=== PATIENT | female | born 1965 | race Caucasian/White ===

== ENCOUNTER 2016-06-11 00:49 | Emergency (ER) | payer MEDICAID ==
[~2016-06-11] VITALS: Ht 160 cm; Wt 94.3 kg
[~2016-06-11 00:49] MED LIST: AMIT10TA6 PO; BUDE0.5A2 IH; CEFD300C3 PO; CHLO500T2 PO; CLON0.253 PO; DICL50TA4 PO; GABA-488 PO; GLYB5TAB6 PO; HYDR-2856 PO; HYDR-3004 PO; INSU100V5 SQ; IPRA3AMP11 INH; IRON18TA PO; KETO10TA77 PO; LEVO75TA57 PO; LOVA40TA2 PO; MELO-195 PO; METF500T8 PO; METH-53 PO; NAPR-243 PO; NAPR-684 PO; NAPR220T29 PO; ORPH100T PO; OXYC-12 PO; OXYC-272 PO; PANT20TA2 PO; PRD20T PO; PRIM50TA26 PO; PROP120C36 PO; SERT25TA PO; TRM50T PO
--- OUTSIDE RECORDS SUMMARY | 2016-06-11 00:55 | XMS REPORT | Continuity of Care Document ---
Author Author [facility] Organization [facility] Address Unknown Phone Unavailable Care Team Providers Care Scooper Name Role Phone PCP Unavailable Source Comments Some departments are not documenting in the electronic medical record. If you do not see the information that you expected, contact Release of Information in the Health Information Management department at [phone] for further assistance in locating additional records.[facility] Active Allergies and Adverse Reactions Not on File Current Medications Not on file Active Problems Not on file Social History Tobacco Use Types Packs/Day Years Used Date Never Assessed Plan of Care Health Maintenance Due Date Last Done Comments Physical (Comprehensive) 1973 Exam Pertussis Vaccine 1977 Tetanus Vaccine 1983 Cervical Cancer Screening 1987 Breast Cancer Screening 2006 Influenza Vaccine 12/09/2015 Results from Last 3 Months Not on file
[2016-06-11] MEDS ORDERED: AMOX1TAB12 (01:08)
--- NOTE | 2016-06-11 01:19 | ED Neurological Problem ---
General Chief Complaint: Glucose Problems Stated Complaint: LOW BP, HIGH BS Nursing Triage Note: Patient reports awoke by family as pt was diaphorectic/pale and blood sugar elevated to 283, B/P was 80/45 and pt dizzy. Pt arrival per [facility] Nursing Sepsis Screen: No Definite Risk Source: patient, EMS, RN notes reviewed Exam Limitations: no limitations History of Present Illness Time seen by provider: 01:18 Initial Comments As above and below. Just completing 14 day course of Augmentin for a "bad" sinus infection. States her BP always runs low. 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) Allergies and Home Medications Allergies Coded Allergies: Sulfa (Sulfonamide Antibiotics) (Unverified Allergy, Unknown, 06/24/13) codeine (Unverified Allergy, Unknown, 06/24/13) vancomycin (Unverified Adverse Reaction, Mild, redness, 06/24/13) Home Medications Albuterol/Ipratropium 3 Ml Nebu #1 3 ML INH Q4H Prescribed by: JANNIE IVY on 08/07/14 2316 Amitriptyline Hcl 10 Mg Tablet 1 EACH PO HS (Reported) Amoxicillin/Potassium Clav 1 Each Tablet #8 (Reported) Clonazepam 0.25 Mg/Tab Tab.rapdis Unknown Dose PO BID (Reported) Diclofenac Potassium 50 Mg Tablet 75 MG PO BID (Reported) Gabapentin 300 Mg Capsule 800 MG PO TID (Reported) Glyburide 5 Mg Tablet 2 EACH PO BIDAC (Reported) Hydroxyzine Hcl 25 Mg Tablet 25 MG PO TID (Reported) Insulin Detemir 100 U/Ml Vial 55 U SQ BID (Reported) Levofloxacin 500 Mg Tablet #7 500 MG PO DAILY Prescribed by: AKI DECKER on 06/11/16 0339 Lovastatin 40 Mg Tablet 1 EACH PO DAILY WITH SUPPER (Reported) Metformin Hcl 500 Mg Tab.sr.24h 2 EACH PO DAILY WITH MEAL (Reported) Methocarbamol 750 Mg Tablet 1 EACH PO TID (Reported) Naproxen 500 Mg Tablet #20 1 EACH PO TID PRN PRN PRN PAIN Prescribed by: RADHA DOUGLASS on 03/24/14 1232 Naproxen Sodium 220 Mg Tablet 500 MG PO BID PRN PRN PAIN (Reported) Oxycodone Hcl/Acetaminophen 1 Each Tablet #20 1 EACH PO Q4-6H PRN PRN PRN PAIN ( Reported) Oxycodone Hcl/Acetaminophen 1 Tab Tablet #14 1-2 TAB PO Q4H PRN PRN PAIN Prescribed by: JETT CAMACHO on 11/10/14 0225 Prednisone 20 Mg Tablet 5Days 40 MG PO DAILY Prescribed by: JULIA THOMPSON on 02/01/14 1301 Prednisone 20 Mg Tab #8 40 MG PO DAILY Prescribed by: RADHA DOUGLASS on 12/07/14 2311 Primidone 50 Mg Tablet 100 MG PO AM (Reported) Primidone 50 Mg Tablet 50 MG PO 1200 (Reported) Primidone 50 Mg Tablet 100 MG PO HS (Reported) Sertraline Hcl 25 Mg Tablet 150 MG PO DAILY (Reported) Constitutional: see HPI diaphoresis dizziness Gastrointestinal: nausea Psychiatric/Neurological: See HPI All Other Systems Reviewed Negative Unless Noted: Yes (Negative excepted noted.) Past Didwxff-Hibmuz-Dibwnr Hx Patient Social History Alcohol Use: Denies Use Recreational Drug Use: No Smoking Status: Never a Smoker 2nd Hand Smoke Exposure: Yes (ALL OF LIFE, INCLUDING NOW) Recent Foreign Travel: No Contact w/Someone Who Travel: No Recent Infectious Disease Expo: No Recent Hopitalizations: No Immunizations Up To Date Date of Pneumonia Vaccine: Jul 08, 2012 Date of Influenza Vaccine: Jan 07, 2016 Seasonal Allergies Seasonal Allergies: No Surgeries HX Surgeries: Yes (BACK SURGERY, LAPAROSCOPY) Surgeries: Abdominal, Section, Hysterectomy, Oophorectomy, Orthopedic , Thyroidectomy Respiratory Hx Respiratory Disorders: Yes Respiratory Disorders: Chronic Bronchitis, COPD Cardiovascular Hx Cardiac Disorders: Yes Cardiac Disorders: 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, Hypertension Neurological Hx Neurological Disorders: Yes (TREMORS) 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 System Hx 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 Genitourinary Hx Genitourinary Disorders: Yes Genitourinary Disorders: UTI-Chronic Gastrointestinal Hx Gastrointestinal Disorders: Yes (h pylori hx) Gastrointestinal Disorders: Gastroesophageal Reflux Musculoskeletal Hx Musculoskeletal Disorders: Yes Musculoskeletal Disorders: Degenerate Disk Disease, Arthritis, Chronic Back Pain Endocrine Hx Endocrine Disorders: Yes (GRAVE'S DISEASE--S/P THYROIDECTOMY) Endocrine Disorders: Diabetes, Insulin dep, Hypothyroidsim HEENT HX ENT Disorders: No Cancer Hx Cancer: No Psychosocial Hx Psychiatric Problems: Yes Behavioral Health Disorders: Anxiety, Depression Integumentary HX Skin/Integumentary Disorder: No Blood Transfusions Hx Blood Disorders: No Adverse Reaction to a Blood Tr: No Family Medical History Significant Family History: No Pertinent Family Hx Physical Exam Vital Signs Vital Sign - Last 12Hours 06/11/16 00:49 Temp 96.6 Pulse 89 Resp 21 B/P 109/69 Pulse Ox 97 O2 Delivery Room Air Capillary Refill : Less Than 3 Seconds General Appearance: WD/WN no apparent distress obese HEENT: normal ENT inspection Neck: supple normal inspection Respiratory: no respiratory distress Cardiovascular: regular rate, rhythm Gastrointestinal: other (obese) Extremities: normal inspection Neurologic/Psychiatric: no motor/sensory deficits alert oriented x 3 Crainal Nerves: normal hearing normal speech PERRL Coordination/Gait: normal gait Motor/Sensory: no motor deficit no sensory deficit Skin: warm/dry Progress/Results/Core Measures Results/Orders Lab Results Laboratory Tests Test 06/11/16 00:58 06/11/16 02:23 Range/Units Alanine Aminotransferase (ALT/SGPT) 7 0-55 U/L Albumin 3.4 3.2-4.5 G/DL Alkaline Phosphatase 94 40-136 U/L Anion Gap 11 5-14 MMOL/L Aspartate Amino Transf (AST/SGOT) 15 5-34 U/L B-Type Natriuretic Peptide < 10.0 <100.0 PG/ML BUN/Creatinine Ratio 18 Basophils # (Auto) 0.0 0.0-0.1 10^3/uL Basophils (%) (Auto) 0 0-10 % Blood Urea Nitrogen 14 7-18 MG/DL Calcium Level 8.2 L 8.5-10.1 MG/DL Carbon Dioxide Level 20 L 21-32 MMOL/L Chloride Level 106 98-107 MMOL/L Creatinine 0.80 0.60-1.30 MG/DL Eosinophils # (Auto) 0.1 0.0-0.3 10^3/uL Eosinophils (%) (Auto) 2 0-10 % Estimat Glomerular Filtration Rate > 60 Glucose Level 214 H 70-105 MG/DL Hematocrit 42 35-52 % Hemoglobin 13.9 11.5-16.0 G/DL Lymphocytes # (Auto) 2.6 1.0-4.0 X 10^3 Lymphocytes (%) (Auto) 39 12-44 % Magnesium Level 1.9 1.8-2.4 MG/DL Mean Corpuscular Hemoglobin 32 25-34 PG Mean Corpuscular Hemoglobin Concent 33 32-36 G/DL Mean Corpuscular Volume 96 80-99 FL Mean Platelet Volume 13.3 H 7.4-10.4 FL Monocytes # (Auto) 0.8 0.0-1.0 X 10^3 Monocytes (%) (Auto) 13 H 0-12 % Neutrophils # (Auto) 3.1 1.8-7.8 X 10^3 Neutrophils (%) (Auto) 46 42-75 % Platelet Count 189 130-400 10^3/uL Potassium Level 4.0 3.6-5.0 MMOL/L Red Blood Count 4.38 4.35-5.85 10^6/uL Red Cell Distribution Width 13.6 10.0-14.5 % Sodium Level 137 135-145 MMOL/L Total Bilirubin 0.2 0.1-1.0 MG/DL Total Protein 5.7 L 6.4-8.2 G/DL Troponin I < 0.30 <0.30 NG/ML White Blood Count 6.7 4.3-11.0 10^3/uL Urine Bacteria TRACE /HPF Urine Bilirubin NEGATIVE NEGATIVE Urine Casts NONE /LPF Urine Clarity CLEAR Urine Color YELLOW Urine Crystals NONE /LPF Urine Culture Indicated YES Urine Glucose (UA) 4+ H NEGATIVE Urine Ketones NEGATIVE NEGATIVE Urine Leukocyte Esterase 2+ H NEGATIVE Urine Mucus NEGATIVE /LPF Urine Nitrite NEGATIVE NEGATIVE Urine Protein 1+ H NEGATIVE Urine RBC NONE /HPF Urine RBC (Auto) NEGATIVE NEGATIVE Urine Specific [place] 1.015 L 1.016-1.022 Urine Squamous Epithelial Cells 5-10 /HPF Urine Urobilinogen NORMAL NORMAL MG/DL Urine WBC 10-25 H /HPF Urine pH 5 5-9 My Orders Orders-AKI DECKER DO Orthostatic Vital Signs (06/11/16 01:19) Ekg Tracing (06/11/16 01:19) BNP (06/11/16 01:19) Cbc With Automated Diff (06/11/16:19) Comprehensive Metabolic Panel (06/11/16:19) Magnesium (06/11/16:19) Troponin I (06/11/16:19) Ua Culture If Indicated (06/11/16:19) Chest 1 View, Ap/Pa Only (06/11/16:19) Ns Iv 1000 Ml (Sodium Chloride 0.9%) (06/11/16 02:15) Urine Culture (06/11/16 02:23) Levofloxacin Tablet (Levaquin Tablet) (06/11/16 03:45) Medications Given in ED Current Medications Medications Dose Ordered Sig/Darren Route Start Time Stop Time Status Last Admin Dose Admin Levofloxacin 500 mg ONCE ONCE PO 06/11/16 03:45 06/11/16 03:46 DC 06/11/16 03:47 500 MG Sodium Chloride 1,000 ml @ 0 mls/hr Q0M ONCE IV 06/11/16 02:15 06/11/16 02:16 DC 06/11/16 02:24 999 MLS/HR Vital Signs/I&O Vital Sign - Last 12Hours 06/11/16 06/11/16 00:49 01:53 Temp 96.6 Pulse 89 85 87 90 Resp 21 B/P 109/69 Pulse Ox 97 O2 Delivery Room Air Blood Pressure Mean: 82 ECG Initial ECG Impression Date: Jun 11, 2016 Initial ECG Impression Time: 01:45 Initial ECG Rate: 85 Initial ECG Rhythm: Normal Sinus Initial ECG Intervals: Normal Initial ECG Impression: Normal Initial ECG Comparisson: Unchanged Departure Impression Impression: Primary Impression: UTI (urinary tract infection) Disposition: 01 HOME, SELF-CARE Condition: Improved Departure-Patient Inst. Decision time for Depature: 03:37 Referrals: COLLEEN MORILLO MD, ([facility]) (PCP) Primary Care Physician Patient Instructions: Urinary Tract Infection, Adult (DC) Add. Discharge Instructions: All discharge instructions reviewed with patient and/or family. Voiced understanding. STOP THE AUGMENTIN AND SWITCH OVER TO THE NEW ANTIBIOTIC. NEED TO CHECK WITH YOUR PCP IN 48 HOURS REGARDING YOUR URINE CULTURE TO MAKE SURE YOU ARE ON THE BEST ANTIBIOTIC. NEED TO PUSH FLUIDS. Scripts Levofloxacin (Levaquin)500 Mg [id number] Mg PO DAILY UTI #7 TAB Ref 0 Prov:AKI DECKER DO 06/11/16 AKI DECKER DO Jun 11, 2016 01:19
[2016-06-11 01:26] LABS: BASOPHILS % (AUTO) 0 % (0-10); EOSINOPHILS # (AUTO) 0.1 10^3/uL (0.0-0.3); EOSINOPHILS % (AUTO) 2 % (0-10); LYMPHOCYTES # (AUTO) 2.6 X 10^3 (1.0-4.0); LYMPHOCYTES % (AUTO) 39 % (12-44); MEAN CORPUSCULAR HEMOGLOBIN 32 PG (25-34); MEAN CORPUSCULAR HGB CONC 33 G/DL (32-36); MEAN CORPUSCULAR VOLUME 96 FL (80-99); MEAN PLATELET VOLUME 13.3 FL (7.4-10.4); MONOCYTES # (AUTO) 0.8 X 10^3 (0.0-1.0); MONOCYTES % (AUTO) 13 % (0-12); NEUTROPHILS # (AUTO) 3.1 X 10^3 (1.8-7.8); NEUTROPHILS % (AUTO) 46 % (42-75); PLATELET COUNT 189 10^3/uL (130-400); RED BLOOD COUNT 4.38 10^6/uL (4.35-5.85); RED CELL DISTRIBUTION WIDTH 13.6 % (10.0-14.5); WHITE BLOOD COUNT 6.7 10^3/uL (4.3-11.0)
[2016-06-11 01:59] LABS: ALANINE AMINOTRANSFERASE 7 U/L (0-55); ALBUMIN 3.4 G/DL (3.2-4.5); ANION GAP 11 MMOL/L (5-14); ASPARTATE AMINO TRANSFERASE 15 U/L (5-34); BILIRUBIN,TOTAL 0.2 MG/DL (0.1-1.0); BLOOD UREA NITROGEN 14 MG/DL (7-18); BUN/CREATININE RATIO 18; CALCIUM 8.2 MG/DL (8.5-10.1); CARBON DIOXIDE 20 MMOL/L (21-32); CHLORIDE 106 MMOL/L (98-107); GFR ESTIMATED > 60; GLUCOSE 214 MG/DL (70-105); MAGNESIUM 1.9 MG/DL (1.8-2.4); SODIUM 137 MMOL/L (135-145); TOTAL PROTEIN 5.7 G/DL (6.4-8.2)
[2016-06-11 02:07] LABS: TROPONIN I < 0.30 NG/ML (<0.30)
[2016-06-11] MEDS ORDERED: NS IV 1000 ML 1,000 ML IV ONE (02:15)
[2016-06-11 03:21] LABS: BILIRUBIN,URINE NEGATIVE (NEGATIVE); KETONES,URINE NEGATIVE (NEGATIVE); LEUKOCYTE ESTERASE ,URINE 2+ (NEGATIVE); NITRITE,URINE NEGATIVE (NEGATIVE); PH,URINE 5 (5-9); PROTEIN,URINE 1+ (NEGATIVE); UROBILINOGEN,URINE NORMAL (NORMAL)
[2016-06-11] MEDS ORDERED: LEVO500T2 PO (03:39)
[2016-06-11] MEDS ORDERED: LEVOFLOXACIN 500 MG TAB (LEVAQUIN) PO ONE (03:45)
[2016-06-11 03:54] VITALS: BP 102/62
--- NOTE | 2016-06-11 08:37 | Diagnostic Imaging Report ---
INDICATION: Shortness of breath. Comparison made with prior examination from 08/07/14. FINDINGS: The heart size is normal. The mediastinum is unremarkable. There is no pleural effusion or pneumothorax. There is some minimal right basilar subsegmental atelectasis and/or pneumonitis. IMPRESSION: Minimal right basilar subsegmental atelectasis and/or pneumonitis. Dictated by: Dictated on workstation # [id number]
== END 2016-06-11 03:54 | disposition home or self-care (01) ==
LOC: EDUNIT# 00:49 → ER 00:51
DX: N39.0 Urinary tract infection, site not specified (principal); E11.65 Type 2 diabetes mellitus with hyperglycemia; I10 Essential (primary) hypertension; J44.9 Chronic obstructive pulmonary disease, unspecified; Z79.84 Long term (current) use of oral hypoglycemic drugs; Z79.4 Long term (current) use of insulin; Z79.899 Other long term (current) drug therapy; Z77.22 Contact with and (suspected) exposure to environmental tobacco smoke (acute) (chronic)
CPT/HCPCS: 36415; 71010; 80053; 81000; 83735; 83880; 84484; 85025; 87088; 93005; 96360

== ENCOUNTER → 2016-06-13 | Outpatient (CLI) | payer MEDICAID ==
[~2016-06-13] MED LIST changes: +AMOX1TAB12; +LEVO500T2 PO
--- OUTSIDE RECORDS SUMMARY | 2016-06-13 12:57 | XMS REPORT | Continuity of Care Document ---
Author Author [facility] Organization [facility] Address Unknown Phone Unavailable Care Team Providers Care Garnett Mechanic Name Role Phone PCP Unavailable Source Comments Some departments are not documenting in the electronic medical record. If you do not see the information that you expected, contact Release of Information in the Health Information Management department at [phone] for further assistance in locating additional records.[facility] Active Allergies and Adverse Reactions Not on [...]
--- NOTE | 2016-06-13 13:15 | Diagnostic Imaging Report ---
PROCEDURE: CT sinuses without contrast TECHNIQUE: Multiple contiguous axial images were obtained through the sinuses without the use of intravenous contrast. Coronal and sagittal reformations were then performed. INDICATION: Chronic sinusitis, left greater than right pain. COMPARISON: None. DISCUSSION: The paranasal sinuses are well aerated. No mucosal thickening identified. The ostiomeatal units and sphenoid ostia are patent. Mild rightward nasal septal deviation. Small leftward-protruding nasal spur. The visualized orbits, intracranial contents, facial soft tissues, and mastoid air cells are unremarkable. No osseous abnormality. IMPRESSION: 1. The paranasal sinuses are well aerated. Dictated by: Dictated on workstation # [id number]
== END ==
LOC: RAD 12:54
PROVIDERS: ATTEND Otolaryngology Otolaryngology/Facial Plastic Surgery
DX: J32.1 Chronic frontal sinusitis (principal); J32.0 Chronic maxillary sinusitis; J32.4 Chronic pansinusitis
CPT/HCPCS: 70486

== ENCOUNTER 2016-10-17 21:52 | Emergency (ER) | payer MEDICARE, MEDICAID ==
[~2016-10-17] VITALS: Ht 160 cm; Wt 92.1 kg
--- OUTSIDE RECORDS SUMMARY | 2016-10-17 21:58 | XMS REPORT ---
Author Author MICHEAL MENDOZA [facility] [employer] Address Unknown Phone Unavailable Care Team Providers Care Heel Stainer Name Role Phone MICHEAL MENDOZA CP Unavailable Allergies No Known Allergies Problems Problem Type Condition Code Onset Dates Condition Status Problem Lumbago 724.2 Active Problem Essential and other specified forms of tremor 333.1 Active Problem Diabetes mellitus without mention of complication, type II or unspecified type, uncontrolled 250.02 Active Problem Chronic pain syndrome 338.4 Active Problem Contusion of toe 924.3 Active Problem Acute pharyngitis 462 Active Problem Nausea alone 787.02 Active Problem Bunion 727.1 Active Problem Pain in joint, pelvic region and thigh 719.45 Active Problem Urinary tract infection, site not specified 599.0 Active Problem Dysuria 788.1 Active Problem Anxiety state, unspecified 300.00 Active Problem Rash and other nonspecific skin eruption 782.1 Active Problem Dermatophytosis of nail 110.1 Active Problem Cellulitis and abscess of unspecified site 682.9 Active Problem Suicidal ideation V62.84 Active Problem Depressive disorder, not elsewhere classified 311 Active Problem Major depressive disorder, recurrent episode, moderate 296.32 Active Problem Generalized anxiety disorder 300.02 Active Problem Posttraumatic stress disorder 309.81 Active Problem Esophageal reflux 530.81 Active Problem Major depressive disorder, single episode, moderate 296.22 Active Problem Bipolar I disorder, most recent episode (or current) mixed, severe, specified as with psychotic behavior 296.64 Active Problem Hallux valgus (acquired) 735.0 Active Problem Diarrhea 787.91 Active Problem Other and unspecified hyperlipidemia 272.4 Active Problem Other specified disease of nail 703.8 Active Medications No Known Medications Results No Known Results Summary Purpose [employer] Submission
--- OUTSIDE RECORDS SUMMARY | 2016-10-17 21:59 | XMS REPORT ---
Author Author MICHEAL MENDOZA [facility] [employer] Address Unknown Phone Unavailable Care Team Providers Care Medical Microbiologist Name Role Phone MICHEAL MENDOZA CP Unavailable Allergies, Adverse Reactions, Alerts Substance Reaction Event Type latex Info Not Available Non Drug Allergy sulfa Info Not Available Non Drug Allergy codiene Info Not Available Non Drug Allergy penicillin Info Not Available Non Drug Allergy Problems Problem Type Condition Code Onset Dates Condition Status Assessment Encounter for dental examination Z01.20 Active Problem Lumbago 724.2 Active Problem Essential and [...] specified disease of nail 703.8 Active Medications Medication Code System Code Instructions Start Date End Date Status Dosage Primidone [facility] [address]-68 50 mg Nov 25, 2013 take 2 tablets by Oral route 2 times per day Zofran ODT [facility] [address]-28 8 mg Dec 19, 2013 1 tablet by Oral route every 8 hours PRN nausea or vomiting Lantus [facility] [address]-10 not defined Levemir FlexTouch [facility] [address]-29 100 unit/mL (3 mL) Apr 15, 2014 inject 52 Units by Subcutaneous route 2 times per day Albuterol Sulfate [facility] [address]-90 1.25 mg/3 mL August 22, 2013 inhale 6 milliliters (2.5 mg) via nebulizer by inhalation route 4 times per day PRN Gabapentin [facility] [address]-66 600 mg May 12, 2014 1 Capsule by Oral route 3 times per day tizanidine NDC 0 4 mg May 12, 2014 1 tablet by Oral route 3 times per day stop flexeril Albuterol Sulfate [facility] [address]-47 90 mcg/actuation Jan 02, 2014 2 puffs by Inhalation route every 4-6 hours as needed PRN cough or wheezing Bactroban [facility] [address]-00 2 % September 19, 2013 1 tuyet by Topical route 2 times per day for 14 day(s) levothyroxine ND 0 50 mcg Apr 15, 2014 take 1 tablet by Oral route 1 time per day Will need labs before further refills ProAir HFA [facility] [address]-73 90 mcg/actuation May 05, 2014 inhale 2 puffs by Inhalation route every 4-6 hours as needed PRN shortness of breath/ cough Ketoconazole [facility] [address]-46 2 % October 07, 2013 1 tuyet by Topical route 1 time per day Ferrous Sulfate [facility] [address]-75 325 mg (65 mg iron) Apr 15, 2014 1 tablet by Oral route 1 time per day Procedures Procedure Coding System Code Date PANORAMIC FILM SEE ALSO CODE 48960 CPT-4 D0330 Feb 18, 2015 COMP ORAL EVALUATION - NEW/EST PT CPT-4 D0150 Feb 18, 2015 Vital Signs Date/Time: Feb 18, 2015 Blood Pressure Diastolic 64 mmHg Blood Pressure Systolic 116 mmHg Cardiac Monitoring Heart Rate 98 bpm Results No Known Results Summary Purpose [employer] Submission
--- OUTSIDE RECORDS SUMMARY | 2016-10-17 22:01 | XMS REPORT | Continuity of Care Document ---
Author Author [facility] Address Unknown Phone Unavailable Allergies Active Description Code Type Severity Reaction Onset Reported/Identified Relationship to Patient Clinical Status Yes codeine Drug Allergy N/A N/A 03/22/2011 Yes Sulfa (Sulfonamide Antibiotics) Drug Allergy N/A N/A 03/22/2011 Yes vancomycin Drug Allergy N/A N/A 03/22/2011 Yes vancomycin [id number] Drug Allergy Mild redness 06/24/2013 Yes codeine [id number] Drug Allergy Unknown N/A 06/24/2013 Yes Sulfa (Sulfonamide Antibiotics) [id number] Drug Allergy Unknown N/A 06/24/2013 Yes Victoza Drug Allergy N/A N/A 08/22/2013 Medications Problems Date Dx Coded Attending Type Code Diagnosis Diagnosed By 03/08/1699 ILIA RANGEL, COLLEEN Kang (DDU) Ot Z02.71 ENCOUNTER FOR DISABILITY DETERMINATION 03/22/2011 JEFF PANTOJA APRN R 242.00 GRAVES' DISEASE (DIFFUSE TOXIC GOITER) 03/22/2011 JEFF PANTOJA APRN R 250.00 DIABETES MELLITUS POORLY CONTROLLED 03/22/2011 JEFF PANTOJA APRN R 719.41 joint pain, localized in the shoulder 03/22/2011 AIK ESCOBEDO DO 242.00 GRAVES' DISEASE (DIFFUSE TOXIC GOITER) 03/22/2011 AKI ESCOBEDO DO K 250.00 DIABETES MELLITUS POORLY CONTROLLED 03/22/2011 AKI ESCOBEDO DO 719.41 joint pain, localized in the shoulder 03/22/2011 ADAIR PHD, POLI Strauss 242.00 GRAVES' DISEASE (DIFFUSE TOXIC GOITER) 03/22/2011 ADAIR HARMAN, POLI Strauss 250.00 DIABETES MELLITUS POORLY CONTROLLED 03/22/2011 ADAIR HARMAN, POLI Strauss 719.41 joint pain, localized in the shoulder 03/22/2011 JEFF PANTOJA APRN R 242.00 GRAVES' DISEASE (DIFFUSE TOXIC GOITER) 03/22/2011 KIT SCHOOL TREASURER, JEFF R 250.00 DIABETES MELLITUS POORLY CONTROLLED 03/22/2011 KIT SCHOOL TREASURER, JEFF R 719.41 joint pain, localized in the shoulder 03/22/2011 KIT SCHOOL TREASURER, JEFF R 242.00 GRAVES' DISEASE (DIFFUSE TOXIC GOITER) 03/22/2011 KIT SCHOOL TREASURER, JEFF R 250.00 DIABETES MELLITUS POORLY CONTROLLED 03/22/2011 KIT SCHOOL TREASURER, JEFF R 719.41 joint pain, localized in the shoulder 03/22/2011 POLI BORRERO PHD 242.00 GRAVES' DISEASE (DIFFUSE TOXIC GOITER) 03/22/2011 POLI BORRERO PHD 250.00 DIABETES MELLITUS POORLY CONTROLLED 03/22/2011 POLI BORRERO PHD 719.41 joint pain, localized in the shoulder 03/22/2011 KIT CALDERONN, JEFF R 242.00 GRAVES' DISEASE (DIFFUSE TOXIC GOITER) 03/22/2011 KIT CALDERONN, JEFF R 250.00 DIABETES MELLITUS POORLY CONTROLLED 03/22/2011 KIT CASTAÑEDA, JEFF R 719.41 joint pain, localized in the shoulder 03/22/2011 KIT CALDERONN, JEFF R 242.00 GRAVES' DISEASE (DIFFUSE TOXIC GOITER) 03/22/2011 KIT CALDERONN, JEFF R 250.00 DIABETES MELLITUS POORLY CONTROLLED 03/22/2011 KIT CASTAÑEDA, JEFF R 719.41 joint pain, localized in the shoulder 03/22/2011 KIT CALDERONN, JEFF R 242.00 GRAVES' DISEASE (DIFFUSE TOXIC GOITER) 03/22/2011 KIT SCHOOL TREASURER, JEFF R 250.00 DIABETES MELLITUS POORLY CONTROLLED 03/22/2011 KIT CASTAÑEDA JEFF R 719.41 joint pain, localized in the shoulder 03/22/2011 KIT CALDERONN, JEFF R 242.00 GRAVES' DISEASE (DIFFUSE TOXIC GOITER) 03/22/2011 KIT SCHOOL TREASURER, JEFF R 250.00 DIABETES MELLITUS POORLY CONTROLLED 03/22/2011 KIT CALDERONN, JEFF R 719.41 joint pain, localized in the shoulder 03/22/2011 ALMA ROSA ECKERT APRNIA R 242.00 GRAVES' DISEASE (DIFFUSE TOXIC GOITER) 03/22/2011 ANT ECKERT APRNRICIA R 250.00 DIABETES MELLITUS POORLY CONTROLLED 03/22/2011 BABAR CASTAÑEDA MEHDI R 719.41 joint pain, localized in the shoulder 03/22/2011 KIT SCHOOL TREASURER, JEFF R 242.00 GRAVES' DISEASE (DIFFUSE TOXIC GOITER) 03/22/2011 KIT CALDERONN, JEFF R 250.00 DIABETES MELLITUS POORLY CONTROLLED 03/22/2011 KIT CALDERONN, JEFF R 719.41 joint pain, localized in the shoulder 03/22/2011 KIT CALDERONN, JEFF R 242.00 GRAVES' DISEASE (DIFFUSE TOXIC GOITER) 03/22/2011 KIT CALDERONN, JEFF R 250.00 DIABETES MELLITUS POORLY CONTROLLED 03/22/2011 KIT CASTAÑEDA JEFF R 719.41 joint pain, localized in the shoulder 03/22/2011 KAREN RANGEL, HAFSA N 242.00 GRAVES' DISEASE (DIFFUSE TOXIC GOITER) 03/22/2011 KAREN RANGEL, HAFSA N 250.00 DIABETES MELLITUS POORLY CONTROLLED 03/22/2011 HAFSA JONES MD N 719.41 joint pain, localized in the shoulder 03/22/2011 KIT CASTAÑEDA, JEFF R 242.00 GRAVES' DISEASE (DIFFUSE TOXIC GOITER) 03/22/2011 KIT CASTAÑEDA JEFF R 250.00 DIABETES MELLITUS POORLY CONTROLLED 03/22/2011 KIT CASTAÑEDA JEFF R 719.41 joint pain, localized in the shoulder 03/22/2011 URIEL CASTAÑEDA, YAZAN L 242.00 GRAVES' DISEASE (DIFFUSE TOXIC GOITER) 03/22/2011 URIEL CASTAÑEDA, YAZAN L 250.00 DIABETES MELLITUS POORLY CONTROLLED 03/22/2011 CHARLOTTEL MADDY YAZAN L 719.41 joint pain, localized in the shoulder 03/22/2011 KIT CASTAÑEDA JEFF R 242.00 GRAVES' DISEASE (DIFFUSE TOXIC GOITER) 03/22/2011 KIT CASTAÑEDA JEFF R 250.00 DIABETES MELLITUS POORLY CONTROLLED 03/22/2011 KIT CASTAÑEDA JEFF R 719.41 joint pain, localized in the shoulder 03/22/2011 KIT CASTAÑEDA JEFF R 242.00 GRAVES' DISEASE (DIFFUSE TOXIC GOITER) 03/22/2011 KIT CASTAÑEDA JEFF R 250.00 DIABETES MELLITUS POORLY CONTROLLED 03/22/2011 KIT CASTAÑEDA JEFF R 719.41 joint pain, localized in the shoulder 03/22/2011 KIT CASTAÑEDA JEFF R 242.00 GRAVES' DISEASE (DIFFUSE TOXIC GOITER) 03/22/2011 KIT SCHOOL TREASURER, JEFF R 250.00 DIABETES MELLITUS POORLY CONTROLLED 03/22/2011 KIT CASTAÑEDA, JEFF R 719.41 joint pain, localized in the shoulder 03/22/2011 ESCOBEDO DO, AKI K 242.00 GRAVES' DISEASE (DIFFUSE TOXIC GOITER) 03/22/2011 ESCOBEDO DO, AKI K 250.00 DIABETES MELLITUS POORLY CONTROLLED 03/22/2011 ESCOBEDO DO, AKI K 719.41 joint pain, localized in the shoulder 03/22/2011 KIT CASTAÑEDA JEFF R 242.00 GRAVES' DISEASE (DIFFUSE TOXIC GOITER) 03/22/2011 KIT CALDERONN JEFF R 250.00 DIABETES MELLITUS POORLY CONTROLLED 03/22/2011 KIT CASTAÑEDA JEFF R 719.41 joint pain, localized in the shoulder 03/22/2011 KAREL CIRCULATION WORKER KARLA B 242.00 GRAVES' DISEASE (DIFFUSE TOXIC GOITER) 03/22/2011 KAREL CIRCULATION WORKER KARLA B 250.00 DIABETES MELLITUS POORLY CONTROLLED 03/22/2011 KAREL CIRCULATION WORKER KARLA B 719.41 joint pain, localized in the shoulder 03/22/2011 RIAN DPM, SHANTE 242.00 GRAVES' DISEASE (DIFFUSE TOXIC GOITER) 03/22/2011 RIAN DPM, SHANTE 250.00 DIABETES MELLITUS POORLY CONTROLLED 03/22/2011 RIAN DPM, SHANTE 719.41 joint pain, localized in the shoulder 03/22/2011 JAVIER DAVID APRN J 242.00 GRAVES' DISEASE (DIFFUSE TOXIC GOITER ) 03/22/2011 JAVIER DAVID APRN J 250.00 DIABETES MELLITUS POORLY CONTROLLED 03/22/2011 JAVIER DAVID APRN J 719.41 joint pain, localized in the shoulder 03/22/2011 WALTER PANTOJA APRNINA R 242.00 GRAVES' DISEASE (DIFFUSE TOXIC GOITER) 03/22/2011 KIT CASTAÑEDA JEFF R 250.00 DIABETES MELLITUS POORLY CONTROLLED 03/22/2011 KIT CASTAÑEDA JEFF R 719.41 joint pain, localized in the shoulder 03/22/2011 KIT CASTAÑEDA JEFF R 242.00 GRAVES' DISEASE (DIFFUSE TOXIC GOITER) 03/22/2011 WALTER PANTOJA APRNINA R 250.00 DIABETES MELLITUS POORLY CONTROLLED 03/22/2011 WALTER PANTOJA APRNINA R 719.41 joint pain, localized in the shoulder 03/22/2011 JAVIER DAVID APRN 242.00 GRAVES' DISEASE (DIFFUSE TOXIC GOITER ) 03/22/2011 JAVIER DAVID APRN 250.00 DIABETES MELLITUS POORLY CONTROLLED 03/22/2011 JAVIER DAVID APRN 719.41 joint pain, localized in the shoulder 06/07/2011 KIT CASTAÑEDA, JEFF R 333.1 FAMILIAL (BENIGN ESSENTIAL) TREMOR 06/07/2011 KIT CASTAÑEDA JEFF R 338.4 CHRONIC PAIN SYNDROME 06/07/2011 EMMA ESCOBEDO DOA K 333.1 FAMILIAL (BENIGN ESSENTIAL) TREMOR 06/07/2011 AKI ESCOBEDO DO K 338.4 CHRONIC PAIN SYNDROME 06/07/2011 ADAIR PHD, POLI Strauss 333.1 FAMILIAL (BENIGN ESSENTIAL) TREMOR 06/07/2011 ADAIR HARMAN, POLI Strauss 338.4 CHRONIC PAIN SYNDROME 06/07/2011 KIT CASTAÑEDA, JEFF R 333.1 FAMILIAL (BENIGN ESSENTIAL) TREMOR 06/07/2011 KIT CASTAÑEDA, JEFF R 338.4 CHRONIC PAIN SYNDROME 06/07/2011 KIT CASTAÑEDA JEFF R 333.1 FAMILIAL (BENIGN ESSENTIAL) TREMOR 06/07/2011 KIT CASTAÑEDA, JEFF R 338.4 CHRONIC PAIN SYNDROME 06/07/2011 ADAIR HARMAN, POLI Strauss 333.1 FAMILIAL (BENIGN ESSENTIAL) TREMOR 06/07/2011 ADAIR HARMAN, POLI Strauss 338.4 CHRONIC PAIN SYNDROME 06/07/2011 KIT CALDERONN, JEFF R 333.1 FAMILIAL (BENIGN ESSENTIAL) TREMOR 06/07/2011 KIT CASTAÑEDA, JEFF R 338.4 CHRONIC PAIN SYNDROME 06/07/2011 KIT CASTAÑEDA, JEFF R 333.1 FAMILIAL (BENIGN ESSENTIAL) TREMOR 06/07/2011 KIT CASTAÑEDA, JEFF R 338.4 CHRONIC PAIN SYNDROME 06/07/2011 KIT CASTAÑEDA, JEFF R 333.1 FAMILIAL (BENIGN ESSENTIAL) TREMOR 06/07/2011 KIT CASTAÑEDA, JEFF R 338.4 CHRONIC PAIN SYNDROME 06/07/2011 KIT CASTAÑEDA, JEFF R 333.1 FAMILIAL (BENIGN ESSENTIAL) TREMOR 06/07/2011 KIT CASTAÑEDA, JEFF R 338.4 CHRONIC PAIN SYNDROME 06/07/2011 ALMA ROSA ECKERT APRNIA R 333.1 FAMILIAL (BENIGN ESSENTIAL) TREMOR 06/07/2011 MEHDI ECKERT APRN R 338.4 CHRONIC PAIN SYNDROME 06/07/2011 KIT SCHOOL TREASURER, JEFF R 333.1 FAMILIAL (BENIGN ESSENTIAL) TREMOR 06/07/2011 KIT SCHOOL TREASURER, JEFF R 338.4 CHRONIC PAIN SYNDROME 06/07/2011 KIT SCHOOL TREASURER, JEFF R 333.1 FAMILIAL (BENIGN ESSENTIAL) TREMOR 06/07/2011 KIT SCHOOL TREASURER, JEFF R 338.4 CHRONIC PAIN SYNDROME 06/07/2011 KAREN RANGEL, HAFSA N 333.1 FAMILIAL (BENIGN ESSENTIAL) TREMOR 06/07/2011 KAREN RANGEL, HAFSA N 338.4 CHRONIC PAIN SYNDROME 06/07/2011 KIT CALDERONN, JEFF R 333.1 FAMILIAL (BENIGN ESSENTIAL) TREMOR 06/07/2011 KIT SCHOOL TREASURER, JEFF R 338.4 CHRONIC PAIN SYNDROME 06/07/2011 MADSue SCHOOL TREASURER, YAZAN L 333.1 FAMILIAL (BENIGN ESSENTIAL) TREMOR 06/07/2011 MADL MADDY, YAZAN L 338.4 CHRONIC PAIN SYNDROME 06/07/2011 KIT CALDERONN, JEFF R 333.1 FAMILIAL (BENIGN ESSENTIAL) TREMOR 06/07/2011 KIT CALDERONN, JEFF R 338.4 CHRONIC PAIN SYNDROME 06/07/2011 KIT CALDERONN, JEFF R 333.1 FAMILIAL (BENIGN ESSENTIAL) TREMOR 06/07/2011 KIT SCHOOL TREASURER, JEFF R 338.4 CHRONIC PAIN SYNDROME 06/07/2011 KIT CALDERONN, JEFF R 333.1 FAMILIAL (BENIGN ESSENTIAL) TREMOR 06/07/2011 KIT CALDERONN, JEFF R 338.4 CHRONIC PAIN SYNDROME 06/07/2011 ESCOBEDO DO, AKI K 333.1 FAMILIAL (BENIGN ESSENTIAL) TREMOR 06/07/2011 ESCOBEDO DO, AKI K 338.4 CHRONIC PAIN SYNDROME 06/07/2011 KIT CALDERONN, JEFF R 333.1 FAMILIAL (BENIGN ESSENTIAL) TREMOR 06/07/2011 KIT CALDERONN, JEFF R 338.4 CHRONIC PAIN SYNDROME 06/07/2011 KAREL CIRCULATION WORKER, KARLA B 333.1 FAMILIAL (BENIGN ESSENTIAL) TREMOR 06/07/2011 KAREL CIRCULATION WORKER, KARLA B 338.4 CHRONIC PAIN SYNDROME 06/07/2011 RIAN DPM, SHANTE 333.1 FAMILIAL (BENIGN ESSENTIAL) TREMOR 06/07/2011 RIAN DPM, SHANTE 338.4 CHRONIC PAIN SYNDROME 06/07/2011 JAVIER DAVID APRN J 333.1 FAMILIAL (BENIGN ESSENTIAL) TREMOR 06/07/2011 JOANN SCHOOL TREASURER, JAVIER J 338.4 CHRONIC PAIN SYNDROME 06/07/2011 KIT SCHOOL TREASURER, JEFF R 333.1 FAMILIAL (BENIGN ESSENTIAL) TREMOR 06/07/2011 KIT SCHOOL TREASURER, JEFF R 338.4 CHRONIC PAIN SYNDROME 06/07/2011 KIT SCHOOL TREASURER, JEFF R 333.1 FAMILIAL (BENIGN ESSENTIAL) TREMOR 06/07/2011 KIT SCHOOL TREASURER, JEFF R 338.4 CHRONIC PAIN SYNDROME 06/07/2011 JOANN SCHOOL TREASURER, JAVIER J 333.1 FAMILIAL (BENIGN ESSENTIAL) TREMOR 06/07/2011 JOANN SCHOOL TREASURER, JAVIER J 338.4 CHRONIC PAIN SYNDROME 06/28/2011 KIT SCHOOL TREASURER, JEFF R 272.4 HYPERLIPIDEMIA 06/28/2011 FANNY ELLIOTT AKI K 272.4 HYPERLIPIDEMIA 06/28/2011 ADAIR HARMAN, POLI Strauss 272.4 HYPERLIPIDEMIA 06/28/2011 KIT SCHOOL TREASURER, JEFF R 272.4 HYPERLIPIDEMIA 06/28/2011 KIT SCHOOL TREASURER, JEFF R 272.4 HYPERLIPIDEMIA 06/28/2011 ADAIR HARMAN, POLI Strauss 272.4 HYPERLIPIDEMIA 06/28/2011 KIT SCHOOL TREASURER, JEFF R 272.4 HYPERLIPIDEMIA 06/28/2011 KIT SCHOOL TREASURER, JEFF R 272.4 HYPERLIPIDEMIA 06/28/2011 KIT SCHOOL TREASURER, JEFF R 272.4 HYPERLIPIDEMIA 06/28/2011 KIT SCHOOL TREASURER, JEFF R 272.4 HYPERLIPIDEMIA 06/28/2011 BABAR CASTAÑEDA, MEHDI R 272.4 HYPERLIPIDEMIA 06/28/2011 KIT SCHOOL TREASURER, JEFF R 272.4 HYPERLIPIDEMIA 06/28/2011 KIT SCHOOL TREASURER, JEFF R 272.4 HYPERLIPIDEMIA 06/28/2011 KAREN RANGEL, HAFSA N 272.4 HYPERLIPIDEMIA 06/28/2011 KIT SCHOOL TREASURER, JEFF R 272.4 HYPERLIPIDEMIA 06/28/2011 URIEL CASTAÑEDA, YAZAN L 272.4 HYPERLIPIDEMIA 06/28/2011 KIT SCHOOL TREASURER, JEFF R 272.4 HYPERLIPIDEMIA 06/28/2011 KIT SCHOOL TREASURER, JEFF R 272.4 HYPERLIPIDEMIA 06/28/2011 KIT SCHOOL TREASURER, JEFF R 272.4 HYPERLIPIDEMIA 06/28/2011 FANNY ELLIOTT, AKI K 272.4 HYPERLIPIDEMIA 06/28/2011 KIT SCHOOL TREASURER, JEFF R 272.4 HYPERLIPIDEMIA 06/28/2011 KAREL WRIGHT, KARLA B 272.4 HYPERLIPIDEMIA 06/28/2011 RIAN DPM, SHANTE 272.4 HYPERLIPIDEMIA 06/28/2011 JOANN SCHOOL TREASURER, JAVIER J 272.4 HYPERLIPIDEMIA 06/28/2011 KIT SCHOOL TREASURER, JEFF R 272.4 HYPERLIPIDEMIA 06/28/2011 KIT SCHOOL TREASURER, JEFF R 272.4 HYPERLIPIDEMIA 06/28/2011 JOANN SCHOOL TREASURER, JAVIER J 272.4 HYPERLIPIDEMIA 07/31/2011 KIT SCHOOL TREASURER, JEFF R 530.81 ESOPHAGEAL REFLUX 07/31/2011 ESCOBEDO DO, AKI K 530.81 ESOPHAGEAL REFLUX 07/31/2011 ADAIR HARMAN, POLI Strauss 530.81 ESOPHAGEAL REFLUX 07/31/2011 KIT SCHOOL TREASURER, JEFF R 530.81 ESOPHAGEAL REFLUX 07/31/2011 KIT SCHOOL TREASURER, JEFF R 530.81 ESOPHAGEAL REFLUX 07/31/2011 ADAIR HARMAN, POLI Strauss 530.81 ESOPHAGEAL REFLUX 07/31/2011 KIT SCHOOL TREASURER, JEFF R 530.81 ESOPHAGEAL REFLUX 07/31/2011 KIT SCHOOL TREASURER, JEFF R 530.81 ESOPHAGEAL REFLUX 07/31/2011 KIT SCHOOL TREASURER, JEFF R 530.81 ESOPHAGEAL REFLUX 07/31/2011 KIT SCHOOL TREASURER, JEFF R 530.81 ESOPHAGEAL REFLUX 07/31/2011 BABAR CASTAÑEDA, MEHDI R 530.81 ESOPHAGEAL REFLUX 07/31/2011 KIT SCHOOL TREASURER, JEFF R 530.81 ESOPHAGEAL REFLUX 07/31/2011 KIT SCHOOL TREASURER, JEFF R 530.81 ESOPHAGEAL REFLUX 07/31/2011 KAREN RANGEL, HAFSA Mujica 530.81 ESOPHAGEAL REFLUX 07/31/2011 KIT SCHOOL TREASURER, JEFF R 530.81 ESOPHAGEAL REFLUX 07/31/2011 URIEL CASTAÑEDA, YAZAN Rogers 530.81 ESOPHAGEAL REFLUX 07/31/2011 KIT SCHOOL TREASURER, JEFF R 530.81 ESOPHAGEAL REFLUX 07/31/2011 KIT SCHOOL TREASURER, JEFF R 530.81 ESOPHAGEAL REFLUX 07/31/2011 KIT SCHOOL TREASURER, JEFF R 530.81 ESOPHAGEAL REFLUX 07/31/2011 ESCOBEDO DO, AKI K 530.81 ESOPHAGEAL REFLUX 07/31/2011 KIT SCHOOL TREASURER, JEFF R 530.81 ESOPHAGEAL REFLUX 07/31/2011 KAREL WRIGHT, KARLA Haq 530.81 ESOPHAGEAL REFLUX 07/31/2011 RIAN DANIELS, SHANTE 530.81 ESOPHAGEAL REFLUX 07/31/2011 JOANN CASTAÑEDA, JAVIER J 530.81 ESOPHAGEAL REFLUX 07/31/2011 KIT SCHOOL TREASURER, JEFF R 530.81 ESOPHAGEAL REFLUX 07/31/2011 KIT SCHOOL TREASURER, JEFF R 530.81 ESOPHAGEAL REFLUX 07/31/2011 JOANN SCHOOL TREASURER, JAVIER J 530.81 ESOPHAGEAL REFLUX 09/19/2013 ESCOBEDO DO, AKI K 924.3 CONTUSION OF TOE 09/19/2013 ADAIR HARMAN, POLI Strauss 924.3 CONTUSION OF TOE 09/19/2013 KIT SCHOOL TREASURER, JEFF R 924.3 CONTUSION OF TOE 09/19/2013 KIT SCHOOL TREASURER, JEFF R 924.3 CONTUSION OF TOE 09/19/2013 ADAIR HARMAN, POLI Strauss 924.3 CONTUSION OF TOE 09/19/2013 KIT SCHOOL TREASURER, JEFF R 924.3 CONTUSION OF TOE 09/19/2013 KIT SCHOOL TREASURER, JEFF R 924.3 CONTUSION OF TOE 09/19/2013 KIT SCHOOL TREASURER, JEFF R 924.3 CONTUSION OF TOE 09/19/2013 KIT SCHOOL TREASURER, JEFF R 924.3 CONTUSION OF TOE 09/19/2013 BABAR CASTAÑEDA MEHDI R 924.3 CONTUSION OF TOE 09/19/2013 KIT SCHOOL TREASURER, JEFF R 924.3 CONTUSION OF TOE 09/19/2013 KIT SCHOOL TREASURER, JEFF R 924.3 CONTUSION OF TOE 09/19/2013 KAREN RANGEL, HAFSA Mujica 924.3 CONTUSION OF TOE 09/19/2013 KIT SCHOOL TREASURER, JEFF R 924.3 CONTUSION OF TOE 09/19/2013 YAZAN TREVINO APRN 924.3 CONTUSION OF TOE 09/19/2013 KIT SCHOOL TREASURER, JEFF R 924.3 CONTUSION OF TOE 09/19/2013 KIT SCHOOL TREASURER, JEFF R 924.3 CONTUSION OF TOE 09/19/2013 KIT SCHOOL TREASURER, JEFF R 924.3 CONTUSION OF TOE 09/19/2013 ESCOBEDO DO, AKI K 924.3 CONTUSION OF TOE 09/19/2013 KIT SCHOOL TREASURER, JEFF R 924.3 CONTUSION OF TOE 09/19/2013 KAREL WRIGHT, KARLA Haq 924.3 CONTUSION OF TOE 09/19/2013 RIAN DPM, SHANTE 924.3 CONTUSION OF TOE 09/19/2013 JOANN CALDERONN, JAVIER Mello 924.3 CONTUSION OF TOE 09/19/2013 KIT SCHOOL TREASURER, JEFF R 924.3 CONTUSION OF TOE 09/19/2013 WALTER PANTOJA APRNINA R 924.3 CONTUSION OF TOE 09/19/2013 JAVIER DAVID APRN 924.3 CONTUSION OF TOE 10/01/2013 ADAIR HARMAN, POLI Strauss 296.22 MO DEPRESSIVE SINGLE MODERATE 10/01/2013 ADAIR HARMAN, POLI Strauss 300.00 AN ANXIETY UNSPEC 10/01/2013 WALTER PANTOJA APRNINA R 296.22 MO DEPRESSIVE SINGLE MODERATE 10/01/2013 KIT CASTAÑEDA JEFF R 300.00 AN ANXIETY UNSPEC 10/01/2013 KIT CASTAÑEDA, JEFF R 296.22 MO DEPRESSIVE SINGLE MODERATE 10/01/2013 KIT CASTAÑEDA, JEFF R 300.00 AN ANXIETY UNSPEC 10/01/2013 ADAIR HARMAN, POLI Strauss 296.22 MO DEPRESSIVE SINGLE MODERATE 10/01/2013 ADAIR HARMAN, POLI Strauss 300.00 AN ANXIETY UNSPEC 10/01/2013 KIT CASTAÑEDA JEFF R 296.22 MO DEPRESSIVE SINGLE MODERATE 10/01/2013 KIT CASTAÑEDA JEFF R 300.00 AN ANXIETY UNSPEC 10/01/2013 KIT CASTAÑEDA JEFF R 296.22 MO DEPRESSIVE SINGLE MODERATE 10/01/2013 KIT CASTAÑEDA JEFF R 300.00 AN ANXIETY UNSPEC 10/01/2013 KIT CASTAÑEDA JEFF R 296.22 MO DEPRESSIVE SINGLE MODERATE 10/01/2013 WALTER PANTOJA APRNINA R 300.00 AN ANXIETY UNSPEC 10/01/2013 KIT CASTAÑEDA JEFF R 296.22 MO DEPRESSIVE SINGLE MODERATE 10/01/2013 KIT CASTAÑEDA JEFF R 300.00 AN ANXIETY UNSPEC 10/01/2013 ANT ECKERT APRNRICIA R 296.22 MO DEPRESSIVE SINGLE MODERATE 10/01/2013 BABAR CASTAÑEDA MEHDI R 300.00 AN ANXIETY UNSPEC 10/01/2013 KIT CASTAÑEDA JEFF R 296.22 MO DEPRESSIVE SINGLE MODERATE 10/01/2013 WALTER PANTOJA APRNINA R 300.00 AN ANXIETY UNSPEC 10/01/2013 KIT CASTAÑEDA JEFF R 296.22 MO DEPRESSIVE SINGLE MODERATE 10/01/2013 KIT CASTAÑEDA JEFF R 300.00 AN ANXIETY UNSPEC 10/01/2013 HAFSA JONES MD 296.22 MO DEPRESSIVE SINGLE MODERATE 10/01/2013 HAFSA JONES MD 300.00 AN ANXIETY UNSPEC 10/01/2013 KIT SCHOOL TREASURER, JEFF R 296.22 MO DEPRESSIVE SINGLE MODERATE 10/01/2013 KIT CASTAÑEDA, JEFF R 300.00 AN ANXIETY UNSPEC 10/01/2013 CHARLOTTEL SCHOOL TREASURER, YAZAN L 296.22 MO DEPRESSIVE SINGLE MODERATE 10/01/2013 CHARLOTTEL SCHOOL TREASURER, YAZAN L 300.00 AN ANXIETY UNSPEC 10/01/2013 KIT CALDERONN JEFF R 296.22 MO DEPRESSIVE SINGLE MODERATE 10/01/2013 KIT CASTAÑEDA JEFF R 300.00 AN ANXIETY UNSPEC 10/01/2013 KIT CALDERONN JEFF R 296.22 MO DEPRESSIVE SINGLE MODERATE 10/01/2013 KIT CASTAÑEDA JEFF R 300.00 AN ANXIETY UNSPEC 10/01/2013 KIT CASTAÑEDA JEFF R 296.22 MO DEPRESSIVE SINGLE MODERATE 10/01/2013 KIT CASTAÑEDA JEFF R 300.00 AN ANXIETY UNSPEC 10/01/2013 ESCOBEDO DO, AKI K 296.22 MO DEPRESSIVE SINGLE MODERATE 10/01/2013 ESCOBEDO DO, AKI K 300.00 AN ANXIETY UNSPEC 10/01/2013 KIT CASTAÑEDA JEFF R 296.22 MO DEPRESSIVE SINGLE MODERATE 10/01/2013 KIT CASTAÑEDA JEFF R 300.00 AN ANXIETY UNSPEC 10/01/2013 KAREL CIRCULATION WORKER, KARLA B 296.22 MO DEPRESSIVE SINGLE MODERATE 10/01/2013 KAREL CIRCULATION WORKER, KARLA B 300.00 AN ANXIETY UNSPEC 10/01/2013 RIAN DPM, SHANTE 296.22 MO DEPRESSIVE SINGLE MODERATE 10/01/2013 RIAN DPM, SHANTE 300.00 AN ANXIETY UNSPEC 10/01/2013 JAVIER DAVID APRN J 296.22 MO DEPRESSIVE SINGLE MODERATE 10/01/2013 JAVIER DAVID APRN J 300.00 AN ANXIETY UNSPEC 10/01/2013 KIT CASTAÑEDA JEFF R 296.22 MO DEPRESSIVE SINGLE MODERATE 10/01/2013 KIT CASTAÑEDA JEFF R 300.00 AN ANXIETY UNSPEC 10/01/2013 KIT CASTAÑEDA JEFF R 296.22 MO DEPRESSIVE SINGLE MODERATE 10/01/2013 KIT CASTAÑEDA JEFF R 300.00 AN ANXIETY UNSPEC 10/01/2013 JAVIER DAVID APRN J 296.22 MO DEPRESSIVE SINGLE MODERATE 10/01/2013 JAVIER DAVID APRN J 300.00 AN ANXIETY UNSPEC 10/07/2013 KIT SCHOOL TREASURER, JEFF R 110.1 DERMATOPHYTOSIS OF NAIL 10/07/2013 KIT SCHOOL TREASURER, JEFF R 599.0 URINARY TRACT INFECTION SITE NOT SPECIFIED 10/07/2013 KIT SCHOOL TREASURER, JEFF R 110.1 DERMATOPHYTOSIS OF NAIL 10/07/2013 KIT SCHOOL TREASURER, JEFF R 599.0 URINARY TRACT INFECTION SITE NOT SPECIFIED 10/07/2013 ADAIR HARMAN, POLI Strauss 110.1 DERMATOPHYTOSIS OF NAIL 10/07/2013 ADAIR HARMAN, POLI Strauss 599.0 URINARY TRACT INFECTION SITE NOT SPECIFIED 10/07/2013 KIT SCHOOL TREASURER, JEFF R 110.1 DERMATOPHYTOSIS OF NAIL 10/07/2013 KIT SCHOOL TREASURER, JEFF R 599.0 URINARY TRACT INFECTION SITE NOT SPECIFIED 10/07/2013 KIT CALDERONN, JEFF R 110.1 DERMATOPHYTOSIS OF NAIL 10/07/2013 KIT SCHOOL TREASURER, JEFF R 599.0 URINARY TRACT INFECTION SITE NOT SPECIFIED 10/07/2013 KIT CALDERONNWALTERJEFF R 110.1 DERMATOPHYTOSIS OF NAIL 10/07/2013 KIT CALDERONN, JEFF R 599.0 URINARY TRACT INFECTION SITE NOT SPECIFIED 10/07/2013 KIT CALDERONN, JEFF R 110.1 DERMATOPHYTOSIS OF NAIL 10/07/2013 KIT SCHOOL TREASURER, JEFF R 599.0 URINARY TRACT INFECTION SITE NOT SPECIFIED 10/07/2013 ANT ECKERT APRNRICIA R 110.1 DERMATOPHYTOSIS OF NAIL 10/07/2013 BABAR CALDERONN MEHDI R 599.0 URINARY TRACT INFECTION SITE NOT SPECIFIED 10/07/2013 KIT CALDERONN JEFF R 110.1 DERMATOPHYTOSIS OF NAIL 10/07/2013 KIT CALDERONN, JEFF R 599.0 URINARY TRACT INFECTION SITE NOT SPECIFIED 10/07/2013 KIT CALDERONN, JEFF R 110.1 DERMATOPHYTOSIS OF NAIL 10/07/2013 KIT SCHOOL TREASURER, JEFF R 599.0 URINARY TRACT INFECTION SITE NOT SPECIFIED 10/07/2013 HAFSA JONES MD N 110.1 DERMATOPHYTOSIS OF NAIL 10/07/2013 HAFSA JONES MD N 599.0 URINARY TRACT INFECTION SITE NOT SPECIFIED 10/07/2013 KIT CALDERONN, JEFF R 110.1 DERMATOPHYTOSIS OF NAIL 10/07/2013 KIT CALDERONN, JEFF R 599.0 URINARY TRACT INFECTION SITE NOT SPECIFIED 10/07/2013 URIEL SCHOOL TREASURER, YAZAN L 110.1 DERMATOPHYTOSIS OF NAIL 10/07/2013 YAZAN TREVINO APRN L 599.0 URINARY TRACT INFECTION SITE NOT SPECIFIED 10/07/2013 WALTER PANTOJA APRNINA R 110.1 DERMATOPHYTOSIS OF NAIL 10/07/2013 KIT CALDERONN, JEFF R 599.0 URINARY TRACT INFECTION SITE NOT SPECIFIED 10/07/2013 WALTER PANTOJA APRNINA R 110.1 DERMATOPHYTOSIS OF NAIL 10/07/2013 KIT CALDERONN, JEFF R 599.0 URINARY TRACT INFECTION SITE NOT SPECIFIED 10/07/2013 WALTER PANTOJA APRNINA R 110.1 DERMATOPHYTOSIS OF NAIL 10/07/2013 KIT CALDERONN JEFF R 599.0 URINARY TRACT INFECTION SITE NOT SPECIFIED 10/07/2013 ESCOBEDO DO, AKI K 110.1 DERMATOPHYTOSIS OF NAIL 10/07/2013 ESCOBEDO DO, AKI K 599.0 URINARY TRACT INFECTION SITE NOT SPECIFIED 10/07/2013 WALTER PANTOJA APRNINA R 110.1 DERMATOPHYTOSIS OF NAIL 10/07/2013 WALTER PANTOJA APRNINA R 599.0 URINARY TRACT INFECTION SITE NOT SPECIFIED 10/07/2013 KAREL CIRCULATION WORKER, KARLA B 110.1 DERMATOPHYTOSIS OF NAIL 10/07/2013 KAREL CIRCULATION WORKER, KARLA B 599.0 URINARY TRACT INFECTION SITE NOT SPECIFIED 10/07/2013 RIAN DPM, SHANTE 110.1 DERMATOPHYTOSIS OF NAIL 10/07/2013 RIAN DPM, SHANTE 599.0 URINARY TRACT INFECTION SITE NOT SPECIFIED 10/07/2013 JAVIER DAVID APRN J 110.1 DERMATOPHYTOSIS OF NAIL 10/07/2013 JAVIER DAVID APRN J 599.0 URINARY TRACT INFECTION SITE NOT SPECIFIED 10/07/2013 JEFF PANTOJA APRN R 110.1 DERMATOPHYTOSIS OF NAIL 10/07/2013 WALTER PANTOJA APRNINA R 599.0 URINARY TRACT INFECTION SITE NOT SPECIFIED 10/07/2013 JEFF PANTOJA APRN R 110.1 DERMATOPHYTOSIS OF NAIL 10/07/2013 WALTER PANTOJA APRNINA R 599.0 URINARY TRACT INFECTION SITE NOT SPECIFIED 10/07/2013 JAVIER DAVID APRN J 110.1 DERMATOPHYTOSIS OF NAIL 10/07/2013 JOANN CASTAÑEDA JAVIER J 599.0 URINARY TRACT INFECTION SITE NOT SPECIFIED 11/14/2013 ADAIR PHD, POLI Strauss 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 11/14/2013 POLI BORRERO PHD 300.02 AN GEN ANXIETY 11/14/2013 KIT CASTAÑEDA, JEFF R 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 11/14/2013 KIT CASTAÑEDA, JEFF R 300.02 AN GEN ANXIETY 11/14/2013 KIT CASTAÑEDA JEFF R 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 11/14/2013 KIT CASTAÑEDA, JEFF R 300.02 AN GEN ANXIETY 11/14/2013 KIT CASTAÑEDA, JEFF R 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 11/14/2013 KIT CASTAÑEDA, JEFF R 300.02 AN GEN ANXIETY 11/14/2013 KIT CASTAÑEDA, JEFF R 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 11/14/2013 KIT CASTAÑEDA, JEFF R 300.02 AN GEN ANXIETY 11/14/2013 BABAR CASTAÑEDA MEHDI R 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 11/14/2013 BABAR CASTAÑEDA MEHDI R 300.02 AN GEN ANXIETY 11/14/2013 KIT CASTAÑEDA, JEFF R 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 11/14/2013 KIT CASTAÑEDA JEFF R 300.02 AN GEN ANXIETY 11/14/2013 KIT CASTAÑEDA JEFF R 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 11/14/2013 KIT CASTAÑEDA JEFF R 300.02 AN GEN ANXIETY 11/14/2013 HAFSA JONES MD 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 11/14/2013 HAFSA JONES MD 300.02 AN GEN ANXIETY 11/14/2013 KIT CASTAÑEDA JEFF R 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 11/14/2013 KIT CASTAÑEDA, JEFF R 300.02 AN GEN ANXIETY 11/14/2013 ISSA TREVINO APRNA L 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 11/14/2013 YAZAN TREVINO APRN L 300.02 AN GEN ANXIETY 11/14/2013 KIT CASTAÑEDA JEFF R 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 11/14/2013 KIT CASTAÑEDA JEFF R 300.02 AN GEN ANXIETY 11/14/2013 KIT CASTAÑEDA JEFF R 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 11/14/2013 KIT CASTAÑEDA JEFF R 300.02 AN GEN ANXIETY 11/14/2013 KIT CASTAÑEDA JEFF R 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 11/14/2013 KIT CASTAÑEDA, JEFF R 300.02 AN GEN ANXIETY 11/14/2013 ESCOBEDO DO, AKI K 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 11/14/2013 ESCOBEDO DO, AKI K 300.02 AN GEN ANXIETY 11/14/2013 KIT CASTAÑEDA JEFF R 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 11/14/2013 KIT CASTAÑEDA JEFF R 300.02 AN GEN ANXIETY 11/14/2013 KAREL CIRCULATION WORKER, KARLA B 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 11/14/2013 KAREL CIRCULATION WORKER, KARLA B 300.02 AN GEN ANXIETY 11/14/2013 RIAN DPM, SHANTE 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 11/14/2013 RIAN DPM, SHANTE 300.02 AN GEN ANXIETY 11/14/2013 JAVIER DAVID APRN J 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 11/14/2013 JAVIER DAVID APRN J 300.02 AN GEN ANXIETY 11/14/2013 KIT CASTAÑEDA JEFF R 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 11/14/2013 KIT CASTAÑEDA JEFF R 300.02 AN GEN ANXIETY 11/14/2013 KIT CASTAÑEDA JEFF R 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 11/14/2013 KIT CASTAÑEDA JEFF R 300.02 AN GEN ANXIETY 11/14/2013 OJ DAVID APRNA J 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 11/14/2013 JAVIER DAVID APRN J 300.02 AN GEN ANXIETY 12/10/2013 WALTER PANTOJA APRNINA R 788.1 DYSURIA 12/10/2013 WALTER PANTOJA APRNINA R 788.1 DYSURIA 12/10/2013 MEHDI ECKERT APRN R 788.1 DYSURIA 12/10/2013 WALTER PANTOJA APRNINA R 788.1 DYSURIA 12/10/2013 KIT CASTAÑEDA JEFF R 788.1 DYSURIA 12/10/2013 HAFSA JONES MD 788.1 DYSURIA 12/10/2013 JEFF PANTOJA APRN R 788.1 DYSURIA 12/10/2013 YAZAN TREVINO APRN 788.1 DYSURIA 12/10/2013 KIT SCHOOL TREASURER, EJFF R 788.1 DYSURIA 12/10/2013 KIT SCHOOL TREASURER, JEFF R 788.1 DYSURIA 12/10/2013 KIT SCHOOL TREASURER, JEFF R 788.1 DYSURIA 12/10/2013 ESCOBEDO EMMA ELLIOTTA K 788.1 DYSURIA 12/10/2013 KIT SCHOOL TREASURER, JEFF R 788.1 DYSURIA 12/10/2013 KARLA VINSON LCPC 788.1 DYSURIA 12/10/2013 SHANTE JOSHI DPM 788.1 DYSURIA 12/10/2013 JAVIER DAVID APRN 788.1 DYSURIA 12/10/2013 KIT SCHOOL TREASURER, JEFF R 788.1 DYSURIA 12/10/2013 KIT SCHOOL TREASURER, JEFF R 788.1 DYSURIA 12/10/2013 JAVIER DAVID APRN 788.1 DYSURIA 12/19/2013 MEHDI ECKERT APRN 787.02 NAUSEA ALONE 12/19/2013 KIT CASTAÑEDA JEFF R 787.02 NAUSEA ALONE 12/19/2013 KIT CASTAÑEDA JEFF R 787.02 NAUSEA ALONE 12/19/2013 HAFSA JONES MD 787.02 NAUSEA ALONE 12/19/2013 KIT CASTAÑEDA, JFEF R 787.02 NAUSEA ALONE 12/19/2013 YAZAN TREVINO APRN 787.02 NAUSEA ALONE 12/19/2013 KIT CASTAÑEDA, JEFF R 787.02 NAUSEA ALONE 12/19/2013 KIT CASTAÑEDA JEFF R 787.02 NAUSEA ALONE 12/19/2013 KIT CASTAÑEDA JEFF R 787.02 NAUSEA ALONE 12/19/2013 EMMA ESCOBEDO DOA K 787.02 NAUSEA ALONE 12/19/2013 KIT CASTAÑEDA, JEFF R 787.02 NAUSEA ALONE 12/19/2013 KARLA VINSON LCPC 787.02 NAUSEA ALONE 12/19/2013 SHANTE JOSHI DPM 787.02 NAUSEA ALONE 12/19/2013 JAVIER DAVID APRN 787.02 NAUSEA ALONE 12/19/2013 WALTER PANTOJA APRNINA R 787.02 NAUSEA ALONE 12/19/2013 KIT CASTAÑEDA JEFF R 787.02 NAUSEA ALONE 12/19/2013 JAVIER DAVID APRN 787.02 NAUSEA ALONE 12/24/2013 KIT SCHOOL TREASURER, JEFF R 787.91 DIARRHEA 12/24/2013 KIT SCHOOL TREASURER, JEFF R 787.91 DIARRHEA 12/24/2013 HAFSA JONES MD 787.91 DIARRHEA 12/24/2013 KIT SCHOOL TREASURER, JEFF R 787.91 DIARRHEA 12/24/2013 YAZAN TREVINO APRN 787.91 DIARRHEA 12/24/2013 KIT SCHOOL TREASURER, JEFF R 787.91 DIARRHEA 12/24/2013 KIT SCHOOL TREASURER, JEFF R 787.91 DIARRHEA 12/24/2013 KIT SCHOOL TREASURER, JEFF R 787.91 DIARRHEA 12/24/2013 AKI ESCOBEDO DO K 787.91 DIARRHEA 12/24/2013 KIT SCHOOL TREASURER, JEFF R 787.91 DIARRHEA 12/24/2013 KARLA VINSON LCPC 787.91 DIARRHEA 12/24/2013 RIAN DPM, SHANTE 787.91 DIARRHEA 12/24/2013 JAVIER DAVID APRN 787.91 DIARRHEA 12/24/2013 KIT SCHOOL TREASURER, JEFF R 787.91 DIARRHEA 12/24/2013 KIT SCHOOL TREASURER, JEFF R 787.91 DIARRHEA 12/24/2013 JAVIER DAVID APRN 787.91 DIARRHEA 01/02/2014 HAFSA JONES MD 682.9 CELLULITIS AND ABSCESS OF UNSPECIFIED SITES 01/02/2014 KIT SCHOOL TREASURER, JEFF R 682.9 CELLULITIS AND ABSCESS OF UNSPECIFIED SITES 01/02/2014 YAZAN TREVINO APRN 682.9 CELLULITIS AND ABSCESS OF UNSPECIFIED SITES 01/02/2014 KIT SCHOOL TREASURER, JEFF R 682.9 CELLULITIS AND ABSCESS OF UNSPECIFIED SITES 01/02/2014 KIT SCHOOL TREASURER, JEFF R 682.9 CELLULITIS AND ABSCESS OF UNSPECIFIED SITES 01/02/2014 KIT SCHOOL TREASURER, JEFF R 682.9 CELLULITIS AND ABSCESS OF UNSPECIFIED SITES 01/02/2014 AKI ESCOBEDO DO K 682.9 CELLULITIS AND ABSCESS OF UNSPECIFIED SITES 01/02/2014 KIT CALDERONN, JEFF R 682.9 CELLULITIS AND ABSCESS OF UNSPECIFIED SITES 01/02/2014 KAREL WRIGHT, KARLA B 682.9 CELLULITIS AND ABSCESS OF UNSPECIFIED SITES 01/02/2014 RIAN DPM, SHANTE 682.9 CELLULITIS AND ABSCESS OF UNSPECIFIED SITES 01/02/2014 JAVIER DAVID APRN J 682.9 CELLULITIS AND ABSCESS OF UNSPECIFIED SITES 01/02/2014 KIT CASTAÑEDA JEFF R 682.9 CELLULITIS AND ABSCESS OF UNSPECIFIED SITES 01/02/2014 KIT CASTAÑEDA JEFF R 682.9 CELLULITIS AND ABSCESS OF UNSPECIFIED SITES 01/02/2014 JAVIER DAVID APRN J 682.9 CELLULITIS AND ABSCESS OF UNSPECIFIED SITES 01/16/2014 KIT CASTAÑEDA JEFF R 719.45 PAIN IN JOINT INVOLVING PELVIC REGION AND THIGH 01/16/2014 KIT CASTAÑEDA JEFF R 727.1 BUNION 01/16/2014 ISSA TREVINO APRNA L 719.45 PAIN IN JOINT INVOLVING PELVIC REGION AND THIGH 01/16/2014 LAUREN TREVINO APRNWNYA L 727.1 BUNION 01/16/2014 KIT CASTAÑEDA JEFF R 719.45 PAIN IN JOINT INVOLVING PELVIC REGION AND THIGH 01/16/2014 KIT CASTAÑEDA JEFF R 727.1 BUNION 01/16/2014 KIT CASTAÑEDA JEFF R 719.45 PAIN IN JOINT INVOLVING PELVIC REGION AND THIGH 01/16/2014 KIT CASTAÑEDA JEFF R 727.1 BUNION 01/16/2014 KIT CASTAÑEDA JEFF R 719.45 PAIN IN JOINT INVOLVING PELVIC REGION AND THIGH 01/16/2014 KIT CASTAÑEDA JEFF R 727.1 BUNION 01/16/2014 ESCOBEDO DO, AKI K 719.45 PAIN IN JOINT INVOLVING PELVIC REGION AND THIGH 01/16/2014 ESCOBEDO DO, AKI K 727.1 BUNION 01/16/2014 KIT CASTAÑEDA JEFF R 719.45 PAIN IN JOINT INVOLVING PELVIC REGION AND THIGH 01/16/2014 KIT CASTAÑEDA JEFF R 727.1 BUNION 01/16/2014 KAREL WRIGHT, KARLA B 719.45 PAIN IN JOINT INVOLVING PELVIC REGION AND THIGH 01/16/2014 KAREL WRIGHT, KARLA B 727.1 BUNION 01/16/2014 RIAN DPM, SHANTE 719.45 PAIN IN JOINT INVOLVING PELVIC REGION AND THIGH 01/16/2014 RIAN DPM, SHANTE 727.1 BUNION 01/16/2014 JAVIER DAVID APRN 719.45 PAIN IN JOINT INVOLVING PELVIC REGION AND THIGH 01/16/2014 JAVIER DAVID APRN 727.1 BUNION 01/16/2014 JEFF PANTOJA APRN R 719.45 PAIN IN JOINT INVOLVING PELVIC REGION AND THIGH 01/16/2014 JEFF PANTOJA APRN R 727.1 BUNION 01/16/2014 JEFF PANTOJA APRN R 719.45 PAIN IN JOINT INVOLVING PELVIC REGION AND THIGH 01/16/2014 JEFF PANTOJA APRN R 727.1 BUNION 01/16/2014 JAVIER DAVID APRN 719.45 PAIN IN JOINT INVOLVING PELVIC REGION AND THIGH 01/16/2014 JAVIER DAVID APRN 727.1 BUNION 02/01/2014 JULIA THOMPSON APRN Ot 724.4 LUMBOSACRAL NEURITIS NOS 02/01/2014 JULIA THOMPSON APRN Ot 724.5 BACKACHE NOS 02/03/2014 YAZAN TREVINO APRN 462 ACUTE PHARYNGITIS 02/03/2014 WALTER PANTOJA APRNINA R 462 ACUTE PHARYNGITIS 02/03/2014 WALTER PANTOJA APRNINA R 462 ACUTE PHARYNGITIS 02/03/2014 WALTER PANTOJA APRNINA R 462 ACUTE PHARYNGITIS 02/03/2014 AKI ESCOBEDO DO K 462 ACUTE PHARYNGITIS 02/03/2014 WALTER PANTOJA APRNINA R 462 ACUTE PHARYNGITIS 02/03/2014 KARLA VINSON LCPC B 462 ACUTE PHARYNGITIS 02/03/2014 RIAN DPM, SHANTE 462 ACUTE PHARYNGITIS 02/03/2014 JAVIER DAVID APRN 462 ACUTE PHARYNGITIS 02/03/2014 JEFF PANTOJA APRN R 462 ACUTE PHARYNGITIS 02/03/2014 WALTER PANTOJA APRNINA R 462 ACUTE PHARYNGITIS 02/03/2014 JAVIER DAVID APRN 462 ACUTE PHARYNGITIS 02/06/2014 JEFF PANTOJA APRN R 724.2 LUMBAGO 02/06/2014 KIT SCHOOL TREASURER, JEFF R 724.2 LUMBAGO 02/06/2014 KIT CASTAÑEDA, JEFF R 724.2 LUMBAGO 02/06/2014 ESCOBEDO AKI ELLIOTT K 724.2 LUMBAGO 02/06/2014 KIT CASTAÑEDA, JEFF R 724.2 LUMBAGO 02/06/2014 KAREL WRIGHT, KARLA B 724.2 LUMBAGO 02/06/2014 RIAN DPM, SHANTE 724.2 LUMBAGO 02/06/2014 OJ DAVID APRNA J 724.2 LUMBAGO 02/06/2014 KIT CASTAÑEDA, JEFF R 724.2 LUMBAGO 02/06/2014 KIT CASTAÑEDA, JEFF R 724.2 LUMBAGO 02/06/2014 JAVIER DAVID APRN J 724.2 LUMBAGO 02/18/2014 PRASANTH RANGEL, RK M Ot 724.5 02/18/2014 PRASANTH RANGEL, JABARIKI M Ot 729.5 02/18/2014 PRASANTH RANGEL, RK M Ot 724.5 02/18/2014 PRASANTH RANGEL, MEKKI M Ot 729.5 02/26/2014 PRASANTH RANGEL, MEKKI M Ot 724.5 02/26/2014 PRASANTH RANGEL, MEKKI M Ot 729.5 03/18/2014 WALTER PANTOJA APRNINA R 311 DEPRESSIVE DISORDER NOT ELSEWHERE CLASSIFIED 03/18/2014 WALTER PANTOJA APRNINA R V62.84 SUICIDAL IDEATION 03/18/2014 KAREL WRIGHT, KARLA B 311 DEPRESSIVE DISORDER NOT ELSEWHERE CLASSIFIED 03/18/2014 KAREL WRIGHT, KARLA B V62.84 SUICIDAL IDEATION 03/18/2014 RIAN DPM, SHANTE 311 DEPRESSIVE DISORDER NOT ELSEWHERE CLASSIFIED 03/18/2014 RIAN DPM, SHANTE V62.84 SUICIDAL IDEATION 03/18/2014 JAVIER DAVID APRN J 311 DEPRESSIVE DISORDER NOT ELSEWHERE CLASSIFIED 03/18/2014 JAVIER DAVID APRN J V62.84 SUICIDAL IDEATION 03/18/2014 WALTER PANTOJA APRNINA R 311 DEPRESSIVE DISORDER NOT ELSEWHERE CLASSIFIED 03/18/2014 WALTER PANTOJA APRNINA R V62.84 SUICIDAL IDEATION 03/18/2014 WALTER PANTOJA APRNINA R 311 DEPRESSIVE DISORDER NOT ELSEWHERE CLASSIFIED 03/18/2014 WALTER PANTOJA APRNINA R V62.84 SUICIDAL IDEATION 03/18/2014 JAVIER DAVID APRN 311 DEPRESSIVE DISORDER NOT ELSEWHERE CLASSIFIED 03/18/2014 JAVIER DAVID APRN V62.84 SUICIDAL IDEATION 03/24/2014 RADHA ARECHIGA L Ot 724.2 LUMBAGO 03/24/2014 RADHA ARECHIGA L Ot 724.4 LUMBOSACRAL NEURITIS NOS 03/27/2014 RIAN DPM, SHANTE 703.8 ONYCHOCRYPTOSIS 03/27/2014 RIAN DPM, SHANTE 735.0 HALLUX VALGUS (ACQUIRED) 03/27/2014 JAVIER DAVID APRN 703.8 ONYCHOCRYPTOSIS 03/27/2014 JAVIER DAVID APRN 735.0 HALLUX VALGUS (ACQUIRED) 03/27/2014 KIT CASTAÑEDA JEFF R 703.8 ONYCHOCRYPTOSIS 03/27/2014 WALTER PANTOJA APRNINA R 735.0 HALLUX VALGUS (ACQUIRED) 03/27/2014 WALTER PANTOJA APRNINA R 703.8 ONYCHOCRYPTOSIS 03/27/2014 KIT CASTAÑEDA JEFF R 735.0 HALLUX VALGUS (ACQUIRED) 03/27/2014 JAVIER DAVID APRN 703.8 ONYCHOCRYPTOSIS 03/27/2014 JAVIER DAVID APRN 735.0 HALLUX VALGUS (ACQUIRED) 03/31/2014 JAVIER DAVID APRN 296.64 MO BIPOLAR I MIXED W PSYCHOTIC BEHAVIOR 03/31/2014 JAVIER DAVID APRN 309.81 AN PTSD 03/31/2014 JEFF PANTOJA APRN R 296.64 MO BIPOLAR I MIXED W PSYCHOTIC BEHAVIOR 03/31/2014 WALTER PANTOJA APRNINA R 309.81 AN PTSD 03/31/2014 WALTER PANTOJA APRNINA R 296.64 MO BIPOLAR I MIXED W PSYCHOTIC BEHAVIOR 03/31/2014 JEFF PANTOJA APRN R 309.81 AN PTSD 03/31/2014 JAVIER DAVID APRN J 296.64 MO BIPOLAR I MIXED W PSYCHOTIC BEHAVIOR 03/31/2014 JAVIER DAVID APRN 309.81 AN PTSD 04/21/2014 PRASANTH RANGEL, RK Correa Ot 724.5 04/21/2014 RK RADER MD Ot 729.5 04/23/2014 JAVIER DAVID APRN 250.02 DIABETES II UNCONTROLLED ( UNCOMPLICATED) 04/28/2014 TONI TIPTON MD, Ot 724.2 04/28/2014 TONI TIPTON MD, Ot V57.1 05/01/2014 TONI TIPTON MD, Ot 724.2 05/01/2014 TONI TIPTON MD, Ot V57.1 05/08/2014 TONI TIPTON MD, Ot 724.2 05/08/2014 TONI TIPTON MD, Ot V57.1 05/08/2014 TONI TIPTON MD, Ot 724.2 05/08/2014 TONI TIPTON MD, Ot V57.1 05/18/2014 TONI TIPTON MD, Ot 724.2 05/18/2014 TONI TIPTON MD Ot V57.1 05/18/2014 TONI TIPTON MD Ot 724.2 05/18/2014 TONI TIPTON MD, Ot V57.1 05/18/2014 TONI TIPTON MD, Ot 724.2 05/18/2014 TONI TIPTON MD Ot V57.1 05/26/2014 TONI TIPTON MD Ot 724.2 05/26/2014 TONI TIPTON MD Ot V57.1 05/29/2014 TONI TIPTON MD Ot 724.2 LUMBAGO 05/29/2014 TONI TIPTON MD Ot V57.1 PHYSICAL THERAPY NEC 06/25/2014 TAMMI LOPEZ MD Ot 250.00 DIAB SATURNINO WO COMPL, TYPE II OR UNSPEC TY 06/25/2014 TAMMI LOPEZ MD Ot 346.90 MIGRAINE UNSPECIFIED W/O INTRACT MGRN W06/25/2014 TAMMI LOPEZ MD Ot 780.09 OTHER ALTERATION OF CONSCIOUSNESS 06/25/2014 TAMMI LOPEZ MD Ot V58.67 LONG-TERM (CURRENT) USE OF INSULIN 07/03/2014 TONI TIPTON MD Ot 278.00 OBESITY, NOS 07/03/2014 TONI TIPTON MD Ot 721.3 LUMBOSACRAL SPONDYLOSIS 07/03/2014 TONI TIPTON MD Ot 722.52 LUMB/LUMBOSAC DISC DEGEN 07/03/2014 TONI TIPTON MD Ot 729.1 MYALGIA AND MYOSITIS NOS 07/03/2014 TONI TIPTON MD, Ot V58.69 OTH MED,LT,CURRENT USE 07/03/2014 TONI TIPTON MD Ot V85.36 BODY MASS INDEX 36.0-36.9, ADULT 07/09/2014 TAMMI LOPEZ MD Ot 250.00 07/09/2014 TAMMI LOPEZ MD Ot 346.90 07/09/2014 TAMMI LOPEZ MD Ot 780.09 07/09/2014 TAMMI LOPEZ MD Ot V58.67 08/04/2014 TONI TIPTON MD Ot 278.00 08/04/2014 TONI TITPON MD, Ot 721.3 08/04/2014 TONI TIPTON MD, Ot 729.1 08/04/2014 TONI TIPTON MD, Ot V58.69 08/04/2014 TONI TIPTON MD, Ot V85.36 08/07/2014 JANNIE IVY DO Ot 244.9 HYPOTHYROIDISM NOS 08/07/2014 JANNIE IVY DO Ot 250.00 DIAB SATURNINO WO COMPL, TYPE II OR UNSPEC TY 08/07/2014 JANNIE IVY DO Ot 491.21 OBSTR CHRONIC BRONCHITIS, W (ACUTE) EXAC 08/07/2014 JANNIE IVY DO Ot 786.2 COUGH 08/07/2014 JANNIE IVY DO Ot V58.67 LONG-TERM (CURRENT) USE OF INSULIN 08/19/2014 TONI TIPTON MD Ot 278.00 08/19/2014 TONI TIPTON MD Ot 721.3 08/19/2014 TONI TIPTON MD Ot 729.1 08/19/2014 TONI TIPTON MD Ot V58.69 08/19/2014 TONI TIPTON MD Ot V85.35 08/28/2014 TONI TIPTON MD Ot 278.00 08/28/2014 TONI TIPTON MD Ot 721.3 08/28/2014 TONI TIPTON MD Ot 729.1 08/28/2014 TONI TIPTON MD Ot V58.69 08/28/2014 TONI TIPTON MD Ot V85.35 09/21/2014 TONI TIPTON MD Ot 278.00 09/21/2014 TONI TIPTON MD Ot 721.3 09/21/2014 TONI TIPTON MD Ot 729.1 09/21/2014 TONI TIPTON MD Ot V58.69 09/21/2014 TONI TIPTON MD Ot V85.36 09/25/2014 RK RADER MD Ot 724.5 09/25/2014 RK RADER MD Ot 729.5 09/25/2014 TONI TIPTON MD Ot 278.00 09/25/2014 TONI TIPTON MD Ot 721.3 09/25/2014 TONI TIPTON MD Ot 729.1 09/25/2014 TONI TIPTON MD Ot V58.69 09/25/2014 TONI TIPTON MD Ot V85.36 09/25/2014 TONI TIPTON MD Ot 278.00 09/25/2014 TONI TIPTON MD Ot 721.3 09/25/2014 TONI TIPTON MD Ot 729.1 09/25/2014 TONI TIPTON MD Ot V58.69 09/25/2014 TONI TIPTON MD Ot V85.35 09/29/2014 TONI TIPTON MD Ot 721.3 09/29/2014 TONI TIPOTN MD Ot 733.20 10/06/2014 TONI TIPTON MD Ot 721.3 10/06/2014 TONI TIPTON MD Ot 733.20 11/10/2014 RK RADER MD Ot 724.5 11/10/2014 RK RADER MD Ot 729.5 11/10/2014 TONI TIPTON MD Ot 278.00 11/10/2014 TONI TIPTON MD Ot 721.3 11/10/2014 TONI TIPTON MD Ot 729.1 11/10/2014 TONI TIPTON MD Ot V58.69 11/10/2014 TONI TIPTON MD Ot V85.36 11/10/2014 TONI TIPTON MD Ot 278.00 11/10/2014 TONI TIPTON MD Ot 721.3 11/10/2014 TONI TIPTON MD Ot 729.1 11/10/2014 TONI TIPTON MD Ot V58.69 11/10/2014 TONI TIPOTN MD Ot V85.35 11/10/2014 TONI TIPTON MD Ot 721.3 11/10/2014 TONI TIPTON MD Ot 733.20 11/10/2014 REYNALDO RANGEL, JETT Cartagena Ot 724.02 SPINAL STENOSIS, LUMBAR REG, W/OUT NEURO 11/10/2014 REYNALDO RANGEL, JETT Cartagena Ot 724.2 LUMBAGO 11/10/2014 JETT JACOBS MD Ot 733.20 CYST OF BONE NOS 12/07/2014 RADHA ARECHIGA Ot 724.2 LUMBAGO 12/07/2014 RADHA ARECHIGA Ot 724.3 SCIATICA 09/27/2015 RK RADER MD Ot 724.5 BACKACHE NOS 09/27/2015 RK RADER MD Ot 729.5 PAIN IN LIMB 09/27/2015 TONI TIPTON MD Ot 278.00 OBESITY, NOS 09/27/2015 TONI TIPTON MD Ot 721.3 LUMBOSACRAL SPONDYLOSIS 09/27/2015 TONI TIPTON MD Ot 729.1 MYALGIA AND MYOSITIS NOS 09/27/2015 TONI TIPTON MD Ot V58.69 OTH MED,LT,CURRENT USE 09/27/2015 TONI TIPTON MD Ot V85.36 BODY MASS INDEX 36.0-36.9, ADULT 09/27/2015 TONI TIPTON MD Ot 278.00 OBESITY, NOS 09/27/2015 TONI TIPTON MD Ot 721.3 LUMBOSACRAL SPONDYLOSIS 09/27/2015 TONI TIPTON MD Ot 729.1 MYALGIA AND MYOSITIS NOS 09/27/2015 TONI TIPTON MD Ot V58.69 OTH MED,LT,CURRENT USE 09/27/2015 TONI TIPTON MD Ot V85.35 BODY MASS INDEX 35.0-35.9, ADULT 09/27/2015 TONI TIPTON MD Ot 721.3 LUMBOSACRAL SPONDYLOSIS 09/27/2015 TONI TIPTON MD Ot 733.20 CYST OF BONE NOS 10/13/2015 RK RADER MD Ot 724.5 BACKACHE NOS 10/13/2015 RK RADER MD Ot 729.5 PAIN IN LIMB 10/13/2015 TONI TIPTON MD Ot 278.00 OBESITY, NOS 10/13/2015 TONI TIPTON MD, Ot 721.3 LUMBOSACRAL SPONDYLOSIS 10/13/2015 TONI TIPTON MD Ot 729.1 MYALGIA AND MYOSITIS NOS 10/13/2015 TONI TIPTON MD, Ot V58.69 OTH MED,LT,CURRENT USE 10/13/2015 TONI TIPTON MD Ot V85.36 BODY MASS INDEX 36.0-36.9, ADULT 10/13/2015 TONI TIPTON MD Ot 278.00 OBESITY, NOS 10/13/2015 TONI TIPOTN MD, Ot 721.3 LUMBOSACRAL SPONDYLOSIS 10/13/2015 TONI TIPTON MD, Ot 729.1 MYALGIA AND MYOSITIS NOS 10/13/2015 TONI TIPTON MD, Ot V58.69 OTH MED,LT,CURRENT USE 10/13/2015 TONI TIPTON MD Ot V85.35 BODY MASS INDEX 35.0-35.9, ADULT 10/13/2015 TONI TIPTON MD Ot 721.3 LUMBOSACRAL SPONDYLOSIS 10/13/2015 TONI TIPTON MD Ot 733.20 CYST OF BONE NOS 10/13/2015 ILIA RANGEL, COLLEEN Kang (U) Ot Z02.71 ENCOUNTER FOR DISABILITY DETERMINATION 06/07/2016 RK RADER MD Ot 724.5 BACKACHE NOS 06/07/2016 RK RADER MD Ot 729.5 PAIN IN LIMB 06/07/2016 TONI TIPTON MD, Ot 278.00 OBESITY, NOS 06/07/2016 TONI TIPTON MD, Ot 721.3 LUMBOSACRAL SPONDYLOSIS 06/07/2016 TONI TIPTON MD Ot 729.1 MYALGIA AND MYOSITIS NOS 06/07/2016 TONI TIPTON MD, Ot V58.69 OTH MED,LT,CURRENT USE 06/07/2016 TONI TIPTON MD Ot V85.36 BODY MASS INDEX 36.0-36.9, ADULT 06/07/2016 TONI TIPTON MD Ot 278.00 OBESITY, NOS 06/07/2016 WHITE MD, TONI J Ot 721.3 LUMBOSACRAL SPONDYLOSIS 06/07/2016 TONI TIPTON MD, Ot 729.1 MYALGIA AND MYOSITIS NOS 06/07/2016 TONI TIPTON MD, Ot V58.69 OTH MED,LT,CURRENT USE 06/07/2016 TONI TIPTON MD Ot V85.35 BODY MASS INDEX 35.0-35.9, ADULT 06/07/2016 TONI TIPTON MD Ot 721.3 LUMBOSACRAL SPONDYLOSIS 06/07/2016 TONI TIPTON MD Ot 733.20 CYST OF BONE NOS 06/11/2016 RK RADER MD Ot 724.5 BACKACHE NOS 06/11/2016 RK RADER MD Ot 729.5 PAIN IN LIMB 06/11/2016 TONI TIPTON MD Ot 278.00 OBESITY, NOS 06/11/2016 TONI TIPTON MD, Ot 721.3 LUMBOSACRAL SPONDYLOSIS 06/11/2016 TONI TIPTON MD Ot 729.1 MYALGIA AND MYOSITIS NOS 06/11/2016 TONI TIPTON MD, Ot V58.69 OTH MED,LT,CURRENT USE 06/11/2016 TONI TIPTON MD Ot V85.36 BODY MASS INDEX 36.0-36.9, ADULT 06/11/2016 TONI TIPTON MD Ot 278.00 OBESITY, NOS 06/11/2016 TONI TIPTON MD, Ot 721.3 LUMBOSACRAL SPONDYLOSIS 06/11/2016 TONI TIPTON MD Ot 729.1 MYALGIA AND MYOSITIS NOS 06/11/2016 TONI TIPTON MD, Ot V58.69 OTH MED,LT,CURRENT USE 06/11/2016 TONI TIPTON MD Ot V85.35 BODY MASS INDEX 35.0-35.9, ADULT 06/11/2016 TONI TIPTON MD, Ot 721.3 LUMBOSACRAL SPONDYLOSIS 06/11/2016 TONI TIPTON MD, Ot 733.20 CYST OF BONE NOS 06/11/2016 AKI DECKER DO Ot E11.65 TYPE 2 DIABETES MELLITUS WITH HYPERGLYCE 06/11/2016 AKI DECKER DO Ot I10 ESSENTIAL (PRIMARY) HYPERTENSION 06/11/2016 AKI DECKER DO Ot J44.9 CHRONIC OBSTRUCTIVE PULMONARY DISEASE, U 06/11/2016 AKI DECKER DO, Ot N39.0 URINARY TRACT INFECTION, SITE NOT SPECIF 06/11/2016 AKI DECKER DO, Ot Z77.22 CNTCT W AND EXPSR TO ENVIRON TOBACCO SMO 06/11/2016 AKI DECKER DO Ot 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 06/11/2016 AKI DECKER DO Ot Z79.84 [facility] (CURRENT) USE OF ORAL HYPOGLYC 06/11/2016 AKI DECKER DO, Ot Z79.899 OTHER ELECTRIC CUTTER OPERATOR (CURRENT) DRUG THERAPY 06/11/2016 RK RADER MD Ot 724.5 BACKACHE NOS 06/11/2016 RK RADER MD Ot 729.5 PAIN IN LIMB 06/11/2016 TONI TIPTON MD Ot 278.00 OBESITY, NOS 06/11/2016 TONI TIPTON MD Ot 721.3 LUMBOSACRAL SPONDYLOSIS 06/11/2016 TONI TIPTON MD Ot 729.1 MYALGIA AND MYOSITIS NOS 06/11/2016 TONI TIPTON MD Ot V58.69 OTH MED,LT,CURRENT USE 06/11/2016 TONI TIPTON MD Ot V85.36 BODY MASS INDEX 36.0-36.9, ADULT 06/11/2016 TONI TIPTON MD Ot 278.00 OBESITY, NOS 06/11/2016 TONI TIPTON MD Ot 721.3 LUMBOSACRAL SPONDYLOSIS 06/11/2016 TONI TIPTON MD Ot 729.1 MYALGIA AND MYOSITIS NOS 06/11/2016 TONI TIPTON MD Ot V58.69 OTH MED,LT,CURRENT USE 06/11/2016 TONI TIPTON MD Ot V85.35 BODY MASS INDEX 35.0-35.9, ADULT 06/11/2016 TONI TIPTON MD Ot 721.3 LUMBOSACRAL SPONDYLOSIS 06/11/2016 TONI TIPTON MD Ot 733.20 CYST OF BONE NOS 06/13/2016 AKI DECKER DO Ot E11.65 TYPE 2 DIABETES MELLITUS WITH HYPERGLYCE 06/13/2016 AKI DECKER DO Ot I10 ESSENTIAL (PRIMARY) HYPERTENSION 06/13/2016 AKI DECKER DO, Ot J44.9 CHRONIC OBSTRUCTIVE PULMONARY DISEASE, U 06/13/2016 AKI DECKER DO, Ot N39.0 URINARY TRACT INFECTION, SITE NOT SPECIF 06/13/2016 AKI DECKER DO, Ot Z77.22 CNTCT W AND EXPSR TO ENVIRON TOBACCO SMO 06/13/2016 AKI DECKER DO, Ot 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 06/13/2016 AKI DECKER DO, Ot Z79.84 ELECTRIC CUTTER OPERATOR (CURRENT) USE OF ORAL HYPOGLYC 06/13/2016 AKI DECKER DO, Ot Z79.899 OTHER [facility] (CURRENT) DRUG THERAPY 06/15/2016 JOANNA MILLER MD Ot J32.0 CHRONIC MAXILLARY SINUSITIS 06/15/2016 JOANNA MILLER MD Ot J32.1 CHRONIC FRONTAL SINUSITIS 06/15/2016 JOANNA MILLER MD Ot 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 06/27/2016 JOANNA MILLER MD Ot J32.0 CHRONIC MAXILLARY SINUSITIS 06/27/2016 JOANNA MILLER MD Ot J32.1 CHRONIC FRONTAL SINUSITIS 06/27/2016 JOANNA MILLER MD Ot 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 Procedures Code Description Performed By Performed On [facility] [id number] MICRO ALBUMIN-IN HOUSE 08/22/2013 67534 A1C (IN-HOUSE) 78732 PSYCH DIAGNOSTIC EVALUATION 10/01/2013 49361 UA W/ CULTURE IF INDICATED 10/07/2013 40700 CULTURE URINE 06/2013 24366 PSYTX PT&/FAMILY 30 MINUTES 11/14/2013 11797 A1C (IN-HOUSE) 45645 ROUTINE VENIPUNCTURE 12/10/2013 33432 CULTURE URINE 06/2013 64619 UA W/ CULTURE IF INDICATED 12/10/2013 22972 CBC 12/10/2013 [id number] GFR CALC (RESULT ONLY) 12/10/2013 32694 CMP 12/10/2013 44196 LIPID PANEL 12/10 05361 TSH 12/10/2013 66293 OXIMETRY 2013 85962 ROUTINE VENIPUNCTURE 12/24/2013 98537 CBC 12/24/2013 [id number] GFR CALC (RESULT ONLY) 12/24/2013 54041 CMP 12/24/2013 40405 XRAY HIP RIGHT UNILATERAL MIN 2 VIEWS 01/16/2014 Podiatry Shante Joshi 02/06/2014 96405 A1C (IN-HOUSE) 86514 CULTURE URINE 01/2014 26180 UA W/ CULTURE IF INDICATED 03/18/2014 90641 PSYTX PT&/FAMILY 30 MINUTES 03/19/2014 39448 XRAY FEET, RINA ENDOCRINO Behadrian Results Test Result Range Complete blood count (CBC) with automated white blood cell (WBC) differential - 06/11/16 00:58 Blood leukocytes automated count (number/volume) 6.7 10*3/ uL 4.3-11.0 Blood erythrocytes automated count (number/volume) 4.38 10*6 /uL 4.35-5.85 Venous blood hemoglobin measurement (mass/volume) 13.9 g/dL 11.5-16.0 Blood hematocrit (volume fraction) 42 % 35-52 Automated erythrocyte mean corpuscular volume 96 [foz_us] 80-99 Automated erythrocyte mean corpuscular hemoglobin (mass per erythrocyte) 32 pg 25-34 Automated erythrocyte mean corpuscular hemoglobin concentration measurement ( mass/volume) 33 g/dL 32-36 Automated erythrocyte distribution width ratio 13.6 % 10.0-14.5 Automated blood platelet count (count/volume) 189 10*3/uL 130-400 Automated blood platelet mean volume measurement 13.3 [foz_ us] 7.4-10.4 Automated blood neutrophils/100 leukocytes 46 % 42-75 Automated blood lymphocytes/100 leukocytes 39 % 12-44 Blood monocytes/100 leukocytes 13 % 0-12 Automated blood eosinophils/100 leukocytes 2 % 0-10 Automated blood basophils/100 leukocytes 0 % 0-10 Blood neutrophils automated count (number/volume) 3.1 10*3 1.8-7.8 Blood lymphocytes automated count (number/volume) 2.6 10*3 1.0-4.0 Blood monocytes automated count (number/volume) 0.8 10*3 0.0-1.0 Automated eosinophil count 0.1 10*3/uL 0.0-0.3 Automated blood basophil count (count/volume) 0.0 10*3/uL 0.0-0.1 Comprehensive metabolic panel - 06/11/16 00:58 Serum or plasma sodium measurement (moles/volume) 137 mmol/ L 135-145 Serum or plasma potassium measurement (moles/volume) 4.0 mmol/L 3.6-5.0 Serum or plasma chloride measurement (moles/volume) 106 mmol /L 98-107 Carbon dioxide 20 mmol/L 21-32 Serum or plasma anion gap determination (moles/volume) 11 mmol/L 5-14 Serum or plasma urea nitrogen measurement (mass/volume) 14 mg/dL 7-18 Serum or plasma creatinine measurement (mass/volume) 0.80 mg /dL 0.60-1.30 Serum or plasma urea nitrogen/creatinine mass ratio 18 NRG Serum or plasma creatinine measurement with calculation of estimated glomerular filtration rate > NRG Serum or plasma glucose measurement (mass/volume) 214 mg/dL 70-105 Serum or plasma calcium measurement (mass/volume) 8.2 mg/dL 8.5-10.1 Serum or plasma total bilirubin measurement (mass/volume) 0.2 mg/dL 0.1-1.0 Serum or plasma alkaline phosphatase measurement (enzymatic activity/volume) 94 U/L 40-136 Serum or plasma aspartate aminotransferase measurement (enzymatic activity/ volume) 15 U/L 5-34 Serum or plasma alanine aminotransferase measurement (enzymatic activity/volume ) 7 U/L 0-55 Serum or plasma protein measurement (mass/volume) 5.7 g/dL 6.4-8.2 Serum or plasma albumin measurement (mass/volume) 3.4 g/dL 3.2-4.5 Magnesium - 06/11/16 00:58 Magnesium 1.9 mg/dL 1.8-2.4 Serum or plasma lithium measurement (moles/volume) - 06/11/16 00:58 BNP level < pg/mL <100.0 Serum or plasma troponin i.cardiac measurement (mass/volume) - 06/11/16 00:58 Serum or plasma troponin i.cardiac measurement (mass/volume) < ng/mL <0.30 Complete urinalysis with reflex to culture - 06/11/16 02:23 Urine color determination YELLOW NRG Urine clarity determination CLEAR NRG Urine pH measurement by test strip 5 5- 9 Specific gravity of urine by test strip 1.015 1.016-1.022 Urine protein assay by test strip, semi-quantitative 1+ NEGATIVE Urine glucose detection by automated test strip 4+ NEGATIVE Erythrocytes detection in urine sediment by light microscopy NEGATIVE NEGATIVE Urine ketones detection by automated test strip NEGATIVE NEGATIVE Urine nitrite detection by test strip NEGATIVE NEGATIVE Urine total bilirubin detection by test strip NEGATIVE NEGATIVE Urine urobilinogen measurement by automated test strip (mass/volume) NORMAL NORMAL Urine leukocyte esterase detection by dipstick 2+ NEGATIVE Automated urine sediment erythrocyte count by microscopy (number/high power field) NONE NRG Automated urine sediment leukocyte count by microscopy (number/high power field ) [HPF] NRG Bacteria detection in urine sediment by light microscopy TRACE NRG Squamous epithelial cells detection in urine sediment by light microscopy 5-10 NRG Crystals detection in urine sediment by light microscopy NONE NRG Casts detection in urine sediment by light microscopy NONE NRG Mucus detection in urine sediment by light microscopy NEGATIVE NRG Complete urinalysis with reflex to culture YES NRG Bacterial urine culture - 06/11/16 02:23 Bacterial urine culture [id number] NRG COLONY COUNT 10,000/ML - 100,000/ML NRG FTX;REPORTABLE NO FURTHER STUDIES UNLESS REQUESTED. NRG FREE TEXT ENTRY 2 SENSITIVITIES NOT USUALLY PERFORMED ON NRG FREE TEXT ENTRY 3 THIS ORGANISM. NRG Encounters ACCT No. Visit Date/Time Discharge Status Pt. Type Provider Facility Loc./Unit Complaint [id number] 05/08/2014 12:42:00 05/08/2014 23: 59:59 CLS Outpatient AKI ESCOBEDO DO [id number] 04/15/2014 14:59:00 04/15/2014 23: 59:59 CLS Outpatient JEFF PANTOJA APRN [id number] 03/31/2014 14:10:00 03/31/2014 23: 59:59 CLS Outpatient JAVIER DAVID APRN [id number] 03/31/2014 14:10:00 03/31/2014 23: 59:59 CLS Outpatient JAVIER DAVID APRN [id number] 03/27/2014 09:52:00 03/27/2014 23: 59:59 CLS Outpatient SHANTE JOSHI DPM [id number] 03/18/2014 16:30:00 03/18/2014 23: 59:59 CLS Outpatient KARLA VINSON LCPC [id number] 03/18/2014 15:05:00 03/18/2014 23: 59:59 CLS Outpatient JEFF PANTOJA APRN [id number] 03/18/2014 15:05:00 03/18/2014 23: 59:59 CLS Outpatient [employer], JEFF R [id number] 03/12/2014 09:27:00 03/12/2014 23: 59:59 CLS Outpatient AKI ESCOBEDO DO [id number] 02/17/2014 13:49:00 02/17/2014 23: 59:59 CLS Outpatient [employer], JEFF R [id number] 02/17/2014 13:49:00 02/17/2014 23: 59:59 CLS Outpatient [employer], JEFF R [id number] 02/06/2014 14:38:00 02/06/2014 23: 59:59 CLS Outpatient [employer], JEFF R [id number] 02/03/2014 14:59:00 02/03/2014 23: 59:59 CLS Outpatient [employer]AN Sue [id number] 01/16/2014 13:22:00 01/16/2014 23: 59:59 CLS Outpatient [employer], JEFF R [id number] 01/02/2014 15:52:00 01/02/2014 23: 59:59 CLS Outpatient HAFSA JONES MD [id number] 12/24/2013 10:37:00 12/24/2013 23: 59:59 CLS Outpatient [employer], JEFF R [id number] 12/19/2013 15:33:00 12/19/2013 23: 59:59 CLS Outpatient [employer], MEHDI Valle [id number] 12/10/2013 09:36:00 12/10/2013 23: 59:59 CLS Outpatient [employer], JEFF R [id number] 12/10/2013 09:36:00 12/10/2013 23: 59:59 CLS Outpatient [employer], JEFF R [id number] 11/26/2013 00:00:00 11/26/2013 23: 59:59 CLS Outpatient [employer], JEFF R [id number] 11/25/2013 10:04:00 11/25/2013 23: 59:59 CLS Outpatient [employer], JEFF R [id number] 11/25/2013 10:04:00 11/25/2013 23: 59:59 CLS Outpatient [employer], JEFF R [id number] 11/14/2013 16:29:00 11/14/2013 23: 59:59 CLS Outpatient ADAIR HARMAN, POLI Strauss [id number] 10/07/2013 09:54:00 10/07/2013 23: 59:59 CLS Outpatient JEFF PANTOJA APRN [id number] 10/07/2013 09:54:00 10/07/2013 23: 59:59 CLS Outpatient JEFF PANTOJA APRN [id number] 10/01/2013 07:56:00 10/01/2013 23: 59:59 CLS Outpatient ADAIR PHD, POLI Strauss [id number] 09/19/2013 13:36:00 09/19/2013 23: 59:59 CLS Outpatient AKI ESCOBEDO DO [id number] 08/22/2013 13:30:00 08/22/2013 23: 59:59 CLS Outpatient JEFF PANTOJA APRN
[2016-10-17] MEDS ORDERED: NS IV 1000 ML 1,000 ML IV ONE (22:14)
[2016-10-17] MEDS ORDERED: ONDANSETRON 4 MG/2 ML (SDV) Z0FRAN IVP ONE (22:15)
--- NOTE | 2016-10-17 22:35 | ED GI ---
General Chief Complaint: Abdominal/GI Problems Stated Complaint: POST OP/VOMITING History of Present Illness Time Seen By Provider: 20:10 Initial Comments Patient had an upper and lower GI scope today by Dr. José today at [facility], she was discharged at 1230 and ate a cheeseburger. Nausea and Vomiting started at 1500. She has not contacted Dr. José since the vomiting began. She tried taking water just [employer]IC[employer], then vomited. Timing/Duration: 4-6 Hours Severity/Quality: Moderate Location: Generalized Abdomen Radiation: No Radiation Activities at Onset: None Modifying Factors: Improves With Resting Associated Symptoms: Denies Symptoms (FELIPA MARTINEZ) Allergies and Home Medications Allergies Coded Allergies: Sulfa (Sulfonamide Antibiotics) (Unverified Allergy, Unknown, 06/24/13) codeine (Unverified Allergy, Unknown, 06/24/13) vancomycin (Unverified Adverse Reaction, Mild, redness, 06/24/13) Home Medications Albuterol/Ipratropium 3 Ml Nebu, 3 ML INH Q4H, #1 Prescribed by: JANNIE IVY on 08/07/14 2316 Amitriptyline Hcl 10 Mg Tablet, 1 EACH PO HS, (Reported) Clonazepam 0.25 Mg/Tab Tab.rapdis, Unknown Dose PO BID, (Reported) Diclofenac Potassium 50 Mg Tablet, 75 MG PO BID, (Reported) Gabapentin 300 Mg Capsule, 800 MG PO TID, (Reported) Glyburide 5 Mg Tablet, 2 EACH PO BIDAC, (Reported) Hydroxyzine Hcl 25 Mg Tablet, 25 MG PO TID, (Reported) Insulin Detemir 100 U/Ml Vial, 55 U SQ BID, (Reported) Lovastatin 40 Mg Tablet, 1 EACH PO DAILY WITH SUPPER, (Reported) Metformin Hcl 500 Mg Tab.sr.24h, 2 EACH PO DAILY WITH MEAL, (Reported) Methocarbamol 750 Mg Tablet, 1 EACH PO TID, (Reported) Naproxen 500 Mg Tablet, 1 EACH PO TID PRN PRN for PAIN, #20 Ref 0 Prescribed by: RADHA DOUGLASS on 03/24/14 1232 Naproxen Sodium 220 Mg Tablet, 500 MG PO BID PRN for PAIN, (Reported) Oxycodone Hcl/Acetaminophen 1 Each Tablet, 1 EACH PO Q4-6H PRN PRN for PAIN, # 20 Ref 0 (Reported) Oxycodone Hcl/Acetaminophen 1 Tab Tablet, 1-2 TAB PO Q4H PRN for PAIN, #14 Prescribed by: JETT CAMACHO on 11/10/14 0225 Prednisone 20 Mg Tablet, 40 MG PO DAILY for 5 Days Prescribed by: JULIA THOMPSON on 02/01/14 1301 Prednisone 20 Mg Tab, 40 MG PO DAILY, #8 Ref 0 Prescribed by: RADHA DOUGLASS on 12/07/14 2311 Primidone 50 Mg Tablet, 100 MG PO AM, (Reported) Primidone 50 Mg Tablet, 50 MG PO 1200, (Reported) Primidone 50 Mg Tablet, 100 MG PO HS, (Reported) Sertraline Hcl 25 Mg Tablet, 150 MG PO DAILY, (Reported) Review of Systems Constitutional: no symptoms reported, see HPI Gastrointestinal: See HPI, Nausea, Poor Appetite, Vomiting Genitourinary: No Symptoms Reported, See HPI (FELIPA MARTINEZ) All Other Systems Reviewed Negative Unless Noted: Yes (FELIPA MARTINEZ) Past Dkcgwmb-Leeeea-Hzukou Hx Patient Social History 2nd Hand Smoke Exposure: Yes (ALL OF LIFE, INCLUDING NOW) Recent Foreign Travel: No Contact w/Someone Who Travel: No Recent Hopitalizations: No (FELIPA MARTINEZ) Immunizations Up To Date Date of Pneumonia Vaccine: Jul 08, 2012 Date of Influenza Vaccine: Jan 07, 2016 (FELIPA MARTINEZ) Seasonal Allergies Seasonal Allergies: No (FELIPA MARTINEZ) Surgeries HX Surgeries: Yes (BACK SURGERY, LAPAROSCOPY) Surgeries: Abdominal, Section, Hysterectomy, Oophorectomy, Orthopedic , Thyroidectomy (FELIPA MARTINEZ) Respiratory Hx Respiratory Disorders: Yes Respiratory Disorders: Chronic Bronchitis, COPD (FELIPA MARTINEZ) Cardiovascular Hx Cardiac Disorders: Yes Cardiac Disorders: 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, Hypertension (FELIPA MARTINEZ) Neurological Hx Neurological Disorders: Yes (TREMORS) (FELIPA MARTINEZ) 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 System Hx 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 Disorders: No 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 (FELIPA MARTINEZ) Genitourinary Hx Genitourinary Disorders: Yes Genitourinary Disorders: UTI-Chronic (FELIPA MARTNIEZ) Gastrointestinal Hx Gastrointestinal Disorders: Yes (h pylori hx) Gastrointestinal Disorders: Gastroesophageal Reflux (FELIPA MARTINEZ) Musculoskeletal Hx Musculoskeletal Disorders: Yes Musculoskeletal Disorders: Degenerate Disk Disease, Arthritis, Chronic Back Pain (FELIPA MARTINEZ) Endocrine Hx Endocrine Disorders: Yes (GRAVE'S DISEASE--S/P THYROIDECTOMY) Endocrine Disorders: Diabetes, Insulin dep, Hypothyroidsim (FELIPA MARTINEZ) HEENT HX ENT Disorders: No (FELIPA MARTINEZ) Cancer Hx Cancer: No (FELIPA MARTINEZ) Psychosocial Hx Psychiatric Problems: Yes Behavioral Health Disorders: Anxiety, Depression (FELIPA MARTINEZ) Integumentary HX Skin/Integumentary Disorder: No (FELIPA MARTINEZ) Blood Transfusions Hx Blood Disorders: No Adverse Reaction to a Blood Tr: No (FELIPA MARTINEZ) Reviewed Nursing Assessment Reviewed/Agree w Nursing PMH: Yes (FELIPA MARTINEZ) Family Medical History Significant Family History: No Pertinent Family Hx (FELIPA MARTINEZ) Physical Exam Vital Signs VS - Last 72 Hours, by Label 10/17/16 10/18/16 22:04 02:49 Temp 97.5 97.5 Pulse 97 97 Resp 20 20 B/P (MAP) 151/68 Pulse Ox 97 97 O2 Delivery Room Air (JETT JACOBS MD) Vital Signs Capillary Refill : (FELIPA MARTINEZ) General Appearance: WD/WN, no apparent distress HEENT: normal ENT inspection, pharynx normal Neck: full range of motion, supple, normal inspection Respiratory: chest non-tender, lungs clear, normal breath sounds Cardiovascular: regular rate, rhythm Gastrointestinal: normal bowel sounds, non tender, soft, No distended, No guarding, No rebound, other (Patient nauseated, wrectching but no vomiting.) Neurologic/Psychiatric: no motor/sensory deficits, alert, normal mood/affect, oriented x 3 Skin: normal color, warm/dry Lymphatic: no adenopathy (FELIPA MARTINEZ) Progress/Results/Core Measures Results/Orders Lab Results Laboratory Tests Test 10/18/16 01:10 Range/Units White Blood Count 9.4 4.3-11.0 10^3/uL Red Blood Count 4.72 4.35-5.85 10^6/uL Hemoglobin 14.7 11.5-16.0 G/DL Hematocrit 44 35-52 % Mean Corpuscular Volume 94 80-99 FL Mean Corpuscular Hemoglobin 31 25-34 PG Mean Corpuscular Hemoglobin Concent 33 32-36 G/DL Red Cell Distribution Width 12.4 10.0-14.5 % Platelet Count 180 130-400 10^3/uL Mean Platelet Volume 12.2 H 7.4-10.4 FL Neutrophils (%) (Auto) 81 H 42-75 % Lymphocytes (%) (Auto) 13 12-44 % Monocytes (%) (Auto) 5 0-12 % Eosinophils (%) (Auto) 0 0-10 % Basophils (%) (Auto) 0 0-10 % Neutrophils # (Auto) 7.7 1.8-7.8 X 10^3 Lymphocytes # (Auto) 1.2 1.0-4.0 X 10^3 Monocytes # (Auto) 0.5 0.0-1.0 X 10^3 Eosinophils # (Auto) 0.0 0.0-0.3 10^3/uL Basophils # (Auto) 0.0 0.0-0.1 10^3/uL Sodium Level 139 135-145 MMOL/L Potassium Level 3.7 3.6-5.0 MMOL/L Chloride Level 106 98-107 MMOL/L Carbon Dioxide Level 20 L 21-32 MMOL/L Anion Gap 13 5-14 MMOL/L Blood Urea Nitrogen 8 7-18 MG/DL Creatinine 0.77 0.60-1.30 MG/DL Estimat Glomerular Filtration Rate > 60 BUN/Creatinine Ratio 10 Glucose Level 243 H 70-105 MG/DL Calcium Level 8.8 8.5-10.1 MG/DL Total Bilirubin 0.4 0.1-1.0 MG/DL Aspartate Amino Transf (AST/SGOT) 13 5-34 U/L Alanine Aminotransferase (ALT/SGPT) 18 0-55 U/L Alkaline Phosphatase 120 40-136 U/L C-Reactive Protein High Sensitivity 0.55 H 0.00-0.50 MG/DL Total Protein 7.0 6.4-8.2 GM/DL Albumin 3.9 3.2-4.5 GM/DL (JETT JACOBS MD) My Orders Orders - JETT JACOBS MD Cbc With Automated Diff (10/18/16 00:33) Comprehensive Metabolic Panel (10/18/16 00:33) Hs C Reactive Protein (10/18/16 00:33) Abdomen, Flat & Upright/Decub (10/18/16 00:33) Lorazepam Injection (Ativan Injection) (10/18/16 00:45) Promethazine Injection (Phenergan Injec (10/18/16 00:45) Rx-Promethazine Hcl (Rx-Phenergan Supp) (10/18/16 02:25) (JETT JACOBS MD) Medications Given in ED Current Medications Medications Dose Ordered Sig/Darren Route Start Time Stop Time Status Last Admin Dose Admin Lorazepam 0.5 mg ONCE ONCE IVP 10/18/16 00:45 10/18/16 00:46 DC 10/18/16 01:05 0.5 MG Ondansetron HCl 8 mg ONCE ONCE IVP 10/17/16 22:15 10/17/16 22:16 DC 10/17/16 22:38 8 MG Promethazine HCl 12.5 mg ONCE ONCE IVP 10/18/16 00:45 10/18/16 00:46 DC 10/18/16 01:05 12.5 MG Sodium Chloride 1,000 ml @ 0 mls/hr Q0M ONCE IV 10/17/16 22:14 10/17/16 22:15 DC 10/17/16 22:38 999 MLS/HR (JETT JACOBS MD) Vital Signs/I&O Vital Sign - Last 12Hours 10/17/16 10/18/16 22:04 02:49 Temp 97.5 97.5 Pulse 97 97 Resp 20 20 B/P (MAP) 151/68 Pulse Ox 97 97 O2 Delivery Room Air Intake and Output 10/18/16 00:00 Intake Total 1000 ml Balance 1000 ml (JETT JACOBS MD) Progress Note : Time: 20:10 Progress Note Initial evaluation completed, IV fluid normal saline 1 L, Zofran 8 mg IV. 2245 patient reports improvement in her pain and nausea. IV fluid infusing. (FELIPA MARTINEZ) Progress Note : Progress Note Patient was experiencing persistent symptoms despite Zofran and IV fluids. Patient was reexamined and found to have a diffusely tender abdomen and dry heaving. Bowel sounds were decreased. Patient was treated additionally with Phenergan and Ativan. Labs were obtained for further workup. Labs were relatively unremarkable with no indication of infection. She remained afebrile. Patient was able to tolerate water prior to dismissal. KUB and upright x-ray showed no evidence of free air. (JETT JACOBS MD) Diagnostic Imaging Diagonstic Imaging: Xray Plain Films/CT/US/NM/MRI: abdomen, pelvis Comments X-ray of the abdomen and pelvis viewed by me. Report not yet available. No evidence of free air to suggest perforation. (JETT JACOBS MD) Departure Impression Impression: Primary Impression: Nausea and vomiting Qualified Codes: G43.A1 - Cyclical vomiting, intractable Additional Impression: Abdominal discomfort Disposition: HOME, SELF-CARE Condition: Stable Departure-Patient Inst. Decision time for Depature: 22:45 (FELIPA MARTINEZ) Referrals: OLINDA NICHOLE MD (PCP/Family) Primary Care Physician Patient Instructions: Nausea and Vomiting, Adult (DC) Add. Discharge Instructions: Clear liquid diet for 4 hours, then advance her diet with small quantities of bland food as tolerated. Use Zofran (ondansetron) 1-2 tablets dissolved under the tongue every 4 hours as needed for nausea. Resume taking your usual medications upon returning home. Add a Phenergan (promethazine) suppository every 6 hours as needed for additional control of nausea and vomiting. Follow up with Dr. José with a phone call in the morning to update her on your situation. Return to emergency department for increased nausea and vomiting, increased pain , fever over 100 or new problems. All discharge instructions reviewed with patient and/or family. Voiced understanding. Copy Copies To 1: FRANCY JOSÉ AMY ARNP Oct 17, 2016 22:35 JETT JACOBS MD Oct 18, 2016 02:31
[2016-10-17] MEDS ORDERED: RX-ONDANSETRON 4 MG ODT (ZOFRAN) PPK #4 PO STA (22:48)
[2016-10-18] MEDS ORDERED: LORazepam INJ 2 MG/ML (ATIVAN) VIAL IVP ONE (00:45)
[2016-10-18] MEDS ORDERED: PROMETHAZINE INJ 25 MG/ML (PHENERGAN) AMP IVP ONE (00:45)
[2016-10-18 01:19] LABS: BASOPHILS % (AUTO) 0 % (0-10); EOSINOPHILS % (AUTO) 0 % (0-10); LYMPHOCYTES # (AUTO) 1.2 X 10^3 (1.0-4.0); LYMPHOCYTES % (AUTO) 13 % (12-44); MEAN CORPUSCULAR HEMOGLOBIN 31 PG (25-34); MEAN CORPUSCULAR HGB CONC 33 G/DL (32-36); MEAN CORPUSCULAR VOLUME 94 FL (80-99); MEAN PLATELET VOLUME 12.2 FL (7.4-10.4); MONOCYTES # (AUTO) 0.5 X 10^3 (0.0-1.0); MONOCYTES % (AUTO) 5 % (0-12); NEUTROPHILS # (AUTO) 7.7 X 10^3 (1.8-7.8); NEUTROPHILS % (AUTO) 81 % (42-75); PLATELET COUNT 180 10^3/uL (130-400); RED BLOOD COUNT 4.72 10^6/uL (4.35-5.85); RED CELL DISTRIBUTION WIDTH 12.4 % (10.0-14.5); WHITE BLOOD COUNT 9.4 10^3/uL (4.3-11.0)
[2016-10-18 01:40] LABS: ALANINE AMINOTRANSFERASE 18 U/L (0-55); ALBUMIN 3.9 GM/DL (3.2-4.5); ANION GAP 13 MMOL/L (5-14); ASPARTATE AMINO TRANSFERASE 13 U/L (5-34); BILIRUBIN,TOTAL 0.4 MG/DL (0.1-1.0); BLOOD UREA NITROGEN 8 MG/DL (7-18); BUN/CREATININE RATIO 10; CALCIUM 8.8 MG/DL (8.5-10.1); CARBON DIOXIDE 20 MMOL/L (21-32); CHLORIDE 106 MMOL/L (98-107); CREATININE SERUM 0.77 MG/DL (0.60-1.30); GFR ESTIMATED > 60; GLUCOSE 243 MG/DL (70-105); POTASSIUM 3.7 MMOL/L (3.6-5.0); SODIUM 139 MMOL/L (135-145)
[2016-10-18 02:03] LABS: hs C REACTIVE PROTEIN 0.55 MG/DL (0.00-0.50)
[2016-10-18] MEDS ORDERED: RX-PHENERGAN 25 MG SUPP PPK#3 PR STA (02:25)
[2016-10-18 02:49] VITALS: BP 151/68
--- NOTE | 2016-10-18 07:14 | Diagnostic Imaging Report ---
EXAMINATION: Supine abdomen at 159 hours. INDICATION: Abdominal pain following EGD. Supine and erect views of the abdomen were obtained. There are no prior studies available for comparison. FINDINGS: There is gas in both large and small bowel in a nonspecific fashion. There is no sign of bowel obstruction. There is no evidence for a pneumoperitoneum. There is no mass, organomegaly or pathological calcification evident. There is a small 7 MM smooth calcification just superior to the right iliac crest. This is of uncertain etiology but unlikely to be clinically significant. The nodular density overlying the right lung base seen on the prior chest exam of 06/11/16 is again evident and has not changed. I suspect that this is a benign process, but I would recommend that a followup PA and lateral chest be performed for further study. IMPRESSION: 1. The bowel gas pattern is nonspecific. There is no acute abnormality identified. In particular, there is no sign of a pneumoperitoneum. 2. The nodular density overlying the right lung base is most likely benign. Even so, followup PA and lateral chest would be recommended to better characterize this finding. Dictated by: Dictated on workstation # [id number]
== END 2016-10-18 02:49 | disposition home or self-care (01) ==
LOC: EDUNIT# 21:52 → ER 21:53
DX: R11.2 Nausea with vomiting, unspecified (principal); R10.84 Generalized abdominal pain; F41.9 Anxiety disorder, unspecified; F32.9 Major depressive disorder, single episode, unspecified; E11.9 Type 2 diabetes mellitus without complications; E03.9 Hypothyroidism, unspecified; M19.90 Unspecified osteoarthritis, unspecified site; K21.9 Gastro-esophageal reflux disease without esophagitis; I10 Essential (primary) hypertension; E78.00 Pure hypercholesterolemia, unspecified; J44.9 Chronic obstructive pulmonary disease, unspecified; Z90.722 Acquired absence of ovaries, bilateral; Z87.19 Personal history of other diseases of the digestive system; Z90.710 Acquired absence of both cervix and uterus; Z79.84 Long term (current) use of oral hypoglycemic drugs; Z79.4 Long term (current) use of insulin
CPT/HCPCS: 36415; 74020; 80053; 85025; 86141; 96361; 96374; 96375

== ENCOUNTER → 2017-09-12 | Outpatient (CLI) | payer MEDICARE, MEDICAID ==
[~2017-09-12] MED LIST changes: +RT-ALBUTEROL SULF 2.5 MG/3 ML PRE-MIX VIAL INH ONE; +RT-ALBUTEROL SULF 2.5 MG/3 ML PRE-MIX VIAL ONE
== END ==
LOC: RT 09:35
PROVIDERS: ATTEND Nurse Practitioner Family
DX: J44.9 Chronic obstructive pulmonary disease, unspecified (principal); J40 Bronchitis, not specified as acute or chronic
CPT/HCPCS: 94060; 94726; 94729

== ENCOUNTER → 2017-11-26 | Outpatient (CLI) | payer MEDICARE, MEDICAID ==
[~2017-11-26] MED LIST changes: -RT-ALBUTEROL SULF 2.5 MG/3 ML PRE-MIX VIAL INH ONE; -RT-ALBUTEROL SULF 2.5 MG/3 ML PRE-MIX VIAL ONE
--- NOTE | 2017-11-26 17:41 | Diagnostic Imaging Report ---
INDICATION: Dyspnea and COPD. PA and lateral views of the chest are obtained with comparison made to study of 06/11/2016. FINDINGS: Overall heart size and pulmonary vascularity remain within normal limits. There is a persistent 1 cm nodular focus projecting over the lateral right lung base with similar nodular focus in the lateral aspect of the left upper lobe. Since these findings have not significantly changed, these may be the result of chronic abnormality such as granulomatous disease. There may be slight left basilar atelectasis and/or pneumonitis. IMPRESSION: Slight left basilar atelectasis and/or pneumonitis with otherwise stable appearance of the chest. Bilateral nodules measuring up to 1 cm have not significantly changed and may represent granulomatous residua. Dictated by: Dictated on workstation # [id number]
== END ==
LOC: RAD 15:11
PROVIDERS: ATTEND Nurse Practitioner Family
DX: J18.9 Pneumonia, unspecified organism (principal); J98.11 Atelectasis; R91.8 Other nonspecific abnormal finding of lung field; G47.33 Obstructive sleep apnea (adult) (pediatric); J44.9 Chronic obstructive pulmonary disease, unspecified
CPT/HCPCS: 71046

== ENCOUNTER 2018-01-02 20:46 | Outpatient (CLI) | payer MEDICARE, MEDICAID | END 2018-01-03 06:00 | disposition home or self-care (01) | LOC: SLEEP 20:46 | PROVIDERS: ATTEND Family Medicine | DX: G47.33 Obstructive sleep apnea (adult) (pediatric) (principal); G47.10 Hypersomnia, unspecified; R09.02 Hypoxemia | CPT/HCPCS: 95810 ==

== ENCOUNTER 2022-06-04 15:43 | Observation (INO) | payer MEDICARE, MEDICAID ==
[~2022-06-04] VITALS: Ht 160 cm; Wt 90.0 kg
[2022-06-04] MEDS ORDERED: DEXTROSE 50% 50 ML (IMS) SYR ONE (15:53)
[2022-06-04] MEDS ORDERED: DEXTROSE 50% 50 ML (IMS) SYR IV ONE (16:00)
[2022-06-04 16:08] LABS: BASOPHILS % (AUTO) 0 % (0-10); EOSINOPHILS # (AUTO) 0.1 10^3/uL (0.0-0.3); EOSINOPHILS % (AUTO) 1 % (0-10); HEMATOCRIT 41 % (35-52); HEMOGLOBIN 13.7 g/dL (11.5-16.0); LYMPHOCYTES # (AUTO) 3.4 10^3/uL (1.0-4.0); LYMPHOCYTES % (AUTO) 34 % (12-44); MEAN CORPUSCULAR HEMOGLOBIN 32 pg (25-34); MEAN CORPUSCULAR HGB CONC 34 g/dL (32-36); MEAN CORPUSCULAR VOLUME 94 fL (80-99); MEAN PLATELET VOLUME 11.5 fL (9.0-12.2); MONOCYTES % (AUTO) 10 % (0-12); NEUTROPHILS # (AUTO) 5.3 10^3/uL (1.8-7.8); NEUTROPHILS % (AUTO) 54 % (42-75); PLATELET COUNT 247 10^3/uL (130-400); WHITE BLOOD COUNT 9.9 10^3/uL (4.3-11.0)
[2022-06-04] MEDS ORDERED: fentaNYL INJ 100 MCG/2 ML AMP IVP STA (16:15)
--- NOTE | 2022-06-04 16:15 | ED Neurological Problem ---
General Chief Complaint: Neuro-Stroke Like Symptoms Stated Complaint: SPEECH SLURRED,UNSTEADY ON FEET Nursing Triage Note: Patient ambulatory to ER room 6 w c/o confusion. Patients states symptoms started approx 0300. Patient fell multiple times last night. Abrasion to the nose. Source: patient Exam Limitations: clinical condition History of Present Illness Date Seen by Provider: Jun 04, 2022 Time Seen by Provider: 15:45 Initial Comments Here with report of confusion since about 3 AM this morning but really this appears to have gone on even before that. Patient reports that she had about 10 falls yesterday and does have bruises and abrasions to her forehead. She states that her blood sugars have been in the 100 although she has had some lower ones but she was not able to define the time. She arrives with her who states that she has been quite confused and has some balance problems. He is unsure that she has been checking her blood sugars. He reports that he woke up at 3 AM and the patient was sitting on the living room floor talking to people that were not there. He states the patient really thought that the family members were there. Ultimately brought her in as the confusion continued. No report of nausea, vomiting or diarrhea. She does know the date and circumstances. She was able to walk in from the waiting room. Timing/Duration: 24 hours Severity: moderate Associated Symptoms: confusion; No fever/chills, No nausea/vomiting; slurred speech, weakness Allergies and Home Medications Allergies Coded Allergies: Sulfa (Sulfonamide Antibiotics) (Unverified Allergy, Unknown, 06/24/13) codeine (Unverified Allergy, Unknown, 06/24/13) vancomycin (Unverified Adverse Reaction, Mild, redness, 06/24/13) Patient Home Medication List Home Medication List Reviewed: Yes Albuterol/Ipratropium (Duoneb Rt) 3 Ml Nebu, 3 ML INH Q4H Prescribed by: JANNIE IVY on 08/07/14 3226 Amitriptyline Hcl (Amitriptyline Hcl) 10 Mg Tablet, 1 EACH PO HS, (Reported) Entered as Reported by: LISA JAMISON on 11/10/14 011 Clonazepam (Clonazepam Wafer 0.25 Mg) 0.25 Mg/Tab Tab.rapdis, Unknown Dose PO BID, (Reported) Entered as Reported by: LISA JAMISON on 11/10/14112 Diclofenac Potassium (Diclofenac Potassium) 50 Mg Tablet, 75 MG PO BID, (Reported) Entered as Reported by: LISA JAMISON on 11/10/14112 Gabapentin (Gabapentin) 300 Mg Capsule, 800 MG PO TID, (Reported) Entered as Reported by: RUSS TILLMAN on 02/01/14 124 Glyburide (Glyburide) 5 Mg Tablet, 2 EACH PO BIDAC, (Reported) Entered as Reported by: RUSS TILLMAN on 02/01/14 124 Hydroxyzine Hcl (Hydroxyzine Hcl) 25 Mg Tablet, 25 MG PO TID, (Reported) Entered as Reported by: LISA JAMISON on 11/10/14117 Insulin Detemir (Levemir) 100 U/Ml Vial, 55 U SQ BID, (Reported) Entered as Reported by: RUSS TILLMAN on 02/01/14 124 Lovastatin (Lovastatin 40 Mg) 40 Mg Tablet, 1 EACH PO DAILY WITH SUPPER, (Reported) Entered as Reported by: RUSS TILLMAN on 02/01/14 124 Metformin Hcl (Metformin Er 500MG) 500 Mg Tab.sr.24h, 2 EACH PO DAILY WITH MEAL, (Reported) Entered as Reported by: RUSS TILLMAN on 02/01/14 124 Methocarbamol (Robaxin-750) 750 Mg Tablet, 1 EACH PO TID, (Reported) Entered as Reported by: LISA JAMISON on 11/10/14112 Naproxen (Naprosyn) 500 Mg Tablet, 1 EACH PO TID PRN PRN for PAIN Prescribed by: RADHA DOUGLASS on 03/24/14 1232 Naproxen Sodium (Naproxen) 220 Mg Tablet, 500 MG PO BID PRN for PAIN, (Reported) Entered as Reported by: RUSS TILLMAN on 02/01/14 124 Oxycodone Hcl/Acetaminophen (Percocet 5-325 Mg Tablet) 1 Each Tablet, 1 EACH PO Q4-6H PRN PRN for PAIN, (Reported) Entered as Reported by: RUSS TILLMAN on 02/01/14 124 Oxycodone Hcl/Acetaminophen (Percocet 10-325 Mg Tablet) 1 Tab Tablet, 1-2 TAB PO Q4H PRN for PAIN Prescribed by: JETT CAMACHO on 11/10/14 0225 Prednisone (Deltasone Tablet) 20 Mg Tablet, 40 MG PO DAILY Prescribed by: JULIA THOMPSON on 02/01/14 1301 Prednisone (Prednisone) 20 Mg Tab, 40 MG PO DAILY Prescribed by: RADHA DOUGLASS on 12/07/14 2311 Primidone (Primidone) 50 Mg Tablet, 100 MG PO AM, (Reported) Entered as Reported by: RUSS TILLMAN on 02/01/14 124 Primidone (Primidone) 50 Mg Tablet, 50 MG PO 1200, (Reported) Entered as Reported by: RUSS TILLMAN on 02/01/14 124 Primidone (Primidone) 50 Mg Tablet, 100 MG PO HS, (Reported) Entered as Reported by: RUSS TILLMAN on 02/01/14 124 Sertraline Hcl (Zoloft) 25 Mg Tablet, 150 MG PO DAILY, (Reported) Entered as Reported by: RUSS TILLMAN on 02/01/14 124 Review of Systems Review of Systems Constitutional: see HPI; No chills, No fever; weakness Eyes: Denies Vision Changes; Glasses Ears, Nose, Mouth, Throat: no symptoms reported Respiratory: No cough, No short of breath Cardiovascular: No chest pain, No edema Gastrointestinal: No nausea, No vomiting Genitourinary: dysuria, frequency : No Musculoskeletal: joint pain Skin: change in color, lesions (Abrasions to the face.) Psychiatric/Neurological: Cognitive Dysfunction, Weakness Past Oinksxr-Ykphre-Qqefka Hx Patient Social History Tobacco Use?: No Seasonal Allergies Seasonal Allergies: No Past Medical History Surgeries: Yes (BACK SURGERY, LAPAROSCOPY, UPPER AND LOWER SCOPES) Abdominal, Section, Hysterectomy, Oophorectomy, Orthopedic, Thyroidectomy Respiratory: Yes Chronic Bronchitis, COPD Currently Using CPAP: No Currently Using BIPAP: No Cardiac: Yes 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, Hypertension Neurological: Yes (TREMORS) 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 Disorders: No [employer]IST History: Hysterectomy UTI-Chronic Gastrointestinal: Yes (h pylori hx) Gastroesophageal Reflux Musculoskeletal: Yes Degenerate Disk Disease, Arthritis, Chronic Back Pain Endocrine: Yes (GRAVE'S DISEASE--S/P THYROIDECTOMY) Diabetes, Insulin dep, Hypothyroidsim HEENT: No Cancer: No Psychosocial: Yes Anxiety, Depression Integumentary: No Blood Disorders: No Adverse Reaction/Blood Tranf: No Family Medical History Reviewed Nursing Family Hx No Pertinent Family Hx Physical Exam Vital Signs Vital Signs - First Documented 06/04/22 15:45 Temp 36.8 Pulse 93 Resp 20 B/P (MAP) 151/91 (111) Pulse Ox 95 O2 Delivery Room Air Capillary Refill : Less Than 3 Seconds Height, Weight, BMI Height: 5'3.00" Weight: 203lbs. oz. 92.991978vk; 35.00 BMI Method:Stated General Appearance: WD/WN, no apparent distress HEENT: PERRL/EOMI, pharynx normal, other (Abrasions to the middle of forehead and over the left brow) Neck: full range of motion, supple Respiratory: lungs clear, no accessory muscle use Cardiovascular: regular rate, rhythm, no murmur Gastrointestinal: non tender, soft Back: normal inspection, no CVA tenderness, no vertebral tenderness Extremities: pelvis stable, other (Tender to the area of the left hip and pain with left leg raise. She was able to walk.) Neurologic/Psychiatric: alert, other (Oriented to person, place and time but intermittently confused and difficult conversation as she seems to fall off subject intermittently.) Crainal Nerves: normal speech, PERRL Coordination/Gait: ABN nose to finger (R) (Slowed), ABN nose to finger (L) (Slowed) Motor/Sensory: no sensory deficit, no pronator drift Skin: normal color, warm/dry, other (Abrasions to forehead and left brow) Progress/Results/Core Measures Results/Orders Lab Results Laboratory Tests Test 06/04/22 15:51 06/04/22 15:53 06/04/22 16:19 06/04/22 17:39 Range/Units Glucometer 44 *L 158 H 42 *L 70-110 MG/DL White Blood Count 9.9 4.3-11.0 10^3/uL Red Blood Count 4.32 3.80-5.11 10^6/uL Hemoglobin 13.7 11.5-16.0 g/dL Hematocrit 41 35-52 % Mean Corpuscular Volume 94 80-99 fL Mean Corpuscular Hemoglobin 32 25-34 pg Mean Corpuscular Hemoglobin Concent 34 32-36 g/dL Red Cell Distribution Width 12.6 10.0-14.5 % Platelet Count 247 130-400 10^3/uL Mean Platelet Volume 11.5 9.0-12.2 fL Immature Granulocyte % (Auto) 1 % Neutrophils (%) (Auto) 54 42-75 % Lymphocytes (%) (Auto) 34 12-44 % Monocytes (%) (Auto) 10 0-12 % Eosinophils (%) (Auto) 1 0-10 % Basophils (%) (Auto) 0 0-10 % Neutrophils # (Auto) 5.3 1.8-7.8 10^3/uL Lymphocytes # (Auto) 3.4 1.0-4.0 10^3/uL Monocytes # (Auto) 1.0 0.0-1.0 10^3/uL Eosinophils # (Auto) 0.1 0.0-0.3 10^3/uL Basophils # (Auto) 0.0 0.0-0.1 10^3/uL Immature Granulocyte # (Auto) 0.1 0.0-0.1 10^3/uL Prothrombin Time 12.9 12.2-14.7 SEC INR Comment 0.9 0.8-1.4 Activated Partial Thromboplast Time 26 24-35 SEC D-Dimer <= 0.27 0.00-0.49 UG/ML Sodium Level 139 135-145 MMOL/L Potassium Level 3.5 L 3.6-5.0 MMOL/L Chloride Level 102 98-107 MMOL/L Carbon Dioxide Level 26 21-32 MMOL/L Anion Gap 11 5-14 MMOL/L Blood Urea Nitrogen 21 H 7-18 MG/DL Creatinine 0.90 0.60-1.30 MG/DL Estimat Glomerular Filtration Rate 75 BUN/Creatinine Ratio 23 Glucose Level 43 *L 70-105 MG/DL Calcium Level 9.0 8.5-10.1 MG/DL Corrected Calcium 9.2 8.5-10.1 MG/DL Total Bilirubin 0.2 0.1-1.0 MG/DL Aspartate Amino Transf (AST/SGOT) 16 5-34 U/L Alanine Aminotransferase (ALT/SGPT) 23 0-55 U/L Alkaline Phosphatase 161 H 40-136 U/L Troponin I < 0.028 <0.028 NG/ML Total Protein 7.2 6.4-8.2 GM/DL Albumin 3.8 3.2-4.5 GM/DL Free Thyroxine 0.93 0.70-1.48 NG/DL TSH [facility] Testing 5.11 H 0.35-4.94 UIU/ML My Orders Orders - TAMMI LOPEZ MD Cbc With Automated Diff (06/04/22 15:54) Protime With Inr (06/04/22 15:54) Partial Thromboplastin Time (06/04/22 15:54) Comprehensive Metabolic Panel (06/04/22 15:54) Fibrin Degradation Products (06/04/22 15:54) Troponin I Norbert (06/04/22 15:54) Ua Culture If Indicated (06/04/22 15:54) Chest 1 View, Ap/Pa Only (06/04/22 15:54) Ekg Tracing (06/04/22 15:54) Nothing By Mouth (06/04/22 Dinner) Accucheck Stat ONCE (06/04/22 15:54) Ed Iv/Invasive Line Start (06/04/22 15:54) Vital Signs Stroke Patient Q15M (06/04/22 15:54) Ct Head Wo-R/O Stroke (06/04/22 15:54) O2 (06/04/22 15:54) Intake & Output 06,14,22 (06/04/22 15:54) Monitor-Rhythm Ecg Trace Only (06/04/22 15:54) Dysphagia Screening Tool [id number] (06/04/22 15:54) Lipid Panel (06/05/22 06:00) D50w (Emergency) Syringe (Dextrose 50% 5 (06/04/22 16:00) D50w (Emergency) Syringe (Dextrose 50% 5 (06/04/22 15:53) Pelvis With Left Hip 2-3 Views (06/04/22 16:15) Fentanyl Inj (Sublimaze Injection) (06/04/22 16:15) Thyroid Analyzer (06/04/22 16:21) Ns Iv 500 Ml (Sodium Chloride 0.9%) (06/04/22 16:45) Free T4 (Free Thyroxine) (06/04/22 15:53) Accucheck Stat ONCE (06/04/22 17:35) D5 Ns 1000 Ml Iv Solution (Dextrose 5%/0 (06/04/22 17:45) Oxycodone/Apap 7.5/325mg Tab (Percocet (06/04/22 18:00) Medications Given in ED Current Medications Medications Dose Ordered Sig/Darren Route Start Time Stop Time Status Last Admin Dose Admin Dextrose 50 ml ONCE ONCE IV 06/04/22 16:00 06/04/22 16:01 DC 06/04/22 15:59 50 ML Oxycodone/ Acetaminophen 1 each ONCE ONCE PO 06/04/22 18:00 06/04/22 18:01 DC 06/04/22 18:08 1 EACH Sodium Chloride 500 ml @ 0 mls/hr Q0M ONCE IV 06/04/22 16:45 06/04/22 16:46 DC 06/04/22 16:54 500 MLS/HR Vital Signs/I&O 06/04/22 15:45 Temp 36.8 Pulse 93 Resp 20 B/P (MAP) 151/91 (111) Pulse Ox 95 O2 Delivery Room Air Blood Pressure Mean: 111 Progress Progress Note : Progress Note Seen and evaluated. Stroke protocol initiated including CT of the head, chest x-ray, EKG, labs including CBC, CMP, troponin, D-dimer, UA and thyroid study ordered. We did not activate stroke as this has been going on for a minimum of 12 hours but it sounds like maybe greater than 24 hours. I have added x-ray to the left hip as patient is complaining of left hip pain after fall yesterday. Stroke scale done and she has slowed finger-nose bilaterally and slowed [id number] on the left. This would be a 3 on this stroke scale. Patient is well outside of tPA window with last known well time at least last night and this may have been going on yesterday during the day as well. Blood sugar noted to be 44. 1 amp of D50 ordered. Monitor patient. Differential includes stroke, intracranial hemorrhage, electrolyte abnormality, hormone abnormality, blood sugar abnormality 1625: Patient has gone to CT. Her mentation seemed to be better after sugars and her blood sugar has improved to 158. Monitor patient. 1630: No obvious intracranial hemorrhage on my interpretation. Pending radiology review. 1639: Chest x-ray shows no acute findings on my interpretation. Pelvis and left hip x-rays show chronic degeneration but no acute fracture on my interpretation. CMP reviewed and shows to be grossly normal except for low blood sugar which was corrected. Troponin is negative. D-dimer and coags are normal and negative. TSH pending. UA pending. Monitor patient. 1725: Patient has not urinated yet. She inadvertently pulled her IV. I had to restart the IV via ultrasound guidance to the right AC with 18-gauge Angiocath. She tolerated this procedure well with no complications. IV started x1 stick. We will continue with normal saline 500 mL bolus. She has declined cath UA. TSH is slightly elevated at 5.11. T4 is pending. In further discussion with her, she has been started on ciprofloxacin for UTI by her primary care doctor. This may be part of the cause of the altered mental status given that so far everything is negative. I am curious as to urinary tract infection as this may also be part of the concern. We will give fluids and see if she improves. 1734: Free T4 in normal range. Pending UA. 1741: Patient has passed dysphagia screen. Repeat blood sugar 42. We will start D5 NS at 150 mL an hour and allow her to eat now. Monitor patient. 1749: I discussed the case with Dr. Mendoza, hospitalist on-call. She accepts patient for admission. She will follow UA. We will continue the D5 NS. 1800: Patient is complaining of pain. She normally takes Percocet 7.5/325 1 tab p.o. every 8 hours although she told us that she was taking 2 every 8 hours. I am not sure that she is actually taking 2 or just asking for 2 but we are only allowing for 1 tablet every 8 hours as it is prescribed to her. She has been chronically on narcotic for quite some time. I did discuss with the patient the need for the UA and she states that she is still trying. Fluids are continuing. She is eating now and doing okay. Admit, inpatient status. Patient and family agree with plan. Initial ECG Impression Date: Jun 04, 2022 Initial ECG Impression Time: 16:01 Initial ECG Rate: 91 Initial ECG Rhythm: Normal Sinus Comment Sinus rhythm with normal but leftward axis. Left ventricular hypertrophy noted. No evidence of ST elevation AL. Interpreted by me. Diagnostic Imaging Diagonstic Imaging: CT Plain Films/CT/US/NM/MRI: head Comments [facility] [place], [place] NAME: GEORGE AVELAR [facility] REC#: [id number] PT STATUS: REG ER : 1965 PHYSICIAN: TAMMI LOPEZ MD ADMIT DATE: 06/04/22/ER Draft Date of Exam:06/04/22 CT HEAD WO-R/O STROKE PROCEDURE: CT head wo r/o stroke. TECHNIQUE: Multiple contiguous axial images were obtained through the brain without the use of intravenous contrast. Auto Exposure Controls were utilized during the CT exam to meet ALARA standards for radiation dose reduction. INDICATION: Confusion and falls. EXAMINATION: Noncontrasted CT head performed. FINDINGS: There is no intracranial hemorrhage. There is no hydrocephalus, cerebral edema, mass or mass effect. No acute appearing extra-axial fluid collection. There is prominence of the extra-axial CSF likely owing to a mild degree of cortical atrophy. No focal or generalized edema. No evidence for an elevation of the intracranial pressures. The orbits, sinuses and calvarium all appear nonacute. No mass or mass effect. IMPRESSION: No hemorrhage, edema or acute appearing abnormality. Dictated on workstation # [id number] Dict: 06/04/22 1629 Trans: 06/04/22 1635 [facility] [id number] Interpreted by: ALEENA TEJADA Electronically signed by: Reviewed: Reviewed by Me Diagonstic Imaging: Xray Plain Films/CT/US/NM/MRI: chest Reviewed: Reviewed by Me Diagonstic Imaging: Xray Plain Films/CT/US/NM/MRI: pelvis, hip Reviewed: Reviewed by Me Departure Communication (Admissions) Time/Spoke to Admitting Phy: 17:49 Impression Primary Impression: Encephalopathy acute Additional Impression: Hypoglycemia associated with diabetes Disposition: ADMITTED INPATIENT Condition: Stable Admissions Decision to Admit Reason: Admit from ER (General) Decision to Admit/Date: Jun 04, 2022 Time/Decision to Admit Time: 17:49 Departure-Patient Inst. Referrals: OLINDA NICHOLE MD (PCP/Family) Primary Care Physician TAMMI LOPEZ MD Jun 04, 2022 16:15
[2022-06-04 16:18] LABS: ALBUMIN 3.8 GM/DL (3.2-4.5)
[2022-06-04 16:19] LABS: CHLORIDE 102 MMOL/L (98-107); POTASSIUM 3.5 MMOL/L (3.6-5.0); SODIUM 139 MMOL/L (135-145)
[2022-06-04 16:21] LABS: TOTAL PROTEIN 7.2 GM/DL (6.4-8.2)
[2022-06-04 16:22] LABS: CARBON DIOXIDE 26 MMOL/L (21-32)
[2022-06-04 16:23] LABS: BILIRUBIN,TOTAL 0.2 MG/DL (0.1-1.0)
[2022-06-04 16:24] LABS: ALKALINE PHOSPHATASE 161 U/L (40-136)
[2022-06-04 16:25] LABS: GFR ESTIMATED 75
[2022-06-04 16:26] LABS: BUN/CREATININE RATIO 23
[2022-06-04 16:27] LABS: ALANINE AMINOTRANSFERASE 23 U/L (0-55)
[2022-06-04 16:30] LABS: GLUCOSE 43 MG/DL (70-105)
[2022-06-04 16:34] LABS: FIBRIN DEGRADATION PRODUCTS <= 0.27 UG/ML (0.00-0.49); INR 0.9 (0.8-1.4); PARTIAL THROMBOPLASTIN TIME 26 SEC (24-35); PROTHROMBIN TIME PATIENT 12.9 SEC (12.2-14.7)
--- NOTE | 2022-06-04 16:35 | Diagnostic Imaging Report ---
PROCEDURE: CT head wo r/o stroke. TECHNIQUE: Multiple contiguous axial images were obtained through the brain without the use of intravenous contrast. Auto Exposure Controls were utilized during the CT exam to meet ALARA standards for radiation dose reduction. INDICATION: Confusion and falls. EXAMINATION: Noncontrasted CT head performed. FINDINGS: There is no intracranial hemorrhage. There is no hydrocephalus, cerebral edema, mass or mass effect. No acute appearing extra-axial fluid collection. There is prominence of the extra-axial CSF likely owing to a mild degree of cortical atrophy. No focal or generalized edema. No evidence for an elevation of the intracranial pressures. The orbits, sinuses and calvarium all appear nonacute. No mass or mass effect. IMPRESSION: No hemorrhage, edema or acute appearing abnormality. Dictated by: Dictated on workstation # [id number]
--- NOTE | 2022-06-04 16:40 | Diagnostic Imaging Report ---
EXAMINATION: Chest radiograph, portable AP view. DATE: 06/04/2022 4:36 PM INDICATION: 57-year-old female, confusion. Altered mental status. COMPARISON: June 11, 2016. FINDINGS: Lung volumes are somewhat low. There is associated central bronchovascular crowding. There is no identified pneumothorax. There is no large pleural effusion. There is no identified focal airspace consolidation. IMPRESSION: Low lung volumes without identified acute cardiopulmonary abnormality. Dictated by: Dictated on workstation # [id number]
--- NOTE | 2022-06-04 16:41 | Diagnostic Imaging Report ---
INDICATION: Confusion, pain. FINDINGS: AP pelvis and two-view left hip performed. No fracture, dislocation or acute articular irregularity. No articular collapse. No bony avulsion. IMPRESSION: No acute finding at AP pelvis and two-view left hip. Dictated by: Dictated on workstation # [id number]
[2022-06-04] MEDS ORDERED: NS IV 500 ML 500 ML IV ONE (16:45)
[2022-06-04 16:56] LABS: TSH (THYROID ANALYZER) 5.11 UIU/ML (0.35-4.94)
[2022-06-04 17:28] LABS: FREE T4 (FREE THYROXINE) 0.93 NG/DL (0.70-1.48)
[2022-06-04] MEDS ORDERED: D5 NS 1000 ML IV SOLUTION 1,000 ML IV SCH (17:45)
[2022-06-04] MEDS ORDERED: oxyCODONE/APAP 7.5-325 MG (PERCOCET 7.5) TABLET PO ONE (18:00)
[2022-06-04 19:00] VITALS: BP 148/78
[2022-06-04 20:40] LABS: BILIRUBIN,URINE NEGATIVE (NEGATIVE); CLARITY,URINE CLEAR; COLOR,URINE YELLOW; GLUCOSE, URINE (UA) 2+ (NEGATIVE); KETONES,URINE NEGATIVE (NEGATIVE); LEUKOCYTE ESTERASE ,URINE TRACE (NEGATIVE); NITRITE,URINE NEGATIVE (NEGATIVE); PROTEIN,URINE NEGATIVE (NEGATIVE)
[2022-06-04 20:50] LABS: BACTERIA,URINE TRACE /HPF
[2022-06-04] MEDS ORDERED: PRIMIDONE 50 MG TAB (MYSOLINE) PO ONE (21:15)
[2022-06-04] MEDS ORDERED: ONDANSETRON 4 MG/2 ML (SDV) Z0FRAN IV PRN (22:30)
[2022-06-04] MEDS: GABAPENTIN 400 MG (NEURONTIN) CAP PO SCH (23:08)
[2022-06-04] MEDS: oxyCODONE/APAP 7.5-325 MG (PERCOCET 7.5) TABLET PO PRN (23:08)
[2022-06-04] MEDS: D5 NS 1000 ML IV SOLUTION 1,000 ML IV SCH (23:47)
[2022-06-05] VITALS: BP 126/69
[2022-06-05] MEDS: D5 NS 1000 ML IV SOLUTION 1,000 ML IV SCH (02:07)
[2022-06-05 04:00] VITALS: BP 135/66
[2022-06-05] MEDS: oxyCODONE/APAP 7.5-325 MG (PERCOCET 7.5) TABLET PO PRN (04:47)
[2022-06-05 06:00] LABS: BASOPHILS % (AUTO) 1 % (0-10); EOSINOPHILS # (AUTO) 0.1 10^3/uL (0.0-0.3); EOSINOPHILS % (AUTO) 2 % (0-10); HEMATOCRIT 36 % (35-52); HEMOGLOBIN 11.6 g/dL (11.5-16.0); LYMPHOCYTES % (AUTO) 34 % (12-44); MEAN CORPUSCULAR HEMOGLOBIN 31 pg (25-34); MEAN CORPUSCULAR HGB CONC 32 g/dL (32-36); MEAN CORPUSCULAR VOLUME 97 fL (80-99); MEAN PLATELET VOLUME 11.5 fL (9.0-12.2); MONOCYTES # (AUTO) 0.7 10^3/uL (0.0-1.0); MONOCYTES % (AUTO) 11 % (0-12); NEUTROPHILS # (AUTO) 3.1 10^3/uL (1.8-7.8); NEUTROPHILS % (AUTO) 52 % (42-75); PLATELET COUNT 199 10^3/uL (130-400); WHITE BLOOD COUNT 5.9 10^3/uL (4.3-11.0)
[2022-06-05 06:18] LABS: CALCIUM 8.3 MG/DL (8.5-10.1); CREATININE SERUM 0.78 MG/DL (0.60-1.30); POTASSIUM 3.7 MMOL/L (3.6-5.0)
[2022-06-05] MEDS: inSUlin ASPART (NovoLOG) 1 UNIT/0.01 ML (CHARGE PER UNIT) SC SCH ×2 (06:40→11:20)
[2022-06-05 07:54] VITALS: BP 119/74
[2022-06-05] MEDS: GABAPENTIN 400 MG (NEURONTIN) CAP PO SCH (08:41)
[2022-06-05] MEDS ORDERED: GABAPENTIN 400 MG (NEURONTIN) CAP PO SCH (09:00)
[2022-06-05] MEDS ORDERED: oxyCODONE/APAP 7.5-325 MG (PERCOCET 7.5) TABLET PO PRN (10:45)
[2022-06-05] MEDS ORDERED: GABA-486 PO (10:46)
[2022-06-05] MEDS ORDERED: OXYC1TAB16 PO (10:48)
[2022-06-05] MEDS ORDERED: INSU100V6 SQ ×3 (10:50→12:30)
[2022-06-05] MEDS ORDERED: ATOR20TA49 PO (10:51)
[2022-06-05] MEDS ORDERED: CARB200T6 PO (10:53)
[2022-06-05] MEDS ORDERED: ALPR1TAB2 PO (10:55)
[2022-06-05] MEDS ORDERED: LEVO5TAB28 PO (10:56)
[2022-06-05] MEDS ORDERED: LEVO75CA5 PO (10:58)
[2022-06-05 11:34] VITALS: BP 146/81
[2022-06-05] MEDS ORDERED: CATHETER FLUSH 10 ML SYR IVP PRN (12:45)
[2022-06-05 13:22] VITALS: BP 146/81
--- NOTE | 2022-06-05 19:12 | Short Stay Summary ---
Discharge Summary Hospital Course Was the Problem List Reviewed?: Yes Problems/Dx: (1) Hypoglycemia associated with diabetes Status: Acute Final Diagnosis: T2DM with hypoglycemia Hospital Course Date of Admission: Jun 04, 2022 at 18:25 Admission Diagnosis : T2DM with hypoglycemia Family Physician/Provider: Mohsen Finnegan DO Date of Discharge: 06/05/22 Discharge Diagnosis: T2DM with hypoglycemia Hospital Course: Gabriela Franco is a 57 year old female with T2DM on insulin who was admitted with hypoglycemia. Her Dexcom was not calibrated and was reading much higher than her actual blood sugar. Her insulin dose was decreased. This will likely need to be titrated up again as an outpatient. She has a glucometer at home and will use that instead of her Dexcom for now, until it is recalibrated. She will keep a log of her blood sugars. She will follow up with her PCP, Dr. Finnegan, in about a week. She was discharged home in stable condition. Labs and Pending Lab Test: Laboratory Tests 06/04/22 19:24: Glucometer 88 06/04/22 20:26: Urine Color YELLOW, Urine Clarity CLEAR, Urine pH 6.0, Urine Specific [place] 1.025H, Urine Protein NEGATIVE, Urine Glucose (UA) 2+H, Urine Ketones NEGATIVE, Urine Nitrite NEGATIVE, Urine Bilirubin NEGATIVE, Urine Urobilinogen 0.2, Urine Leukocyte Esterase TRACEH, Urine RBC (Auto) TRACE-IH, Urine RBC NONE, Urine WBC 2-5, Urine Squamous Epithelial Cells 5-10, Urine Crystals NONE, Urine Bacteria TRACE, Urine Casts NONE, Urine Mucus NEGATIVE, Urine Culture Indicated YES 06/04/22 22:08: Glucometer 194H 06/05/22 00:21: Glucometer 191H 06/05/22 02:57: Glucometer 168H 06/05/22 04:36: Glucometer 103 06/05/22 05:35: White Blood Count 5.9, Red Blood Count 3.72L, Hemoglobin 11.6, Hematocrit 36, Mean Corpuscular Volume 97, Mean Corpuscular Hemoglobin 31, Mean Corpuscular Hemoglobin Concent 32, Red Cell Distribution Width 12.7, Platelet Count 199, Mean Platelet Volume 11.5, Immature Granulocyte % (Auto) 1, Neutrophils (%) (Auto) 52, Lymphocytes (%) (Auto) 34, Monocytes (%) (Auto) 11, Eosinophils (%) (Auto) 2, Basophils (%) (Auto) 1, Neutrophils # (Auto) 3.1, Lymphocytes # (Auto) 2.0, Monocytes # (Auto) 0.7, Eosinophils # (Auto) 0.1, Basophils # (Auto) 0.0, Immature Granulocyte # (Auto) 0.0, Sodium Level 142, Potassium Level 3.7, Chloride Level 109H, Carbon Dioxide Level 24, Anion Gap 9, Blood Urea Nitrogen 13, Creatinine 0.78, Estimat Glomerular Filtration Rate 89, BUN/Creatinine Ratio 17, Glucose Level 95, Calcium Level 8.3L, Triglycerides Level 203H, Cholesterol Level 150, LDL Cholesterol Direct 66, VLDL Cholesterol 41H, HDL Cholesterol 43 06/05/22 08:10: Glucometer 45*L 06/05/22 10:33: Glucometer 111H 06/05/22 12:20: Glucometer 208H Microbiology 06/04/22 Urine Culture - Preliminary, Resulted Culture In Progress Home Meds Active Lantus (Insulin Glargine,Hum.rec.anlog) 100 Unit/Ml Vial 20 Unit SQ BID 30 Days Duoneb Rt (Albuterol/Ipratropium) 3 Ml Nebu 3 Ml INH Q4H Reported Levothyroxine (Levothyroxine Sodium) 75 Mcg Capsule 75 Mcg PO DAILY Xyzal (Levocetirizine Dihydrochloride) 5 Mg Tablet 5 Mg PO HS Xanax (Alprazolam) 1 Mg Tablet 1 Mg PO BID Carbamazepine 200 Mg Tablet 200 Mg PO TID Lipitor (Atorvastatin Calcium) 20 Mg Tablet 20 Mg PO HS Percocet 7.5-325 mg Tablet (Oxycodone HCl/Acetaminophen) 1 Each Tablet 1 Tab PO TID PRN MDD 4 TABS 7 Days Gabapentin 100 Mg Capsule 300 Mg PO TID Hydroxyzine Hcl 25 Mg Tablet 25 Mg PO TID Assessment/Pt Instructions See instructions Discharge Instructions Discharge Diet: ADA Diet Activity as Tolerated: Yes Discharge Physical Examination General Appearance: Alert, Cooperative, No Acute Distress HEENT: Atraumatic, EOMI, Mucous Memb Moist/[place] Respiratory: Clear to Auscultation, Normal Air Movement Cardiovascular: Regular Rate, No Murmurs Abdominal: Soft, No Tenderness Skin: No Rashes, No Significant Lesion Neuro: Normal Speech, Normal Tone Psych/Mental Status: Mental Status NL, Mood NL Allergies: Coded Allergies: Sulfa (Sulfonamide Antibiotics) (Unverified Allergy, Unknown, 06/24/13) codeine (Unverified Allergy, Unknown, 06/24/13) vancomycin (Unverified Adverse Reaction, Mild, redness, 06/24/13) Discharge Summary Date of Admission Jun 04, 2022 at 18:25 Date of Discharge Jun 05, 2022 at 13:20 Discharge Date: Jun 05, 2022 Discharge Time: 13:20 Admission Diagnosis T2DM with hypoglycemia Discharge Diagnosis (1) Hypoglycemia associated with diabetes Status: Acute TEDDY GAMBLE MD Jun 05, 2022 19:12
== END 2022-06-05 13:20 | disposition home or self-care (01) ==
LOC: EDUNIT# 15:43 → ER 15:46 → INTOOBSV 18:25 → 4TH 18:25
PROVIDERS: ADMIT Family Medicine; ATTEND Internal Medicine
DX: E11.649 Type 2 diabetes mellitus with hypoglycemia without coma (principal); G93.40 Encephalopathy, unspecified; Z79.4 Long term (current) use of insulin
CPT/HCPCS: 36415; 70450; 71045; 80048; 80053; 80061; 81000; 82947; 84439; 84443; 84484; 85025; 85379; 85610; 85730; 87088; 93005; 93041; G0378

== ENCOUNTER 2022-08-14 15:47 | Emergency (ER) | payer MEDICARE, MEDICAID ==
[~2022-08-14] VITALS: Ht 160 cm; Wt 86.2 kg
[~2022-08-14 15:47] MED LIST changes: +ALPR1TAB2 PO; +ATOR20TA49 PO; +CARB200T6 PO; +GABA-486 PO; +INSU100V6 SQ; +LEVO5TAB28 PO; +LEVO75CA5 PO; +OXYC1TAB16 PO
[2022-08-14] MEDS ORDERED: PIPERACILLIN SODIUM/TAZOBACTAM 4.5 GM in NS (IVPB) 100 ML IV ONE (18:00)
--- NOTE | 2022-08-14 18:05 | ED Back Pain ---
General Chief Complaint: Post OP Complications/Pain Stated Complaint: POST OP BACK PAIN/SURGERY SITE DRAINING Nursing Triage Note: PT AMBULATE TO TRIAGE WITH C/O POST OP PAIN AND DRAINAGE. PT REPORTS HAVING BACK SURGERY 08/02/[address] [facility]. PT REPORTS SPEAKING WITH SURGEONS OFFICE TODAY AND PT WAS TOLD TO COME TO PED. Source of Information: Patient Exam Limitations: No Limitations History of Present Illness Date Seen by Provider: August 14, 2022 Time Seen by Provider: 18:00 Initial Comments Patient is a 57-year-old female presents ED with low back pain, chills, feeling feverish. Patient states she had low back surgery on August [address] Ramos neurosurgeon at [facility]. Patient states she had a fusion. Patient states states over the weekend she started feeling feverish with chills, body aches. Started having low back pain very similar but worse. She states she did get improvement after her surgery of pain. She started taken Tylenol and ibuprofen at home without much improvement. Patient states she is urinating without any difficulties. She denies of any urine incontinence. She states she went to the bathroom this morning and had a bowel movement and had no feeling. She reports chronic neuropathy her lower extremity. She is diabetic currently on insulin. She denies chest pain, cough, visual changes, abdominal pain. She states she does not feel well. Allergies and Home Medications Allergies Coded Allergies: Sulfa (Sulfonamide Antibiotics) (Unverified Allergy, Unknown, 06/24/13) codeine (Unverified Allergy, Unknown, 06/24/13) vancomycin (Unverified Adverse Reaction, Mild, redness, 06/24/13) Patient Home Medication List Home Medication List Reviewed: Yes Albuterol/Ipratropium (Duoneb Rt) 3 Ml Nebu, 3 ML INH Q4H Prescribed by: JANNIE IVY on 08/07/14 2316 Alprazolam (Xanax) 1 Mg Tablet, 1 MG PO BID, (Reported) Entered as Reported by: MICHAEL MONSON on 06/05/22 1055 Atorvastatin Calcium (Lipitor) 20 Mg Tablet, 20 MG PO HS, (Reported) Entered as Reported by: MICHAEL MONSON on 06/05/22 1051 Carbamazepine (Carbamazepine) 200 Mg Tablet, 200 MG PO TID, (Reported) Entered as Reported by: MICHAEL MONSON on 06/05/22 1053 Cephalexin (Cephalexin) 500 Mg Tablet, 500 MG PO BID Prescribed by: GOYO WAGONER on 08/14/222014 Gabapentin (Gabapentin) 100 Mg Capsule, 300 MG PO TID, (Reported) Entered as Reported by: MICHAEL MONSON on 06/05/22 1046 Hydroxyzine Hcl (Hydroxyzine Hcl) 25 Mg Tablet, 25 MG PO TID, (Reported) Entered as Reported by: LISA JAMISON on 11/10/14 0118 Insulin Glargine,Hum.rec.anlog (Lantus) 100 Unit/Ml Vial, 20 UNIT SQ BID Prescribed by: TEDDY GAMBLE on 06/05/22 1230 Levocetirizine Dihydrochloride (Xyzal) 5 Mg Tablet, 5 MG PO HS, (Reported) Entered as Reported by: MICHAEL MONSON on 06/05/22 1056 Levothyroxine Sodium (Levothyroxine) 75 Mcg Capsule, 75 MCG PO DAILY, (Reported) Entered as Reported by: MICHAEL MONSON on 06/05/22 1058 Oxycodone HCl/Acetaminophen (Percocet 7.5-325 mg Tablet) 1 Each Tablet, 1 TAB PO TID PRN for PAIN-MODERATE, (Reported) Entered as Reported by: MICHAEL MONSON on 06/05/22 1048 Review of Systems Constitutional: chills; No diaphoresis; fever, malaise, weakness EENTM: No ear pain, No blurred vision, No double vision Respiratory: No cough, No dyspnea on exertion Cardiovascular: No chest pain Gastrointestinal: No abdominal pain, No diarrhea, No nausea, No vomiting Genitourinary: No decreased output, No discharge Musculoskeletal: back pain, joint pain Skin: No change in color, No change in hair/nails All Other Systems Reviewed Negative Unless Noted: Yes Past Wyzyqnz-Fzvzsv-Plkdvm Hx Patient Social History Tobacco Use?: No Smoking Status: Never a Smoker Smokeless Tobacco Frequency: Never a User Use of E-Cig and/or Vaping dev: No Use of E-Cig and/or Vaping El: Never a User Substance use?: No Alcohol Use?: No Pt feels they are or have been: No Seasonal Allergies Seasonal Allergies: No Past Medical History Surgeries: Yes (BACK SURGERY, LAPAROSCOPY, UPPER AND LOWER SCOPES) Abdominal, Section, Hysterectomy, Oophorectomy, Orthopedic, Thyro idectomy Respiratory: Yes Chronic Bronchitis, COPD Currently Using CPAP: No Currently Using BIPAP: No Cardiac: Yes 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, Hypertension Neurological: Yes (TREMORS) 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 Disorders: 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 UTI-Chronic Gastrointestinal: Yes (h pylori hx) Gastroesophageal Reflux Musculoskeletal: Yes Degenerate Disk Disease, Arthritis, Chronic Back Pain Endocrine: Yes (GRAVE'S DISEASE--S/P THYROIDECTOMY) Diabetes, Insulin dep, Hypothyroidsim HEENT: No Cancer: No Psychosocial: Yes Anxiety, Depression Integumentary: No Blood Disorders: No Adverse Reaction/Blood Tranf: No Family Medical History No Pertinent Family Hx Physical Exam Vital Signs Vital Signs - First Documented 08/14/22 08/14/22 16:07 20:32 Temp 36.7 Pulse 100 Resp 18 B/P (MAP) 135/76 (95) Pulse Ox 96 O2 Delivery Room Air Capillary Refill : Less Than 3 Seconds Height, Weight, BMI Height: 5'3.00" Weight: 203lbs. oz. [id number]; 33.00 BMI Method:Stated General Appearance: No Apparent Distress, WD/WN HEENT: PERRL/EOMI, TMs Normal, Normal ENT Inspection, Pharynx Normal Neck: Full Range of Motion, Normal Inspection, Non Tender, Supple Cardiovascular: Regular Rate, Rhythm, No Edema, No Gallop, No JVD Respiratory: Chest Non Tender, Lungs Clear, Normal Breath Sounds, No Accessory Muscle Use, No Respiratory Distress Gastrointestinal: Normal Bowel Sounds, No Organomegaly, No Pulsatile Mass, Non Tender Back: Vertebral Tenderness (lumbar midline tenderness), Other (Healing surgical wound to lower back. No active drainage. Localized erythema around the sutures.) Extremity: Normal Capillary Refill, Normal Inspection, Normal Range of Motion, Non Tender Skin: Other (Sutures in place in lower back) Progress/Results/Core Measures Results/Orders Lab Results Laboratory Tests Test 08/14/22 18:05 08/14/22 19:52 Range/Units White Blood Count 7.6 4.3-11.0 10^3/uL Red Blood Count 4.33 3.80-5.11 10^6/uL Hemoglobin 13.5 11.5-16.0 g/dL Hematocrit 41 35-52 % Mean Corpuscular Volume 95 80-99 fL Mean Corpuscular Hemoglobin 31 25-34 pg Mean Corpuscular Hemoglobin Concent 33 32-36 g/dL Red Cell Distribution Width 12.7 10.0-14.5 % Platelet Count 322 130-400 10^3/uL Mean Platelet Volume 11.1 9.0-12.2 fL Immature Granulocyte % (Auto) 0 % Neutrophils (%) (Auto) 67 42-75 % Lymphocytes (%) (Auto) 24 12-44 % Monocytes (%) (Auto) 8 0-12 % Eosinophils (%) (Auto) 1 0-10 % Basophils (%) (Auto) 0 0-10 % Neutrophils # (Auto) 5.1 1.8-7.8 10^3/uL Lymphocytes # (Auto) 1.8 1.0-4.0 10^3/uL Monocytes # (Auto) 0.6 0.0-1.0 10^3/uL Eosinophils # (Auto) 0.1 0.0-0.3 10^3/uL Basophils # (Auto) 0.0 0.0-0.1 10^3/uL Immature Granulocyte # (Auto) 0.0 0.0-0.1 10^3/uL Prothrombin Time 12.6 12.2-14.7 SEC INR Comment 0.9 0.8-1.4 Activated Partial Thromboplast Time 28 24-35 SEC Sodium Level 140 135-145 MMOL/L Potassium Level 3.5 L 3.6-5.0 MMOL/L Chloride Level 105 98-107 MMOL/L Carbon Dioxide Level 21 21-32 MMOL/L Anion Gap 14 5-14 MMOL/L Blood Urea Nitrogen 11 7-18 MG/DL Creatinine 0.80 0.60-1.30 MG/DL Estimat Glomerular Filtration Rate 86 BUN/Creatinine Ratio 14 Glucose Level 121 H 70-105 MG/DL Lactic Acid Level 1.10 0.50-2.00 MMOL/L Calcium Level 9.4 8.5-10.1 MG/DL Corrected Calcium 9.4 8.5-10.1 MG/DL Total Bilirubin 0.3 0.1-1.0 MG/DL Aspartate Amino Transf (AST/SGOT) 15 5-34 U/L Alanine Aminotransferase (ALT/SGPT) 14 0-55 U/L Alkaline Phosphatase 166 H 40-136 U/L C-Reactive Protein High Sensitivity 0.49 0.00-0.50 MG/DL Total Protein 8.1 6.4-8.2 GM/DL Albumin 4.0 3.2-4.5 GM/DL Urine Color YELLOW Urine Clarity CLOUDY Urine pH 6.0 5-9 Urine Specific [place] >=1.030 1.016-1.022 Urine Protein 2+ H NEGATIVE Urine Glucose (UA) NEGATIVE NEGATIVE Urine Ketones 1+ H NEGATIVE Urine Nitrite POSITIVE H NEGATIVE Urine Bilirubin 1+ H NEGATIVE Urine Urobilinogen 0.2 < = 1.0 MG/DL Urine Leukocyte Esterase 1+ H NEGATIVE Urine RBC (Auto) 2+ H NEGATIVE Urine RBC 2-5 H /HPF Urine WBC >100 H /HPF Urine Squamous Epithelial Cells RARE /HPF Urine Crystals NONE /LPF Urine Bacteria MODERATE H /HPF Urine Casts NONE /LPF Urine Mucus NEGATIVE /LPF Urine Culture Indicated CULTURE PENDING Micro Results Microbiology 08/14/22 Urine Culture - Final, Complete Escherichia coli Mixed Bacterial Brenda 08/14/22 Blood Culture - Preliminary, Resulted No growth 08/14/22 Blood Culture - Preliminary, Resulted No growth My Orders Orders - OSEAS DE DIOS Cbc With Automated Diff (08/14/22 17:58) Comprehensive Metabolic Panel (08/14/22 17:58) Blood Culture (08/14/22 17:58) Urinalysis (08/14/22 17:58) Urine Culture (08/14/22 17:58) Protime With Inr (08/14/22 17:58) Partial Thromboplastin Time (08/14/22 17:58) Vital Signs Adult Sepsis Patie Q15M (08/14/22 17:58) Lactic Acid Analyzer (08/14/22 17:58) Piperacillin Sodium/Tazobactam (Zosyn Vi (08/14/22 18:00) Ct Lumbar Spine Wo (08/14/22 17:58) Hs C Reactive Protein (08/14/22 18:34) Hydrocodone/Apap 7.5/325 Tab (Lortab 7. (08/14/22 18:58) Cephalexin Capsule (Keflex Capsule) (08/14/22 20:13) Rx-Hydrocodone/Apap 5-325 Mg (Rx-Vicodin (08/14/22 20:30) Medications Given in ED Vital Signs/I&O 08/14/22 08/14/22 16:07 20:32 Temp 36.7 Pulse 100 100 Resp 18 18 B/P (MAP) 135/76 (95) 144/86 Pulse Ox 96 O2 Delivery Room Air Room Air Blood Pressure Mean: 95 Departure Communication (PCP) Reviewed previous ER visits, H&P, lab testing. Patient had low back surgery August [address] Ramos neurosurgeon at [facility] in [place]. She had fusion L3-L5. She states that she had postop complications with infection in her lower back last year. Had a draining tube placed for 8 weeks requiring PT afterwards. Patient states after her surgery on August 02 she started having improvement of pain. Pain increased over the weekend with chills, subjective fever. No bowel or urine incontinence, saddle paresthesia. Chronic neuropathy lower extremity. Able to ambulate. She states she has been shaking. Concerning for postop infection. She did report some purulent drainage from her surgical site. No purlent drainage noted today. She was afebrile. Tachycardia at 100. She did not appear toxic. Due to concern for postop infection. blood cultures, lactic acid, general lab work was ordered. CBC showed normal white blood count. CRP was added which was unremarkable. CBC, CMP grossly unremarkable. She received oral hydrocodone for pain. CT lumbar spine was ordered which showed operative changes of L3-L5 fusion with interbody fusion of the L3-L4 level. Hardware position appears appropriate. Lumbar spine alignment is normal. No acute or suspicious osseous abnormality. Laminectomies at surgical levels to discern a apparent wide decompression of the central canal. No evidence of high-grade stenosis. Minimal induration within the subcutaneous fat deep to the patient's skin incision without definable fluid collection or abscess. She had no surrounding redness or swelling near her surgical site. Mild erythema around the repair but appears to be more secondary healing. Urinalysis was concern for urinary tract infection. She she was a difficult IV stick. She required a PICC line at [facility]. I Was able to give oral Keflex 500 mg here for UTI. Refused IM Rocephin. Attempted to start IV for Zosyn initially as I was concerned for postop infection but after lab work returned, I held IV Zoysn. Patient was discussed with Dr. Reginaldo Robin neurosurgeon at [facility]. Went over patient's current symptoms, lab work and current complaint. Did not feel that patient needed transfer at this time. Requested to see patient in the morning to evaluate the surgical site and her symptoms. No further imaging at this time or antibiotics for potential infection. she is scheduled to get the sutures out on Sunday. Since she is positive her for UTI will discharge with Keflex. Provided take-home pack of hydrocodone. She states her symptoms appear to be improving. Checked her temperature twice and continue to remain afebrile. Since her history of postop complication with infection. Recommend close monitoring. She is not diabetic. Strict return precaution were discussed such as increased pain, fever, vomiting. Further evaluation is needed. Patient's chills may be secondary to UTI. Impression Primary Impression: UTI (urinary tract infection) Additional Impression: Back pain Disposition: HOME, SELF-CARE Condition: Stable Departure-Patient Inst. Decision time for Depature: 20:14 Referrals: MATTHEW CROUCH DO (PCP/Family) Primary Care Physician Patient Instructions: Urinary Tract Infection, Adult ED Add. Discharge Instructions: Recommend taking antibiotics as prescribed. Take pain medication as needed. Follow-up with neurosurgery at [facility] tomorrow morning. Dr. Reginaldo Robin will follow up with you. If worsening pain, fever, chills, vomiting to return back to ED Scripts Cephalexin (Cephalexin) 500 Mg Tablet 500 MG PO BID for 7 Days, #14 TAB Prov: OSEAS DE DIOS 08/14/22 OSEAS DE DIOS August 14, 2022 18:05
[2022-08-14 18:21] LABS: BASOPHILS % (AUTO) 0 % (0-10); EOSINOPHILS # (AUTO) 0.1 10^3/uL (0.0-0.3); EOSINOPHILS % (AUTO) 1 % (0-10); HEMATOCRIT 41 % (35-52); HEMOGLOBIN 13.5 g/dL (11.5-16.0); LYMPHOCYTES # (AUTO) 1.8 10^3/uL (1.0-4.0); LYMPHOCYTES % (AUTO) 24 % (12-44); MEAN CORPUSCULAR HEMOGLOBIN 31 pg (25-34); MEAN CORPUSCULAR HGB CONC 33 g/dL (32-36); MEAN CORPUSCULAR VOLUME 95 fL (80-99); MEAN PLATELET VOLUME 11.1 fL (9.0-12.2); MONOCYTES # (AUTO) 0.6 10^3/uL (0.0-1.0); MONOCYTES % (AUTO) 8 % (0-12); NEUTROPHILS # (AUTO) 5.1 10^3/uL (1.8-7.8); NEUTROPHILS % (AUTO) 67 % (42-75); PLATELET COUNT 322 10^3/uL (130-400); WHITE BLOOD COUNT 7.6 10^3/uL (4.3-11.0)
[2022-08-14 18:30] LABS: POTASSIUM 3.5 MMOL/L (3.6-5.0)
[2022-08-14 18:31] LABS: CALCIUM 9.4 MG/DL (8.5-10.1)
[2022-08-14 18:33] LABS: INR 0.9 (0.8-1.4); PROTHROMBIN TIME PATIENT 12.6 SEC (12.2-14.7); TOTAL PROTEIN 8.1 GM/DL (6.4-8.2)
[2022-08-14 18:34] LABS: BILIRUBIN,TOTAL 0.3 MG/DL (0.1-1.0)
[2022-08-14 18:36] LABS: CREATININE SERUM 0.8 MG/DL (0.60-1.30)
[2022-08-14] MEDS ORDERED: HYDROcodone/APAP 7.5 MG/325 MG (LORTAB, LORCET PLUS) TABLET PO STA (18:58)
--- NOTE | 2022-08-14 19:10 | Diagnostic Imaging Report ---
PROCEDURE: CT lumbar spine without contrast. TECHNIQUE: Multiple contiguous axial images were obtained through the lumbar spine without the use of intravenous contrast. Sagittal and coronal reformations were then performed. Auto Exposure Controls were utilized during the CT exam to meet ALARA standards for radiation dose reduction. INDICATION: Back pain postoperative drainage. Recent back surgery on 08/02/2022. COMPARISON: MRI lumbar spine 09/25/2024. FINDINGS: The patient is status post a spinal fusion of L3-L5 with interbody graft at the L3-L4 level. Hardware positioning appears appropriate. There is no osteolysis around the hardware. There is what is likely artifact along the L3 screws but radiographs would better assess for the possibility of a screw fracture. 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 Lumbar spine alignment is normal. The vertebral body heights are maintained. There are no findings of an acute fracture. There is no suspicious marrow replacing lesion. By CT imaging, there are no findings to suggest high-grade central canal stenosis. There is significant artifact at the surgical levels, though the central canal appears to have been decompressed by prior laminectomies. Small endplate spurs and hypertrophic facets result in mild residual narrowing of both of the neural foramen. There is a small degree of soft tissue induration along the patient's skin incision but no convincing evidence of a large fluid collection or abscess. The prevertebral soft tissues are unremarkable. Aorta is normal in caliber. The kidneys are nonobstructed. The lung bases are clear. IMPRESSION: 1. Operative changes of L3-L5 fusion with interbody fusion of the L3-L4 level. Hardware position appears appropriate. The L3 screws demonstrate a black focus of apparent artifact on the sagittal and coronal reconstructions. Assessment for screw fracture would be better performed with plain radiographs. 2. Lumbar spine alignment is normal. There is no acute or suspicious osseous abnormality. 3. Laminectomies at the surgical levels demonstrate apparent wide decompression of the central canal. No evidence of high-grade canal stenosis evident. There is mild residual narrowing of the neural foramen at L4-L5 and L5-S1. 4. Minimal induration within the subcutaneous fat deep to the patient's skin incision without definable fluid collection or abscess. Dictated by: Dictated on workstation # [id number]
[2022-08-14 19:58] LABS: CLARITY,URINE CLOUDY; COLOR,URINE YELLOW; GLUCOSE, URINE (UA) NEGATIVE (NEGATIVE); KETONES,URINE 1+ (NEGATIVE); LEUKOCYTE ESTERASE ,URINE 1+ (NEGATIVE); NITRITE,URINE POSITIVE (NEGATIVE); PROTEIN,URINE 2+ (NEGATIVE)
[2022-08-14 20:09] LABS: BACTERIA,URINE MODERATE /HPF; SQUAMOUS EPITHELIAL CELL,UR RARE /HPF; WBC,URINE >100 /HPF
[2022-08-14 20:10] LABS: BILIRUBIN,URINE 1+ (NEGATIVE)
[2022-08-14] MEDS ORDERED: CEPHALEXIN 250 MG (KEFLEX) CAP PO STA (20:13)
[2022-08-14] MEDS ORDERED: CEPH500T PO (20:15)
[2022-08-14 20:32] VITALS: BP 144/86
== END 2022-08-14 20:32 | disposition home or self-care (01) ==
LOC: EDUNIT# 15:47 → ER 15:49
DX: N39.0 Urinary tract infection, site not specified (principal); G89.18 Other acute postprocedural pain; M54.50 Low back pain, unspecified; R00.0 Tachycardia, unspecified; G62.89 Other specified polyneuropathies; E11.9 Type 2 diabetes mellitus without complications; Z79.4 Long term (current) use of insulin; Z88.1 Allergy status to other antibiotic agents; Z88.2 Allergy status to sulfonamides; Z88.5 Allergy status to narcotic agent
CPT/HCPCS: 36415; 72131; 80053; 81000; 83605; 85025; 85610; 85730; 86141; 87040; 87077; 87088; 87186

== ENCOUNTER 2022-08-22 21:28 | Emergency (ER) | payer MEDICARE, MEDICAID ==
[~2022-08-22] VITALS: Ht 160 cm; Wt 86.2 kg
[~2022-08-22 21:28] MED LIST changes: +CEPH500T PO
[2022-08-22] MEDS ORDERED: morphine INJ 10 MG/ML 1ML (SYR OR VIAL) IVP STA (21:37)
[2022-08-22] MEDS ORDERED: NS IV 500 ML 500 ML IV ONE (21:45)
[2022-08-22] MEDS ORDERED: PROMETHAZINE INJ 25 MG/ML (PHENERGAN) AMP IVP ONE (21:45)
[2022-08-22] MEDS ORDERED: PANTOPRAZOLE 40 MG (PROTONIX) VIAL IV ONE (21:45)
[2022-08-22 21:49] LABS: BASOPHILS % (AUTO) 0 % (0-10); EOSINOPHILS % (AUTO) 0 % (0-10); HEMATOCRIT 46 % (35-52); HEMOGLOBIN 15.8 g/dL (11.5-16.0); LYMPHOCYTES # (AUTO) 1.1 10^3/uL (1.0-4.0); LYMPHOCYTES % (AUTO) 8 % (12-44); MEAN CORPUSCULAR HEMOGLOBIN 31 pg (25-34); MEAN CORPUSCULAR HGB CONC 35 g/dL (32-36); MEAN CORPUSCULAR VOLUME 90 fL (80-99); MEAN PLATELET VOLUME 12.7 fL (9.0-12.2); MONOCYTES # (AUTO) 0.8 10^3/uL (0.0-1.0); MONOCYTES % (AUTO) 6 % (0-12); NEUTROPHILS # (AUTO) 11.3 10^3/uL (1.8-7.8); NEUTROPHILS % (AUTO) 85 % (42-75); PLATELET COUNT 369 10^3/uL (130-400); WHITE BLOOD COUNT 13.4 10^3/uL (4.3-11.0)
[2022-08-22 22:00] LABS: PROTHROMBIN TIME PATIENT 12.9 SEC (12.2-14.7)
[2022-08-22 22:10] LABS: ALBUMIN 4.4 GM/DL (3.2-4.5); BILIRUBIN,TOTAL 0.5 MG/DL (0.1-1.0); CALCIUM 9.7 MG/DL (8.5-10.1); CREATININE SERUM 1.02 MG/DL (0.60-1.30); POTASSIUM 3.2 MMOL/L (3.6-5.0); TOTAL PROTEIN 8.3 GM/DL (6.4-8.2)
[2022-08-22] MEDS ORDERED: LACTATED RINGERS 1,000 ML IV ONE (22:45)
[2022-08-22 22:59] LABS: OCCULT BLOOD,GASTRIC FLUID POSITIVE (NEGATIVE)
[2022-08-22 23:02] LABS: BILIRUBIN,URINE NEGATIVE (NEGATIVE); CLARITY,URINE CLEAR; COLOR,URINE YELLOW; GLUCOSE, URINE (UA) 2+ (NEGATIVE); KETONES,URINE 2+ (NEGATIVE); LEUKOCYTE ESTERASE ,URINE NEGATIVE (NEGATIVE); NITRITE,URINE NEGATIVE (NEGATIVE); PROTEIN,URINE NEGATIVE (NEGATIVE)
[2022-08-22 23:36] LABS: BACTERIA,URINE TRACE /HPF; RBC,URINE 0-2 /HPF; YEAST,URINE FEW /HPF
[2022-08-22 23:38] LABS: FREE T4 (FREE THYROXINE) 1.04 NG/DL (0.70-1.48)
[2022-08-22] MEDS ORDERED: inSUlin (REGULAR) HUMAN 1 UNIT/0.01 ML (CHARGE PER UNIT) SC ONE (23:45)
[2022-08-22] MEDS ORDERED: HOLD METFORMIN - RECEIVED CONTRAST 20 ML VIAL IV SCH (23:45)
[2022-08-22] MEDS ORDERED: IOHEXOL 350 MG/ML 100 ML (OMNIPAQUE 350) VIAL IV ONE (23:45)
[2022-08-22] MEDS ORDERED: NS 100 ML (IVPB) BAG IV ONE (23:45)
--- NOTE | 2022-08-23 00:21 | ED General ---
General Chief Complaint: Abdominal/GI Problems Stated Complaint: VOMITING Nursing Triage Note: pt to room by [facility]. pt states she has been vomiting blood since yesterday. pt states had recent back surgery. pt has fentanyl patch on at arrival Source of Information: Patient, EMS, Old Records Exam Limitations: No Limitations History of Present Illness Date Seen by Provider: August 22, 2022 Time Seen by Provider: 21:29 Initial Comments This 57-year-old woman presents to the emergency room via EMS with primary complaint of epigastric pain and hematemesis. She also reports history of recent lumbar surgery on August 02, [address] Sepulveda at [facility]. Her usual spine surgeon is Dr. Gallardo. She reports having drainage and pain at the surgical site. She reports having lumbar surgery performed a year ago as well. She reportedly had significant complications including surgical wound infection and admission for prolonged IV daptomycin therapy for MRSA. Patient also reports running out of her oxycodone on the . She was seen by her surgery team on August 16 for suture removal. She has another follow-up appointment later this month. She has chills but denies any fever. She was seen in this emergency room on August 14 and diagnosed with UTI which has been treated. She had a blood sugar of 457 on arrival. She had notable sinus tachycardia in the 130-140 range. Allergies and Home Medications Allergies Coded Allergies: Sulfa (Sulfonamide Antibiotics) (Unverified Allergy, Unknown, 06/24/13) codeine (Unverified Allergy, Unknown, 06/24/13) ondansetron (Verified Adverse Reaction, Intermediate, Vomiting, 08/22/22) Worsens vomiting vancomycin (Unverified Adverse Reaction, Mild, redness, 06/24/13) Patient Home Medication List Home Medication List Reviewed: Yes Albuterol/Ipratropium (Duoneb Rt) 3 Ml Nebu, 3 ML INH Q4H Prescribed by: JANNIE IVY on 08/07/14 2316 Alprazolam (Xanax) 1 Mg Tablet, 1 MG PO BID, (Reported) Entered as Reported by: MICHAEL MONSON on 06/05/22 1055 Atorvastatin Calcium (Lipitor) 20 Mg Tablet, 20 MG PO HS, (Reported) Entered as Reported by: MICHAEL MONSON on 06/05/22 1051 Carbamazepine (Carbamazepine) 200 Mg Tablet, 200 MG PO TID, (Reported) Entered as Reported by: MICHAEL MONSON on 06/05/22 1053 Cephalexin (Cephalexin) 500 Mg Tablet, 500 MG PO BID Prescribed by: GOYO WAGONER on 08/14/222014 Gabapentin (Gabapentin) 100 Mg Capsule, 300 MG PO TID, (Reported) Entered as Reported by: MICHAEL MONSON on 06/05/22 1046 Hydroxyzine Hcl (Hydroxyzine Hcl) 25 Mg Tablet, 25 MG PO TID, (Reported) Entered as Reported by: LISA JAMISON on 11/10/14 0118 Insulin Glargine,Hum.rec.anlog (Lantus) 100 Unit/Ml Vial, 20 UNIT SQ BID Prescribed by: TEDDY GAMBLE on 06/05/22 1230 Levocetirizine Dihydrochloride (Xyzal) 5 Mg Tablet, 5 MG PO HS, (Reported) Entered as Reported by: MICHAEL MONSON on 06/05/22 1056 Levothyroxine Sodium (Levothyroxine) 75 Mcg Capsule, 75 MCG PO DAILY, (Reported) Entered as Reported by: MICHAEL MONSON on 06/05/22 1058 Oxycodone HCl/Acetaminophen (Percocet 7.5-325 mg Tablet) 1 Each Tablet, 1 TAB PO TID PRN for PAIN-MODERATE, (Reported) Entered as Reported by: MICHAEL MONSON on 06/05/22 1048 Review of Systems Review of Systems Constitutional: see HPI EENTM: no symptoms reported Respiratory: no symptoms reported Cardiovascular: see HPI Gastrointestinal: see HPI Genitourinary: see HPI : No Musculoskeletal: see HPI Skin: see HPI Psychiatric/Neurological: No Symptoms Reported Hematologic/Lymphatic: No Symptoms Reported Immunological/Allergic: no symptoms reported Past Qpfwmqg-Pivbde-Pseepg Hx Patient Social History Tobacco Use?: No Use of E-Cig and/or Vaping dev: No Substance use?: No Alcohol Use?: No Immunizations Up To Date Influenza Vaccine Up-to-Date: No; Not Current Seasonal Allergies Seasonal Allergies: No Past Medical History Surgeries: Yes (BACK SURGERY, LAPAROSCOPY, UPPER AND LOWER SCOPES) Abdominal, Section, Hysterectomy, Oophorectomy, Orthopedic, Thyroidectomy Respiratory: Yes Chronic Bronchitis, COPD Currently Using CPAP: No Currently Using BIPAP: No Cardiac: Yes 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, Hypertension Neurological: Yes (TREMORS) 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 Disorders: No [employer] History: Hysterectomy UTI-Chronic Gastrointestinal: Yes (h pylori hx) Gastroesophageal Reflux Musculoskeletal: Yes Degenerate Disk Disease, Arthritis, Chronic Back Pain Endocrine: Yes (GRAVE'S DISEASE--S/P THYROIDECTOMY) Diabetes, Insulin dep, Hypothyroidsim HEENT: No Cancer: No Psychosocial: Yes Anxiety, Depression Integumentary: No Blood Disorders: No Adverse Reaction/Blood Tranf: No Family Medical History No Pertinent Family Hx Physical Exam-Suspected Sepsis Physical Exam Vital Signs Vital Signs - First Documented 08/22/22 08/23/22 21:33 12:49 Temp 35.5 Pulse 137 Resp 22 B/P (MAP) 138/97 (111) Pulse Ox 99 O2 Delivery Room Air Capillary Refill : Blood Pressure Mean: 111 Height, Weight, BMI Height: 5'3.00" Weight: 203lbs. oz. 92.183244cn; 33.00 BMI Method:Stated General Appearance: WD/WN, Moderate Distress (Vomiting, abdominal pain) HEENT: PERRL/EOMI, Normal ENT Inspection Neck: Normal Inspection; No JVD Respiratory: Lungs Clear, Normal Breath Sounds, No Accessory Muscle Use, No Respiratory Distress Cardiovascular: No Edema, No Murmur, Tachycardia Gastrointestinal: Normal Bowel Sounds, Soft, Tenderness (Epigastric region) Back: Other (There are Steri-Strips over a central incision on the lumbar spine. There is mild erythema near the incision edges. There is serous drainage around the wound and Steri-Strips, mostly dry. No purulent drainage is noted. There is no significant heat, blanching erythema, swelling, or tenderness around the surgical wound.) Extremity: Normal Inspection, No Pedal Edema Neurologic/Psychiatric: Alert, Oriented x3, No Motor/Sensory Deficits, Normal Mood/Affect Skin: normal color, warm/dry Focused Exam Sepsis Stage: Severe Sepsis (Possible) Possible Source: Unknown Lactate Level 08/22/22 00:00: Lactic Acid Level 2.65*H 08/22/22 21:38: Lactic Acid Level 2.52*H 08/23/22 02:55: Lactic Acid Level 1.72 Time of Focused Exam: 03:00 Respiratory: Lungs Clear, No Accessory Muscle Use Cardiovascular: No Edema, Tachycardia Skin: warm/dry Lactic Acid Level Within 3hrs of presentation: Admin fluids, Admin 30ml/kg IBW due to BMI>30, Admin ABX, Blood cultures prior to ABX's, Focus exam, Lactate level Procedures/Interventions Lumen: triple Central Line Procedure: betadine prep, sterile drapes applied, sterile dressing applied Position: internal jugular (R) Anesthesia: Lidocaine Volume Anesthetic (ccs): 6 Complications: none Post Position: sutured, good blood return, position confirmed w/ CXR Risks and benefits were reviewed with patient. Risks included pain, bleeding, vascular puncture, pneumothorax, arrhythmia. Benefits include secure vascular access and ability to obtain labs without repeated needlesticks. Patient consented to procedure and central line was placed under ultrasound guidance in a sterile fashion. There were no complications. Position was confirmed with x- ray after the procedure. The lining appears deep although patient is in a somewhat reclined position on the film which is likely obscuring the depth of position. There is no ectopy or arrhythmia on telemetry now or during placement of the central line. We will leave the line in its current position at this time. Progress/Results/Core Measures Suspected Sepsis SIRS Temperature: Pulse: 137 Respiratory Rate: 22 Laboratory Tests 08/22/22 21:38: White Blood Count 13.4H Blood Pressure 138 /97 Mean: 111 08/22/22 00:00: Lactic Acid Level 2.65*H 08/22/22 21:38: Lactic Acid Level 2.52*H 08/23/22 02:55: Lactic Acid Level 1.72 Laboratory Tests 08/22/22 21:38: Creatinine 1.02, INR Comment 1.0, Platelet Count 369, Total Bilirubin 0.5 Results/Orders Lab Results Laboratory Tests Test 08/22/22 21:38 08/22/22 21:40 08/22/22 22:44 08/22/22 22:57 Range/Units White Blood Count 13.4 H 4.3-11.0 10^3/uL Red Blood Count 5.05 3.80-5.11 10^6/uL Hemoglobin 15.8 11.5-16.0 g/dL Hematocrit 46 35-52 % Mean Corpuscular Volume 90 80-99 fL Mean Corpuscular Hemoglobin 31 25-34 pg Mean Corpuscular Hemoglobin Concent 35 32-36 g/dL Red Cell Distribution Width 12.6 10.0-14.5 % Platelet Count 369 130-400 10^3/uL Mean Platelet Volume 12.7 H 9.0-12.2 fL Immature Granulocyte % (Auto) 0 % Neutrophils (%) (Auto) 85 H 42-75 % Lymphocytes (%) (Auto) 8 L 12-44 % Monocytes (%) (Auto) 6 0-12 % Eosinophils (%) (Auto) 0 0-10 % Basophils (%) (Auto) 0 0-10 % Neutrophils # (Auto) 11.3 H 1.8-7.8 10^3/uL Lymphocytes # (Auto) 1.1 1.0-4.0 10^3/uL Monocytes # (Auto) 0.8 0.0-1.0 10^3/uL Eosinophils # (Auto) 0.0 0.0-0.3 10^3/uL Basophils # (Auto) 0.0 0.0-0.1 10^3/uL Immature Granulocyte # (Auto) 0.1 0.0-0.1 10^3/uL Prothrombin Time 12.9 12.2-14.7 SEC INR Comment 1.0 0.8-1.4 Activated Partial Thromboplast Time 25 24-35 SEC Sodium Level 136 135-145 MMOL/L Potassium Level 3.2 L 3.6-5.0 MMOL/L Chloride Level 93 L 98-107 MMOL/L Carbon Dioxide Level 19 L 21-32 MMOL/L Anion Gap 24 H 5-14 MMOL/L Blood Urea Nitrogen 8 7-18 MG/DL Creatinine 1.02 0.60-1.30 MG/DL Estimat Glomerular Filtration Rate 65 BUN/Creatinine Ratio 8 Glucose Level 461 *H 70-105 MG/DL Lactic Acid Level 2.52 *H 0.50-2.00 MMOL/L Calcium Level 9.7 8.5-10.1 MG/DL Corrected Calcium 9.4 8.5-10.1 MG/DL Total Bilirubin 0.5 0.1-1.0 MG/DL Aspartate Amino Transf (AST/SGOT) 11 5-34 U/L Alanine Aminotransferase (ALT/SGPT) 12 0-55 U/L Alkaline Phosphatase 224 H 40-136 U/L C-Reactive Protein High Sensitivity 0.62 H 0.00-0.50 MG/DL Total Protein 8.3 H 6.4-8.2 GM/DL Albumin 4.4 3.2-4.5 GM/DL Lipase 11 8-78 U/L Thyroid Stimulating Hormone (TSH) 3.57 0.35-4.94 UIU/ML Free Thyroxine 1.04 0.70-1.48 NG/DL Glucometer 457 *H 70-110 MG/DL Gastric Fluid Occult Blood POSITIVE H NEGATIVE Urine Color YELLOW Urine Clarity CLEAR Urine pH 6.0 5-9 Urine Specific [place] 1.020 1.016-1.022 Urine Protein NEGATIVE NEGATIVE Urine Glucose (UA) 2+ H NEGATIVE Urine Ketones 2+ H NEGATIVE Urine Nitrite NEGATIVE NEGATIVE Urine Bilirubin NEGATIVE NEGATIVE Urine Urobilinogen 0.2 < = 1.0 MG/DL Urine Leukocyte Esterase NEGATIVE NEGATIVE Urine RBC (Auto) TRACE-I H NEGATIVE Urine RBC 0-2 /HPF Urine WBC NONE /HPF Urine Squamous Epithelial Cells 2-5 /HPF Urine Crystals NONE /LPF Urine Bacteria TRACE /HPF Urine Casts NONE /LPF Urine Mucus SMALL H /LPF Urine Yeast FEW H /HPF Urine Culture Indicated CULTURE PENDING Test 08/22/22 23:00 08/23/22 01:00 08/23/22 02:55 08/23/22 02:56 Range/Units Glucometer 405 *H 369 H 426 *H 70-110 MG/DL Lactic Acid Level 1.72 0.50-2.00 MMOL/L Test 08/23/22 06:32 08/23/22 10:12 Range/Units Glucometer 328 H 214 H 70-110 MG/DL Micro Results Microbiology 08/22/22 Blood Culture - Preliminary, Resulted No growth 08/22/22 Blood Culture - Preliminary, Resulted No growth My Orders Orders - JETT JACOBS MD Cbc With Automated Diff (08/22/22 21:37) Comprehensive Metabolic Panel (08/22/22 21:37) Blood Culture (08/22/22 21:37) Sputum Culture (08/22/22 21:37) Urinalysis (08/22/22 21:37) Urine Culture (08/22/22 21:37) Protime With Inr (08/22/22 21:37) Partial Thromboplastin Time (08/22/22 21:37) Chest 1 View, Ap/Pa Only (08/22/22 21:37) Ed Iv/Invasive Line Start (08/22/22 21:37) Ed Iv/Invasive Line Start (08/22/22 21:37) Vital Signs Adult Sepsis Patie Q15M (08/22/22 21:37) O2 (08/22/22 21:37) Remove Rings In Anticipation O (08/22/22 21:37) Lactic Acid Analyzer (08/22/22 21:37) Hs C Reactive Protein (08/22/22 21:37) Lipase (08/22/22 21:37) Promethazine Injection (Phenergan Injec (08/22/22 21:45) Ns Iv 500 Ml (Sodium Chloride 0.9%) (08/22/22 21:45) Pantoprazole Injection (Protonix Injecti (08/22/22 21:45) Morphine Injection (Morphine Injection (08/22/22:37) Accucheck Stat ONCE (08/22/22 21:37) Monitor-Rhythm Ecg Trace Only (08/22/22 21:37) Lactated Ringers (Lr 1000 Ml Iv Solution (08/22/22 22:45) Occult Blood,Gastric Fluid (08/22/22 22:43) Ct Lumbar Spine Wo (08/22/22 22:44) Ct Abdomen/Pelvis W (08/22/22 22:44) Accucheck Stat ONCE (08/22/22 22:49) Thyroid Stimulating Hormone (08/22/22 22:49) Free T4 (Free Thyroxine) (08/22/22 22:49) Insulin (Regular) Human (Novolin R (Per (08/22/22 23:45) Iohexol Injection (Omnipaque 350 Mg/Ml 1 (08/22/22 23:45) Received Contrast (Hold Metformin- Contr (08/22/22 23:45) Ns (Ivpb) (Sodium Chloride 0.9% Ivpb Bag (08/22/22 23:45) Morphine Injection (Morphine Injection (08/23/22 01:04) Scopolamine Patch (Transderm-Scop Patch) (08/23/22 01:15) Ns Iv 1000 Ml (Sodium Chloride 0.9%) (08/23/22 03:00) Piperacillin Sodium/Tazobactam (Zosyn Vi (08/23/22 03:00) Insulin (Regular) Human (Novolin R (Per (08/23/22 03:00) Accucheck Stat ONCE (08/23/22 02:58) Accucheck Stat ONCE (08/23/22 02:58) Vancomycin Injection (Vancomycin Injecti (08/23/22 03:00) Vancomycin Injection (Vancomycin Injecti (08/23/22 04:00) Potassium Cl 10meq/50ml Ivpb (Kcl 10 Meq (08/23/22 03:15) Lidocaine 1% Inj 20 Ml (Xylocaine 1% Inj (08/23/22 05:05) Chest 1 View, Ap/Pa Only (08/23/22 06:01) Accucheck Stat ONCE (08/23/22 06:22) Potassium Cl 10meq/50ml Ivpb (Kcl 10 Meq (08/23/22 06:34) General/Regular (08/23/22 Breakfast) Medications Given in ED Vital Signs/I&O Capillary Refill : Blood Pressure Mean: 111 Point of Care Testing Finger Stick Blood Glucose: 405 Blood Glucose Action Taken: dr notified Progress Note #1: Time: 03:00 Progress Note Patient was interviewed and examined promptly upon arrival. Report was received from EMS. Primary complaint initially was epigastric pain with vomiting and hematemesis. Patient had recently been treated for urinary tract infection on August 14. Culture from that visit was reviewed. Initial treatment was focused on pain control, nausea control, and evaluation of the abdominal pain. Patient requested no Zofran as it tends to worsen vomiting. She was given Phenergan which did stop the vomiting. She complained of persistent nausea and a scopolamine patch was applied. Emesis was tested for occult blood and was positive. Labs were evaluated including CBC, CMP, CRP, lactic acid, lipase, thyroid studies, and urinalysis. Urinalysis demonstrated no suspicion of persistent pyuria. CBC demonstrated mild leukocytosis. However, CRP was unremarkable. CMP was remarkable for mild hypokalemia at 3.2. Alk phos was slightly elevated. Renal function was normal as evidenced by BUN and creatinine. Lactic acid was 2.65. There is significant hyperglycemia in the 300s and 400s. Chest x-ray was unremarkable with interval improvement from prior by my interpretation. CT of the abdomen and pelvis was obtained to evaluate her epigastric pain. CT was viewed by me and [facility] report was reviewed. I appreciated no acute abnormalities. There is no evidence of bowel obstruction. I appreciated no abnormal inflammatory changes around the surgical site or fluid collections to suggest abscess formation. [facility] report commented on postoperative changes and intramural thickening of the distal esophagus and hiatal hernia. No emergent surgical pathology was identified. Initially, complications from opioid withdraw were suspected as patient ran out of her oxycodone on August 21. CT of the lumbar spine was also reviewed by me and [facility] report reviewed. The [facility] report was essentially unchanged from prior on August 14. Postoperative changes were noted. Blood sugar was addressed by administering IV fluids and insulin 5 units subcutaneously. This initially improved her blood sugar into the 360s, but repeat blood sugar is now up to 426. We are treating with an additional 10 units of insulin subcutaneously. Septic work-up was obtained as a precaution after initial assessment. I was not initially strongly suspicious of sepsis, but on reevaluation I am now more concerned. Patient's heart rate continues to be in the 120s and 130s despite fluid resuscitation and pain control. She has had multiple hypotensive measurements. These measurements seem to correlate with morphine administration but in the context of her tachycardia, they are concerning. Her last systolic blood pressure was 106. She has received a total of 1500 mL and fluid boluses. She is now receiving another liter of normal saline. No source of infection has been identified to correlate with signs and symptoms of sepsis. I revisited discussion about patient's surgical site. On my evaluation there was evidence of serous drainage without significant erythema or edema around the site. However, patient now is stating that she feels very similar to when her surgical site was infected a year ago. She reports a prolonged hospital stay to treat MRSA infection of the surgical site and receiving IV daptomycin during that infection. She now states her back pain seems to have worsened in recent days and the drainage is increasing. She states this is a similar presentation to the prior infection. I am now more concerned that her symptoms, abnormal labs, and abnormal vital signs could be related to sepsis. Blood cultures have been drawn. Serial lactic acids are being obtained. She is being treated with Zosyn and vancomycin for initial antibiotic therapy. We will monitor her heart rate and blood pressure closely. I will be consulting [facility] regarding possible transfer. Progress Note #2: Time: 07:56 Progress Note Patient has very poor vascular access. Her IV sites were lost. I could not fi nd an acceptable vein with ultrasound examination of her arms. I therefore consented her for central line placement. Under ultrasound guidance a right IJ was placed by me. See procedure note. She has received 1500 mL of fluids and is receiving another 1 L bolus. Zosyn and vancomycin are infusing. There was a delay in starting the antibiotics due to loss of vascular access. I discussed the case with Dr. De Guzman, special shopper at [facility], who accepts transfer of this patient. Progress Note #3: Progress Note Pulmonary nodule was noted on the internal radiologist's over read. This was added to the list of diagnoses. Diagnostic Imaging Diagonstic Imaging: Xray Plain Films/CT/US/NM/MRI: chest Comments NAME: [facility] REC#: [id number] PT STATUS: REG ER : 1965 PHYSICIAN: JETT JACOBS MD ADMIT DATE: 08/22/22/ER Signed Date of Exam:08/22/22 CHEST 1 VIEW, AP/PA ONLY Indication: Postop spine surgery drainage Portable chest 11:20 PM Heart and mediastinum are normal. Lungs are clear. There are no effusions or pneumothoraces. IMPRESSION: No acute abnormalities in the chest Dictated by: Dictated on workstation # [id number] Dict: 08/23/22 0556 Trans: 08/23/22 0557 TC [id number] Interpreted by: TAMMI ENCISO MD Electronically signed by: TAMMI ENCISO MD 08/23/22 0557 Diagonstic Imaging: CT Plain Films/CT/US/NM/MRI: abdomen, pelvis Comments NAME: [facility] REC#: [id number] PT STATUS: REG ER : 1965 PHYSICIAN: JETT JACOBS MD ADMIT DATE: 08/22/22/ER Draft Date of Exam:08/22/22 CT ABDOMEN/PELVIS W EXAMINATION: CT abdomen and pelvis with intravenous contrast. TECHNIQUE: Multiple contiguous axial images were obtained through the abdomen and pelvis after the uneventful administration of intravenous contrast. All CT scans use one or more of the following dose optimizing techniques: automated exposure control, MA and/or KvP adjustment based on patient size and exam type or iterative reconstruction. HISTORY: Post op drainage COMPARISON: None available. FINDINGS: Lung bases: There is a 1.3 x 0.7 cm right lower lobe pulmonary nodule. Additional smaller adjacent subcentimeter nodule. Solid organs: The liver is normal without focal lesion. The gallbladder is surgically absent. There is no biliary ductal dilation. Pancreas is normal. Spleen is normal. Adrenal glands are normal. Bilateral renal cortical scarring without hydronephrosis. There is a nonobstructing left renal calculus measuring 0.8 cm. Bowel: There is a small hiatal hernia with thickening of the visualized distal esophagus. The stomach and hernia are distended with fluid. There is no bowel obstruction. The colon is normal. The appendix is normal. Peritoneum: There is no intraperitoneal free fluid or free air. No suspicious lymphadenopathy. No loculated fluid collection. Vasculature: Calcification of the aorta without aneurysm. Musculoskeletal: Surgical degenerative changes of the spine without suspicious osseous lesion or compression fracture. Pelvis: The uterus is surgically absent. No adnexal mass. The urinary bladder is normal. IMPRESSION: 1. No acute abnormality in the abdomen or pelvis. 2. Small hiatal hernia with thickening of the distal esophagus. Findings could be seen with esophagitis. 3. A 1.0 cm average right lower lobe pulmonary nodule. Recommend CT chest follow-up in 3 months versus evaluation with PET/CT. 4. There is a discrepancy with the initial interpretation as the pulmonary nodule and subsequent follow-up was not mentioned. Report was faxed and called to [facility] JESUSITA, Valentina Jarvis, Nurse by lexi at 6:58AM. [facility] also notified. Dictated on workstation # [id number] Dict: 08/23/22 06 Trans: 08/23/22 0702 LEXI [id number] Interpreted by: LISA ENCISO DO Diagonstic Imaging: CT Plain Films/CT/US/NM/MRI: other (Lumbar spine) Comments NAME: [facility] REC#: [id number] PT STATUS: REG ER : 1965 PHYSICIAN: JETT JACOBS MD ADMIT DATE: 08/22/22/ER Signed Date of Exam:08/22/22 CT LUMBAR SPINE WO PROCEDURE: CT lumbar spine without contrast. TECHNIQUE: Multiple contiguous axial images were obtained through the lumbar spine without the use of intravenous contrast. Sagittal and coronal reformations were then performed. Auto Exposure Controls were utilized during the CT exam to meet ALARA standards for radiation dose reduction. INDICATION: Back pain with postop drainage There are postoperative changes from dorsal fusion and laminectomy at L3-L4 5. Patient has disc replacement at L3-L4. There are bilateral pedicular screws at L3, L4 and L5 appear to be grossly intact. Vertebral alignment is normal. There is a questionable fluid collection measuring 2 x 4 cm in the laminectomy bed at L3-L4 that was previously present on CT from 08/14/2022. IMPRESSION: Postoperative changes from laminectomy and by fusion L3-L4 L4-L5. There is postoperative fluid collection in laminectomy bed at L3-L4. The nature and consistency of this is indeterminate largely due to beam hardening artifact from the hardware. Is not appreciable change from 08/26/2022. Dictated by: Dictated on workstation # [id number] Dict: 08/23/22 0524 Trans: 08/23/22529 [facility] [id number] Interpreted by: TAMMI ENCISO MD Electronically signed by: TAMMI ENCISO MD 08/23/22529 Diagonstic Imaging: Xray Plain Films/CT/US/NM/MRI: chest Comments NAME: [facility] REC#: [id number] PT STATUS: REG ER : 1965 PHYSICIAN: JETT JACOBS MD ADMIT DATE: 08/22/22/ER Draft Date of Exam:08/23/22 CHEST 1 VIEW, AP/PA ONLY EXAMINATION: Chest 1 view HISTORY: Line placement COMPARISON: 08/22/2022 FINDINGS: Heart size and pulmonary vasculature are normal. Low lung volumes with mild bibasilar atelectasis. No pleural effusion or pneumothorax. A right-sided IJ central line is present with the tip projecting over the atriocaval junction. The osseous structures are intact. IMPRESSION: 1. Right IJ central line placement with the tip projecting over the atriocaval junction. No pneumothorax. Dictated on workstation # [id number] Dict: 08/23/22 0648 Trans: 08/23/22 0715 [facility] [id number] Interpreted by: LISA ENCISO DO Departure Impression Primary Impression: Sepsis Qualified Codes: A41.9 - Sepsis, unspecified organism Additional Impressions: Hematemesis Qualified Codes: K92.0 - Hematemesis Drainage from surgical wound Hyperglycemia Epigastric pain Pulmonary nodule Disposition: 02 XFER SHT-TRM HOSP Condition: Improved Transfer Transfer Reason: Exceeds level of care Time Spoke to Accepting Phy: 06:30 Transfer Progress Notes Transfer accepted by Dr. De Guzman, special shopper at [facility]. Transfer Time: 12:45 Transfer Facility: [facility] Method of Transfer: EMS Departure-Patient Inst. Referrals: MATTHEW CROUCH DO (PCP/Family) Primary Care Physician JETT JACOBS MD August 23, 2022 00:21
[2022-08-23] MEDS ORDERED: morphine INJ 10 MG/ML 1ML (SYR OR VIAL) IVP STA ×2 (01:04→12:15)
[2022-08-23] MEDS ORDERED: SCOPOLAMINE 1.5 MG (TRANSDERM-SCOP) PATCH TD ONE (01:15)
[2022-08-23] MEDS ORDERED: PIPERACILLIN SODIUM/TAZOBACTAM 4.5 GM in NS (IVPB) 100 ML IV ONE (03:00)
[2022-08-23] MEDS ORDERED: NS IV 1000 ML 1,000 ML IV SCH (03:00)
[2022-08-23] MEDS ORDERED: VANCOMYCIN INJECTION 1,000 MG in NS (IVPB) 250 ML IV ONE (03:00)
[2022-08-23] MEDS ORDERED: inSUlin (REGULAR) HUMAN 1 UNIT/0.01 ML (CHARGE PER UNIT) SC ONE (03:00)
[2022-08-23] MEDS ORDERED: POTASSIUM CL 10MEQ/50ML IVPB 50 ML IV ONE ×2 (03:15→06:34)
[2022-08-23] MEDS ORDERED: VANCOMYCIN INJECTION 750 MG in NS (IVPB) 250 ML IV ONE (04:00)
[2022-08-23] MEDS ORDERED: LIDOCAINE 1% INJ 20 ML VIAL ONE (05:05)
--- NOTE | 2022-08-23 05:32 | Diagnostic Imaging Report ---
PROCEDURE: CT lumbar spine without contrast. TECHNIQUE: Multiple contiguous axial images were obtained through the lumbar spine without the use of intravenous contrast. Sagittal and coronal reformations were then performed. Auto Exposure Controls were utilized during the CT exam to meet ALARA standards for radiation dose reduction. INDICATION: Back pain with postop drainage There are postoperative changes from dorsal fusion and laminectomy at L3-L4 5. Patient has disc replacement at L3-L4. There are bilateral pedicular screws at L3, L4 and L5 appear to be grossly intact. Vertebral alignment is normal. There is a questionable fluid collection measuring 2 x 4 cm in the laminectomy bed at L3-L4 that was previously present on CT from 08/14/2022. IMPRESSION: Postoperative changes from laminectomy and by fusion L3-L4 L4-L5. There is postoperative fluid collection in laminectomy bed at L3-L4. The nature and consistency of this is indeterminate largely due to beam hardening artifact from the hardware. Is not appreciable change from 08/26/2022. Dictated by: Dictated on workstation # [id number]
--- NOTE | 2022-08-23 05:58 | Diagnostic Imaging Report ---
Indication: Postop spine surgery drainage Portable chest 11:20 PM Heart and mediastinum are normal. Lungs are clear. There are no effusions or pneumothoraces. IMPRESSION: No acute abnormalities in the chest Dictated by: Dictated on workstation # [id number]
--- NOTE | 2022-08-23 07:02 | Diagnostic Imaging Report ---
EXAMINATION: CT abdomen and pelvis with intravenous contrast. TECHNIQUE: Multiple contiguous axial images were obtained through the abdomen and pelvis after the uneventful administration of intravenous contrast. All CT scans use one or more of the following dose optimizing techniques: automated exposure control, MA and/or KvP adjustment based on patient size and exam type or iterative reconstruction. HISTORY: Post op drainage COMPARISON: None available. FINDINGS: Lung bases: There is a 1.3 x 0.7 cm right lower lobe pulmonary nodule. Additional smaller adjacent subcentimeter nodule. Solid organs: The liver is normal without focal lesion. The gallbladder is surgically absent. There is no biliary ductal dilation. Pancreas is normal. Spleen is normal. Adrenal glands are normal. Bilateral renal cortical scarring without hydronephrosis. There is a nonobstructing left renal calculus measuring 0.8 cm. Bowel: There is a small hiatal hernia with thickening of the visualized distal esophagus. The stomach and hernia are distended with fluid. There is no bowel obstruction. The colon is normal. The appendix is normal. Peritoneum: There is no intraperitoneal free fluid or free air. No suspicious lymphadenopathy. No loculated fluid collection. Vasculature: Calcification of the aorta without aneurysm. Musculoskeletal: Surgical degenerative changes of the spine without suspicious osseous lesion or compression fracture. Pelvis: The uterus is surgically absent. No adnexal mass. The urinary bladder is normal. IMPRESSION: 1. No acute abnormality in the abdomen or pelvis. 2. Small hiatal hernia with thickening of the distal esophagus. Findings could be seen with esophagitis. 3. A 1.0 cm average right lower lobe pulmonary nodule. Recommend CT chest follow-up in 3 months versus evaluation with PET/CT. 4. There is a discrepancy with the initial interpretation as the pulmonary nodule and subsequent follow-up was not mentioned. Report was faxed and called to Valentina Louis, Nurse by velma at 6:58AM. GOYO Lemons, was also notified. Dictated by: Dictated on workstation # [id number]
--- NOTE | 2022-08-23 07:16 | Diagnostic Imaging Report ---
EXAMINATION: Chest 1 view HISTORY: Line placement COMPARISON: 08/22/2022 FINDINGS: Heart size and pulmonary vasculature are normal. Low lung volumes with mild bibasilar atelectasis. No pleural effusion or pneumothorax. A right-sided IJ central line is present with the tip projecting over the atriocaval junction. The osseous structures are intact. IMPRESSION: 1. Right IJ central line placement with the tip projecting over the atriocaval junction. No pneumothorax. Dictated by: Dictated on workstation # [id number]
[2022-08-23] MEDS ORDERED: ONDANSETRON 4 MG/2 ML (SDV) Z0FRAN IVP ONE (12:15)
[2022-08-23] MEDS ORDERED: PROMETHAZINE INJ 25 MG/ML (PHENERGAN) AMP IVP ONE (12:45)
[2022-08-23 12:49] VITALS: BP 131/70
== END 2022-08-23 12:45 | disposition short-term general hospital (02) ==
LOC: EDUNIT# 21:28 → ER 21:29
DX: A41.9 Sepsis, unspecified organism (principal); K92.0 Hematemesis; E11.65 Type 2 diabetes mellitus with hyperglycemia; R91.1 Solitary pulmonary nodule; R10.13 Epigastric pain; E87.6 Hypokalemia; M96.89 Other intraoperative and postprocedural complications and disorders of the musculoskeletal system; Z88.2 Allergy status to sulfonamides; Z79.4 Long term (current) use of insulin
CPT/HCPCS: 36415; 71045; 72131; 74177; 80053; 81000; 82271; 82947; 83605; 83690; 84439; 84443; 85025; 85610; 85730; 86141; 87040; 87088; 93041

== ENCOUNTER 2022-09-17 13:49 | Emergency (ER) | payer MEDICARE, MEDICAID ==
[~2022-09-17] VITALS: Ht 160 cm; Wt 88.6 kg
[2022-09-17] MEDS ORDERED: oxyCODONE/APAP 7.5-325 MG (PERCOCET 7.5) TABLET PO STA (14:57)
--- NOTE | 2022-09-17 15:01 | ED Fall/Injury ---
General Chief Complaint: Upper Extremity Stated Complaint: INJ LEFT ARM Nursing Triage Note: PT AMB TO ED BY POV WITH C/O R ARM INJURY. 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 PAIN IN L FA AND L HAND. (FELIPA MARTINEZ) History of Present Illness Date Seen by Provider: Sep 17, 2022 Time Seen by Provider: 14:30 Initial Comments 57 year old female presents for right shoulder pain, left wrist and hand pain, and jarring to her lumbar spine where she has had 6 previous surgeries. 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 She denies any head or neck injuries, no loss of consciousness. She has not tried any pain medicine prior to arrival. She has history of Parkinsons and reports frequent balance issues. Occurred: this morning Injuries/Pain Location: upper extremity, back Context: lost balance Loss of Consciousness: no loss of consciousness Associated Symptoms (Fall): No Abdominal Pain, No Chest Pain, No Confusion, No Dizziness, No Headache, No Lightheadedness; Muscle Spasms; No Nausea/Vomiting, No Neck Pain, No Shortness of Air, No Slurred Speech, No Trouble Walking (FELIPA MARTINEZ) Allergies and Home Medications Allergies Coded Allergies: Sulfa (Sulfonamide Antibiotics) (Unverified Allergy, Unknown, 06/24/13) codeine (Unverified Allergy, Unknown, 06/24/13) ondansetron (Verified Adverse Reaction, Intermediate, Vomiting, 08/22/22) Worsens vomiting vancomycin (Unverified Adverse Reaction, Mild, redness, 06/24/13) Patient Home Medication List Home Medication List Reviewed: Yes (FELIPA MARTINEZ) Albuterol/Ipratropium (Duoneb Rt) 3 Ml Nebu, 3 ML INH Q4H Prescribed by: JANNIE IVY on 08/07/14 2316 Alprazolam (Xanax) 1 Mg Tablet, 1 MG PO BID, (Reported) Entered as Reported by: MICHAEL MONSON on 06/05/22 1055 Atorvastatin Calcium (Lipitor) 20 Mg Tablet, 20 MG PO HS, (Reported) Entered as Reported by: MICHAEL MONSON on 06/05/22 1051 Carbamazepine (Carbamazepine) 200 Mg Tablet, 200 MG PO TID, (Reported) Entered as Reported by: MICHAEL MONSON on 06/05/22 1053 Cephalexin (Cephalexin) 500 Mg Tablet, 500 MG PO BID Prescribed by: GOYO WAGONER on 08/14/222014 Gabapentin (Gabapentin) 100 Mg Capsule, 300 MG PO TID, (Reported) Entered as Reported by: MICHAEL MONSON on 06/05/22 1046 Hydroxyzine Hcl (Hydroxyzine Hcl) 25 Mg Tablet, 25 MG PO TID, (Reported) Entered as Reported by: LISA JAMISON on 11/10/14 0118 Insulin Glargine,Hum.rec.anlog (Lantus) 100 Unit/Ml Vial, 20 UNIT SQ BID Prescribed by: TEDDY GAMBLE on 06/05/22 1230 Levocetirizine Dihydrochloride (Xyzal) 5 Mg Tablet, 5 MG PO HS, (Reported) Entered as Reported by: MICHAEL MONSON on 06/05/22 1056 Levothyroxine Sodium (Levothyroxine) 75 Mcg Capsule, 75 MCG PO DAILY, (Reported) Entered as Reported by: MICHAEL MONSON on 06/05/22 1058 Oxycodone HCl/Acetaminophen (Percocet 7.5-325 mg Tablet) 1 Each Tablet, 1 TAB PO TID PRN for PAIN-MODERATE, (Reported) Entered as Reported by: MICHAEL MONSON on 06/05/22 1048 Oxycodone HCl/Acetaminophen (Percocet 7.5-325 mg Tablet) 1 Each Tablet, 1 TAB PO Q6H PRN for PAIN-MODERATE Prescribed by: FELIPA MARTINEZ on 09/17/22 1629 Review of Systems Review of Systems Constitutional: no symptoms reported, see HPI Musculoskeletal: see HPI, back pain, joint pain (Right shoulder, left wrist and hand) (FELIPA MARTINEZ) All Other Systems Reviewed Negative Unless Noted: Yes (FELIAP MARTINEZ) Past Mkslllr-Hjbbma-Lrrgrs Hx Patient Social History Tobacco Use?: No Use of E-Cig and/or Vaping dev: No Substance use?: No Alcohol Use?: No Pt feels they are or have been: No (FELIPA MARTINEZ) Immunizations Up To Date Influenza Vaccine Up-to-Date: Yes; Up-to-Date First/Initial COVID19 Vaccinat: X4 (FELIPA MARTINEZ) Seasonal Allergies Seasonal Allergies: No (FELIPA MARTINEZ) Past Medical History Surgery/Hospitalization HX: DM 2, [facility] Surgeries: Yes (BACK SURGERY, LAPAROSCOPY, UPPER AND LOWER SCOPES) Abdominal, Section, Hysterectomy, Oophorectomy, Orthopedic, Thyroidectomy Respiratory: Yes Chronic Bronchitis, COPD Currently Using CPAP: No Currently Using BIPAP: No Cardiac: Yes 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, Hypertension Neurological: Yes (TREMORS) 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 Disorders: No [employer]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 [employer]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 History: Hysterectomy UTI-Chronic Gastrointestinal: Yes (h pylori hx) Gastroesophageal Reflux Musculoskeletal: Yes Degenerate Disk Disease, Arthritis, Chronic Back Pain Endocrine: Yes (GRAVE'S DISEASE--S/P THYROIDECTOMY) Diabetes, Insulin dep, Hypothyroidsim HEENT: No Cancer: No Psychosocial: Yes Anxiety, Depression Integumentary: No Blood Disorders: No Adverse Reaction/Blood Tranf: No (FELIPA MARTINEZ) Family Medical History Reviewed Nursing Family Hx (FELIPA MARTINEZ) No Pertinent Family Hx (FELIPA MARTINEZ) Physical Exam Vital Signs Vital Signs - First Documented 09/17/22 14:02 Temp 36.6 Pulse 105 Resp 16 B/P (MAP) 139/82 (101) Pulse Ox 98 O2 Delivery Room Air (JETT JACOBS MD) Vital Signs Capillary Refill : Less Than 3 Seconds (FELIPA MARTINEZ) Height, Weight, BMI Height: 5'3.00" Weight: 203lbs. oz. 92.206347by; 34.00 BMI Method:Stated General Appearance: WD/WN, no apparent distress HEENT: PERRL/EOMI, normal ENT inspection, TMs normal, pharynx normal Neck: non-tender, full range of motion, supple, normal inspection Cardiovascular: normal peripheral pulses, regular rate, rhythm Respiratory: chest non-tender, lungs clear Gastrointestinal: normal bowel sounds, non tender, soft Back: normal inspection, no vertebral tenderness, muscle spasm (Paraspinal muscles lower lumbar spine.); No vertebral tenderness; other (Well-healed incision mid lumbar spine.) Extremities: normal range of motion, normal inspection, other (Tenderness to palpation in the right shoulder and trapezius muscles. Full range of motion to the right shoulder. Left wrist and hand tenderness, soft tissue. Full range of motion to the left wrist and hand.) Neurologic/Psychiatric: no motor/sensory deficits, alert, normal mood/affect, oriented x 3 Skin: normal color, warm/dry, other (No abrasions or lacerations.) (FELIPA MARTINEZ) Progress/Results/Core Measures Results/Orders Vital Signs/I&O 09/17/22 09/17/22 14:02 16:38 Temp 36.6 Pulse 105 95 Resp 16 16 B/P (MAP) 139/82 (101) 132/83 Pulse Ox 98 96 O2 Delivery Room Air Room Air (JETT JACOBS MD) Blood Pressure Mean: 101 Progress Progress Note : Time: 14:30 Progress Note Patient assessed, we will obtain x-rays of her right shoulder, left wrist and left hand and lumbar spine. We will give her Percocet 7.5/325 mg for pain. Patient denies any other requests at this time. 1600 patient reports improvement in pain. X-ray results reviewed with her, no acute findings noted. Discharge instructions and return precautions reviewed with her. (FELIPA MARTINEZ) Diagnostic Imaging Diagonstic Imaging: Xray Plain Films/CT/US/NM/MRI: other (wrist) Comments NAME: GEORGE AVELAR Madeline [facility] REC#: [id number] PT STATUS: REG ER : 1965 PHYSICIAN: FELIPA MARTINEZ ADMIT DATE: 09/17/22/ER Draft Date of Exam:09/17/22 WRIST, LEFT, 3 VIEWS OR MORE INDICATION: Fall. Time of Exam: 3:14 PM 3 views of the left wrist were obtained. Distal radius and ulna are intact. Carpus is intact. Metacarpals are unremarkable. No fractures are seen. IMPRESSION: No acute bony abnormality is detected. Dictated on workstation # [id number] Dict: 09/17/22 1553 Trans: 09/17/22 1557 [facility] [id number] Interpreted by: THANIA HOLLIDAY MD Electronically signed by: Reviewed: Reviewed by Me Diagonstic Imaging: Xray Plain Films/CT/US/NM/MRI: other (shoulder) Comments NAME: GEORGE AVELAR [facility] REC#: [id number] PT STATUS: REG ER : 1965 PHYSICIAN: FELIPA MARTINEZ ADMIT DATE: 09/17/22/ER Draft Date of Exam:09/17/22 SHOULDER, RIGHT, 3 VIEWS INDICATION: Shoulder pain. Time of Exam: 3:07 PM 3 views right shoulder demonstrate normal glenohumeral and acromial clavicular alignment. Acromio humeral space is normal. No fracture or dislocation is identified. IMPRESSION: No acute abnormality is detected. Dictated on workstation # [id number] Dict: 09/17/22 1541 Trans: 09/17/22 1548 [facility] Interpreted by: THANIA HOLLIDAY MD Electronically signed by: Reviewed: Reviewed by Ia Diagonstic Imaging: Xray Plain Films/CT/US/NM/MRI: other (L spine) Comments NAME: GEORGE AVELAR [facility] REC#: [id number] PT STATUS: REG ER : 1965 PHYSICIAN: FELIPA MARTINEZ ADMIT DATE: 09/17/22/ER Draft Date of Exam:09/17/22 LUMBAR SPINE - 2-3 VIEWS INDICATION: Low-back pain. Time of Exam: 3:06 PM 3 views lumbar spine demonstrate normal curvature and alignment. There are postop changes of posterior instrument fusion with vertical stabilization rods and pedicle screws spanning from L4 through S1. Vertebral body heights are well-maintained. No acute bony abnormality is detected. IMPRESSION: L4-S1 posterior instrument fusion. No acute abnormality is detected. Dictated on workstation # [id number] Dict: 09/17/22 1542 Trans: 09/17/22 1552 [facility] [id number] Interpreted by: THANIA HOLLIDAY MD Electronically signed by: Diagonstic Imaging: Xray Plain Films/CT/US/NM/MRI: hand Comments NAME: GEORGE AVELAR [facility] REC#: [id number] PT STATUS: REG ER : 1965 PHYSICIAN: FELIPA MARTINEZ ADMIT DATE: 09/17/22/ER Draft Date of Exam:09/17/22 HAND, LEFT, 3 VIEWS EXAM: HAND, LEFT, 3 VIEWS INDICATION: Left hand pain. COMPARISON: None. FINDINGS/ IMPRESSION: 1. No fracture or malalignment. 2. Soft tissue shadows are unremarkable. Dictated on workstation # [id number] Dict: 09/17/22 1554 Trans: 09/17/22 1558 [facility] [id number] Interpreted by: MAHESH REYES MD Electronically signed by: Reviewed: Reviewed by Me (FELIPA MARTINEZ) Departure Impression Primary Impression: Fall Qualified Codes: W19.XXXA - Unspecified fall, initial encounter Additional Impressions: Right shoulder pain Qualified Codes: M25.511 - Pain in right shoulder Low back pain Qualified Codes: M54.50 - Low back pain, unspecified Left hand pain Parkinsons disease Disposition: HOME, SELF-CARE Condition: Improved Departure-Patient Inst. Decision time for Depature: 16:00 (FELIPA MARTINEZ) Referrals: MATTHEW CROUCH DO (PCP/Family) Primary Care Physician Patient Instructions: Joint Pain, Preventing falls in adults Add. Discharge Instructions: Continue home medications as prescribed. Use pain medication as prescribed. You may alternate between heat and ice for 20 minutes to any areas of tenderness. Follow-up with your primary care provider if symptoms or not improving or worsen. Return to the emergency department for new, urgent healthcare problems. All discharge instructions reviewed with patient and/or family. Voiced understanding. Scripts Oxycodone HCl/Acetaminophen (Percocet 7.5-325 mg Tablet) 1 Each Tablet 1 TAB PO Q6H PRN for PAIN-MODERATE MDD 4 TABS, #20 TAB 0 Refills Prov: FELIPA MARTINEZ 09/17/22 ATTENDING PHYSICIAN NOTE: I was physically present as attending physician in the emergency department d uring the care of this patient, but I was not directly involved in the decision making or delivery of care for this patient. (JETT JACOBS MD) FELIPA MARTINEZ Sep 17, 2022 15:01 JETT JACOBS MD Sep 18, 2022 10:06
--- NOTE | 2022-09-17 15:49 | Diagnostic Imaging Report ---
INDICATION: Shoulder pain. Time of Exam: 3:07 PM 3 views right shoulder demonstrate normal glenohumeral and acromial clavicular alignment. Acromio humeral space is normal. No fracture or dislocation is identified. IMPRESSION: No acute abnormality is detected. Dictated by: Dictated on workstation # [id number]
--- NOTE | 2022-09-17 15:52 | Diagnostic Imaging Report ---
INDICATION: Low-back pain. Time of Exam: 3:06 PM 3 views lumbar spine demonstrate normal curvature and alignment. There are postop changes of posterior instrument fusion with vertical stabilization rods and pedicle screws spanning from L4 through S1. Vertebral body heights are well-maintained. No acute bony abnormality is detected. IMPRESSION: L4-S1 posterior instrument fusion. No acute abnormality is detected. Dictated by: Dictated on workstation # [id number]
--- NOTE | 2022-09-17 15:58 | Diagnostic Imaging Report ---
INDICATION: Fall. Time of Exam: 3:14 PM 3 views of the left wrist were obtained. Distal radius and ulna are intact. Carpus is intact. Metacarpals are unremarkable. No fractures are seen. IMPRESSION: No acute bony abnormality is detected. Dictated by: Dictated on workstation # [id number]
--- NOTE | 2022-09-17 15:58 | Diagnostic Imaging Report ---
EXAM: HAND, LEFT, 3 VIEWS INDICATION: Left hand pain. COMPARISON: None. FINDINGS/ IMPRESSION: 1. No fracture or malalignment. 2. Soft tissue shadows are unremarkable. Dictated by: Dictated on workstation # [id number]
[2022-09-17] MEDS ORDERED: OXYC1TAB16 PO (16:29)
[2022-09-17 16:38] VITALS: BP 132/83
== END 2022-09-17 16:38 | disposition home or self-care (01) ==
LOC: EDUNIT# 13:49 → ER 13:51
DX: M25.511 Pain in right shoulder (principal); M54.50 Low back pain, unspecified; M79.642 Pain in left hand; M25.532 Pain in left wrist; G20 Parkinson's disease; E11.9 Type 2 diabetes mellitus without complications; Z79.4 Long term (current) use of insulin; Z28.311 Partially vaccinated for COVID-19; Z88.5 Allergy status to narcotic agent; Z98.890 Other specified postprocedural states; W01.0XXA Fall on same level from slipping, tripping and stumbling without subsequent striking against object, initial encounter
CPT/HCPCS: 72100; 73030; 73110; 73130

== ENCOUNTER 2022-11-21 08:16 | Inpatient (IN) | payer MEDICARE, MEDICAID ==
[~2022-11-21] VITALS: Ht 63 cm; Wt 81.6 kg
[2022-11-21] MEDS ORDERED: NS IV 1000 ML 1,000 ML IV SCH ×2 (08:30→10:45)
--- NOTE | 2022-11-21 09:10 | ED General ---
General Chief Complaint: Altered Mental Status Stated Complaint: DIZZINESS Nursing Triage Note: PT PRESENTS TO ROOM #3 VIA [facility] EMS GURNEY FROM HOME W/CC RECENT WITNESSED AND UNWITNESSED FALLS, DIZZINESS, AND HALLUCINATIONS. UPON ARRIVAL PT REPORTS PAIN TO BASE OF NECK RATED 10/10 AND CERVICAL COLLAR APPLIED. PT NOTED TO BE INCONTINENT OF URINE. Source of Information: Patient, EMS, Family Exam Limitations: No Limitations (JETT JACOBS MD) History of Present Illness Date Seen by Provider: Nov 21, 2022 Time Seen by Provider: 08:19 Initial Comments This 57-year-old woman presents to the emergency room via EMS with primary concerns of hallucinations and multiple falls in recent days. Patient reports neck pain and a c-collar was applied. She also reports abdominal pain to palpation and vomiting last night. She is afebrile at present. Her oropharynx is quite dry. Blood pressures for EMS were 90s over 50s. Patient is known to have poor vascular access and IVs have been difficult in the past. Blood sugar was 120 for EMS. Patient is a diabetic. Additional history is later provided by her daughter after her arrival as noted below. (JETT JACOBS MD) Initial Comments Ger, the patients daughter, was present in the room. She states that for the last two days the patient has been hallucinating. Reports that the patient will see things crawling on the wall and seeing kids in the house that are not there. Patient is also reaching in front of her to try and grasp objects that aren't there. Daughter states that the patient vomited twice last night and fell two times this morning, which prompted them to come to ED. Patient lives with her usband. Patient did not sleep all night and showered early this morning, which is out of the ordinary for the patient. Patient had back surgery 6 months ago at [facility]. Also reports patient has not eaten in the last two days that the daughter is aware of. (NIC VINSON) Allergies and Home Medications Allergies Coded Allergies: Sulfa (Sulfonamide Antibiotics) (Unverified Allergy, Unknown, 06/24/13) codeine (Unverified Allergy, Unknown, 06/24/13) ondansetron (Verified Adverse Reaction, Intermediate, Vomiting, 08/22/22) Worsens vomiting vancomycin (Unverified Adverse Reaction, Mild, redness, 06/24/13) Patient Home Medication List Home Medication List Reviewed: Yes (JETT JACOBS MD) Albuterol Sulfate (Ventolin Hfa) 90 Mcg Hfa.aer.ad, 2 PUFF INH Q6H PRN for SHORTNESS OF BREATH, (Reported) Entered as Reported by: ARMANDO VIZCARRA on 11/21/221658 Last Action: Reviewed Alprazolam (Alprazolam) 1 Mg Tablet, 1 MG PO BID PRN for ANXIETY, (Reported) Entered as Reported by: ARMANDO VIZCARRA on 11/21/221658 Last Action: Reviewed Amantadine HCl (Amantadine) 100 Mg Capsule, 200 MG PO BID, (Reported) Entered as Reported by: ARMANDO VIZCARRA on 11/21/221658 Last Action: Reviewed Aspirin (Aspirin EC) 81 Mg Tablet.dr, 81 MG PO BID, (Reported) Entered as Reported by: ARMANDO VIZCARRA on 11/21/221658 Last Action: Reviewed Atorvastatin Calcium (Atorvastatin Calcium) 40 Mg Tablet, 40 MG PO HS, (Reported) Entered as Reported by: ARMANDO VIZCARRA on 11/21/221658 Last Action: Reviewed Baclofen (Baclofen) 10 Mg Tablet, 5 MG PO BID PRN for PAIN-BREAKTHROUGH, (Reported) Entered as Reported by: ARMANDO VIZCARRA on 11/21/221658 Last Action: Reviewed Brexpiprazole (Rexulti) 2 Mg Tablet, 2 MG PO HS, (Reported) Entered as Reported by: ARMANDO VIZCARRA on 11/21/221658 Last Action: Reviewed Brimonidine Tartrate (Alphagan P) 0.15 % Drops, 1 DROP OD Q12H, (Reported) Entered as Reported by: ARMANDO VIZCARRA on 11/21/221658 Last Action: Reviewed Carbamazepine (Carbamazepine) 200 Mg Tablet, 200 MG PO BID, (Reported) Entered as Reported by: MICHAEL MONSON on 06/05/221052 Last Action: Reviewed Cyanocobalamin (Cyanocobalamin Injection) 1,000 Mcg/Ml Inj, 1,000 MCG IM MONTHLY, (Reported) Entered as Reported by: ARMANDO VIZCARRA on 11/21/221658 Last Action: Reviewed Cyclobenzaprine HCl (Cyclobenzaprine HCl) 10 Mg Tablet, 10 MG PO HS, (Reported) Entered as Reported by: ARMANDO VIZCARRA on 11/21/221658 Last Action: Reviewed Doxepin HCl (Doxepin HCl) 10 Mg Capsule, 10 MG PO HS, (Reported) Entered as Reported by: ARMANDO VIZCARRA on 11/21/221658 Last Action: Reviewed Famotidine (Famotidine) 20 Mg Tablet, 20 MG PO HS, (Reported) Entered as Reported by: ARMANDO VIZCARRA on 11/21/221658 Last Action: Reviewed Fludrocortisone Acetate (Fludrocortisone Acetate) 0.1 Mg Tab, 0.1 MG PO DAILY, (Reported) Entered as Reported by: ARMANDO VIZCARRA on 11/21/221658 Last Action: Reviewed Fluticasone Propionate (Fluticasone Propionate) 50 Mcg/Actuation Bat[place].susp, 2 SPRAY NSEACH BID PRN for CONGESTION, (Reported) Entered as Reported by: ARMANDO VIZCARRA on 11/21/221658 Last Action: Reviewed Gabapentin (Neurontin) 300 Mg Capsule, 300 MG PO HS, (Reported) Entered as Reported by: ARMANDO VIZCARRA on 11/21/221658 Last Action: Reviewed Glycopyrrolate/Formoterol Fum (Bevespi Aerosphere Inhaler) 9 Mcg-4.8 Mcg Hfa.aer.ad, 2 PUFF INH DAILY, (Reported) Entered as Reported by: ARMANDO VIZCARRA on 11/21/221658 Last Action: Reviewed Insulin Glargine,Hum.rec.anlog (Lantus Solostar) 100 Unit/Ml (3 Ml) Insuln.pen, 45 UNITS SC DAILY, (Reported) Entered as Reported by: ARMANDO VIZCARRA on 11/21/221658 Last Action: Reviewed Insulin Glargine,Hum.rec.anlog (Lantus Solostar) 100 Unit/Ml (3 Ml) Insuln.pen, 52 UNIT SQ HS, (Reported) Entered as Reported by: ARMANDO VIZCARRA on 11/21/221658 Last Action: Reviewed Insulin Lispro (Humalog Kwikpen) 100 Unit/Ml Insuln.pen, 20 UNITS SC BID, (Reported) Entered as Reported by: ARMANDO VIZCARRA on 11/21/221658 Last Action: Reviewed Latanoprost (Xalatan) 0.005 % Drops, 1 DROP OT HS, (Reported) Entered as Reported by: ARMANDO VIZCARRA on 11/21/221658 Last Action: Reviewed Levocetirizine Dihydrochloride (Levocetirizine Dihydrochloride) 5 Mg Tablet, 5 MG PO HS, (Reported) Entered as Reported by: ARMANDO VIZCARRA on 11/21/221658 Last Action: Reviewed Levothyroxine Sodium (Levothyroxine Sodium) 75 Mcg Tablet, 75 MCG PO DAILY, (Reported) Entered as Reported by: ARMANDO VIZCARRA on 11/21/221658 Last Action: Reviewed Meclizine HCl (Meclizine HCl) 25 Mg Tablet, 25 MG PO TID PRN for DIZZINESS, (R eported) Entered as Reported by: ARMANDO VIZCARRA on 11/21/221658 Last Action: Reviewed Montelukast Sodium (Montelukast Sodium) 10 Mg Tablet, 10 MG PO HS, (Reported) Entered as Reported by: ARMANDO VIZCARRA on 11/21/221658 Last Action: Reviewed Nitrofurantoin Monohyd/M-Cryst (Nitrofurantoin [place]-Mcr 100 mg) 100 Mg Capsule, 100 MG PO DAILY, (Reported) Entered as Reported by: ARMANDO VIZCARRA on 11/21/221658 Last Action: Reviewed Oxycodone HCl/Acetaminophen (Oxycodon-Acetaminophen 7.5-325) 7.5 Mg-325 Mg Tablet, 1 EA PO Q8H PRN for PAIN-MODERATE (5-7), (Reported) Entered as Reported by: ARMANDO VIZCARRA on 11/21/221658 Last Action: Reviewed Paroxetine HCl (Paroxetine HCl) 40 Mg Tablet, 40 MG PO DAILY, (Reported) Entered as Reported by: ARMANDO VIZCARRA on 11/21/221658 Last Action: Reviewed Potassium Chloride (K-Tab ER) 10 Meq Tablet.er, 10 MEQ PO DAILY, (Reported) Entered as Reported by: ARMANDO VIZCARRA on 11/21/221658 Last Action: Reviewed Pramipexole Di-HCl (Pramipexole Dihydrochloride) 0.5 Mg Tablet, 0.5 MG PO TID, (Reported) Entered as Reported by: ARMANDO VIZCARRA on 11/21/221658 Last Action: Reviewed Promethazine HCl (Promethazine Tablet) 25 Mg Tablet, 25 MG PO Q8H PRN for NAUSEA/VOMITING-2ND LINE, (Reported) Entered as Reported by: ARMANDO VIZCARRA on 11/21/221658 Last Action: Reviewed Sucralfate (Sucralfate) 1 Gram Tablet, 1 GM PO BID, (Reported) Entered as Reported by: ARMANDO VIZCARRA on 11/21/221658 Last Action: Reviewed Tirzepatide (Mounjaro) 7.5 Mg/0.5 Ml Pen.injctr, 7.5 MG SQ SUN, (Reported) Entered as Reported by: ARMANDO VIZCARRA on 11/21/221658 Last Action: Reviewed Discontinued Medications Albuterol/Ipratropium (Duoneb Rt) 3 Ml Nebu, 3 ML INH Q4H Discontinued Reason: No Longer Taking Prescribed by: JANNIE IVY on 08/07/14 2316 Last Action: Discontinued Alprazolam (Xanax) 1 Mg Tablet, 1 MG PO BID, (Reported) Discontinued Reason: No Longer Taking Entered as Reported by: MICHAEL MONSON on 06/05/22 1055 Last Action: Discontinued Atorvastatin Calcium (Lipitor) 20 Mg Tablet, 20 MG PO HS, (Reported) Discontinued Reason: No Longer Taking Entered as Reported by: MICHAEL MONSON on 06/05/22 1051 Last Action: Discontinued Cephalexin (Cephalexin) 500 Mg Tablet, 500 MG PO BID Discontinued Reason: No Longer Taking Prescribed by: GOYO WAGONER on 08/14/222014 Last Action: Discontinued Gabapentin (Gabapentin) 100 Mg Capsule, 300 MG PO TID, (Reported) Discontinued Reason: No Longer Taking Entered as Reported by: MICHAEL MONSON on 06/05/22 1046 Last Action: Discontinued Hydroxyzine Hcl (Hydroxyzine Hcl) 25 Mg Tablet, 25 MG PO TID, (Reported) Discontinued Reason: No Longer Taking Entered as Reported by: LISA JAMISON on 11/10/14 0118 Last Action: Discontinued Insulin Glargine,Hum.rec.anlog (Lantus) 100 Unit/Ml Vial, 20 UNIT SQ BID Discontinued Reason: No Longer Taking Prescribed by: TEDDY GAMBLE on 06/05/22 1230 Last Action: Discontinued Levocetirizine Dihydrochloride (Xyzal) 5 Mg Tablet, 5 MG PO HS, (Reported) Discontinued Reason: No Longer Taking Entered as Reported by: MICHAEL MONSON on 06/05/22 1056 Last Action: Discontinued Levothyroxine Sodium (Levothyroxine) 75 Mcg Capsule, 75 MCG PO DAILY, (Reported) Discontinued Reason: No Longer Taking Entered as Reported by: MICHAEL MONSON on 06/05/22 1058 Last Action: Discontinued Oxycodone HCl/Acetaminophen (Percocet 7.5-325 mg Tablet) 1 Each Tablet, 1 TAB PO TID PRN for PAIN-MODERATE, (Reported) Discontinued Reason: No Longer Taking Entered as Reported by: MICHAEL MONSON on 06/05/22 1048 Last Action: Discontinued Oxycodone HCl/Acetaminophen (Percocet 7.5-325 mg Tablet) 1 Each Tablet, 1 TAB PO Q6H PRN for PAIN-MODERATE Discontinued Reason: No Longer Taking Prescribed by: FELIPA MARTINEZ on 09/17/22 1629 Last Action: Discontinued Review of Systems Review of Systems Constitutional: weakness EENTM: no symptoms reported Respiratory: no symptoms reported Cardiovascular: no symptoms reported Gastrointestinal: no symptoms reported Genitourinary: no symptoms reported : No Musculoskeletal: no symptoms reported Skin: no symptoms reported Psychiatric/Neurological: See HPI Hematologic/Lymphatic: No Symptoms Reported Immunological/Allergic: no symptoms reported (JETT JACOBS MD) Past Lulyxhx-Qatupl-Roujwk Hx Patient Social History Tobacco Use?: No Substance use?: No Alcohol Use?: No (JETT JACOBS MD) Immunizations Up To Date First/Initial COVID19 Vaccinat: X4 Second COVID19 Vaccination Reji: X4 Third COVID19 Vaccination Date: X4 (JETT JACOBS MD) Seasonal Allergies Seasonal Allergies: No (JETT JACOBS MD) Past Medical History Surgery/Hospitalization HX: DM 2, [facility] Surgeries: Yes (BACK SURGERY, LAPAROSCOPY, UPPER AND LOWER SCOPES) Abdominal, Section, Hysterectomy, Oophorectomy, Orthopedic, T hyroidectomy Respiratory: Yes Chronic Bronchitis, COPD Currently Using CPAP: No Currently Using BIPAP: No Cardiac: Yes 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, Hypertension Neurological: Yes (TREMORS) 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 Disorders: 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 UTI-Chronic Gastrointestinal: Yes (h pylori hx) Gastroesophageal Reflux Musculoskeletal: Yes Degenerate Disk Disease, Arthritis, Chronic Back Pain Endocrine: Yes (GRAVE'S DISEASE--S/P THYROIDECTOMY) Diabetes, Insulin dep, Hypothyroidsim HEENT: No Cancer: No Psychosocial: Yes Anxiety, Depression Integumentary: No Blood Disorders: No Adverse Reaction/Blood Tranf: No (JETT JACOBS MD) Family Medical History No Pertinent Family Hx (JETT JACOBS MD) Physical Exam Vital Signs Vital Signs - First Documented 11/21/22 08:18 Temp 36.9 Pulse 109 Resp 17 B/P (MAP) 96/69 (78) Pulse Ox 97 O2 Delivery Room Air (NIC VINSON) Vital Signs Capillary Refill : Less Than 3 Seconds (JETT JACOBS MD) Height, Weight, BMI Height: 5'3.00" Weight: 203lbs. oz. 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 Lucid conversation is sometimes intermixed with nonsense and/or hallucinations.) Skin: Normal Color, Warm/Dry (JETT JACOBS MD) Progress/Results/Core Measures Suspected Sepsis SIRS Temperature: Pulse: 109 Respiratory Rate: 17 Laboratory Tests 11/21/22 09:28: White Blood Count 8.5 Blood Pressure 96 /69 Mean: 78 Laboratory Tests 11/21/22 09:28: Creatinine 2.52H, Platelet Count 184, Total Bilirubin 0.3 (JETT JACOBS MD) SIRS Laboratory Tests 11/21/22 09:28: White Blood Count 8.5 Laboratory Tests 11/21/22 09:28: Platelet Count 184, Total Bilirubin 0.3 (NIC VINSON) Results/Orders Lab Results Laboratory Tests Test 11/21/22 09:28 11/21/22 09:35 Range/Units White Blood Count 8.5 4.3-11.0 10^3/uL Red Blood Count 4.81 3.80-5.11 10^6/uL Hemoglobin 13.4 11.5-16.0 g/dL Hematocrit 42 35-52 % Mean Corpuscular Volume 88 80-99 fL Mean Corpuscular Hemoglobin 28 25-34 pg Mean Corpuscular Hemoglobin Concent 32 32-36 g/dL Red Cell Distribution Width 15.2 H 10.0-14.5 % Platelet Count 184 130-400 10^3/uL Mean Platelet Volume 13.0 H 9.0-12.2 fL Immature Granulocyte % (Auto) 0 % Neutrophils (%) (Auto) 66 42-75 % Lymphocytes (%) (Auto) 21 12-44 % Monocytes (%) (Auto) 12 0-12 % Eosinophils (%) (Auto) 1 0-10 % Basophils (%) (Auto) 1 0-10 % Neutrophils # (Auto) 5.7 1.8-7.8 10^3/uL Lymphocytes # (Auto) 1.8 1.0-4.0 10^3/uL Monocytes # (Auto) 1.0 0.0-1.0 10^3/uL Eosinophils # (Auto) 0.1 0.0-0.3 10^3/uL Basophils # (Auto) 0.0 0.0-0.1 10^3/uL Immature Granulocyte # (Auto) 0.0 0.0-0.1 10^3/uL Sodium Level 133 L 135-145 MMOL/L Potassium Level 3.7 3.6-5.0 MMOL/L Chloride Level 101 98-107 MMOL/L Carbon Dioxide Level 20 L 21-32 MMOL/L Anion Gap 12 5-14 MMOL/L Blood Urea Nitrogen 45 H 7-18 MG/DL Estimat Glomerular Filtration Rate 22 BUN/Creatinine Ratio 18 Glucose Level 182 H 70-105 MG/DL Calcium Level 8.7 8.5-10.1 MG/DL Corrected Calcium 9.0 8.5-10.1 MG/DL Total Bilirubin 0.3 0.1-1.0 MG/DL Aspartate Amino Transf (AST/SGOT) 11 5-34 U/L Alkaline Phosphatase 156 H 40-136 U/L Total Protein 6.6 6.4-8.2 GM/DL Albumin 3.6 3.2-4.5 GM/DL (NIC VINSON) Vital Signs/I&O 11/21/22 08:18 Temp 36.9 Pulse 109 Resp 17 B/P (MAP) 96/69 (78) Pulse Ox 97 O2 Delivery Room Air (NIC VINSON) Vital Signs/I&O Capillary Refill : Less Than 3 Seconds (JETT JACOBS MD) Blood Pressure Mean: 78 Progress Note : Progress Note Patient was interviewed and examined upon arrival and report was received from EMS. Patient's blood pressures were soft in the 90s over 50s for EMS. Labs were obtained and IV fluids were initiated. Blood pressure did improve. Labs were reviewed and interpreted by me. Patient was found to have acute kidney injury with creatinine of 2.52. Glucose was 182. CBC and CMP were otherwise unremarkable. Urinalysis was grossly positive for pyuria suggesting UTI. IV antibiotic therapy was initiated. Imaging studies were obtained to rule out injury with her recent falls. See CT reports below which were reviewed. Vivien spencer was hydrated with 2 L of normal saline. Case was discussed with Dr. Gamble who agrees to admission as hospitalist on-call. He requested blood cultures and lactic acid be obtained. Lactic acid was normal. (JETT JACOBS MD) ECG Initial ECG Impression Date: Nov 21, 2022 Initial ECG Impression Time: 08:40 Initial ECG Rate: 101 Initial ECG Rhythm: S.Tach Comment Sinus tachycardia with no ST elevation or depression. Borderline left axis deviation. No significant abnormal intervals. (JETT JACOBS MD) Diagnostic Imaging Diagonstic Imaging: Xray Plain Films/CT/US/NM/MRI: chest Comments NAME: GEORGE AVELAR Madeline [facility] REC#: [id number] PT STATUS: REG ER : 1965 PHYSICIAN: JETT JACOBS MD ADMIT DATE: 11/21/22/ER Signed Date of Exam:11/21/22 CHEST 1 VIEW, AP/PA ONLY HISTORY: Multiple falls, lightheaded TECHNIQUE: Frontal view of the chest. COMPARISON: 08/23/2022 FINDINGS: Lung volumes are normal. No consolidation is seen. There is no pleural effusion or pneumothorax. The cardiac silhouette is normal in size. IMPRESSION: 1. No acute pulmonary abnormality. Dictated by: Dictated on workstation # [id number] Dict: 11/21/22 0936 Trans: 11/21/22 1026 [facility] [id number] Interpreted by: EMILY HAIDER MD Electronically signed by: EMILY HAIDER MD 11/21/22 1026 Diagonstic Imaging: CT Plain Films/CT/US/NM/MRI: chest, abdomen, pelvis Comments NAME: GEORGE AVELAR [facility] REC#: [id number] PT STATUS: REG ER : 1965 PHYSICIAN: JETT JACOBS MD ADMIT DATE: 11/21/22/ER Signed Date of Exam:11/21/22 CT CHEST/ABDOMEN/PELVIS WO PROCEDURE: CT chest, abdomen, and pelvis without contrast. TECHNIQUE: Multiple contiguous axial images were obtained through the chest, abdomen, and pelvis without the use of intravenous contrast. Auto Exposure Controls were utilized during the CT exam to meet ALARA standards for radiation dose reduction. INDICATION: Trauma. Injuries of the chest, abdomen and pelvis. Multiple falls. COMPARISON: 08/22/2022 FINDINGS: CT CHEST: The heart is normal in size. There is mild pericardial fluid with no [place] pericardial effusion. No mediastinal adenopathy is seen. There are calcified mediastinal lymph nodes which are likely from old granulomatous disease. The aorta is normal in caliber. There is calcific atherosclerosis. There is a small hiatal hernia. There are dependent groundglass opacities in the lungs bilaterally. There is no pleural effusion or pneumothorax. There are several nodular densities in the lower lobes bilaterally. Some of these are seen on the prior CT of the abdomen and pelvis appear stable. No central endobronchial lesions are seen. There are degenerative changes in the thoracic spine. No acute fracture is seen. There is a small cleft in the left midclavicle which is chronic and may be from remote injury. CT ABDOMEN AND PELVIS: There is a calcified granuloma in the liver but no other liver lesions are seen. Cholecystectomy clips are noted. The spleen has small calcified granulomas. The pancreas appears normal. The adrenal glands are normal. The kidneys demonstrate mild atrophy in the cortex. There is a nonobstructing calculus in the left kidney posteriorly measuring 9 mm. There is no hydronephrosis. The bowel loops are nondistended without obstruction. The appendix is normal. No free fluid or free air is seen. The urinary bladder demonstrates dependent and nondependent air in the bladder, likely in the bladder wall as well as within the lumen. There are degenerative changes in the lumbar spine with posterior fusion at L3-L5. No acute fracture is seen. IMPRESSION: 1. Findings of emphysematous cystitis. 2. Groundglass opacities in the lung bases, most likely atelectasis although underlying infection is not excluded. 3. Multiple small nodular densities in the lungs. There is evidence of old granulomatous disease and these could represent granulomas. Recommend followup CT of the chest in 3-6 months. 4. Nonobstructing nephrolithiasis. Dictated by: Dictated on workstation # [id number] Dict: 11/21/2224 Trans: 11/21/22 1029 [facility] [phone] Interpreted by: EMILY HAIDER MD Electronically signed by: EMILY HAIDER MD 11/21/22 1029 Diagonstic Imaging: CT Plain Films/CT/US/NM/MRI: c-spine, head Comments NAME: GEORGE AVELAR [facility] REC#: [id number] PT STATUS: ADM IN : 1965 PHYSICIAN: JETT JACOBS MD ADMIT DATE: 11/21/22 Signed Date of Exam:11/21/22 CT HEAD/CERVICAL SPINE WO PROCEDURE: CT head and CT cervical spine without contrast. TECHNIQUE: Multiple contiguous axial images were obtained through the brain and cervical spine without the use of intravenous contrast. Sagittal and coronal reformations through the cervical spine were then performed. Auto Exposure Controls were utilized during the CT exam to meet ALARA standards for radiation dose reduction. INDICATION: Trauma, fall, pain. COMPARISON: Imaging from the same date as well as from 06/04/2022. FINDINGS: Mild atrophy. Cavum septum pellucidum. No intracranial hemorrhage. No intracranial mass, mass effect, midline shift, herniation, hydrocephalus, or extra-axial fluid collection. No CT evidence of an acute ischemic infarction. The bilateral ocular lenses are absent. Soft tissue thinning/defect is noted involving the high right parietal scalp without underlying calvarial fracture. The paranasal sinuses are clear. Mild background vascular calcifications. Mild apex right curvature of the visualized cervicothoracic spine. No significant anterolisthesis or retrolisthesis. Alignment of the atlantooccipital joint is well maintained. The maxilla is edentulous. Besides endplate degenerative changes, particularly involving C5, C6, and C7, vertebral body heights are otherwise well-maintained. No acute fracture or dislocation. No destructive osseous process. Mild disc space height loss at C3/C4 and C5/C6 with moderate disc space height loss at C6/C7. Scattered facet joint degenerative changes. Disc bulge at C6/C7. Mild multilevel central canal stenosis without severe osseous central canal stenosis. Moderate left neural foraminal stenosis at C5/C6. Additional mild multilevel bilateral neural foraminal stenosis is also present. No apical pneumothorax. A normal-appearing thyroid gland is not present. Several small mild hyperdensities are identified within the region of the thyroid bed. IMPRESSION: No acute intracranial abnormality with mild atrophy present. No acute osseous abnormality within the cervical spine with mild to moderate multilevel degenerative changes above. Thinning versus soft tissue injury involving the high right parietal scalp without underlying calvarial fracture. Recommend direct visualization. A normal-appearing thyroid gland is not present with several small hyperdensities within the region of the thyroid bed. Findings most likely relate to small amount of residual thyroid tissue. This could be evaluated with a thyroid ultrasound. Additional findings as above. Dictated by: Dictated on workstation # [id number] Dict: 11/21/22917 Trans: 11/21/221327 [facility] [phone] Interpreted by: ABDIRAHMAN ZEPEDA MD Electronically signed by: ABDIRAHMAN ZEPEDA MD 11/21/22 1328 Diagonstic Imaging: CT Plain Films/CT/US/NM/MRI: other (Lumbar spine) Comments NAME: GEORGE AVELAR [facility] REC#: [id number] PT STATUS: REG ER : 1965 PHYSICIAN: JETT JACOBS MD ADMIT DATE: 11/21/22/ER Signed Date of Exam:11/21/22 CT LUMBAR SPINE WO PROCEDURE: CT lumbar spine without contrast. TECHNIQUE: Multiple contiguous axial images were obtained through the lumbar spine without the use of intravenous contrast. Sagittal and coronal reformations were then performed. Auto Exposure Controls were utilized during the CT exam to meet ALARA standards for radiation dose reduction. INDICATION: Back trauma. COMPARISON: CT lumbar spine of 08/22/2022. FINDINGS: Alignment of lumbar spine is unchanged. There is no traumatic subluxation. No fracture is present. Posterior lumbar interbody fusion of L3-L4 has stable position of interbody spacer. Posterior instrumentation is intact. No features of loosening of the fixation hardware. No sacral insufficiency fracture. Laminectomies of L3 and L4 results in good spinal canal decompression. No concerning abnormality retroperitoneum. Atherosclerotic aorta. IMPRESSION: 1. No acute fracture in the lumbar spine. 2. No complication associated with the posterior instrumentation of L4 L3-S1. Dictated by: Dictated on workstation # [id number] Dict: 11/21/22 0933 Trans: 11/21/22 0948 [facility] [phone] Interpreted by: LETICIA DARNELL MD Electronically signed by: LETICIA DARNELL MD 11/21/22 0948 (JETT JACOBS MD) Departure Communication (Admissions) Time/Spoke to Admitting Phy: 11:15 Dr. Gamble (JETT JACOBS MD) Impression Primary Impression: Acute kidney injury Additional Impressions: Urinary tract infection Qualified Codes: N39.0 - Urinary tract infection, site not specified; R31.9 - Hematuria, unspecified Altered mental status Qualified Codes: R41.82 - Altered mental status, unspecified History of recent fall Disposition: ADMITTED INPATIENT Condition: Improved Admissions Decision to Admit Reason: Admit from ER (General) Decision to Admit/Date: Nov 21, 2022 Time/Decision to Admit Time: 11:15 (JETT JACOBS MD) Departure-Patient Inst. Referrals: MATTHEW CROUCH DO (PCP/Family) Primary Care Physician JETT JACOBS MD Nov 21, 2022 09:10 NIC VINSON Nov 21, 2022 09:19
--- NOTE | 2022-11-21 09:34 | Diagnostic Imaging Report ---
PROCEDURE: CT head and CT cervical spine without contrast. TECHNIQUE: Multiple contiguous axial images were obtained through the brain and cervical spine without the use of intravenous contrast. Sagittal and coronal reformations through the cervical spine were then performed. Auto Exposure Controls were utilized during the CT exam to meet ALARA standards for radiation dose reduction. INDICATION: Trauma, fall, pain. COMPARISON: Imaging from the same date as well as from 06/04/2022. FINDINGS: Mild atrophy. Cavum septum pellucidum. No intracranial hemorrhage. No intracranial mass, mass effect, midline shift, herniation, hydrocephalus, or extra-axial fluid collection. No CT evidence of an acute ischemic infarction. The bilateral ocular lenses are absent. Soft tissue thinning/defect is noted involving the high right parietal scalp without underlying calvarial fracture. The paranasal sinuses are clear. Mild background vascular calcifications. Mild apex right curvature of the visualized cervicothoracic spine. No significant anterolisthesis or retrolisthesis. Alignment of the atlantooccipital joint is well maintained. The maxilla is edentulous. Besides endplate degenerative changes, particularly involving C5, C6, and C7, vertebral body heights are otherwise well-maintained. No acute fracture or dislocation. No destructive osseous process. Mild disc space height loss at C3/C4 and C5/C6 with moderate disc space height loss at C6/C7. Scattered facet joint degenerative changes. Disc bulge at C6/C7. Mild multilevel central canal stenosis without severe osseous central canal stenosis. Moderate left neural foraminal stenosis at C5/C6. Additional mild multilevel bilateral neural foraminal stenosis is also present. No apical pneumothorax. A normal-appearing thyroid gland is not present. Several small mild hyperdensities are identified within the region of the thyroid bed. IMPRESSION: No acute intracranial abnormality with mild atrophy present. No acute osseous abnormality within the cervical spine with mild to moderate multilevel degenerative changes above. Thinning versus soft tissue injury involving the high right parietal scalp without underlying calvarial fracture. Recommend direct visualization. A normal-appearing thyroid gland is not present with several small hyperdensities within the region of the thyroid bed. Findings most likely relate to small amount of residual thyroid tissue. This could be evaluated with a thyroid ultrasound. Additional findings as above. Dictated by: Dictated on workstation # [id number]
[2022-11-21 09:37] LABS: BASOPHILS % (AUTO) 1 % (0-10); EOSINOPHILS # (AUTO) 0.1 10^3/uL (0.0-0.3); EOSINOPHILS % (AUTO) 1 % (0-10); HEMATOCRIT 42 % (35-52); HEMOGLOBIN 13.4 g/dL (11.5-16.0); LYMPHOCYTES # (AUTO) 1.8 10^3/uL (1.0-4.0); LYMPHOCYTES % (AUTO) 21 % (12-44); MEAN CORPUSCULAR HEMOGLOBIN 28 pg (25-34); MEAN CORPUSCULAR HGB CONC 32 g/dL (32-36); MEAN CORPUSCULAR VOLUME 88 fL (80-99); MONOCYTES % (AUTO) 12 % (0-12); NEUTROPHILS # (AUTO) 5.7 10^3/uL (1.8-7.8); NEUTROPHILS % (AUTO) 66 % (42-75); PLATELET COUNT 184 10^3/uL (130-400); WHITE BLOOD COUNT 8.5 10^3/uL (4.3-11.0)
--- NOTE | 2022-11-21 09:38 | Diagnostic Imaging Report ---
HISTORY: Multiple falls, lightheaded TECHNIQUE: Frontal view of the chest. COMPARISON: 08/23/2022 FINDINGS: Lung volumes are normal. No consolidation is seen. There is no pleural effusion or pneumothorax. The cardiac silhouette is normal in size. IMPRESSION: 1. No acute pulmonary abnormality. Dictated by: Dictated on workstation # [id number]
--- NOTE | 2022-11-21 09:40 | Diagnostic Imaging Report ---
PROCEDURE: CT chest, abdomen, and pelvis without contrast. TECHNIQUE: Multiple contiguous axial images were obtained through the chest, abdomen, and pelvis without the use of intravenous contrast. Auto Exposure Controls were utilized during the CT exam to meet ALARA standards for radiation dose reduction. INDICATION: Trauma. Injuries of the chest, abdomen and pelvis. Multiple falls. COMPARISON: 08/22/2022 FINDINGS: CT CHEST: The heart is normal in size. There is mild pericardial fluid with no [place] pericardial effusion. No mediastinal adenopathy is seen. There are calcified mediastinal lymph nodes which are likely from old granulomatous disease. The aorta is normal in caliber. There is calcific atherosclerosis. There is a small hiatal hernia. There are dependent groundglass opacities in the lungs bilaterally. There is no pleural effusion or pneumothorax. There are several nodular densities in the lower lobes bilaterally. Some of these are seen on the prior CT of the abdomen and pelvis appear stable. No central endobronchial lesions are seen. There are degenerative changes in the thoracic spine. No acute fracture is seen. There is a small cleft in the left midclavicle which is chronic and may be from remote injury. CT ABDOMEN AND PELVIS: There is a calcified granuloma in the liver but no other liver lesions are seen. Cholecystectomy clips are noted. The spleen has small calcified granulomas. The pancreas appears normal. The adrenal glands are normal. The kidneys demonstrate mild atrophy in the cortex. There is a nonobstructing calculus in the left kidney posteriorly measuring 9 mm. There is no hydronephrosis. The bowel loops are nondistended without obstruction. The appendix is normal. No free fluid or free air is seen. The urinary bladder demonstrates dependent and nondependent air in the bladder, likely in the bladder wall as well as within the lumen. There are degenerative changes in the lumbar spine with posterior fusion at L3-L5. No acute fracture is seen. IMPRESSION: 1. Findings of emphysematous cystitis. 2. Groundglass opacities in the lung bases, most likely atelectasis although underlying infection is not excluded. 3. Multiple small nodular densities in the lungs. There is evidence of old granulomatous disease and these could represent granulomas. Recommend followup CT of the chest in 3-6 months. 4. Nonobstructing nephrolithiasis. Dictated by: Dictated on workstation # [id number]
[2022-11-21 09:47] LABS: ALBUMIN 3.6 GM/DL (3.2-4.5); POTASSIUM 3.7 MMOL/L (3.6-5.0)
[2022-11-21 09:48] LABS: CALCIUM 8.7 MG/DL (8.5-10.1)
--- NOTE | 2022-11-21 09:49 | Diagnostic Imaging Report ---
PROCEDURE: CT lumbar spine without contrast. TECHNIQUE: Multiple contiguous axial images were obtained through the lumbar spine without the use of intravenous contrast. Sagittal and coronal reformations were then performed. Auto Exposure Controls were utilized during the CT exam to meet ALARA standards for radiation dose reduction. INDICATION: Back trauma. COMPARISON: CT lumbar spine of 08/22/2022. FINDINGS: Alignment of lumbar spine is unchanged. There is no traumatic subluxation. No fracture is present. Posterior lumbar interbody fusion of L3-L4 has stable position of interbody spacer. Posterior instrumentation is intact. No features of loosening of the fixation hardware. No sacral insufficiency fracture. Laminectomies of L3 and L4 results in good spinal canal decompression. No concerning abnormality retroperitoneum. Atherosclerotic aorta. IMPRESSION: 1. No acute fracture in the lumbar spine. 2. No complication associated with the posterior instrumentation of L4 L3-S1. Dictated by: Dictated on workstation # [id number]
[2022-11-21 09:50] LABS: TOTAL PROTEIN 6.6 GM/DL (6.4-8.2)
[2022-11-21 09:51] LABS: BILIRUBIN,TOTAL 0.3 MG/DL (0.1-1.0)
[2022-11-21 09:53] LABS: CREATININE SERUM 2.52 MG/DL (0.60-1.30)
[2022-11-21 09:56] LABS: MAGNESIUM 2.1 MG/DL (1.6-2.4)
[2022-11-21 09:57] LABS: BACTERIA,URINE LARGE /HPF; BILIRUBIN,URINE 1+ (NEGATIVE); CLARITY,URINE CLOUDY; COLOR,URINE YELLOW; GLUCOSE, URINE (UA) NEGATIVE (NEGATIVE); KETONES,URINE TRACE (NEGATIVE); LEUKOCYTE ESTERASE ,URINE 1+ (NEGATIVE); NITRITE,URINE NEGATIVE (NEGATIVE); PH,URINE 5.5 (5-9); PROTEIN,URINE 3+ (NEGATIVE); RBC,URINE 50-100 /HPF; WBC,URINE 25-50 /HPF
[2022-11-21] MEDS ORDERED: cefTRIAXone IV/IM 1,000 MG in NS (IVPB) 50 ML 50 ML IV STA (10:34)
[2022-11-21] MEDS ORDERED: diphenhydrAMINE 25 MG TABLET PO PRN (12:00)
[2022-11-21] MEDS ORDERED: MILK OF MAGNESIA 400 MG/5 ML 30 ML UDC PO PRN (12:00)
[2022-11-21] MEDS ORDERED: diphenhydrAMINE INJ 50 MG/ML VIAL IVP PRN (12:00)
[2022-11-21] MEDS ORDERED: ONDANSETRON 4 MG/2 ML (SDV) Z0FRAN IV PRN (12:00)
[2022-11-21] MEDS ORDERED: polyethylene glycoL POWDER 17 GM (MIRALAX) PACK PO PRN (12:00)
[2022-11-21] MEDS ORDERED: LACTULOSE SYRUP 10GM/15ML 30ML UDC PO PRN (12:00)
[2022-11-21] MEDS ORDERED: ACETAMINOPHEN 325 MG TABLET PO PRN (12:00)
[2022-11-21] MEDS ORDERED: BISACODYL 10 MG SUPPOSITORY PR PRN (12:00)
[2022-11-21] MEDS ORDERED: NS IV 500 ML 500 ML IV PRN (12:00)
[2022-11-21] MEDS ORDERED: ENOXAPARIN 40 MG/0.4 ML SYRINGE SC SCH (12:00)
[2022-11-21] MEDS ORDERED: CALCIUM CARBONATE 500 MG CHEW TABLET PO PRN (12:00)
[2022-11-21] MEDS ORDERED: ANTACID SUSPENSION 30 ML UDC PO PRN (12:00)
[2022-11-21] MEDS ORDERED: ONDANSETRON 4 MG (ZOFRAN) ORAL DISSOLVE TAB PO PRN (12:00)
[2022-11-21] MEDS: NS IV 1000 ML 1,000 ML IV SCH ×4 (12:28→20:13)
[2022-11-21] MEDS: ENOXAPARIN 30 MG/0.3 ML SYRINGE SC SCH (13:04)
[2022-11-21] MEDS ORDERED: CYCLOBENZAPRINE 10 MG TABLET PO PRN (15:00)
[2022-11-21] MEDS ORDERED: ALPRAZolam 1 MG TABLET PO PRN (15:00)
--- NOTE | 2022-11-21 15:03 | History & Physical-Hospitalist ---
History of Present Illness HPI/Chief Complaint Gabriela Franco is a 57 year old female with PMH HTN, T2DM, HLD, hypothyroidism, COPD, anxiety, depression, arthritis, chronic back pain, who presented with weakness. She has also been confused. She reports fevers. She has had dysuria, urinary frequency, and urgency. She denies shortness of breath and cough. She denies chest pain. She denies abdominal pain, nausea, and vomiting. Source: patient, family Exam Limitations: no limitations Date Seen 11/21/22 Time Seen by a Provider: 12:15 Attending Physician Mohsen Finnegan DO PCP Admitting Physician: Teddy Gamble MD Attending Physician: Teddy Gamble MD Referring Physician Date of Admission Nov 21, 2022 at 11:30 Home Medications & Allergies Home Medications Reviewed patient Home Medication Reconciliation performed by pharmacy medication reconciliations fire management technician and/or nursing. Patients Allergies have been reviewed. Allergies Allergies Coded Allergies Sulfa (Sulfonamide Antibiotics) (Unverified Allergy, Unknown, 06/24/13) codeine (Unverified Allergy, Unknown, 06/24/13) ondansetron (Verified Adverse Reaction, Intermediate, Vomiting, 08/22/22) Worsens vomiting vancomycin (Unverified Adverse Reaction, Mild, redness, 06/24/13) Past Tdbeeto-Ydwezm-Sjccpj Hx Patient Social History Tobacco Use?: Yes Smoking Status: Never a Smoker Smokeless Tobacco Frequency: Never a User Use of E-Cig and/or Vaping dev: No Substance use?: No Alcohol Use?: No Pt feels they are or have been: No Immunizations Up To Date Date of Influenza Vaccine: Jan 07, 2016 First/Initial COVID19 Vaccinat: X4 Second COVID19 Vaccination Reji: X4 Tetanus Booster (TDap): Less Than 5 Years Date of Pneumonia Vaccine: Jul 08, 2012 Seasonal Allergies Seasonal Allergies: No Current Status status: No status: No Advance Directives: No Communicates: Verbally Primary Language: Malaysian Preferred Spoken Language: Malaysian Implanted or Applied Medical D: Orthopedic hardware Past Medical History Surgeries: Abdominal, Section, Hysterectomy, Oophorectomy, Orthopedic, Thyroidectomy Chronic Bronchitis, COPD Currently Using CPAP: No Currently Using BIPAP: No 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, 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 UTI-Chronic Gastroesophageal Reflux Degenerate Disk Disease, Arthritis, Chronic Back Pain Diabetes, Insulin dep, Hypothyroidsim Anxiety, Depression Blood Disorders: No Adverse Reaction/Blood Tranf: No Family Medical History No Pertinent Family Hx Review of Systems Constitutional: fever, weakness Respiratory: no symptoms reported Cardiovascular: no symptoms reported Gastrointestinal: no symptoms reported Genitourinary: dysuria, frequency Physical Exam Physical Exam Vital Signs Vital Signs - First Documented 11/21/22 08:18 Temp 36.9 Pulse 109 Resp 17 B/P (MAP) 96/69 (78) Pulse Ox 97 O2 Delivery Room Air Capillary Refill : Less Than 3 Seconds Height, Weight, BMI Height: 5'3.00" Weight: 203lbs. oz. 92.572870tq; 205.59 BMI Method:Stated General Appearance: No Apparent Distress, Chronically ill, Obese HEENT: PERRL/EOMI, Pharynx Normal Neck: Normal Inspection, Supple Respiratory: No Respiratory Distress, Decreased Breath Sounds Cardiovascular: No Murmur, Tachycardia Gastrointestinal: Normal Bowel Sounds, Non Tender, Soft Extremity: Normal Inspection, No Pedal Edema Neurologic/Psychiatric: Alert, Oriented x3, Normal Mood/Affect Skin: Normal Color, Warm/Dry Results Results/Procedures Labs Laboratory Tests 11/21/22 09:28 Patient resulted labs reviewed. Imaging: Reviewed Imaging Report Assessment/Plan Admission Diagnosis Emphysematous cystitis Admission Status: Inpatient Order (span 2 midnights) Reason for Inpatient Admission: IV antibiotics Assessment and Plan Emphysematous cystitis Acute kidney injury Not septic on arrival UA consistent with UTI Await culture results CT with emphysematous cystitis IV fluids Rocephin T2DM Levemir Sliding scale insulin Nephrolithiasis Nonobstructing, no acute needs Pulmonary nodules Repeat CT in 3-6 months HTN HLD COPD Anxiety Depression Back pain Continue home meds as able DVT prophylaxis: Lovenox Diagnosis/Problems Diagnosis/Problems (1) Emphysematous cystitis Status: Acute (2) CALEB (acute kidney injury) Status: Acute (3) Pulmonary nodules Status: Acute (4) Nephrolithiasis Status: Acute (5) T2DM (type 2 diabetes mellitus) Status: Acute Qualifiers: Diabetes mellitus clip on sunglasses inspector insulin use: with clip on sunglasses inspector use Diabetes mellitus complication status: with hyperglycemia Qualified Codes: E11.65 - Type 2 diabetes mellitus with hyperglycemia; Z79.4 - assisted (current) use of insulin TEDDY GAMBLE MD Nov 21, 2022 15:03
[2022-11-21 15:14] VITALS: BP 108/65
[2022-11-21] MEDS: inSUlin ASPART 1 UNIT/0.01 ML (PER UNIT) SC SCH ×3 (16:15→20:06)
[2022-11-21] MEDS ORDERED: CYCL10TA25 PO (16:59)
[2022-11-21] MEDS ORDERED: CNC1KV IM (16:59)
[2022-11-21] MEDS ORDERED: DOXE10CA29 PO (16:59)
[2022-11-21] MEDS ORDERED: MECL-149 PO (16:59)
[2022-11-21] MEDS ORDERED: PRAM0.5T9 PO (16:59)
[2022-11-21] MEDS ORDERED: GABA300C PO (16:59)
[2022-11-21] MEDS ORDERED: ALBU18HF2 INH (16:59)
[2022-11-21] MEDS ORDERED: INSU100I10 SQ (16:59)
[2022-11-21] MEDS ORDERED: ATOR40TA70 PO (16:59)
[2022-11-21] MEDS ORDERED: POTA-185 PO (16:59)
[2022-11-21] MEDS ORDERED: TIRZ7.5P SQ (16:59)
[2022-11-21] MEDS ORDERED: NITR100C10 PO (16:59)
[2022-11-21] MEDS ORDERED: ASPI-1238 PO (16:59)
[2022-11-21] MEDS ORDERED: BACL10TA PO (16:59)
[2022-11-21] MEDS ORDERED: OXYC1TAB15 PO (16:59)
[2022-11-21] MEDS ORDERED: INSU100I23 SC (16:59)
[2022-11-21] MEDS ORDERED: LATA2.5D19 OT (16:59)
[2022-11-21] MEDS ORDERED: FLUT16SP22 NSEACH (16:59)
[2022-11-21] MEDS ORDERED: AMAN100C20 PO (16:59)
[2022-11-21] MEDS ORDERED: BRIM5DRO12 OD (16:59)
[2022-11-21] MEDS ORDERED: LEVO75TA6 PO (16:59)
[2022-11-21] MEDS ORDERED: FLDR.1T PO (16:59)
[2022-11-21] MEDS ORDERED: BREX2TAB PO (16:59)
[2022-11-21] MEDS ORDERED: MONT-40 PO (16:59)
[2022-11-21] MEDS ORDERED: PROM25TA14 PO (16:59)
[2022-11-21] MEDS ORDERED: PARO40TA3 PO (16:59)
[2022-11-21] MEDS ORDERED: FAMO20TA5 PO (16:59)
[2022-11-21] MEDS ORDERED: INSU100I10 SC (16:59)
[2022-11-21] MEDS ORDERED: ALPR1TAB7 PO (16:59)
[2022-11-21] MEDS ORDERED: LEVO5TAB12 PO (16:59)
[2022-11-21] MEDS ORDERED: SUCR1TAB PO (16:59)
[2022-11-21] MEDS ORDERED: GLYC10.7 INH (16:59)
[2022-11-21 19:26] VITALS: BP 124/65
[2022-11-21] MEDS: AMITRIPTYLINE 25 MG TABLET PO SCH (20:08)
[2022-11-21] MEDS: SENNOSIDES 8.6 MG (SENOKOT) TAB PO SCH (20:09)
[2022-11-21] MEDS: MONTELUKAST 10 MG TABLET PO SCH (20:09)
[2022-11-21] MEDS: carBAMazepine 200 MG TABLET PO SCH (20:09)
[2022-11-21] MEDS: GABAPENTIN 300 MG CAPSULE PO SCH (20:09)
[2022-11-21] MEDS: DOCUSATE SODIUM 100 MG CAPSULE PO SCH (20:10)
[2022-11-21] MEDS: PRAMIPEXOLE 0.5 MG TABLET PO SCH (20:10)
[2022-11-21] MEDS: AMANTADINE 100 MG CAPSULE PO SCH (20:10)
[2022-11-21] MEDS: LATANOPROST 0.005% OPHTH SOLN 2.5 ML OU SCH (20:13)
[2022-11-21] MEDS ORDERED: inSUlin DETERMIR 1 UNIT/0.01 ML (CHARGE PER UNIT) SQ SCH (21:00)
[2022-11-21 23:33] VITALS: BP 118/69
[2022-11-22] MEDS: MELATONIN 3 MG TABLET PO PRN ×2 (00:06→20:08)
[2022-11-22] MEDS: oxyCODONE IMMEDIATE RELEASE 5 MG TABLET PO PRN ×2 (00:06→20:08)
[2022-11-22] MEDS: NS IV 1000 ML 1,000 ML IV SCH ×2 (01:54→19:06)
[2022-11-22 03:20] VITALS: BP 113/68
[2022-11-22 05:11] LABS: BASOPHILS % (AUTO) 1 % (0-10); EOSINOPHILS # (AUTO) 0.1 10^3/uL (0.0-0.3); EOSINOPHILS % (AUTO) 3 % (0-10); HEMATOCRIT 35 % (35-52); HEMOGLOBIN 11.2 g/dL (11.5-16.0); LYMPHOCYTES % (AUTO) 36 % (12-44); MEAN CORPUSCULAR HEMOGLOBIN 28 pg (25-34); MEAN CORPUSCULAR HGB CONC 32 g/dL (32-36); MEAN CORPUSCULAR VOLUME 89 fL (80-99); MEAN PLATELET VOLUME 12.8 fL (9.0-12.2); MONOCYTES # (AUTO) 0.8 10^3/uL (0.0-1.0); MONOCYTES % (AUTO) 14 % (0-12); NEUTROPHILS # (AUTO) 2.6 10^3/uL (1.8-7.8); NEUTROPHILS % (AUTO) 46 % (42-75); PLATELET COUNT 164 10^3/uL (130-400); WHITE BLOOD COUNT 5.5 10^3/uL (4.3-11.0)
[2022-11-22 05:20] LABS: POTASSIUM 3.7 MMOL/L (3.6-5.0)
[2022-11-22 05:22] LABS: CALCIUM 8.2 MG/DL (8.5-10.1)
[2022-11-22] MEDS: inSUlin ASPART 1 UNIT/0.01 ML (PER UNIT) SC SCH ×5 (05:23→20:10)
[2022-11-22 05:26] LABS: CREATININE SERUM 0.88 MG/DL (0.60-1.30)
[2022-11-22 05:28] LABS: MAGNESIUM 1.9 MG/DL (1.6-2.4)
[2022-11-22] MEDS: POTASSIUM BICARB 20 MEQ (EFFER-K) TABLET PO SCH (05:57)
[2022-11-22] MEDS: POTASSIUM CHLORIDE 20 MEQ TABLET PO SCH (05:58)
[2022-11-22] MEDS: POTASSIUM CL 10MEQ/50ML IVPB 50 ML IV SCH (05:58)
[2022-11-22] MEDS: MAGNESIUM 1 GM/100 ML IVPB 100 ML IV SCH ×3 (06:00→08:54)
[2022-11-22] MEDS: LEVOTHYROXINE 75 MCG TABLET PO SCH (06:18)
[2022-11-22 07:38] VITALS: BP 117/67
[2022-11-22] MEDS ORDERED: UMECLIDINIUM BROMIDE (INCRUSE ELLIPTA) 7'S IH SCH (08:00)
[2022-11-22] MEDS: AMANTADINE 100 MG CAPSULE PO SCH ×2 (08:50→20:07)
[2022-11-22] MEDS: DOCUSATE SODIUM 100 MG CAPSULE PO SCH ×2 (08:50→20:09)
[2022-11-22] MEDS: GABAPENTIN 300 MG CAPSULE PO SCH ×2 (08:50→20:09)
[2022-11-22] MEDS: SENNOSIDES 8.6 MG (SENOKOT) TAB PO SCH ×2 (08:50→20:09)
[2022-11-22] MEDS: FLUDROCORTISONE 0.1 MG TABLET PO SCH (08:50)
[2022-11-22] MEDS: PRAMIPEXOLE 0.5 MG TABLET PO SCH ×3 (08:50→20:08)
[2022-11-22] MEDS: carBAMazepine 200 MG TABLET PO SCH ×3 (08:51→20:09)
[2022-11-22] MEDS: PARoxetine 20 MG (PAXIL) TAB PO SCH (08:51)
[2022-11-22] MEDS ORDERED: POTASSIUM CHLORIDE 20 MEQ TABLET PO ONE (09:00)
--- NOTE | 2022-11-22 09:10 | Occupational Therapy Eval ---
OT Evaluation-General/PLF Medical Diagnosis Admission Date Nov 21, 2022 at 11:30 Medical Diagnosis: Emphysematous cystitis Onset Date: Nov 21, 2022 Therapy Diagnosis Therapy Diagnosis: weakness Height/Weight Height (Feet): 5 Height (Inches): 3.00 Weight (Pounds): 203 Precautions Precautions/Isolations: Standard Precautions Weight Bear Status Weight Bearing Restriction: Full Weight Bearing Referral Referral Reason: Activity Tolerance, Self Care, Evaluation/Treatment, Strengthening/ROM Medical History Additional Medical History multiple ortho surgeries on back and foot, degenerative C spine Current History 57 year old female with PMH HTN, T2DM, HLD, hypothyroidism, COPD, anxiety, depression, arthritis, chronic back pain, who presented with weakness. She has also been confused. Reviewed History: Yes Social History Home: Apartment Current Living Status: Spouse (children age 4 and 8, adopted grandchildren) Entry Into Home: Stairs With Railing Steps Into Home: 5 Steps Inside Home: 7 ADL-Prior Level of Function SCALE: Activities may be completed with or without assistive devices. 4-Brvejxgibk-rsrtkwv completes the activity by him/herself with no assistance from a helper. 5-Set-up or Clean-up Assistance-helper sets up or cleans up; patient completes activity. Seaman assists only prior to or following the activity. 4-Supervision or Touching Assistance-helper provides verbal cues and/or touching/steadying and/or contact guard assistance as patient completes activity. Assistance may be provided throughout the activity or intermittently. 3-Partial/Moderate Assistance-helper does LESS THAN HALF the effort. Seaman lifts, holds or supports trunk or limbs, but provides less than half the effort. 2-Substantial/Maximal Assistance-helper does MORE THAN HALF the effort. Seaman lifts or holds trunk or limbs and provides more than half the effort. 9-Qnyhawgyt-hwbdrh does ALL the effort. Patient does none of the effort to complete the activity. Or, the assistance of 2 or more helpers is required for the patient to complete the activity. If activity was not attempted, code reason: 7-Patient Refused. 9-Not Applicable-not attempted and the patient did not perform the activity before the current illness, exacerbation or injury. 10-Not Attempted due to Environmental Limitations-(lack of equipment, weather restraints, etc.). 88-Not Attempted due to Medical Conditions or Safety Concerns. Self Care: Independent Functional Cognition: Independent DME/Equipment: Bath Chair DME/Equipment Comments FWW Drive Self: No OT Current Status Subjective Agreeable to OT, resting in bed Pain Numeric Pain Scale: 9 Pain Description: Stabbing Comment: along spine Mental Status/Objective Patient Orientation: Person, Place, Time, Situation Attachments: IV Current Glasses/Contacts: Yes Hearing Aids: No Dentures/Partials: No Hand Dominance: Right Upper Extremity ROM BUE ROM WNLs Upper Extremity Coordination FAIR +, mild tremors noted Upper Extremity Sensation numbness in feet only Upper Extremity Strength +4/5 grossly 02 at night sometimes ADL-Treatment Eating (QC): 6 Oral Hygiene (QC): 6 Shower/Bathe Self (QC): 7 Upper Body Dressing (QC): 6 Lower Body Dressing (QC): 6 On/Off Footwear (QC): 6 Toileting Hygiene (QC): 6 Education OT Patient Education: Correct positioning, Home exercise program, Modified ADL techniques, Progress toward Goal/Update tx plan, Purpose of tx/functional activities, Reviewed precautions, Rehab process, Safety issues, Transfer techniques, Use of adapted equipment Teaching Recipient: Patient Teaching Methods: Demonstration, Discussion Response to Teaching: Verbalize Understanding, Return Demonstration OT Rug Backing Stenciler Goals Rug Backing Stenciler Goals 1=Demonstrate adherence to instructed precautions during ADL tasks. 2=Patient will verbalize/demonstrate understanding of assistive devices/modifications for ADL. 3=Patient will improve strength/tolerance for activity to enable patient to perform ADL's. OT Education/Plan Problem List/Assessment Assessment: No Skilled OT Needs ID'd Discharge Recommendations Plan/Recommendations: Discontinue OT Treatment Plan/Plan of Care Patient would benefit from OT for education, treatment and training to promote independence in ADL's, mobility, safety and/or upper extremity function for ADL's. Plan of Care: OTHER (EVAL ONLY) Treatment Duration: Nov 22, 2022 Frequency: 1 time per week Estimated Hrs Per Day: .25 hour per day Agreement: Yes Rehab Potential: Good Time Start Time: 09:00 Stop Time: 09:18 DATE: Nov 22, 2022 Total Time Billed (hr/min): 18 Billed Treatment Time EVML 18 min BERENICE BETH OT Nov 22, 2022 09:10
--- NOTE | 2022-11-22 10:07 | Physical Therapy Evaluation ---
PT Evaluation-General Medical Diagnosis Admission Date Nov 21, 2022 at 11:30 Medical Diagnosis: CALEB Onset Date: Nov 21, 2022 Therapy Diagnosis Therapy Diagnosis: Gait deficit Height/Weight Height (Feet): 5 Height (Inches): 3.00 Weight (Pounds): 203 Precautions Precautions/Isolations: Fall Prevention, Standard Precautions Weight Bear Status Right Lower Extremity: Right Full Weight Bearing Left Lower Extremity: Left Full Weight Bearing Referral Physician: Dr. Huerta Reason for Referral: Evaluation/Treatment Medical History Reviewed History: Yes Social History Home: Apartment Current Living Status: Spouse (children age 4 and 8, adopted grandchildren) Entry Into Home: Stairs With Railing PT Steps Into Home: 5 PT Steps Inside Home: 7 Prior Prior Level of Function SCALE: Activities may be completed with or without assistive devices. 1-Ndwgyiyrow-pyuwypm completes the activity by him/herself with no assistance from a helper. 5-Set-up or Clean-up Assistance-helper sets up or cleans up; patient completes activity. Jack assists only prior to or following the activity. 4-Supervision or Touching Assistance-helper provides verbal cues and/or touching/steadying and/or contact guard assistance as patient completes activity. Assistance may be provided throughout the activity or intermittently. 3-Partial/Moderate Assistance-helper does LESS THAN HALF the effort. Jack lifts, holds or supports trunk or limbs, but provides less than half the effort. 2-Substantial/Maximal Assistance-helper does MORE THAN HALF the effort. Jack lifts or holds trunk or limbs and provides more than half the effort. 7-Jeilbgggt-nhwukz does ALL the effort. Patient does none of the effort to complete the activity. Or, the assistance of 2 or more helpers is required for the patient to complete the activity. If activity was not attempted, code reason: 7-Patient Refused. 9-Not Applicable-not attempted and the patient did not perform the activity before the current illness, exacerbation or injury. 10-Not Attempted due to Environmental Limitations-(lack of equipment, weather restraints, etc.). 88-Not Attempted due to Medical Conditions or Safety Concerns. Bed Mobility: 6 Transfers (B,C,W/C): 6 Gait: 6 Stairs: 6 Indoor Mobility (Ambulation): Independent Stairs: Independent Has FWW at home. Does not drive due to seizures. PT Evaluation-Current Subjective Patient lying supine in bed upon PT arrival, agreeable to treatment. Rates pain at 9-10/10 in her neck. Objective Patient Orientation: Person, Place, Time, Situation Attachments: IV ROM/Strength ROM Lower Extremities WFLs all planes BLEs Strength Lower Extremities 5/5 BLEs all planes Sensory Vision: Functional Hearing: Functional Hand Dominance: Right Sensation Right Lower Extremit: Intact Sensation Left Lower Extremity: Intact Transfers Roll Left to Right (QC): 6 Sit to Lying (QC): 6 Lying to Sitting/Side of Bed(Q: 6 Sit to Stand (QC): 6 Chair/Rup-oe-Nmfhb Xfer(QC): 6 Gait Does the Patient Walk?: Yes Mode of Locomotion: Walk Anticipated Mode of Locomotion: Walk Walk 10 feet (QC): 6 Walk 50 ft with 2 Turns(QC): 6 Walk 150 ft (QC): 6 Distance: 300' Gait Assistive Device: None Comments/Gait Description PT pushed IV pole. Balance Sitting Static: Normal Sitting Dynamic: Normal Standing Static: Good Standing Dynamic: Good Assessment/Needs Patient as PLOF from therapy standpoint. Only requires assistance with IV pole. No further therapy recommended. Rehab Potential: Good PT Plan Treatment/Plan Treatment Plan: Discontinue PT Treatment Duration: Nov 22, 2022 Frequency: Patient and/or Family Agrees t: Yes Time Time In: 915 Time Out: 925 DATE: Nov 22, 2022 Total Billed Treatment Time: 10 Total Billed Treatment Visit, HARRISON CARVER PT Nov 22, 2022 10:07
[2022-11-22 11:30] VITALS: BP 115/65
[2022-11-22] MEDS: FLUTICASONE NASAL SPRAY (120 SPRAYS) NS SCH (11:42)
[2022-11-22] MEDS: cefTRIAXone IV/IM 1,000 MG in NS (IVPB) 50 ML 50 ML IV SCH (11:45)
[2022-11-22] MEDS: ENOXAPARIN 30 MG/0.3 ML SYRINGE SC SCH (12:46)
[2022-11-22] MEDS: TIOTROPIUM INH 4 GM (SPIRIVA Respimat) IH SCH (12:49)
--- NOTE | 2022-11-22 12:54 | Progress Note - Hospitalist ---
Subjective HPI/CC On Admission Date Seen by Provider: Nov 22, 2022 Time Seen by Provider: 10:25 Gabriela Franco is a 57 year old female with PMH HTN, T2DM, HLD, hypothyroidism, COPD, anxiety, depression, arthritis, chronic back pain, who presented with weakness. She has also been confused. She reports fevers. She has had dysuria, urinary frequency, and urgency. She denies shortness of breath and cough. She denies chest pain. She denies abdominal pain, nausea, and vomiting. Subjective/Events-last exam She is feeling better. She has been eating and drinking more. She had some hypoglycemia this morning and felt shaky. Focused Exam Lactate Level 11/21/22 12:12: Lactic Acid Level 1.48 Objective Exam Vital Signs Vital Signs Date Time Temp Pulse Resp B/P (MAP) Pulse Ox O2 Delivery O2 Flow Rate FiO2 11/22/22 11:30 36.8 80 20 115/65 (82) 95 Room Air Capillary Refill : Less Than 3 Seconds General Appearance: No Apparent Distress, Obese Respiratory: Lungs Clear, No Respiratory Distress Cardiovascular: Regular Rate, Rhythm, No Murmur Gastrointestinal: Normal Bowel Sounds, Soft Extremity: Normal Inspection, No Pedal Edema Neurologic/Psychiatric: Alert, Normal Mood/Affect Results/Procedures Lab Laboratory Tests 11/22/22 05:00 Patient resulted labs reviewed. Imaging: Reviewed Imaging Report Assessment/Plan Assessment and Plan Assess & Plan/Chief Complaint Emphysematous cystitis Acute kidney injury, resolved Not septic on arrival UA consistent with UTI Urine culture with Klebsiella CT with emphysematous cystitis Stop IV fluids Rocephin T2DM with hypoglycemia Decrease Levemir Sliding scale insulin Nephrolithiasis Nonobstructing, no acute needs Pulmonary nodules Repeat CT in 3-6 months HTN HLD COPD Anxiety Depression Back pain Continue home meds as able DVT prophylaxis: Lovenox Diagnosis/Problems Diagnosis/Problems (1) Emphysematous cystitis Status: Acute (2) CALEB (acute kidney injury) Status: Resolved Resolution Date/Time: 11/22/22 @ 12:55 (3) Pulmonary nodules Status: Acute (4) Nephrolithiasis Status: Acute (5) T2DM (type 2 diabetes mellitus) Status: Acute Qualifiers: Diabetes mellitus retail marketing specialist insulin use: with retail marketing specialist use Diabetes mellitus complication detail: with mononeuropathy TEDDY GAMBLE MD Nov 22, 2022 12:54
[2022-11-22 16:47] VITALS: BP 148/85
[2022-11-22] MEDS: MONTELUKAST 10 MG TABLET PO SCH (20:08)
[2022-11-22] MEDS: AMITRIPTYLINE 25 MG TABLET PO SCH (20:08)
[2022-11-22] MEDS: LATANOPROST 0.005% OPHTH SOLN 2.5 ML OU SCH (20:09)
[2022-11-22 20:11] VITALS: BP 126/67
[2022-11-22] MEDS ORDERED: inSUlin DETERMIR 1 UNIT/0.01 ML (CHARGE PER UNIT) SQ SCH (21:00)
[2022-11-22 23:34] VITALS: BP 121/69
[2022-11-23 03:07] VITALS: BP 136/74
[2022-11-23 04:43] LABS: BASOPHILS % (AUTO) 1 % (0-10); EOSINOPHILS # (AUTO) 0.1 10^3/uL (0.0-0.3); EOSINOPHILS % (AUTO) 3 % (0-10); HEMATOCRIT 36 % (35-52); HEMOGLOBIN 11.6 g/dL (11.5-16.0); LYMPHOCYTES # (AUTO) 1.7 10^3/uL (1.0-4.0); LYMPHOCYTES % (AUTO) 40 % (12-44); MEAN CORPUSCULAR HEMOGLOBIN 28 pg (25-34); MEAN CORPUSCULAR HGB CONC 32 g/dL (32-36); MEAN CORPUSCULAR VOLUME 88 fL (80-99); MEAN PLATELET VOLUME 12.8 fL (9.0-12.2); MONOCYTES # (AUTO) 0.5 10^3/uL (0.0-1.0); MONOCYTES % (AUTO) 11 % (0-12); NEUTROPHILS # (AUTO) 1.9 10^3/uL (1.8-7.8); NEUTROPHILS % (AUTO) 46 % (42-75); PLATELET COUNT 198 10^3/uL (130-400); WHITE BLOOD COUNT 4.3 10^3/uL (4.3-11.0)
[2022-11-23 05:03] LABS: CALCIUM 8.2 MG/DL (8.5-10.1); CREATININE SERUM 0.8 MG/DL (0.60-1.30); POTASSIUM 3.9 MMOL/L (3.6-5.0)
[2022-11-23] MEDS: MAGNESIUM 1 GM/100 ML IVPB 100 ML IV SCH (05:27)
[2022-11-23] MEDS: inSUlin ASPART 1 UNIT/0.01 ML (PER UNIT) SC SCH ×2 (05:27→11:08)
[2022-11-23] MEDS: POTASSIUM CL 10MEQ/50ML IVPB 50 ML IV SCH (05:27)
[2022-11-23] MEDS: POTASSIUM BICARB 20 MEQ (EFFER-K) TABLET PO SCH (05:27)
[2022-11-23] MEDS: POTASSIUM CHLORIDE 20 MEQ TABLET PO SCH (05:30)
[2022-11-23] MEDS: LEVOTHYROXINE 75 MCG TABLET PO SCH (05:38)
[2022-11-23 07:51] VITALS: BP 137/75
[2022-11-23] MEDS: SENNOSIDES 8.6 MG (SENOKOT) TAB PO SCH (08:29)
[2022-11-23] MEDS: DOCUSATE SODIUM 100 MG CAPSULE PO SCH (08:29)
[2022-11-23] MEDS ORDERED: POTASSIUM CHLORIDE 20 MEQ TABLET PO ONE (09:00)
[2022-11-23] MEDS: AMANTADINE 100 MG CAPSULE PO SCH (09:29)
[2022-11-23] MEDS: PRAMIPEXOLE 0.5 MG TABLET PO SCH (09:29)
[2022-11-23] MEDS: PARoxetine 20 MG (PAXIL) TAB PO SCH (09:29)
[2022-11-23] MEDS: carBAMazepine 200 MG TABLET PO SCH (09:29)
[2022-11-23] MEDS: FLUDROCORTISONE 0.1 MG TABLET PO SCH (09:29)
[2022-11-23] MEDS: FLUTICASONE NASAL SPRAY (120 SPRAYS) NS SCH (09:30)
[2022-11-23] MEDS: GABAPENTIN 300 MG CAPSULE PO SCH (09:30)
[2022-11-23] MEDS: cefTRIAXone IV/IM 1,000 MG in NS (IVPB) 50 ML 50 ML IV SCH (09:30)
[2022-11-23] MEDS ORDERED: CEFD300C3 PO (09:35)
[2022-11-23] MEDS ORDERED: CEFDINIR 300 MG CAPSULE PO NR (10:00)
[2022-11-23] MEDS: TIOTROPIUM INH 4 GM (SPIRIVA Respimat) IH SCH (10:57)
--- NOTE | 2022-11-23 16:04 | Discharge Summary ---
Discharge Summary Hospital Course Problems/Dx: (1) Emphysematous cystitis Status: Acute (2) CALEB (acute kidney injury) Status: Resolved (3) Pulmonary nodules Status: Acute (4) Nephrolithiasis Status: Acute (5) T2DM (type 2 diabetes mellitus) Status: Acute Qualifiers: (6) Infestation by bed bug Hospital Course Date of Admission: Nov 21, 2022 at 11:30 Admission Diagnosis : Emphysematous cystitis Family Physician/Provider: Mohsen Finnegan DO Date of Discharge: 11/23/22 Discharge Diagnosis: Emphysematous cystitis Hospital Course: Gabriela Franco is a 57 year old female who presented with confusion and was admitted with emphysematous cystitis. She was not septic. She was dehydrated with an acute kidney injury. This resolved with IV fluids. She was treated with IV Rocephin. Urine culture showed Klebsiella and she was transitioned to Omnicef. She was requiring less insulin than normal during her stay. She had issues with hypoglycemia. She will need a lower dose of insulin at least temporarily. She had a CT scan which confirmed emphsematous cystitis. It also showed several pulmonary nodules and CT follow up was recommended in 3-6 months. She was also found to have bed bugs during her hospital stay. She was discharged home in stable condition. Labs and Pending Lab Test: Laboratory Tests 11/22/22 16:18: Glucometer 142H 11/22/22 20:01: Glucometer 216H 11/23/22 00:43: Glucometer 76 11/23/22 04:27: White Blood Count 4.3, Red Blood Count 4.11, Hemoglobin 11.6, Hematocrit 36, Mean Corpuscular Volume 88, Mean Corpuscular Hemoglobin 28, Mean Corpuscular Hemoglobin Concent 32, Red Cell Distribution Width 15.5H, Platelet Count 198, M julia Platelet Volume 12.8H, Immature Granulocyte % (Auto) 0, Neutrophils (%) (Auto) 46, Lymphocytes (%) (Auto) 40, Monocytes (%) (Auto) 11, Eosinophils (%) (Auto) 3, Basophils (%) (Auto) 1, Neutrophils # (Auto) 1.9, Lymphocytes # (Auto) 1.7, Monocytes # (Auto) 0.5, Eosinophils # (Auto) 0.1, Basophils # (Auto) 0.0, Immature Granulocyte # (Auto) 0.0, Sodium Level 138, Potassium Level 3.9, Chloride Level 106, Carbon Dioxide Level 27, Anion Gap 5, Blood Urea Nitrogen 13, Creatinine 0.80, Estimat Glomerular Filtration Rate 86, BUN/Creatinine Ratio 16, Glucose Level 152H, Calcium Level 8.2L, Magnesium Level 2.0 11/23/22 08:10: Glucometer 103 Microbiology 11/21/22 Blood Culture - Preliminary, Resulted Probable Coag Negative Staph 11/21/22 Urine Culture - Final, Complete Klebsiella pneumoniae Home Meds Active Cefdinir 300 Mg Capsule 300 Mg PO BID 5 Days Reported Aspirin EC (Aspirin) 81 Mg Tablet.dr 81 Mg PO BID Promethazine Tablet (Promethazine HCl) 25 Mg Tablet 25 Mg PO Q8H PRN Meclizine HCl 25 Mg Tablet 25 Mg PO TID PRN K-Tab ER (Potassium Chloride) 10 Meq Tablet.er 10 Meq PO DAILY Famotidine 20 Mg Tablet 20 Mg PO HS Baclofen 10 Mg Tablet 5 Mg PO BID PRN TAKES OF A 10NG TAB Oxycodon-Acetaminophen 7.5-325 (Oxycodone HCl/Acetaminophen) 7.5 Mg-325 Mg Tablet 1 Ea PO Q8H PRN Atorvastatin Calcium 40 Mg Tablet 40 Mg PO HS Paroxetine HCl 40 Mg Tablet 40 Mg PO DAILY Levothyroxine Sodium 75 Mcg Tablet 75 Mcg PO DAILY Doxepin HCl 10 Mg Capsule 10 Mg PO HS Pramipexole Dihydrochloride (Pramipexole Di-HCl) 0.5 Mg Tablet 0.5 Mg PO TID Nitrofurantoin Elmore-Mcr 100 mg (Nitrofurantoin Monohyd/M-Cryst) 100 Mg Capsule 100 Mg PO DAILY Fludrocortisone Acetate 0.1 Mg Tab 0.1 Mg PO DAILY Sucralfate 1 Gram Tablet 1 Gm PO BID Cyanocobalamin Injection (Cyanocobalamin) 1,000 Mcg/Ml Inj 1,000 Mcg IM MONTHLY Mounjaro (Tirzepatide) 7.5 Mg/0.5 Ml Pen.injctr 7.5 Mg SQ SUN Humalog Kwikpen (Insulin Lispro) 100 Unit/Ml Insuln.pen 20 Units SC BID Alphagan P (Brimonidine Tartrate) 0.15 % Drops 1 Drop OD Q12H Lantus Solostar (Insulin Glargine,Hum.rec.anlog) 100 Unit/Ml (3 Ml) Insuln.pen 52 Unit SQ HS Lantus Solostar (Insulin Glargine,Hum.rec.anlog) 100 Unit/Ml (3 Ml) Insuln.pen 45 Units SC DAILY Fluticasone Propionate 50 Mcg/Actuation Alleene.susp 2 Alleene NSEACH BID PRN Xalatan (Latanoprost) 0.005 % Drops 1 Drop OT HS Ventolin Hfa (Albuterol Sulfate) 90 Mcg Hfa.aer.ad 2 Puff INH Q6H PRN Bevespi Aerosphere Inhaler (Glycopyrrolate/Formoterol Fum) 9 Mcg-4.8 Mcg Hfa.aer.ad 2 Puff INH DAILY Neurontin (Gabapentin) 300 Mg Capsule 300 Mg PO HS Amantadine (Amantadine HCl) 100 Mg Capsule 200 Mg PO BID TAKES 2 (100MG) CAPS Levocetirizine Dihydrochloride 5 Mg Tablet 5 Mg PO HS Montelukast Sodium 10 Mg Tablet 10 Mg PO HS Alprazolam 1 Mg Tablet 1 Mg PO BID PRN Rexulti (Brexpiprazole) 2 Mg Tablet 2 Mg PO HS Cyclobenzaprine HCl 10 Mg Tablet 10 Mg PO HS Carbamazepine 200 Mg Tablet 200 Mg PO BID Assessment/Pt Instructions See instructions Discharge Planning: <30 minutes discharge planning Discharge Instructions Discharge Diet: No Restrictions Activity as Tolerated: Yes Discharge Physical Examination Vital Signs Vital Signs Date Time Temp Pulse Resp B/P (MAP) Pulse Ox O2 Delivery O2 Flow Rate FiO2 11/23/22 08:00 Room Air 11/23/22 07:51 36.6 84 20 137/75 (95 94 General Appearance: No Apparent Distress, Chronically ill Respiratory: Lungs Clear, No Respiratory Distress Cardiovascular: Regular Rate, Rhythm, No Murmur Gastrointestinal: Normal Bowel Sounds, Soft Extremity: Normal Inspection, No Pedal Edema Skin: Normal Color, Warm/Dry Neurologic/Psychiatric: Alert, Normal Mood/Affect Allergies: Coded Allergies: Sulfa (Sulfonamide Antibiotics) (Unverified Allergy, Unknown, 06/24/13) codeine (Unverified Allergy, Unknown, 06/24/13) ondansetron (Verified Adverse Reaction, Intermediate, Vomiting, 08/22/22) Worsens vomiting vancomycin (Unverified Adverse Reaction, Mild, redness, 06/24/13) Discharge Summary Date of Admission Nov 21, 2022 at 11:30 Date of Discharge Nov 23, 2022 at 12:23 Discharge Date: Nov 23, 2022 Discharge Time: 12:23 Admission Diagnosis Emphysematous cystitis Discharge Diagnosis Emphysematous cystitis Acute kidney injury, resolved T2DM with hypoglycemia Nephrolithiasis Pulmonary nodules HTN HLD COPD Anxiety Depression Back pain (1) Emphysematous cystitis Status: Acute (2) CALEB (acute kidney injury) Status: Resolved (3) Pulmonary nodules Status: Acute (4) Nephrolithiasis Status: Acute (5) T2DM (type 2 diabetes mellitus) Status: Acute Qualifiers: (6) Infestation by bed bug TEDDY GAMBLE MD Nov 23, 2022 16:02
== END 2022-11-23 12:23 | disposition home or self-care (01) | DRG 690 ==
LOC: EDUNIT# 08:16 → ER 08:16 → 4TH 11:30
PROVIDERS: ADMIT Internal Medicine; ATTEND Internal Medicine
DX: N30.80 Other cystitis without hematuria (principal); N17.9 Acute kidney failure, unspecified; B96.1 Klebsiella pneumoniae [K. pneumoniae] as the cause of diseases classified elsewhere; E86.0 Dehydration; G20 Parkinson's disease; J44.9 Chronic obstructive pulmonary disease, unspecified; E11.649 Type 2 diabetes mellitus with hypoglycemia without coma; E78.00 Pure hypercholesterolemia, unspecified; I10 Essential (primary) hypertension; K21.9 Gastro-esophageal reflux disease without esophagitis; M19.90 Unspecified osteoarthritis, unspecified site; G89.29 Other chronic pain; M54.9 Dorsalgia, unspecified; E03.9 Hypothyroidism, unspecified; F41.9 Anxiety disorder, unspecified; F32.A Depression, unspecified; R91.8 Other nonspecific abnormal finding of lung field; N20.0 Calculus of kidney; Z79.4 Long term (current) use of insulin; Z91.81 History of falling; Z79.899 Other long term (current) drug therapy; Z79.82 Long term (current) use of aspirin; Z88.1 Allergy status to other antibiotic agents; Z88.5 Allergy status to narcotic agent; Z88.2 Allergy status to sulfonamides; Z91.09 Other allergy status, other than to drugs and biological substances
CPT/HCPCS: 36415; 51701; 70450; 71045; 71250; 72125; 72131; 74176; 80048; 80053; 81000; 82947; 83605; 83735; 85025; 87040; 87077; 87088; 87186; 93005; 93041

== ENCOUNTER 2022-12-02 11:29 | Inpatient (IN) | payer MEDICARE, MEDICAID ==
[~2022-12-02] VITALS: Ht 160 cm; Wt 87.8 kg
[~2022-12-02 11:29] MED LIST changes: +ALBU18HF2 INH; +ALPR1TAB7 PO; +AMAN100C20 PO; +ASPI-1238 PO; +ATOR40TA70 PO; +BACL10TA PO; +BREX2TAB PO; +BRIM5DRO12 OD; +CNC1KV IM; +CYCL10TA25 PO; +DOXE10CA29 PO; +FAMO20TA5 PO; +FLDR.1T PO; +FLUT16SP22 NSEACH; +GABA300C PO; +GLYC10.7 INH; +INSU100I10 SC; +INSU100I10 SQ; +INSU100I23 SC; +LATA2.5D19 OT; +LEVO5TAB12 PO; +LEVO75TA6 PO; +MECL-149 PO; +MONT-40 PO; +NITR100C10 PO; +OXYC1TAB15 PO; +PARO40TA3 PO; +POTA-185 PO; +PRAM0.5T9 PO; +PROM25TA14 PO; +SUCR1TAB PO; +TIRZ7.5P SQ
[2022-12-02] MEDS ORDERED: NS IV 1000 ML 1,000 ML IV SCH ×2 (11:45→13:45)
[2022-12-02] MEDS ORDERED: PIPERACILLIN/Tazobactam 4.5 GM in NS (IVPB) 100 ML 100 ML IV ONE (11:45)
[2022-12-02 12:02] LABS: BASOPHILS # (AUTO) 0.1 10^3/uL (0.0-0.1); BASOPHILS % (AUTO) 1 % (0-10); EOSINOPHILS % (AUTO) 0 % (0-10); HEMATOCRIT 49 % (35-52); HEMOGLOBIN 15.8 g/dL (11.5-16.0); LYMPHOCYTES % (AUTO) 15 % (12-44); MEAN CORPUSCULAR HEMOGLOBIN 28 pg (25-34); MEAN CORPUSCULAR HGB CONC 33 g/dL (32-36); MEAN CORPUSCULAR VOLUME 86 fL (80-99); MEAN PLATELET VOLUME 12.6 fL (9.0-12.2); MONOCYTES # (AUTO) 1.4 10^3/uL (0.0-1.0); MONOCYTES % (AUTO) 11 % (0-12); NEUTROPHILS # (AUTO) 9.5 10^3/uL (1.8-7.8); NEUTROPHILS % (AUTO) 73 % (42-75); PLATELET COUNT 316 10^3/uL (130-400); WHITE BLOOD COUNT 13.1 10^3/uL (4.3-11.0)
--- NOTE | 2022-12-02 12:05 | ED General ---
General Chief Complaint: Abdominal/GI Problems Stated Complaint: NAUSEA/VOMITING Nursing Triage Note: PT ARRIVED PER EMS PT CO OF ABD PAIN, N/V AND UPPER BACK PAIN FOR 3 DAYS. Source of Information: Patient, EMS Exam Limitations: No Limitations History of Present Illness Date Seen by Provider: Dec 02, 2022 Time Seen by Provider: 11:31 Initial Comments 57-year-old female presents to the emergency department today for abdominal pain, vomiting. She was seen in our emergency department and admitted to the hospital for hallucinations after she was found to have emphysematous cystitis, CALEB. She was ultimately discharged on 11/23. She states she was doing well until about 3 days ago when she started having abdominal pain, upper back pain as well as nausea and vomiting. She describes her vomit as dark in color and foul-smelling. She has diffuse abdominal pain that is worse in her upper abdomen. Denies any fevers but does have significant chills. On EMS arrival she was tachycardic and hypotensive. Reported blood pressures were in the 90s systolic. Heart rate was 1 20-1 40. This is similar to her presentation previously however at her previous presentation she had altered mentation, confusion and possible hallucinations. All other systems reviewed and negative except documented per HPI. Voice recognition software was used to help create this chart Allergies and Home Medications Allergies Coded Allergies: Sulfa (Sulfonamide Antibiotics) (Unverified Allergy, Unknown, 06/24/13) codeine (Unverified Allergy, Unknown, 06/24/13) ondansetron (Verified Adverse Reaction, Intermediate, Vomiting, 08/22/22) Worsens vomiting vancomycin (Unverified Adverse Reaction, Mild, redness, 06/24/13) Patient Home Medication List Home Medication List Reviewed: Yes Albuterol Sulfate (Ventolin Hfa) 90 Mcg Hfa.aer.ad, 2 PUFF INH Q6H PRN for SHORTNESS OF BREATH, (Reported) Entered as Reported by: ARMANDO VIZCARRA on 11/21/221658 Alprazolam (Alprazolam) 1 Mg Tablet, 1 MG PO BID PRN for ANXIETY, (Reported) Entered as Reported by: ARMANDO VIZCARRA on 11/21/221658 Amantadine HCl (Amantadine) 100 Mg Capsule, 200 MG PO BID, (Reported) Entered as Reported by: ARMANDO VIZCARRA on 11/21/221658 Aspirin (Aspirin EC) 81 Mg Tablet.dr, 81 MG PO BID, (Reported) Entered as Reported by: ARMANDO VIZCARRA on 11/21/221658 Atorvastatin Calcium (Atorvastatin Calcium) 40 Mg Tablet, 40 MG PO HS, (Reported) Entered as Reported by: ARMANDO VIZCARRA on 11/21/221658 Baclofen (Baclofen) 10 Mg Tablet, 5 MG PO BID PRN for PAIN-BREAKTHROUGH, (Reported) Entered as Reported by: ARMANDO VIZCARRA on 11/21/221658 Brexpiprazole (Rexulti) 2 Mg Tablet, 2 MG PO HS, (Reported) Entered as Reported by: ARMANDO VIZCARRA on 11/21/221658 Brimonidine Tartrate (Alphagan P) 0.15 % Drops, 1 DROP OD Q12H, (Reported) Entered as Reported by: ARMANDO VIZCARRA on 11/21/221658 Carbamazepine (Carbamazepine) 200 Mg Tablet, 200 MG PO BID, (Reported) Entered as Reported by: MICHAEL MONSON on 06/05/22 1053 Cefdinir (Cefdinir) 300 Mg Capsule, 300 MG PO BID Prescribed by: TEDDY GAMBLE on 11/23/22 0935 Cyanocobalamin (Cyanocobalamin Injection) 1,000 Mcg/Ml Inj, 1,000 MCG IM MONTHLY, (Reported) Entered as Reported by: ARMANDO VIZCARRA on 11/21/221658 Cyclobenzaprine HCl (Cyclobenzaprine HCl) 10 Mg Tablet, 10 MG PO HS, (Reported) Entered as Reported by: ARMANDO VIZCARRA on 11/21/221658 Doxepin HCl (Doxepin HCl) 10 Mg Capsule, 10 MG PO HS, (Reported) Entered as Reported by: ARMANDO VIZCARRA on 11/21/221658 Famotidine (Famotidine) 20 Mg Tablet, 20 MG PO HS, (Reported) Entered as Reported by: ARMANDO VIZCARRA on 11/21/221658 Fludrocortisone Acetate (Fludrocortisone Acetate) 0.1 Mg Tab, 0.1 MG PO DAILY, (Reported) Entered as Reported by: ARMANDO VIZCARRA on 11/21/221658 Fluticasone Propionate (Fluticasone Propionate) 50 Mcg/Actuation Bruno.susp, 2 SPRAY NSEACH BID PRN for CONGESTION, (Reported) Entered as Reported by: ARMANDO VIZCARRA on 11/21/221658 Gabapentin (Neurontin) 300 Mg Capsule, 300 MG PO HS, (Reported) Entered as Reported by: ARMANDO VIZCARRA on 11/21/221658 Glycopyrrolate/Formoterol Fum (Bevespi Aerosphere Inhaler) 9 Mcg-4.8 Mcg Hfa.aer.ad, 2 PUFF INH DAILY, (Reported) Entered as Reported by: ARMANDO VIZCARRA on 11/21/221658 Insulin Glargine,Hum.rec.anlog (Lantus Solostar) 100 Unit/Ml (3 Ml) Insuln.pen, 45 UNITS SC DAILY, (Reported) Entered as Reported by: ARMANDO VIZCARRA on 11/21/221658 Insulin Glargine,Hum.rec.anlog (Lantus Solostar) 100 Unit/Ml (3 Ml) Insuln.pen, 52 UNIT SQ HS, (Reported) Entered as Reported by: ARMANDO VIZCARRA on 11/21/221658 Insulin Lispro (Humalog Kwikpen) 100 Unit/Ml Insuln.pen, 20 UNITS SC BID, (Reported) Entered as Reported by: ARMANDO VIZCARRA 11/21/221658 Latanoprost (Xalatan) 0.005 % Drops, 1 DROP OT HS, (Reported) Entered as Reported by: ARMANDO VIZCARRA on 11/21/221658 Levocetirizine Dihydrochloride (Levocetirizine Dihydrochloride) 5 Mg Tablet, 5 MG PO HS, (Reported) Entered as Reported by: ARMANDO VIZCARRA on 11/21/221658 Levothyroxine Sodium (Levothyroxine Sodium) 75 Mcg Tablet, 75 MCG PO DAILY, (Reported) Entered as Reported by: ARMANDO VIZCARRA on 11/21/221658 Meclizine HCl (Meclizine HCl) 25 Mg Tablet, 25 MG PO TID PRN for DIZZINESS, (Reported) Entered as Reported by: ARMANDO VIZCARRA on 11/21/221658 Montelukast Sodium (Montelukast Sodium) 10 Mg Tablet, 10 MG PO HS, (Reported) Entered as Reported by: ARMANDO VIZCARRA on 11/21/221658 Nitrofurantoin Monohyd/M-Cryst (Nitrofurantoin Travis-Mcr 100 mg) 100 Mg Capsule, 100 MG PO DAILY, (Reported) Entered as Reported by: ARMANDO VIZCARRA on 11/21/221658 Oxycodone HCl/Acetaminophen (Oxycodon-Acetaminophen 7.5-325) 7.5 Mg-325 Mg Tablet, 1 EA PO Q8H PRN for PAIN-MODERATE (5-7), (Reported) Entered as Reported by: ARMANDO VIZCARRA on 11/21/221658 Paroxetine HCl (Paroxetine HCl) 40 Mg Tablet, 40 MG PO DAILY, (Reported) Entered as Reported by: ARMANDO VIZCARRA on 11/21/221658 Potassium Chloride (K-Tab ER) 10 Meq Tablet.er, 10 MEQ PO DAILY, (Reported) Entered as Reported by: ARMANDO VIZCARRA 11/21/221658 Pramipexole Di-HCl (Pramipexole Dihydrochloride) 0.5 Mg Tablet, 0.5 MG PO TID, (Reported) Entered as Reported by: ARMANDO VIZCARRA on 11/21/221658 Promethazine HCl (Promethazine Tablet) 25 Mg Tablet, 25 MG PO Q8H PRN for NA USEA/VOMITING-2ND LINE, (Reported) Entered as Reported by: ARMANDO VIZCARRA 11/21/221658 Sucralfate (Sucralfate) 1 Gram Tablet, 1 GM PO BID, (Reported) Entered as Reported by: ARMANDO VIZCARRA 11/21/221658 Tirzepatide (Mounjaro) 7.5 Mg/0.5 Ml Pen.injctr, 7.5 MG SQ SUN, (Reported) Entered as Reported by: ARMANDO VIZCARRA on 11/21/221658 Review of Systems Review of Systems Constitutional: see HPI Past Ljqjlsm-Lgefdq-Akybin Hx Patient Social History Tobacco Use?: No Substance use?: No Alcohol Use?: No Pt feels they are or have been: No Immunizations Up To Date First/Initial COVID19 Vaccinat: X4 Second COVID19 Vaccination Reji: X4 Third COVID19 Vaccination Date: X4 Seasonal Allergies Seasonal Allergies: No Past Medical History Surgery/Hospitalization HX: DM 2, [facility] Surgeries: Yes (BACK SURGERY, LAPAROSCOPY, UPPER AND LOWER SCOPES) Abdominal, Section, Hysterectomy, Oophorectomy, Orthopedic, Thyroidectomy Respiratory: Yes Chronic Bronchitis, COPD Currently Using CPAP: No Currently Using BIPAP: No Cardiac: Yes 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, Hypertension Neurological: Yes (TREMORS) 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 Disorders: No [employer]IT[employer] History: Hysterectomy UTI-Chronic Gastrointestinal: Yes (h pylori hx) Gastroesophageal Reflux Musculoskeletal: Yes Degenerate Disk Disease, Arthritis, Chronic Back Pain Endocrine: Yes (GRAVE'S DISEASE--S/P THYROIDECTOMY) Diabetes, Insulin dep, Hypothyroidsim HEENT: No Cancer: No Psychosocial: Yes Anxiety, Depression Integumentary: No Blood Disorders: No Adverse Reaction/Blood Tranf: No Family Medical History No Pertinent Family Hx Physical Exam Vital Signs Vital Signs - First Documented 12/02/22 11:30 Temp 36.6 Pulse 127 Resp 23 B/P (MAP) 86/50 (62) Pulse Ox 97 Capillary Refill : Less Than 3 Seconds Height, Weight, BMI Height: 5'3.00" Weight: 203lbs. oz. 92.906749cp; 205.59 BMI Method:Stated General Appearance: Mild Distress (Appears ill) Eyes: Bilateral Eye Normal Inspection, Bilateral Eye PERRL, Bilateral Eye EOMI HEENT: PERRL/EOMI, TMs Normal, Pharynx Normal, Other (Dry mucous membranes) Neck: Full Range of Motion, Non Tender, Supple Respiratory: Chest Non Tender, Lungs Clear, Normal Breath Sounds, No Accessory Muscle Use, No Respiratory Distress Cardiovascular: No Murmur, Normal Peripheral Pulses, Tachycardia Gastrointestinal: No Organomegaly, Soft, Tenderness (Cliff palpation in the epigastric region. No rebound or guarding. No mass organomegaly. No skin changes) Extremity: Normal Capillary Refill, Non Tender, No Calf Tenderness, Other (Hands and feet are cold to the touch) Neurologic/Psychiatric: Alert, Oriented x3, No Motor/Sensory Deficits Skin: Normal Color, Cool Focused Exam Lactate Level 12/02/22 11:54: Lactic Acid Level 2.64*H Lactic Acid Level Laboratory Tests Test 12/02/22 11:54 Lactic Acid Level 2.64 MMOL/L (0.50-2.00) *H Procedures/Interventions Lumen: triple Central Line Procedure: betadine prep Position: femoral (R) Anesthesia: local Volume Anesthetic (ccs): 10 Complications: none Post Position: sutured Progress/Results/Core Measures Suspected Sepsis SIRS Temperature: Pulse: 127 Respiratory Rate: 23 Laboratory Tests 12/02/22 11:54: White Blood Count 13.1H Blood Pressure 86 /50 Mean: 62 12/02/22 11:54: Lactic Acid Level 2.64*H Laboratory Tests 12/02/22 11:54: Creatinine 1.42H, INR Comment 1.0, Platelet Count 316, Total Bilirubin 0.7 Results/Orders Lab Results Laboratory Tests Test 12/02/22 11:54 12/02/22 12:05 Range/Units White Blood Count 13.1 H 4.3-11.0 10^3/uL Red Blood Count 5.63 H 3.80-5.11 10^6/uL Hemoglobin 15.8 11.5-16.0 g/dL Hematocrit 49 35-52 % Mean Corpuscular Volume 86 80-99 fL Mean Corpuscular Hemoglobin 28 25-34 pg Mean Corpuscular Hemoglobin Concent 33 32-36 g/dL Red Cell Distribution Width 16.4 H 10.0-14.5 % Platelet Count 316 130-400 10^3/uL Mean Platelet Volume 12.6 H 9.0-12.2 fL Immature Granulocyte % (Auto) 1 % Neutrophils (%) (Auto) 73 42-75 % Lymphocytes (%) (Auto) 15 12-44 % Monocytes (%) (Auto) 11 0-12 % Eosinophils (%) (Auto) 0 0-10 % Basophils (%) (Auto) 1 0-10 % Neutrophils # (Auto) 9.5 H 1.8-7.8 10^3/uL Lymphocytes # (Auto) 2.0 1.0-4.0 10^3/uL Monocytes # (Auto) 1.4 H 0.0-1.0 10^3/uL Eosinophils # (Auto) 0.0 0.0-0.3 10^3/uL Basophils # (Auto) 0.1 0.0-0.1 10^3/uL Immature Granulocyte # (Auto) 0.1 0.0-0.1 10^3/uL Prothrombin Time 13.8 12.2-14.7 SEC INR Comment 1.0 0.8-1.4 Activated Partial Thromboplast Time 27 24-35 SEC Sodium Level 136 135-145 MMOL/L Potassium Level 3.7 3.6-5.0 MMOL/L Chloride Level 99 98-107 MMOL/L Carbon Dioxide Level 17 L 21-32 MMOL/L Anion Gap 20 H 5-14 MMOL/L Blood Urea Nitrogen 23 H 7-18 MG/DL Creatinine 1.42 H 0.60-1.30 MG/DL Estimat Glomerular Filtration Rate 43 BUN/Creatinine Ratio 16 Glucose Level 346 H 70-105 MG/DL Lactic Acid Level 2.64 *H 0.50-2.00 MMOL/L Calcium Level 9.6 8.5-10.1 MG/DL Corrected Calcium 9.4 8.5-10.1 MG/DL Total Bilirubin 0.7 0.1-1.0 MG/DL Aspartate Amino Transf (AST/SGOT) 15 5-34 U/L Alanine Aminotransferase (ALT/SGPT) 17 0-55 U/L Alkaline Phosphatase 179 H 40-136 U/L Total Protein 7.8 6.4-8.2 GM/DL Albumin 4.3 3.2-4.5 GM/DL Lipase 17 8-78 U/L Urine Color YELLOW Urine Clarity CLEAR Urine pH 5.5 5-9 Urine Specific [place] >=1.030 1.016-1.022 Urine Protein 2+ H NEGATIVE Urine Glucose (UA) 3+ H NEGATIVE Urine Ketones 2+ H NEGATIVE Urine Nitrite NEGATIVE NEGATIVE Urine Bilirubin 2+ H NEGATIVE Urine Urobilinogen 0.2 < = 1.0 MG/DL Urine Leukocyte Esterase NEGATIVE NEGATIVE Urine RBC (Auto) 1+ H NEGATIVE Urine RBC 0-2 /HPF Urine WBC 0-2 /HPF Urine Squamous Epithelial Cells 0-2 /HPF Urine Crystals NONE /LPF Urine Bacteria NEGATIVE /HPF Urine Casts PRESENT /LPF Urine Hyaline Casts RARE /LPF Urine Mucus NEGATIVE /LPF Urine Culture Indicated CULTURE PENDING My Orders Orders - TRUDI TAM DO Cbc With Automated Diff (12/02/22 11:38) Comprehensive Metabolic Panel (12/02/22 11:38) Blood Culture (12/02/22 11:38) Urinalysis (12/02/22 11:38) Urine Culture (12/02/22 11:38) Protime With Inr (12/02/22 11:38) Partial Thromboplastin Time (12/02/22 11:38) Chest 1 View, Ap/Pa Only (12/02/22 11:38) Ed Iv/Invasive Line Start (12/02/22 11:38) Ekg Tracing (12/02/22 11:38) Vital Signs Adult Sepsis Patie Q15M (12/02/22 11:38) Lactic Acid Analyzer (12/02/22 11:38) Ns Iv 1000 Ml (Ns Iv 1000 Ml) (12/02/22 11:45) Piperacillin/Tazobactam (Piperacillin/Ta (12/02/22 11:45) Lipase (12/02/22 12:05) Ct Abdomen/Pelvis W (12/02/22 12:05) Catheter(Urinary) Insert & Ass 03,15 (12/02/22 12:05) Lidocaine 2% (Urojet) (Lidocaine 2% (Uro (12/02/22 12:15) Promethazine Injection (Promethazine I (12/02/22 12:15) Medications Given in ED Current Medications Medications Dose Ordered Sig/Darren Route Start Time Stop Time Status Last Admin Dose Admin Piperacillin Sod/ Tazobactam Sod 4.5 gm/Sodium Chloride 100 ml @ 200 mls/hr ONCE ONCE IV 12/02/22 11:45 12/02/22 12:14 DC 12/02/22 12:14 200 MLS/HR Promethazine HCl 12.5 mg ONCE ONCE IVP 12/02/22 12:15 12/02/22 12:16 DC 12/02/22 12:13 12.5 MG Vital Signs/I&O 12/02/22 11:30 Temp 36.6 Pulse 127 Resp 23 B/P (MAP) 86/50 (62) Pulse Ox 97 Capillary Refill : Less Than 3 Seconds Blood Pressure Mean: 62 ECG Comment Sinus tachycardia with a rate of 124 bpm. Normal intervals. Slight left axis deviation. No ST or T wave abnormalities. No ectopy. No STEMI. Departure Communication (Admissions) Patient initially is hypotensive with systolic blood pressures in the 80s90s. This responded to IV fluids however she remained tachycardic to [id number]. This appears to be sinus rhythm based on bedside monitoring my independent interpretation of her EKG. Independently reviewed her chest x-ray shows no evidence for pneumonia. Her urine shows no evidence for continuing infection. Need repeat CT scan due to recent history of emphysematous cystitis to ensure there is no worsening and this has apparently resolved. I did give her a dose of broad-spectrum antibiotics with Zosyn upon her initial presentation of tachycardia, hypotension with a recent known infection. She did report some nausea and vomiting prior to arrival and stated that the vomit was coffee-ground in nature and foul-smelling. She did have an episode of emesis here and was sent for Gastroccult which is positive. Her hemoglobin is stable however with her ongoing hematemesis and abdominal pain, tachycardia of opted to go ahead and admitted to the hospital for further evaluation and treatment. I spoke with Dr. Reyes who accepts the patient in admission. I spoke with Dr. Easton, general surgery, who agrees to consult. Impression Primary Impression: Hematemesis Qualified Codes: K92.0 - Hematemesis Additional Impressions: Tachycardia Abdominal pain Qualified Codes: R10.13 - Epigastric pain Disposition: ADMITTED INPATIENT Condition: Stable Departure-Patient Inst. Referrals: MATTHEW CROUCH DO (PCP/Family) Primary Care Physician TRUDI TAM DO Dec 02, 2022 12:05
[2022-12-02] MEDS ORDERED: LIDOCAINE UROJET 2% GEL 10 ML PKG TOP ONE (12:15)
[2022-12-02] MEDS ORDERED: PROMETHAZINE INJ 25 MG/ML VIAL IVP ONE (12:15)
[2022-12-02 12:17] LABS: ALBUMIN 4.3 GM/DL (3.2-4.5); POTASSIUM 3.7 MMOL/L (3.6-5.0)
[2022-12-02 12:18] LABS: CALCIUM 9.6 MG/DL (8.5-10.1)
[2022-12-02 12:19] LABS: TOTAL PROTEIN 7.8 GM/DL (6.4-8.2)
[2022-12-02 12:20] LABS: PROTHROMBIN TIME PATIENT 13.8 SEC (12.2-14.7)
[2022-12-02 12:20] LABS: CLARITY,URINE CLEAR; COLOR,URINE YELLOW; GLUCOSE, URINE (UA) 3+ (NEGATIVE); KETONES,URINE 2+ (NEGATIVE); PH,URINE 5.5 (5-9); PROTEIN,URINE 2+ (NEGATIVE)
[2022-12-02 12:21] LABS: BILIRUBIN,TOTAL 0.7 MG/DL (0.1-1.0)
[2022-12-02 12:21] LABS: BACTERIA,URINE NEGATIVE /HPF; BILIRUBIN,URINE 2+ (NEGATIVE); HYALINE CASTS, URINE RARE /LPF; LEUKOCYTE ESTERASE ,URINE NEGATIVE (NEGATIVE); NITRITE,URINE NEGATIVE (NEGATIVE); RBC,URINE 0-2 /HPF; SQUAMOUS EPITHELIAL CELL,UR 0-2 /HPF; WBC,URINE 0-2 /HPF
[2022-12-02 12:23] LABS: CREATININE SERUM 1.42 MG/DL (0.60-1.30)
[2022-12-02] MEDS ORDERED: NS 100 ML (IVPB) BAG IV ONE (12:45)
[2022-12-02] MEDS ORDERED: HOLD METFORMIN - RECEIVED CONTRAST 20 ML VIAL IV SCH (12:45)
[2022-12-02] MEDS ORDERED: IOHEXOL 350 MG/ML 100 ML (OMNIPAQUE 350) VIAL IV ONE (12:45)
--- NOTE | 2022-12-02 13:08 | Diagnostic Imaging Report ---
Indication: Tachycardia, dyspnea. Compared: 11/21/2022 Findings: Lungs clear. No failure, effusion or pneumothorax. Impression: No acute-appearing abnormality. Dictated by: Dictated on workstation # [id number]
--- NOTE | 2022-12-02 13:27 | Diagnostic Imaging Report ---
Procedure: CT abdomen and pelvis with contrast. Technique: Multiple contiguous axial images were obtained through the abdomen and pelvis after administration of intravenous contrast. Auto Exposure Controls were utilized during the CT exam to meet ALARA standards for radiation dose reduction. All CT scans use one or more of the following dose optimizing techniques: automated exposure control, MA and/or KvP adjustment based on patient size and exam type or iterative reconstruction. Date: December 02, 2022. Indication: 57-year-old female, abdominal pain, nausea, vomiting. Comparison: CT chest, abdomen and pelvis November 21, 2022. Findings: There is a noncalcified right lower lobe pulmonary nodule on axial image 26 measures 11 mm in size. This is unchanged since recent study on November 21, 2022. There is an adjacent 4 mm noncalcified right lower lobe pulmonary nodule. There is an 8 mm right lower lobe pulmonary nodule on axial image 12. The heart is not enlarged. No pericardial effusion. The liver is unremarkable in size and contour. There is no identified liver lesion. The main, right, left portal veins are patent. The gallbladder surgically absent. There is no intrahepatic or extrahepatic bile duct dilation. The main pancreatic duct is not abnormally dilated. Unremarkable appearance of the pancreatic parenchyma. The spleen is normal in size. The adrenal glands are unremarkable. There are areas of renal cortical scarring bilaterally. There is mild bilateral renal atrophy. The urinary collecting systems are not distended. There is no identified renal or ureteral stone. There is a Fitzgerald catheter in the urinary bladder. Uterus is not seen and may be surgically absent. The intestinal tract is not distended. The appendix is unremarkable. There is no free intraperitoneal air. There is no drainable fluid collection. There is no free fluid in the abdomen or pelvis. There are atherosclerotic calcifications. There is no identified abnormally enlarged lymph node in the abdomen or pelvis which meets CT size criteria for adenopathy. There is mucosal enhancement of the pylorus. There is wall thickening of the distal esophagus. There are sacroiliac degenerative changes. There are postoperative related changes of the lumbar spine. There is no identified acute bony abnormality. Impression: 1. Mucosal enhancement of the pylorus which may relate to a nonspecific gastritis. 2. Abnormal wall thickening of the esophagus. Esophagitis and malignancy are both in the differential diagnosis. Recommend correlation with upper endoscopy. The esophageal wall thickening is also seen on August 22, 2022 increasing concern for possibility of malignancy. 3. Areas of renal cortical scarring and mild renal atrophy. 4. Right lower lobe pulmonary nodules measuring up to 10 mm in size. These are unchanged since at least August 22, 2022. Dictated by: Dictated on workstation # [id number]
[2022-12-02] MEDS ORDERED: diphenhydrAMINE INJ 50 MG/ML VIAL ONE (14:04)
[2022-12-02] MEDS ORDERED: diphenhydrAMINE INJ 50 MG/ML VIAL IVP ONE (14:15)
[2022-12-02] MEDS ORDERED: PANTOPRAZOLE INJECTION 40 MG VIAL IV ONE (14:15)
[2022-12-02 14:17] LABS: OCCULT BLOOD,GASTRIC FLUID POSITIVE (NEGATIVE)
[2022-12-02] MEDS ORDERED: MELATONIN 3 MG TABLET PO PRN (15:30)
--- OUTSIDE RECORDS SUMMARY | 2022-12-02 15:32 | XMS REPORT | Clinical Summary ---
Author Author [facility] Organization [facility] Address Unknown Phone Unavailable Care Team Providers Care Shoe Dyer Name Role Phone Julian Theodore MD PCP Source Comments Some departments are not documenting in the electronic medical record. If you d o not see the information that you expected, contact Release of Information in [facility] Information Management department at [phone] for further assistan ce in locating additional records.[facility] Allergies Comments Active Allergy Reactions Criticality Noted Date Codeine HIVES Medium 11/21/2017 Sulfa (Sulfonamide HIVES Medium 11/21/2017 Antibiotics) Vancomycin RASH Medium 11/21/2017 Medications End Date Status Medication Sig Dispensed Refills Start Date Active montelukast (SINGULAIR) Take 10 mg by 0 10 mg tablet mouth daily. Active cyclobenzaprine Take 10 mg by 0 (FLEXERIL) 10 mg tablet mouth three times daily as needed for Muscle Cramps. Active albuterol (PROAIR HFA) 90 Inhale 2 0 mcg/actuation inhaler puffs by mouth into the lungs four times daily as needed for Wheezing or Shortness of Breath. Shake well before use. Active carbidopa/levodopa CR Take 1 tablet 0 (SINEMET CR) 50/200 mg by mouth tablet twice daily. Active carBAMazepine (TEGRETOL) Take 200 mg 0 200 mg tablet by mouth daily. Active amantadine (SYMMETREL) Take 100 mg 0 100 mg capsule by mouth. Active duloxetine DR (CYMBALTA) Take 30 mg by 0 30 mg capsule mouth daily. Active glycopyrrolate-formoterol Inhale 2 0 (BEVESPI AEROSPHERE) puffs by 9-4.8 mcg HFA inhaler mouth into the lungs twice daily. Active primidone (MYSOLINE) 250 Take 250 mg 0 mg tablet by mouth twice daily. Active insulin glargine (LANTUS Inject 100 0 SOLOSTAR, BASAGLAR) 100 Units under unit/mL (3 mL) injection the skin PEN daily. Active meloxicam (MOBIC) 15 mg Take 15 mg by 0 tablet mouth daily. Active diclofenac(+) (VOLTAREN) Apply 4 g 0 1 % topical gel topically to affected area four times daily as needed. Active albuterol-ipratropium Inhale 3 mL 0 (DUO-NEB, DUO-VENT) 0.5 solution by mg-3 mg(2.5 mg base)/3 mL nebulizer as nebulizer solution directed. Active rOPINIRole (REQUIP) 2 mg Take 2 mg by 0 tablet mouth. Active ALPRAZolam (XANAX) 0.5 mg Take 0.5 mg 0 tablet by mouth three times daily as needed for Anxiety. Active levothyroxine (SYNTHROID) Take 75 mcg 0 75 mcg tablet by mouth daily. Active pantoprazole DR Take 40 mg by 0 (PROTONIX) 40 mg tablet mouth daily. Active metoprolol tartrate Take 50 mg by 0 (LOPRESSOR) 50 mg tablet mouth. Active lovastatin(+) (MEVACOR) Take 40 mg by 0 40 mg tablet mouth at bedtime daily. Active aspirin EC 81 mg tablet Take 81 mg by 0 mouth daily. Take with food. Active cetirizine (ZYRTEC) 10 mg Take 10 mg by 0 tablet mouth every morning. Active gabapentin (NEURONTIN) Take 100 mg 0 100 mg capsule by mouth. Active HYDROcodone/acetaminophen Take by mouth 0 (NORCO) 7.5/325 mg tablet Active famotidine (PEPCID) 20 mg Take 20 mg by 0 tablet mouth. Active insulin aspart U-100 Inject under 0 (NOVOLOG FLEXPEN U-100 the skin. INSULIN) 100 unit/mL injection PEN Active atorvastatin (LIPITOR) 40 Take 40 mg by 0 mg tablet mouth daily. Active oxyCODONE/acetaminophen Take by mouth 0 (PERCOCET; ENDOCET) 10/325 mg tablet Active traMADol (ULTRAM) 50 mg Take one 40 tablet 0 10 /09/201 tablet tablet to two 8 tablets by mouth three times daily. Active Problems Problem Noted Date Diagnosed Date Neck pain 12/27/2017 Chronic bilateral low back pain with bilateral sciati ca 12/27/2017 Surgical History Surgery Date Site/Laterality Comments HX CARPAL TUNNEL RELEASE 03/15/2017 SPINE SURGERY L4-S1 DISCECTOMY HX PARTIAL THYROIDECTOMY SECTION 04/09/1995 - 04/08/1996 HX BUNIONECTOMY Left HX HYSTERECTOMY 04/09/2011 - 04/08/2012 Medical History Medical History Date Comments Back pain DM (diabetes mellitus) ([facility]) Chronic pain Infectious gastroenteritis and colitis, unspecified Carpal tunnel syndrome LEFT Chronic sinusitis Lumbar stenosis UTI (urinary tract infection) Sacroiliitis, not elsewhere classified ([facility]) Pneumonia, unspecified organism COPD (chronic obstructive pulmonary disease) ([facility]) Polyneuropathy Fasciculation GERD (gastroesophageal reflux disease) Bronchitis Anxiety disorder Depression Hyperlipidemia Graves disease Essential tremor Asthma Cataract Seizures ([facility]) Sleep apnea Family History Medical History Relation Name Comments Diabetes Father Hypertension Mother Relation Name Status Comments Father Mother Social History Date Tobacco Use Types Packs/Day Years Used Smoking Tobacco: Never Smokeless Tobacco: Never Comments Alcohol Use Standard Drinks/Week No 0 (1 standard drink = 0.6 o z pure alcohol) Date Recorded Sex and Gender Information Value Sex Assigned at Not on file Gender Identity Not on file Sexual Orientation Not on file Obstetrics History Last Filed Vital Signs Reading Time Taken Comments Vital Sign 117/76 04/01/2018 12:53 PM PERFORMANCE IMPROVEMENT MANAGER Blood Pressure 90 04/01/2018 11:04 AM PERFORMANCE IMPROVEMENT MANAGER Pulse 36.7 C (98 F) 04/01/2018 11:04 AM PERFORMANCE IMPROVEMENT MANAGER Temperature 16 04/01/2018 11:04 AM PERFORMANCE IMPROVEMENT MANAGER Respiratory Rate 99% 04/01/2018 12:53 PM PERFORMANCE IMPROVEMENT MANAGER Oxygen Saturation - - Inhaled Oxygen Concentration 95.3 kg (210 lb) 04/01/2018 11:04 AM PERFORMANCE IMPROVEMENT MANAGER Weight 160 cm (5' 3") 04/01/2018 11:04 AM PERFORMANCE IMPROVEMENT MANAGER Height 37.2 04/01/2018 11:04 AM PERFORMANCE IMPROVEMENT MANAGER Body Mass Index Plan of Treatment Health Maintenance Due Date Last Done Comments MEDICARE ANNUAL WELLNESS 1966 VISIT COVID-19 VACCINE (#1) 1966 HIV SCREENING 1981 HEPATITIS C SCREENING 1984 PHYSICAL (COMPREHENSIVE) 1984 EXAM CERVICAL CANCER SCREENING 1987 BREAST CANCER SCREENING 2006 COLORECTAL CANCER 2011 SCREENING SHINGLES RECOMBINANT 2016 VACCINE (1 of 2) DEPRESSION SCREENING 04/09/2022 INFLUENZA VACCINE (#1) 2023 DTAP/TDAP VACCINES (2 - 01/15/2024 01/14/2014 Td or Tdap) PNEUMOCOCCAL VACCINE 0-64 Aged Out 01/17/2014 No l onger eligible based on patient's age to YRS complete this topic Results Not on filefrom Last 3 Months Insurance Type Payer Benefit Subscriber ID Effective Phone Address Plan / Dates Group Medicare [facility] MEDICARE [facility] [id number] 2019-P [phone] [address] [facility] [id number] Medicaid [employer] [employer] [id number] 2016-P [address] [place] [id number] Care Teams Start Date End Date Shoe Dyer Relationship Specialty 10/12/17 Julian Theodore MD PCP - General Family Medicine [address] [place] [address]
--- OUTSIDE RECORDS SUMMARY | 2022-12-02 15:32 | XMS REPORT ---
Author Author [facility] Address Unknown Phone Unavailable Care Team Providers Care Property Insurance Inspector Name Role Phone AKI BRISCOE Unavailable PROBLEMS Type Condition ICD9-CM Code [id number] Code Onset Dates Condition S tatus W/U Status Risk SNOMED Code Notes Problem Anxiety state, unspecified F41.1 confirmed 490380766 Problem Other iron deficiency anemia D50.8 confirme d 37349241 Problem Mood disorder F39 confirmed 222722 05 Problem Essential tremor G25.0 confirmed 609 181581 Problem Loss of taste R43.2 confirmed 216584 09 Problem Type 2 diabetes mellitus without complications E11.9 confirmed 799358320 Problem Hypothyroidism (acquired) E03.9 confirmed 008709062 Problem custodial current use of insulin Z79.4 conf irmed 707462455 Problem Lumbago with sciatica, right side M54.41 con firmed 538516782 Problem Other chronic pain G89.29 confirmed 8 2340486 ALLERGIES Allergen (clinical drug ingredient) Drug/Non Drug Allergy do cumented on EMR Reaction Allergy Type Onset Date Status vancomycin Vancomycin rash/reddened skin Drug Allergy Acti ve penicillin V Penicillin V Potassium([facility] Code:[address]-92) U nknown Drug Allergy Active Latex/Latex Containing Products Unknown Non Drug Allerg y Active Codeine Phosphate([facility] Code:[address]-09) Unknown Drug Allergy Active sulfamethoxazole / trimethoprim Bactrim([facility] Code:[address]-62) Unknown Drug Allergy Active Zofran nausea and/or vomiting Drug Allergy Active ENCOUNTERS from 1966 to 2022-10-22 Encounter Location Date Provider Diagnosis [facility] [address] [facility] [id number] [place] [address] Nov, AKI BRISCOE Mood disorder F39 IMMUNIZATIONS Vaccine Route Administration Date Status mmr-II (history) Unknown September 30, 2014 Administered influenza IIV4 (history) Unknown Nov 28, 2017 Adminis tered influenza IIV4 (history) Unknown Nov 18, 2015 Adminis tered influenza IIV4 (history) Unknown Jan 14, 2014 Adminis tered influenza IIV4 (history) Unknown Jan 06, 2022 Adminis tered tdap (history) Unknown Jan 14, 2014 Administered tdap (history) Unknown Jan 01, 2018 Administered COVID-19 Moderna (history) Unknown July 09, 2020 Admin istered COVID-19 Moderna (history) Unknown August 12, 2020 Admin istered history influenza (flu cvx 140) [cvx group 88] Unknown A 2016 Administered pcv,uf (history) Unknown Apr 29, 2021 Administered COVID-19 Moderna (history) Unknown September 09, 2021 Admin istered COVID-19 Moderna (history) Unknown Apr 06, 2021 Admin istered SOCIAL HISTORY Sex Assigned At : Social History Observation Description Sex Assigned At Unknown PHQ2 Question Answer Notes In the last 2 weeks, how often have you had little interest or pleasure in doing things? Not at all In the last 2 weeks, how often have you been feeling down, depressed, or hopeless? Not at all Total PHQ2 Score 0 REASON FOR REFERRAL No Information VITAL SIGNS No information MEDICATIONS Medication SIG (Take, Route, Frequency, Duration) Notes Start Da te End Date Status DULoxetine HCl 30 MG 1 capsule Orally Once a day for 30 day(s) Not-Taking Famotidine 20 MG 1 tablet at bedtime Orally Once a day for 30 day(s) Not-Taking Cymbalta 60 MG 1 capsule Orally Once a day. add to the 30 mg. f or 30 day(s) May, Not-Taking predniSONE 20 MG 2 tablets Orally Once a day for 5 days Mar, Active Diclofenac Sodium 75 MG TAKE 1 TABLET BY MOUTH WITH FOOD OR MILK for 30 Not-Taking Ventolin HFA 108 (90 Base) MCG/ACT 2 puffs as needed Inhalation aly ry 6 hrs Not-Taking carBAMazepine 200 MG 1 tablet Orally Twice a day for 30 day(s) Not-Taking Bydureon BCise 2 MG/0.85ML as directed Subcutaneous Not-Taking Cetirizine HCl 10 MG 1 tablet Orally Once a day for 30 day(s) Not-Taking Levothyroxine Sodium 75 MCG 1 tablet on an empty stoma ch in the morning Orally Once a day for 30 day(s) Not-Drake ing Atorvastatin Calcium 40 MG 1 tablet Orally at bedtime for 30 day(s) Not-Taking Albuterol Sulfate HFA 108 (90 Base) MCG/ACT 1 puff as needed Inhalation every 4 hrs for 14 days Active Jardiance 25 MG 1 tablet Orally Once a day for 30 day(s) Not-Taking Pantoprazole Sodium 40 MG 1 tablet Orally Once a day for 30 day(s) Not-Taking Aspir-81 81 MG 1 tablet Orally Once a day for 30 day(s) Not-Taking cloNIDine HCl 0.1 MG 1 tablet Orally 3 times a day for 30 day(s) May, Not-Taking Baclofen 20 MG TAKE 1 TABLET BY MOUTH EVERY 8 HOURS WITH FOOD O R MILK for 30 Not-Taking ALPRAZolam 0.5 MG 1 tablet Orally 3 times a day Not-Taking PROCEDURES No Information RESULTS No Results REASON FOR VISIT [employer] MEDICAL (GENERAL) HISTORY Type Description Date Medical History bronchitis Medical History thyroid problems Medical History diabetic Medical History back problems Medical History head,neck,jaw injuries Surgical History back surgery 1-2004 Surgical History female surgery 2-2011 Surgical History thyroid surgery Surgical History Toe surgery 2016 Goals Section No Information Health Concerns No Information MEDICAL EQUIPMENT No Information MENTAL STATUS No Information FUNCTIONAL STATUS No Information ASSESSMENTS Encounter Date Diagnosis Assessment Notes Treatment Notes Treatm ent Clinical Notes Nov, Mood disorder (ICD-10 - F39) PLAN OF TREATMENT Medication Medication Name Sig Start Date Stop Date predniSONE 20 MG 2 tablets Orally Once a day for 5 days Mar, Albuterol Sulfate HFA 108 (90 Base) MCG/ACT 1 puff as needed Inhalation every 4 hrs for 14 days Next Appt Details prn Reason:Support Follow Up:prnSupport Insurance Providers Payer Name Payer Address Payer Phone Insured Name Patient Relati onship to Insured Coverage Start Date Coverage End Date Subscriber Number [facility] [address] [facility] [id number] [phone] Gabriela Franco Self - patient is the insured [id number] [facility] [place] MEDICARE Part A [address] [facility] [address] Gabriela Franco Self - patient is the insured [id number] [employer] [address] [facility] [phone] Gabriela Franco Self - patient is the insured [id number] [employer] [address] [address] [facility] [address] Gabriela Franco Self - patient is the insured [id number] [facility] [address] [facility] [id number] Gabriela Franco Self - patient is the insured [id number]
[2022-12-02] MEDS: PROMETHAZINE INJ 25 MG/ML VIAL IVP PRN ×2 (15:50→19:53)
[2022-12-02] MEDS: NS IV 1000 ML 1,000 ML IV SCH (15:50)
[2022-12-02 16:06] LABS: HEMATOCRIT 51 % (35-52); HEMOGLOBIN 16.1 g/dL (11.5-16.0); MEAN CORPUSCULAR HEMOGLOBIN 28 pg (25-34); MEAN CORPUSCULAR HGB CONC 32 g/dL (32-36); MEAN CORPUSCULAR VOLUME 88 fL (80-99); MEAN PLATELET VOLUME 12.8 fL (9.0-12.2); PLATELET COUNT 245 10^3/uL (130-400); WHITE BLOOD COUNT 15.9 10^3/uL (4.3-11.0)
[2022-12-02 16:30] VITALS: BP 162/93
[2022-12-02] MEDS ORDERED: ALPRAZolam 1 MG TABLET PO PRN (16:30)
[2022-12-02] MEDS ORDERED: CYCLOBENZAPRINE 10 MG TABLET PO PRN (16:30)
[2022-12-02] MEDS ORDERED: DOXEPIN 10 MG CAPSULE PO PRN (16:30)
[2022-12-02] MEDS ORDERED: hydrALAZINE INJECTION 20 MG/ML VIAL IV PRN (16:30)
[2022-12-02] MEDS ORDERED: RT-ALBUTEROL SULF 2.5 MG/3 ML PRE-MIX VIAL INH PRN (16:45)
[2022-12-02 19:26] VITALS: BP 156/107
[2022-12-02] MEDS ORDERED: NS (IVPB) 50 ML 50 ML ONE (19:47)
[2022-12-02] MEDS: PANTOPRAZOLE INJECTION 40 MG VIAL IV SCH (19:53)
[2022-12-02] MEDS: inSUlin ASPART 1 UNIT/0.01 ML (PER UNIT) SC SCH (21:22)
[2022-12-02] MEDS ORDERED: SCOPOLAMINE 1.5 MG PATCH ONE (21:29)
[2022-12-02] MEDS ORDERED: SCOPOLAMINE 1.5 MG PATCH TD ONE (21:30)
[2022-12-02] MEDS ORDERED: PROCHLORPERAZINE INJ 10 MG/2ML VIAL ONE (21:30)
[2022-12-02] MEDS: PROCHLORPERAZINE INJ 10 MG/2ML VIAL IV PRN (21:33)
--- NOTE | 2022-12-02 22:53 | Progress Note-Pre Operative ---
Pre-Operative Progress Note Date of Available H&P: Dec 02, 2022 Date H&P Reviewed: Dec 02, 2022 Time H&P Reviewed: 23:00 History & Physical: No changes noted Pre-Operative Diagnosis: esophagitis, PUD, nausea/vomiting GENIE LYNCH MD Dec 02, 2022 22:53
[2022-12-02] MEDS: AMANTADINE 100 MG CAPSULE PO SCH (23:05)
[2022-12-02] MEDS: GABAPENTIN 100 MG CAPSULE PO SCH (23:05)
[2022-12-02] MEDS: meTOprolol TARTRATE (IR) 25 MG TABLET PO SCH (23:05)
[2022-12-02] MEDS: AMITRIPTYLINE 25 MG TABLET PO SCH (23:05)
[2022-12-02] MEDS: carBAMazepine 200 MG TABLET PO SCH (23:05)
[2022-12-02] MEDS: MONTELUKAST 10 MG TABLET PO SCH (23:05)
[2022-12-02] MEDS: PRAMIPEXOLE 0.5 MG TABLET PO SCH (23:06)
[2022-12-03] VITALS (7 sets, daily range): BP systolic 94–138; BP diastolic 60–81
[2022-12-03] MEDS: NS IV 1000 ML 1,000 ML IV SCH ×4 (00:02→18:29)
[2022-12-03] MEDS: PROMETHAZINE INJ 25 MG/ML VIAL IVP PRN ×3 (00:08→18:26)
--- NOTE | 2022-12-03 00:35 | CONSULTATION REPORT ---
ATTENDING PRIMARY CARE PHYSICIAN: Dr. Mohsen Finnegan. ADMITTING PHYSICIAN: Dr. Silvia Mendoza. HISTORY OF PRESENT ILLNESS: The patient is a 57-year-old female who presented to the Emergency Department with a 3-day history of crampy abdominal pain and nausea and vomiting. The patient states she vomited dark bilious material, which was foul smelling. She does not report any hematemesis, no coffee-ground emesis. She also does have a previous history of gastroesophageal reflux disease and peptic ulcer disease. The patient was admitted in early 11/2022 for emphysematous cystitis as well as acute kidney injury. She does have a number of other medical comorbidities as well including diabetes. A CT scan was performed, which did show thickening of the distal esophagus as well as the antrum, likely consistent with a reflux esophagitis as well as peptic ulcer disease; however, the possibility of a neoplastic process must also be ruled out. PAST MEDICAL HISTORY: Insulin-dependent diabetes, hypertension, hypercholesterolemia, history of emphysematous cystitis, history of chronic urinary tract infection, gastroesophageal reflux disease, peptic ulcer disease, degenerative joint disease, Graves' disease, anxiety, depression, Parkinson's disease, COPD. PAST SURGICAL HISTORY: Lumbar vertebrae ORIF, laparoscopic cholecystectomy, total hysterectomy, thyroidectomy. ALLERGIES: SULFA, CODEINE, ZOFRAN, VANCOMYCIN. MEDICATIONS: Albuterol inhaler 90 mcg 2 puffs q.6 hours p.r.n., alprazolam 1 mg b.i.d. p.r.n., amantadine 200 mg b.i.d., aspirin 81 mg b.i.d., atorvastatin 40 mg daily, baclofen 10 mg b.i.d. p.r.n., [ ] 2 mg daily, carbamazepine 200 mg b.i.d., cefdinir 300 mg b.i.d., cyclobenzaprine 10 mg daily, doxepin 10 mg daily, famotidine 20 mg daily, Carafate daily, fluticasone propionate 50 mcg spray b.i.d. p.r.n., gabapentin 300 mg daily, glycopyrrolate/formoterol 9/4.8 mcg inhaler 2 puffs daily, glargine insulin 45 units q.a.m. and 52 units each day at bedtime, Humalog insulin 20 units b.i.d., latanoprost eye drops daily, levocetirizine 5 mg daily, levothyroxine 75 mcg daily, meclizine 25 mg t.i.d. p.r.n., montelukast 10 mg daily, nitrofurantoin 100 mg daily, oxycodone 7.5 mg every 8 hours p.r.n., paroxetine 40 mg daily, potassium 10 mEq daily, pramipexole 0.5 mg t.i.d., promethazine 25 mg every 8 hours p.r.n., Hernandez is peptide 7.5 mg subcutaneous weekly. SOCIAL HISTORY: Negative smoke, negative alcohol. FAMILY HISTORY: Noncontributory. VITAL SIGNS: Temperature 37.0, blood pressure 156/107, pulse 134, respirations 22, pulse ox 100% on room air. REVIEW OF SYSTEMS: A well-nourished female, currently in no acute distress. She is not experiencing shortness of breath, no difficulty in breathing. She does have a chronic cough that is nonproductive. No chest pain, palpitations, diaphoresis. Three-day history of intermittent episodes of nausea and vomiting of bilious foul smelling material, no hematemesis, no coffee-ground emesis. History of constipation, no red blood per rectum, no dark tarry stools. No fever, chills, no recent inadvertent weight loss. All other review of systems negative. PHYSICAL EXAMINATION: CHEST: Scattered rales and wheezes bilaterally. HEART: Regular. No murmurs. EXTREMITIES: Plus 1/3 bilateral lower extremity edema. Negative Homans sign. HEENT: No scleral icterus. No cervical lymphadenopathy. ABDOMEN: Soft. There is pain in the epigastric region upon deep palpation. No peritoneal signs. SKIN: Warm, dry. LABORATORY DATA: WBC 15.9, hemoglobin 6.1, hematocrit 51, platelets 245. BUN 23, creatinine 1.42, glucose 182. ASSESSMENT AND PLAN: A 57-year-old female with a history of multiple medical problems with recent admission for acute kidney injury as well as emphysematous cystitis. She presented with a 3-day history of nausea and vomiting with CT scan findings including thickening of the distal esophagus and antrum, which may represent gastroesophageal reflux disease as well as peptic ulcer disease; however, malignancy must be ruled out as well as distal obstructions. She is currently receiving IV fluids as well as a PPI acid carbon cutter on a b.i.d. basis. We will schedule her for an EGD as well as biopsies as well. Job ID: [id number] DocumentID: [id number] Dictated Date: 12/02/2022 23:09:39 Controls Designer Date: 12/03/2022 00:33:00 Dictated By: GENIE LYNCH MD
[2022-12-03] MEDS: ACETAMINOPHEN PO PRN ×3 (00:56→20:46)
[2022-12-03] MEDS: OXYCODONE PO PRN ×3 (00:56→20:46)
[2022-12-03 05:13] LABS: HEMATOCRIT 39 % (35-52); HEMOGLOBIN 12.5 g/dL (11.5-16.0); MEAN CORPUSCULAR HEMOGLOBIN 28 pg (25-34); MEAN CORPUSCULAR HGB CONC 32 g/dL (32-36); MEAN CORPUSCULAR VOLUME 87 fL (80-99); MEAN PLATELET VOLUME 12.5 fL (9.0-12.2); PLATELET COUNT 213 10^3/uL (130-400); WHITE BLOOD COUNT 10.3 10^3/uL (4.3-11.0)
[2022-12-03 05:22] LABS: POTASSIUM 3.2 MMOL/L (3.6-5.0)
[2022-12-03 05:23] LABS: CALCIUM 8.2 MG/DL (8.5-10.1)
[2022-12-03] MEDS: inSUlin ASPART 1 UNIT/0.01 ML (PER UNIT) SC SCH ×4 (05:25→20:46)
[2022-12-03] MEDS: LEVOTHYROXINE 75 MCG TABLET PO SCH (05:26)
[2022-12-03 05:27] LABS: CREATININE SERUM 0.81 MG/DL (0.60-1.30)
[2022-12-03] MEDS: PANTOPRAZOLE INJECTION 40 MG VIAL IV SCH ×2 (09:07→20:38)
[2022-12-03] MEDS ORDERED: LACTATED RINGERS 1,000 ML 1,000 ML IV STA (09:41)
[2022-12-03] MEDS ORDERED: HURRICAINE EXT TUBE (BENZOCAINE) XX PRN (09:45)
[2022-12-03] MEDS ORDERED: LIDOCAINE JELLY 2% 6 ML SYRINGE MM PRN (09:45)
--- NOTE | 2022-12-03 11:16 | History & Physical-Hospitalist ---
History of Present Illness HPI/Chief Complaint Gabriela Franco is a 57 year old female with PMH of recent admission for emphysematous cystitis, HTN, T2DM, HLD, hypothyroidism, COPD, anxiety, depression, arthritis, chronic back pain due to abdominal pain. She reports her symptoms started about 3 or 4 days ago. She reports this has been a recurring issue that happens every few months but normally resolves on her own. She has had nausea and vomiting with this and describes her vomit is quite dark. In the emergency department she continued to vomit and gastric occult was positive. She was also quite hypotensive with tachycardia. Surgery was consulted was mini holliday for an EGD. This morning she reports that she is feeling better. She states she has never had an EGD done to work this up in the past. Source: patient Date Seen 12/03/22 Time Seen by a Provider: 08:30 Attending Physician Mohsen Finnegan DO PCP Admitting Physician: Patricio Mendoza MD Attending Physician: Patricio Mendoza MD Referring Physician Date of Admission Dec 02, 2022 at 15:20 Home Medications & Allergies Home Medications Reviewed patient Home Medication Reconciliation performed by pharmacy medication reconciliations prosthetic technician and/or nursing. Patients Allergies have been reviewed. Allergies Allergies Coded Allergies Sulfa (Sulfonamide Antibiotics) (Unverified Allergy, Unknown, 06/24/13) codeine (Unverified Allergy, Unknown, 06/24/13) ondansetron (Verified Adverse Reaction, Intermediate, Vomiting, 08/22/22) Worsens vomiting vancomycin (Unverified Adverse Reaction, Mild, redness, 06/24/13) Past Xuwwseo-Myhpwe-Smdjuc Hx Patient Social History Tobacco Use?: No Use of E-Cig and/or Vaping dev: No Substance use?: No Alcohol Use?: No Pt feels they are or have been: No Immunizations Up To Date Date of Influenza Vaccine: Jan 07, 2016 First/Initial COVID19 Vaccinat: X4 Second COVID19 Vaccination Reji: X4 Tetanus Booster (TDap): Less Than 5 Years Hepatitis A: No Hepatitis B: No Date of Pneumonia Vaccine: Jul 08, 2012 Seasonal Allergies Seasonal Allergies: No Current Status status: No status: No Advance Directives: No Communicates: Verbally Primary Language: Welsh Preferred Spoken Language: Welsh Is interpretation needed?: No Sensory deficits: Vision impairment Implanted or Applied Medical D: None Past Medical History Surgeries: Abdominal, Section, Hysterectomy, Oophorectomy, Orthopedic, Thyroidectomy Chronic Bronchitis, COPD Currently Using CPAP: No Currently Using BIPAP: No 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, 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 oz. 92.699007sz; 34.33 BMI Method:Stated General Appearance: No Apparent Distress, Chronically ill, Obese Respiratory: Lungs Clear, No Respiratory Distress Cardiovascular: No Murmur, Tachycardia (regular rate) Gastrointestinal: Normal Bowel Sounds, Non Tender, Soft Extremity: No Calf Tenderness, No Pedal Edema Neurologic/Psychiatric: Alert, Oriented x3, Normal Mood/Affect Results Results/Procedures Labs Laboratory Tests 12/02/22 11:54 12/02/22 15:55 12/03/22 04:57 Patient resulted labs reviewed. Assessment/Plan Admission Diagnosis Upper GI Bleed Admission Status: Inpatient Order (span 2 midnights) Reason for Inpatient Admission: see below Assessment and Plan Upper GI Bleed Sinus tachycardia Hematemesis noted in the ER CT with abnormal wall thickening of the esophagus and possible gastritis PPI Surgery consulted, planning EGD today Hgb down from 16 to 12 this AM with 3L of fluids- trend Tachycardia likely due to hypovolemia from GI bleed- improving with fluids Was HTN so metoprolol added T2DM Sliding scale insulin Hold Levemir as BS 76 this AM Nephrolithiasis Nonobstructing, no acute needs T2DM Levemir Sliding scale insulin Pulmonary nodules Stable since August of 2022- needs repeat CT in 3-6 months HTN HLD COPD Anxiety Depression Back pain Continue home meds as able but is NPO for EGD DVT prophylaxis: PATRICIO SWIFT MD Dec 03, 2022 11:16
[2022-12-03] MEDS ORDERED: MIDAZOLAM INJ 2 MG/2 ML VIAL ONE (11:39)
[2022-12-03] MEDS ORDERED: proPOfol INJECTION 200 MG/20 ML VIAL IV ONE (11:39)
--- NOTE | 2022-12-03 12:21 | Anesthesia-General Post-Op ---
MAC Patient Condition Mental Status/LOC: Same as Preop Cardiovascular: Satisfactory Nausea/Vomiting: Absent Respiratory: Satisfactory Pain: Controlled Complications: Absent Post Op Complications Complications None Follow Up Care/Instructions Patient Instructions None needed. Anesthesiology Discharge Order Discharge Order Patient is doing well, no complaints, stable vital signs, no apparent adverse anesthesia problems. No complications reported per nursing. EMI MEAD CRNA Dec 03, 2022 12:21
--- NOTE | 2022-12-03 12:30 | Progress Note-Post Operative ---
Post-Operative Progess Note Surgeon (s)/Supervisor Webbing (s) Surgeon GENIE LYNCH MD Supervisor Webbing: none Pre-Operative Diagnosis esophagitis, PUD, nausea/vomiting Post-Operative Diagnosis reflux esophagitis(grade D) with diffuse distal esoph ulcerations and stricture, small-moderate HH(3cm), mod-severe gastritis. Procedure & Operative Findings Date of Procedure 12/03/22 Procedure Performed/Findings EGD with bx and balloon dilatation. Anesthesia Type mac Estimated Blood Loss Estimated blood loss (mL): minimal Specimens/Packing Specimens Removed ge jxn, antrum GENIE LYNCH MD Dec 03, 2022 12:30
[2022-12-03] MEDS: PARoxetine 20 MG TABLET PO SCH (12:46)
[2022-12-03] MEDS: meTOprolol TARTRATE (IR) 25 MG TABLET PO SCH ×2 (12:46→20:24)
[2022-12-03] MEDS: GABAPENTIN 100 MG CAPSULE PO SCH ×2 (12:47→20:37)
[2022-12-03] MEDS: FLUDROCORTISONE 0.1 MG TABLET PO SCH (12:48)
[2022-12-03] MEDS: carBAMazepine 200 MG TABLET PO SCH ×2 (12:48→20:38)
[2022-12-03] MEDS: AMANTADINE 100 MG CAPSULE PO SCH ×2 (12:48→20:37)
--- NOTE | 2022-12-03 15:11 | OPERATIVE REPORT ---
DATE OF SERVICE: 12/03/2022 ATTENDING PRIMARY CARE PHYSICIAN: Dr. Mohsen Finnegan. PREOPERATIVE DIAGNOSES: Nausea and vomiting, abdominal pain. POSTOPERATIVE DIAGNOSES: Reflux esophagitis, [place] grade D with esophageal ulcerations and distal esophageal stricture, small to moderate size hiatal hernia, 3 cm in size, moderate to severe gastritis, no distal obstructions. PROCEDURE: EGD with biopsy and balloon dilatation. SURGEON: Genie Lynch MD ANESTHESIA: Monitored anesthesia care. ESTIMATED BLOOD LOSS: Minimal. FINDINGS: Reflux esophagitis, [place] grade D with esophageal ulcerations and distal esophageal stricture, small to moderate size hiatal hernia, 3 cm in size, moderate to severe gastritis, no distal obstructions. DISPOSITION: The patient tolerated the procedure well. INDICATIONS: The patient is a 57-year-old female who presented to the emergency department with a 3-day history of nausea and vomiting as well as epigastric pain. She states that the nausea and vomiting persisted. She reports a foul smelling bilious material; however, no hematemesis, no coffee-ground emesis. Upon further questioning, she reports that she has had similar episodes on an intermittent basis now for the past 6 months. She also reports that she has had an upper endoscopy before in the past and recalls having an esophageal stricture. DESCRIPTION OF PROCEDURE: The patient was brought to the endoscopy suite and laid in the left lateral decubitus position. After adequate IV pain and sedative medications and monitored anesthesia care, the mouthpiece was applied. The endoscope was placed in the mouth, visualizing the pharynx and hypopharyngeal region. Vocal cords, epiglottis and vallecula identified and appeared to be normal. The endoscope was then gently intubated to esophageal opening and esophagus insufflated. The endoscope was then advanced into the first, second, third portions of esophagus at the level of the GE junction, there was significant ulcerations identified throughout the distal esophagus as well as a distal esophageal stricture. Biopsy was taken with forceps with visualization of good hemostasis. This was a [place]ck[place] grade D reflux esophagitis. The endoscope was then advanced into the stomach and endoscope retroflexed visualizing a small to moderate size hiatal hernia, 3 cm in size. There was a moderate to severe gastritis towards the stomach antrum, no formal ulcerations, polyps or any neoplasms identified. A biopsy was taken of the antrum to rule out H. pylori with visualization of good hemostasis. The endoscope was then advanced through the pylorus and the first and second portion of the duodenum with no distal obstructions identified. The balloon was then placed into the stomach and pulled back to the area of the stricture. We then proceeded very gradual and gently in a graded stepwise fashion slowly to approximately 2 atmospheres of pressure or approximately 18 mm in size with mild resistance and left this in place for approximately 120 seconds. The balloon was then desufflated and removed with visualization of good hemostasis as well as no mucosal tears. The endoscope was slowly withdrawn while taking a second look and suctioning of residual air with no additional findings. The patient tolerated the procedure well. We will recommend the necessary lifestyle and dietary accommodation, which will first encompass smoking cessation; however, avoidance of caffeinated beverages, spicy, greasy and acidic foods. She also needs to avoid spicy, greasy and acidic foods as well as taking small and more frequent meals and avoidance of eating at night. She is currently on Pepcid. However, her reflux esophagitis and gastritis are significant and we will start her on a PPI acid delphi programmer on a b.i.d. basis as well as Carafate 1 gram q.i.d. for the next 2 weeks, then on a p.r.n. basis. She will likely need to have further dilatation; however, the ulceration and inflammation need to subside. We will have her proceed with a followup EGD in approximately 6 weeks. We will also see her in the office in approximately 2 weeks. Job ID: [id number] DocumentID: [id number] Dictated Date: 12/03/2022 12:25:13 Engine Hostler Date: 12/03/2022 15:09:00 Dictated By: GENIE LYNCH MD
[2022-12-03] MEDS: PROCHLORPERAZINE INJ 10 MG/2ML VIAL IV PRN (19:30)
[2022-12-03] MEDS: AMITRIPTYLINE 25 MG TABLET PO SCH (20:37)
[2022-12-03] MEDS: PRAMIPEXOLE 0.5 MG TABLET PO SCH (20:37)
[2022-12-03] MEDS: MONTELUKAST 10 MG TABLET PO SCH (20:38)
[2022-12-04 04:00] VITALS: BP 118/73
[2022-12-04 05:35] LABS: HEMATOCRIT 35 % (35-52); HEMOGLOBIN 10.9 g/dL (11.5-16.0); MEAN CORPUSCULAR HEMOGLOBIN 28 pg (25-34); MEAN CORPUSCULAR HGB CONC 31 g/dL (32-36); MEAN CORPUSCULAR VOLUME 89 fL (80-99); MEAN PLATELET VOLUME 12.5 fL (9.0-12.2); PLATELET COUNT 173 10^3/uL (130-400)
[2022-12-04 05:51] LABS: POTASSIUM 3.1 MMOL/L (3.6-5.0)
[2022-12-04 05:52] LABS: CALCIUM 7.9 MG/DL (8.5-10.1)
[2022-12-04 05:56] LABS: CREATININE SERUM 0.75 MG/DL (0.60-1.30)
[2022-12-04] MEDS: inSUlin ASPART 1 UNIT/0.01 ML (PER UNIT) SC SCH ×2 (06:13→12:13)
[2022-12-04] MEDS ORDERED: NS IV 500 ML 500 ML IV PRN (07:00)
[2022-12-04] MEDS: LEVOTHYROXINE 75 MCG TABLET PO SCH (07:06)
[2022-12-04] MEDS: PROCHLORPERAZINE INJ 10 MG/2ML VIAL IV PRN (07:52)
[2022-12-04] MEDS: AMANTADINE 100 MG CAPSULE PO SCH (08:50)
[2022-12-04] MEDS: PANTOPRAZOLE INJECTION 40 MG VIAL IV SCH (08:50)
[2022-12-04] MEDS: carBAMazepine 200 MG TABLET PO SCH (08:51)
[2022-12-04] MEDS: PARoxetine 20 MG TABLET PO SCH (08:51)
[2022-12-04] MEDS: meTOprolol TARTRATE (IR) 25 MG TABLET PO SCH (08:51)
[2022-12-04] MEDS: FLUDROCORTISONE 0.1 MG TABLET PO SCH (08:51)
[2022-12-04] MEDS: GABAPENTIN 100 MG CAPSULE PO SCH (08:51)
[2022-12-04] MEDS: NS IV 1000 ML 1,000 ML IV SCH (08:58)
[2022-12-04] MEDS ORDERED: SUCR1TAB PO (10:00)
[2022-12-04] MEDS ORDERED: PANT40TA52 PO (10:00)
[2022-12-04] MEDS ORDERED: SUCRALFATE 1 GM TABLET PO SCH (11:00)
[2022-12-04 13:21] VITALS: BP 98/70
--- NOTE | 2022-12-04 14:49 | Diagnostic Imaging Report ---
PROCEDURE: US Hepatic (Liver). TECHNIQUE: Multiple real-time grayscale images were obtained over the right upper quadrant in various projections. INDICATION: Abdominal pain. COMPARISON: None. FINDINGS: The liver is normal in size, shape and echo texture. There are no focal lesions. Portal vein shows hepatopetal flow. There is no sonographic evidence of intrahepatic biliary ductal dilatation. Common bile duct is prominent at 8 mm, but this may be related to previous cholecystectomy. The pancreas, aorta, and IVC are not well visualized due to overlying bowel gas. There is no ascites. The right kidney measures approximately 14.4 cm in length and appears duplicated. There is no evidence of hydronephrosis or calculus. IMPRESSION: 1. Surgically absent gallbladder. 2. 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 Dictated by: Dictated on workstation # [id number]
--- NOTE | 2022-12-04 20:52 | Discharge Summary ---
Discharge Summary Hospital Course Problems/Dx: (1) UGIB (upper gastrointestinal bleed) Status: Acute (2) ABLA (acute blood loss anemia) Status: Acute (3) Esophageal ulcer with bleeding Status: Acute (4) GERD with stricture Status: Acute (5) Hematemesis Status: Acute Qualifiers: Qualified Codes: K92.0 - Hematemesis Hospital Course Date of Admission: Dec 02, 2022 at 15:20 Admission Diagnosis : Hematemesis Family Physician/Provider: Mohsen Finnegan DO Date of Discharge: 12/04/22 Discharge Diagnosis: Acute blood loss anemia secondary to acute upper GI bleeding due to esophageal ulcers Hospital Course: Gabriela Franco is a 57 year old female who presented with hematemesis. Surgery was consulted and assisted with her care. She had an EGD which revealed esophageal ulcerations and stricture. The stricture was dilated. The ulcers were not actively bleeding. Her hemoglobin dropped but stabilized and did not require transfusion. She was started on PPI and Carafate. She should follow up with Dr. Easton as scheduled. She was discharged home in stable condition. Labs and Pending Lab Test: Laboratory Tests 12/04/22 05:15: White Blood Count 6.0, Red Blood Count 3.93, Hemoglobin 10.9L, Hematocrit 35, Mean Corpuscular Volume 89, Mean Corpuscular Hemoglobin 28, Mean Corpuscular Hemoglobin Concent 31L, Red Cell Distribution Width 16.4H, Platelet Count 173, Mean Platelet Volume 12.5H, Sodium Level 140, Potassium Level 3.1L, Chloride Level 111H, Carbon Dioxide Level 22, Anion Gap 7, Blood Urea Nitrogen 16, Creatinine 0.75, Estimat Glomerular Filtration Rate 93, BUN/Creatinine Ratio 21, Glucose Level 100, Calcium Level 7.9L 12/04/22 11:13: Glucometer 179H Microbiology 12/02/22 Blood Culture - Preliminary, Resulted No growth 12/02/22 Urine Culture - Final, Complete NO GROWTH Home Meds Active Pantoprazole Sodium 40 Mg Tablet.dr 40 Mg PO BID 60 Days Sucralfate 1 Gram Tablet 1 Gm PO ACHS 30 Days Reported Aspirin EC (Aspirin) 81 Mg Tablet.dr 81 Mg PO BID Promethazine Tablet (Promethazine HCl) 25 Mg Tablet 25 Mg PO Q8H PRN Meclizine HCl 25 Mg Tablet 25 Mg PO TID PRN K-Tab ER (Potassium Chloride) 10 Meq Tablet.er 10 Meq PO DAILY Baclofen 10 Mg Tablet 5 Mg PO BID PRN TAKES OF A 10NG TAB Oxycodon-Acetaminophen 7.5-325 (Oxycodone HCl/Acetaminophen) 7.5 Mg-325 Mg Tablet 1 Ea PO Q8H PRN Atorvastatin Calcium 40 Mg Tablet 40 Mg PO HS Paroxetine HCl 40 Mg Tablet 40 Mg PO DAILY Levothyroxine Sodium 75 Mcg Tablet 75 Mcg PO DAILY Doxepin HCl 10 Mg Capsule 10 Mg PO HS Pramipexole Dihydrochloride (Pramipexole Di-HCl) 0.5 Mg Tablet 0.5 Mg PO TID Nitrofurantoin Nolan-Mcr 100 mg (Nitrofurantoin Monohyd/M-Cryst) 100 Mg Capsule 100 Mg PO DAILY Fludrocortisone Acetate 0.1 Mg Tab 0.1 Mg PO DAILY Cyanocobalamin Injection (Cyanocobalamin) 1,000 Mcg/Ml Inj 1,000 Mcg IM MONTHLY Mounjaro (Tirzepatide) 7.5 Mg/0.5 Ml Pen.injctr 7.5 Mg SQ SUN Humalog Kwikpen (Insulin Lispro) 100 Unit/Ml Insuln.pen 20 Units SC BID Alphagan P (Brimonidine Tartrate) 0.15 % Drops 1 Drop OD Q12H Lantus Solostar (Insulin Glargine,Hum.rec.anlog) 100 Unit/Ml (3 Ml) Insuln.pen 52 Unit SQ HS Lantus Solostar (Insulin Glargine,Hum.rec.anlog) 100 Unit/Ml (3 Ml) Insuln.pen 45 Units SC DAILY Fluticasone Propionate 50 Mcg/Actuation [place].susp 2 [place] NSEACH BID PRN Xalatan (Latanoprost) 0.005 % Drops 1 Drop OT HS Ventolin Hfa (Albuterol Sulfate) 90 Mcg Hfa.aer.ad 2 Puff INH Q6H PRN Bevespi Aerosphere Inhaler (Glycopyrrolate/Formoterol Fum) 9 Mcg-4.8 Mcg Hfa.aer.ad 2 Puff INH DAILY Neurontin (Gabapentin) 300 Mg Capsule 300 Mg PO HS Amantadine (Amantadine HCl) 100 Mg Capsule 200 Mg PO BID TAKES 2 (100MG) CAPS Levocetirizine Dihydrochloride 5 Mg Tablet 5 Mg PO HS Montelukast Sodium 10 Mg Tablet 10 Mg PO HS Alprazolam 1 Mg Tablet 1 Mg PO BID PRN Rexulti (Brexpiprazole) 2 Mg Tablet 2 Mg PO HS Cyclobenzaprine HCl 10 Mg Tablet 10 Mg PO HS Carbamazepine 200 Mg Tablet 200 Mg PO BID Assessment/Pt Instructions See instructions Discharge Planning: >30 minutes discharge planning Discharge Instructions Discharge Diet: No Restrictions Activity as Tolerated: Yes Consultations Surgery Discharge Physical Examination Vital Signs Vital Signs Date Time Temp Pulse Resp B/P (MAP) Pulse Ox O2 Delivery O2 Flow Rate FiO2 12/04/22 13:21 36.3 97 18 98/70 97 Room Air 12/03/22 12:15 10.00 General Appearance: No Apparent Distress, WD/WN Respiratory: Lungs Clear, No Respiratory Distress Cardiovascular: Regular Rate, Rhythm, No Murmur Gastrointestinal: Normal Bowel Sounds, Soft Extremity: Normal Inspection, No Pedal Edema Neurologic/Psychiatric: Alert, Normal Mood/Affect Allergies: Coded Allergies: Sulfa (Sulfonamide Antibiotics) (Unverified Allergy, Unknown, 06/24/13) codeine (Unverified Allergy, Unknown, 06/24/13) penicillin V (Verified Allergy, Unknown, Unknown, 12/04/22) trimethoprim (Verified Allergy, Unknown, Unknown, 12/04/22) ondansetron (Verified Adverse Reaction, Intermediate, Vomiting, 08/22/22) Worsens vomiting vancomycin (Unverified Adverse Reaction, Mild, redness, 06/24/13) Discharge Summary Date of Admission Dec 02, 2022 at 15:20 Date of Discharge Dec 04, 2022 at 13:10 Discharge Date: Dec 04, 2022 Discharge Time: 13:10 Admission Diagnosis Upper GI Bleed Consults/Procedures Consulations Surgery Procedures EGD Discharge Diagnosis (1) UGIB (upper gastrointestinal bleed) Status: Acute (2) ABLA (acute blood loss anemia) Status: Acute (3) Esophageal ulcer with bleeding Status: Acute (4) GERD with stricture Status: Acute (5) Hematemesis Status: Acute Qualifiers: Qualified Codes: K92.0 - Hematemesis TEDDY GAMBLE MD Dec 04, 2022 20:52
[2022-12-04] MEDS ORDERED: PANTOPRAZOLE 40 MG TABLET PO SCH (21:00)
[2022-12-05] MEDS ORDERED: POTASSIUM BICARB 20 MEQ effervescent TABLET PO SCH (06:00)
[2022-12-05] MEDS ORDERED: POTASSIUM CHLORIDE 20 MEQ TABLET PO SCH (06:00)
[2022-12-05] MEDS ORDERED: MAGNESIUM 1 GM/100 ML IVPB 100 ML IV SCH (06:00)
[2022-12-05] MEDS ORDERED: POTASSIUM CL 10MEQ/50ML IVPB 50 ML IV SCH (06:00)
== END 2022-12-04 13:10 | disposition home or self-care (01) | DRG 381 ==
LOC: EDUNIT# 11:29 → ER 11:30 → CSD 15:20
PROVIDERS: ADMIT Family Medicine; ATTEND Internal Medicine
PROC: 0DB38ZX Excision of Lower Esophagus, Via Natural or Artificial Opening Endoscopic, Diagnostic (ICD-10-PCS; 2022-12-03)
PROC: 0DB68ZX Excision of Stomach, Via Natural or Artificial Opening Endoscopic, Diagnostic (ICD-10-PCS; 2022-12-03)
PROC: 0D738ZZ Dilation of Lower Esophagus, Via Natural or Artificial Opening Endoscopic (ICD-10-PCS; principal; 2022-12-03 11:30)
DX: K22.11 Ulcer of esophagus with bleeding (principal); D62 Acute posthemorrhagic anemia; R00.0 Tachycardia, unspecified; E11.9 Type 2 diabetes mellitus without complications; N20.0 Calculus of kidney; R91.1 Solitary pulmonary nodule; I10 Essential (primary) hypertension; E78.5 Hyperlipidemia, unspecified; J44.9 Chronic obstructive pulmonary disease, unspecified; F41.9 Anxiety disorder, unspecified; F32.A Depression, unspecified; M54.9 Dorsalgia, unspecified; Z79.01 Long term (current) use of anticoagulants; Z79.899 Other long term (current) drug therapy; Z79.4 Long term (current) use of insulin; G89.29 Other chronic pain; G20 Parkinson's disease; K22.2 Esophageal obstruction; K29.70 Gastritis, unspecified, without bleeding; K44.9 Diaphragmatic hernia without obstruction or gangrene; K21.00 Gastro-esophageal reflux disease with esophagitis, without bleeding
CPT/HCPCS: 36415; 36556; 71045; 74177; 76705; 80048; 80053; 81000; 82271; 82947; 83605; 83690; 85025; 85027; 85610; 85730; 87040; 87088; 93005; 94760

== ENCOUNTER 2022-12-12 16:06 | Emergency (ER) | payer MEDICARE, MEDICAID ==
[~2022-12-12] VITALS: Ht 160 cm; Wt 85.2 kg
[~2022-12-12 16:06] MED LIST changes: +PANT40TA52 PO
[2022-12-12] MEDS ORDERED: PANTOPRAZOLE INJECTION 40 MG VIAL IV ONE (16:45)
[2022-12-12] MEDS ORDERED: PROMETHAZINE INJ 25 MG/ML VIAL IVP ONE (16:45)
[2022-12-12] MEDS ORDERED: fentaNYL INJECTION 100 MCG/2 ML VIAL IVP ONE (16:45)
--- NOTE | 2022-12-12 16:47 | ED Abdominal Pain ---
General Chief Complaint: Abdominal/GI Problems Stated Complaint: WEAK, VOMITING Nursing Triage Note: PT TO RM 7 BY WC WITH CC OF WEAKNESS, UPPER ABD PAIN, NAUSEA AND VOMITING SINCE LAST PM. PT SENT FROM DR. EASTON OFFICE FOR LOW BP. PT STATES WAS SEEN AT DR. EASTON FOR NAUSEA AND VOMITING. Source of Information: Patient Exam Limitations: No Limitations History of Present Illness Date Seen by Provider: Dec 12, 2022 Time Seen by Provider: 16:26 Initial Comments 57-year-old female presents to the ER with complaint of upper abdominal pain, lower abdominal pain, and vomiting starting last night. Patient was admitted to the hospital 1 week ago for blood in her vomit. She had an endoscopy at that time and was found to have a hiatal hernia and moderate to severe gastritis. She states that today she was following up with Dr. Easton, he told her to come to the ER for low blood pressure and abdominal pain. She denies any blood in her vomit at this time. She is also complaining of pain across her shoulders, this is chronic pain. She denies fevers, diarrhea, dysuria, hematuria. Allergies and Home Medications Allergies Coded Allergies: Sulfa (Sulfonamide Antibiotics) (Unverified Allergy, Unknown, 06/24/13) codeine (Unverified Allergy, Unknown, 06/24/13) penicillin V (Verified Allergy, Unknown, Unknown, 12/04/22) trimethoprim (Verified Allergy, Unknown, Unknown, 12/04/22) ondansetron (Verified Adverse Reaction, Intermediate, Vomiting, 08/22/22) Worsens vomiting vancomycin (Unverified Adverse Reaction, Mild, redness, 06/24/13) Patient Home Medication List Home Medication List Reviewed: Yes Albuterol Sulfate (Ventolin Hfa) 90 Mcg Hfa.aer.ad, 2 PUFF INH Q6H PRN for SHORTNESS OF BREATH, (Reported) Entered as Reported by: ARMANDO VIZCARRA on 11/21/221658 Alprazolam (Alprazolam) 1 Mg Tablet, 1 MG PO BID PRN for ANXIETY, (Reported) Entered as Reported by: ARMANDO VIZCARRA on 11/21/221658 Amantadine HCl (Amantadine) 100 Mg Capsule, 200 MG PO BID, (Reported) Entered as Reported by: ARMANDO VIZCARRA on 11/21/221658 Aspirin (Aspirin EC) 81 Mg Tablet.dr, 81 MG PO BID, (Reported) Entered as Reported by: ARMANDO VIZCARRA on 11/21/221658 Atorvastatin Calcium (Atorvastatin Calcium) 40 Mg Tablet, 40 MG PO HS, (Reported) Entered as Reported by: ARMANDO VIZCARRA on 11/21/221658 Baclofen (Baclofen) 10 Mg Tablet, 5 MG PO BID PRN for PAIN-BREAKTHROUGH, (Reported) Entered as Reported by: ARMANDO VIZCARRA on 11/21/221658 Brexpiprazole (Rexulti) 2 Mg Tablet, 2 MG PO HS, (Reported) Entered as Reported by: ARMANDO VIZCARRA on 11/21/221658 Brimonidine Tartrate (Alphagan P) 0.15 % Drops, 1 DROP OD Q12H, (Reported) Entered as Reported by: ARMANDO VIZCARRA on 11/21/221658 Carbamazepine (Carbamazepine) 200 Mg Tablet, 200 MG PO BID, (Reported) Entered as Reported by: MICHAEL MONSON on 06/05/22 105 Cyanocobalamin (Cyanocobalamin Injection) 1,000 Mcg/Ml Inj, 1,000 MCG IM MONTHLY, (Reported) Entered as Reported by: ARMANDO VIZCARRA on 11/21/221658 Cyclobenzaprine HCl (Cyclobenzaprine HCl) 10 Mg Tablet, 10 MG PO HS, (Reported) Entered as Reported by: ARMANDO VIZCARRA on 11/21/221658 Doxepin HCl (Doxepin HCl) 10 Mg Capsule, 10 MG PO HS, (Reported) Entered as Reported by: ARMANDO VIZCARRA on 11/21/221658 Fludrocortisone Acetate (Fludrocortisone Acetate) 0.1 Mg Tab, 0.1 MG PO DAILY, (Reported) Entered as Reported by: ARMANDO VIZCARRA on 11/21/221658 Fluticasone Propionate (Fluticasone Propionate) 50 Mcg/Actuation [place].susp, 2 SPRAY NSEACH BID PRN for CONGESTION, (Reported) Entered as Reported by: ARMANDO VIZCARRA on 11/21/221658 Gabapentin (Neurontin) 300 Mg Capsule, 300 MG PO HS, (Reported) Entered as Reported by: ARMANDO VIZCARRA on 11/21/221658 Glycopyrrolate/Formoterol Fum (Bevespi Aerosphere Inhaler) 9 Mcg-4.8 Mcg Hfa.aer.ad, 2 PUFF INH DAILY, (Reported) Entered as Reported by: ARMANDO VIZCARRA on 11/21/221658 Insulin Glargine,Hum.rec.anlog (Lantus Solostar) 100 Unit/Ml (3 Ml) Insuln.pen, 45 UNITS SC DAILY, (Reported) Entered as Reported by: ARMANDO VIZCARRA on 11/21/221658 Insulin Glargine,Hum.rec.anlog (Lantus Solostar) 100 Unit/Ml (3 Ml) Insuln.pen, 52 UNIT SQ HS, (Reported) Entered as Reported by: ARMANDO VIZCARRA on 11/21/221658 Insulin Lispro (Humalog Kwikpen) 100 Unit/Ml Insuln.pen, 20 UNITS SC BID, (Reported) Entered as Reported by: ARMANDO VIZCARRA on 11/21/221658 Latanoprost (Xalatan) 0.005 % Drops, 1 DROP OT HS, (Reported) Entered as Reported by: ARMANDO VIZCARRA on 11/21/221658 Levocetirizine Dihydrochloride (Levocetirizine Dihydrochloride) 5 Mg Tablet, 5 MG PO HS, (Reported) Entered as Reported by: ARMANDO VIZCARRA on 11/21/221658 Levothyroxine Sodium (Levothyroxine Sodium) 75 Mcg Tablet, 75 MCG PO DAILY, (Reported) Entered as Reported by: ARMANDO VIZCARRA on 11/21/221658 Meclizine HCl (Meclizine HCl) 25 Mg Tablet, 25 MG PO TID PRN for DIZZINESS, (Reported) Entered as Reported by: ARMANDO VIZCARRA on 11/21/221658 Montelukast Sodium (Montelukast Sodium) 10 Mg Tablet, 10 MG PO HS, (Reported) Entered as Reported by: ARMANDO VIZCARRA on 11/21/221658 Nitrofurantoin Macrocrystal (Nitrofurantoin) 100 Mg Capsule, 100 MG PO BID Prescribed by: Cris Barrett on 12/12/222046 Nitrofurantoin Monohyd/M-Cryst (Nitrofurantoin [place]-Mcr 100 mg) 100 Mg Capsule, 100 MG PO DAILY, (Reported) Entered as Reported by: ARMANDO VIZCARRA on 11/21/221658 Oxycodone HCl/Acetaminophen (Oxycodon-Acetaminophen 7.5-325) 7.5 Mg-325 Mg Tablet, 1 EA PO Q8H PRN for PAIN-MODERATE (5-7), (Reported) Entered as Reported by: ARMANDO VIZCARRA on 11/21/221658 Pantoprazole Sodium (Pantoprazole Sodium) 40 Mg Tablet.dr, 40 MG PO BID Prescribed by: TEDDY GAMBLE on 12/04/22 1000 Paroxetine HCl (Paroxetine HCl) 40 Mg Tablet, 40 MG PO DAILY, (Reported) Entered as Reported by: ARMANDO VIZCARRA on 11/21/221658 Potassium Chloride (K-Tab ER) 10 Meq Tablet.er, 10 MEQ PO DAILY, (Reported) Entered as Reported by: ARMANDO VIZCARRA on 11/21/221658 Pramipexole Di-HCl (Pramipexole Dihydrochloride) 0.5 Mg Tablet, 0.5 MG PO TID, (Reported) Entered as Reported by: ARMANDO VIZCARRA on 11/21/221658 Promethazine HCl (Promethazine Tablet) 25 Mg Tablet, 25 MG PO Q8H PRN for NA USEA/VOMITING-2ND LINE, (Reported) Entered as Reported by: ARMANDO VIZCARRA on 11/21/221658 Sucralfate (Sucralfate) 1 Gram Tablet, 1 GM PO ACHS Prescribed by: TEDDY GAMBLE on 12/04/22 1000 Tirzepatide (Mounjaro) 7.5 Mg/0.5 Ml Pen.injctr, 7.5 MG SQ SUN, (Reported) Entered as Reported by: ARMANDO VIZCARRA on 11/21/221658 Review of Systems Review of Systems Constitutional: see HPI Past Muvuwlm-Mfrafk-Fpgeqw Hx Patient Social History Tobacco Use?: No Substance use?: No Alcohol Use?: No Pt feels they are or have been: No Immunizations Up To Date First/Initial COVID19 Vaccinat: X4 Second COVID19 Vaccination Reji: X4 Third COVID19 Vaccination Date: X4 Seasonal Allergies Seasonal Allergies: No Past Medical History Surgery/Hospitalization HX: [facility] 2, [facility] Surgeries: Yes (BACK SURGERY, LAPAROSCOPY, UPPER AND LOWER SCOPES) Abdominal, Section, Hysterectomy, Oophorectomy, Orthopedic, Thyroidectomy Respiratory: Yes Chronic Bronchitis, COPD Currently Using CPAP: No Currently Using BIPAP: No Cardiac: Yes 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, Hypertension Neurological: Yes (TREMORS) 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 UTI-Chronic Gastrointestinal: Yes (h pylori hx) Gastroesophageal Reflux Musculoskeletal: Yes Degenerate Disk Disease, Arthritis, Chronic Back Pain Endocrine: Yes (GRAVE'S DISEASE--S/P THYROIDECTOMY) Diabetes, Insulin dep, Hypothyroidsim HEENT: No Cancer: No Psychosocial: Yes Anxiety, Depression Integumentary: No Blood Disorders: No Adverse Reaction/Blood Tranf: No Family Medical History No Pertinent Family Hx Physical Exam Vital Signs Vital Signs - First Documented 12/12/22 12/12/22 16:11 20:53 Temp 36.5 Pulse 121 Resp 18 B/P (MAP) 108/58 (75) Pulse Ox 98 O2 Delivery Room Air Capillary Refill : Less Than 3 Seconds Height/Weight/BMI Height: 5'3.00" Weight: 203lbs. oz. 92.782602bs; 33.00 BMI Method:Stated General Appearance: WD/WN, no apparent distress Neck: supple, normal inspection Respiratory: lungs clear, normal breath sounds, no respiratory distress, no accessory muscle use Cardiovascular: regular rate, rhythm Gastrointestinal: normal bowel sounds, soft, tenderness (Mild tenderness mid upper and mid lower) Extremities: normal range of motion, normal inspection Neurologic/Psychiatric: alert, normal mood/affect Skin: normal color, warm/dry Focused Exam Lactate Level 12/12/22 17:31: Lactic Acid Level 1.43 Lactic Acid Level Laboratory Tests Test 12/12/22 17:31 Lactic Acid Level 1.43 MMOL/L (0.50-2.00) Progress/Results/Core Measures Results/Orders Lab Results Laboratory Tests Test 12/12/22 16:15 12/12/22 17:31 12/12/22 19:01 12/12/22 20:12 Range/Units White Blood Count 9.1 4.3-11.0 10^3/uL Red Blood Count 5.22 H 3.80-5.11 10^6/uL Hemoglobin 14.9 11.5-16.0 g/dL Hematocrit 46 35-52 % Mean Corpuscular Volume 88 80-99 fL Mean Corpuscular Hemoglobin 29 25-34 pg Mean Corpuscular Hemoglobin Concent 33 32-36 g/dL Red Cell Distribution Width 16.6 H 10.0-14.5 % Platelet Count 325 130-400 10^3/uL Mean Platelet Volume 12.8 H 9.0-12.2 fL Immature Granulocyte % (Auto) 1 % Neutrophils (%) (Auto) 67 42-75 % Lymphocytes (%) (Auto) 21 12-44 % Monocytes (%) (Auto) 10 0-12 % Eosinophils (%) (Auto) 0 0-10 % Basophils (%) (Auto) 1 0-10 % Neutrophils # (Auto) 6.1 1.8-7.8 10^3/uL Lymphocytes # (Auto) 1.9 1.0-4.0 10^3/uL Monocytes # (Auto) 0.9 0.0-1.0 10^3/uL Eosinophils # (Auto) 0.0 0.0-0.3 10^3/uL Basophils # (Auto) 0.1 0.0-0.1 10^3/uL Immature Granulocyte # (Auto) 0.1 0.0-0.1 10^3/uL Sodium Level 137 135-145 MMOL/L Potassium Level 3.7 3.6-5.0 MMOL/L Chloride Level 102 98-107 MMOL/L Carbon Dioxide Level 19 L 21-32 MMOL/L Anion Gap 16 H 5-14 MMOL/L Blood Urea Nitrogen 10 7-18 MG/DL Creatinine 1.08 0.60-1.30 MG/DL Estimat Glomerular Filtration Rate 60 BUN/Creatinine Ratio 9 Glucose Level 218 H 70-105 MG/DL Calcium Level 9.4 8.5-10.1 MG/DL Corrected Calcium 9.1 8.5-10.1 MG/DL Total Bilirubin 0.4 0.1-1.0 MG/DL Aspartate Amino Transf (AST/SGOT) 13 5-34 U/L Alanine Aminotransferase (ALT/SGPT) 11 0-55 U/L Alkaline Phosphatase 150 H 40-136 U/L Total Protein 7.8 6.4-8.2 GM/DL Albumin 4.4 3.2-4.5 GM/DL Lipase 20 8-78 U/L Lactic Acid Level 1.43 0.50-2.00 MMOL/L Venous Blood pH 7.32 7.31-7.41 Venous Blood Partial Pressure CO2 8 L 40-52 MMHG Venous Blood HCO3 4 L 22-28 MMOL/L Urine Color YELLOW Urine Clarity CLEAR Urine pH 6.0 5-9 Urine Specific [place] <=1.005 1.016-1.022 Urine Protein 2+ H NEGATIVE Urine Glucose (UA) 2+ H NEGATIVE Urine Ketones 1+ H NEGATIVE Urine Nitrite NEGATIVE NEGATIVE Urine Bilirubin NEGATIVE NEGATIVE Urine Urobilinogen 0.2 < = 1.0 MG/DL Urine Leukocyte Esterase NEGATIVE NEGATIVE Urine RBC (Auto) TRACE H NEGATIVE Urine RBC 2-5 H /HPF Urine WBC 5-10 H /HPF Urine Squamous Epithelial Cells 25-50 H /HPF Urine Crystals PRESENT H /LPF Urine Calcium Oxalate Crystals RARE H /LPF Urine Amorphous Sediment MOD STACEY URATES H /LPF Urine Bacteria FEW H /HPF Urine Casts NONE /LPF Urine Mucus NEGATIVE /LPF Urine Culture Indicated NO My Orders Orders - CRIS SUNSHINE APRN Comprehensive Metabolic Panel (12/12/22 16:42) Lipase (12/12/22 16:42) Ua Culture If Indicated (12/12/22 16:42) Ed Iv/Invasive Line Start (12/12/22 16:42) Cbc With Automated Diff (12/12/22 16:42) Blood Culture (12/12/22 16:42) Vital Signs Adult Sepsis Patie Q15M (12/12/22 16:42) Remove Rings In Anticipation O (12/12/22 16:42) Lactic Acid Analyzer (12/12/22 16:42) Ns Iv 1000 Ml (Ns Iv 1000 Ml) (12/12/22 16:45) Promethazine Injection (Promethazine I (12/12/22 16:45) Pantoprazole Injection (Pantoprazole Inj (12/12/22 16:45) Fentanyl Injection (Fentanyl Injection (12/12/22 16:45) Ct Abdomen/Pelvis W (12/12/22 17:19) Iohexol Injection (Omnipaque 350 Mg/Ml 1 (12/12/22 17:30) Received Contrast (Hold Metformin- Contr (12/12/22 17:30) Ns (Ivpb) 100 Ml (Sodium Chloride 0.9% 1 (12/12/22 17:30) Prochlorperazine Injection (Prochlorpera (12/12/22 18:30) Venous Blood Gas (12/12/22 18:36) Orphenadrine Inj (Ed Only) (Orphenadrine (12/12/22 19:45) Nitrofurantoin Monohydrate Cap (Nitrofur (12/12/22 20:45) Medications Given in ED Vital Signs/I&O 12/12/22 12/12/22 16:11 20:53 Temp 36.5 Pulse 121 104 Resp 18 20 B/P (MAP) 108/58 (75) 126/78 Pulse Ox 98 92 O2 Delivery Room Air Room Air 12/13/22 00:00 Intake Total 2000 ml Balance 2000 ml Blood Pressure Mean: 75 Progress Progress Note : Progress Note Patient seen and evaluated, resting comfortably in bed, no acute distress. Based on exam and symptoms, septic work-up initiated including CBC, CMP, lipase, lactic acid, blood cultures x2, UA. 2 L IV fluids ordered. Pain and nausea medication ordered. CT ordered due to history of emphysematous cystitis and complaint of lower abdominal pain. Chart review completed. [address] reviewed. CBC shows slightly elevated RBC 5.22. CMP shows a slightly decreased CO2 19, slightly elevated anion gap 16, glucose elevated to 18. Lactic acid normal. Blood gas shows normal pH. Urinalysis shows 2+ protein, 2+ glucose, 1+ ketones, trace RBCs, 5-10 WBCs, 25-50 squamous epithelial cells, few bacteria. We will go ahead and treat for urinary tract infection due to lower abdominal pain, and the specimen is likely contaminated. CT abdomen pelvis shows small bilateral pleural effusions, no other acute abnormality. Patient's pain, nausea, heart rate and blood pressure improved after medications and IV fluids. I do not believe that patient requires admission at this time, labs do not indicate sepsis. Patient likely dehydrated resulting in tachycardia and hypotension. Results discussed with patient. Discharge instructions and return precautions provided. Diagnostic Imaging Diagonstic Imaging: CT Plain Films/CT/US/NM/MRI: abdomen, pelvis Comments [facility] [place], [place] NAME: RISA AVELARMORTEZA Correa [facility] REC#: [id number] PT STATUS: REG ER : 1965 PHYSICIAN: CRIS SUNSHINE APRN ADMIT DATE: 12/12/22/ER Signed Date of Exam:12/12/22 CT ABDOMEN/PELVIS W PROCEDURE: CT abdomen and pelvis with contrast. TECHNIQUE: Multiple contiguous axial images were obtained through the abdomen and pelvis after administration of intravenous contrast. Auto Exposure Controls were utilized during the CT exam to meet ALARA standards for radiation dose reduction. All CT scans use one or more of the following dose optimizing techniques: automated exposure control, MA and/or KvP adjustment based on patient size and exam type or iterative reconstruction. INDICATION: Weakness as well as upper abdominal pain with nausea and vomiting. Comparison is made with prior CT from 12/02/2022. Imaging through the lung bases does show small bilateral pleural effusions. Liver is unremarkable. Gallbladder surgically absent. There is no biliary duct dilatation. The pancreas and spleen are unremarkable. No adrenal mass is detected. There is a nonobstructing calculus in the left kidney. No hydronephrosis is identified. Aorta is calcified but nonaneurysmal. Bowel loops are normal in caliber. There is no evidence of obstruction. No free fluid or fluid collection is identified. Bladder is unremarkable. Uterus appears to be surgically absent. Postop changes posterior instrumented fusion lower lumbar spine is noted. IMPRESSION: 1. Small bilateral pleural effusions. 2. No acute feature in the abdomen or pelvis is identified. Dictated by: Dictated on workstation # [id number] Dict: 12/12/22 1757 Trans: 12/12/221927 [facility] [id number] Interpreted by: THANIA HOLLIDAY MD Electronically signed by: THANIA HOLLIDAY MD 12/12/221927 Departure Impression Primary Impression: Abdominal pain Additional Impression: UTI (urinary tract infection) Disposition: 01 HOME, SELF-CARE Condition: Stable Departure-Patient Inst. Decision time for Depature: 20:46 Referrals: MATTHEW CROUCH DO (PCP/Family) Primary Care Physician Patient Instructions: Urinary Tract Infection, Adult (DC) Add. Discharge Instructions: Continue taking your Protonix. Complete full course of antibiotic as directed. Follow-up with Dr. Easton. Return for severe abdominal pain, recurrent vomiting, or any other new, concerning, or worsening symptoms. All discharge instructions reviewed with patient and/or family. Voiced understanding. Scripts Nitrofurantoin Macrocrystal (Nitrofurantoin) 100 Mg Capsule 100 MG PO BID for 5 Days, #9 CAP 0 Refills Prov: CRIS SUNSHINE APRN 12/12/22 CRIS SUNSHINE APRN Dec 12, 2022 16:47
[2022-12-12 17:01] LABS: BASOPHILS # (AUTO) 0.1 10^3/uL (0.0-0.1); BASOPHILS % (AUTO) 1 % (0-10); EOSINOPHILS % (AUTO) 0 % (0-10); HEMATOCRIT 46 % (35-52); HEMOGLOBIN 14.9 g/dL (11.5-16.0); LYMPHOCYTES # (AUTO) 1.9 10^3/uL (1.0-4.0); LYMPHOCYTES % (AUTO) 21 % (12-44); MEAN CORPUSCULAR HEMOGLOBIN 29 pg (25-34); MEAN CORPUSCULAR HGB CONC 33 g/dL (32-36); MEAN CORPUSCULAR VOLUME 88 fL (80-99); MEAN PLATELET VOLUME 12.8 fL (9.0-12.2); MONOCYTES # (AUTO) 0.9 10^3/uL (0.0-1.0); MONOCYTES % (AUTO) 10 % (0-12); NEUTROPHILS # (AUTO) 6.1 10^3/uL (1.8-7.8); NEUTROPHILS % (AUTO) 67 % (42-75); PLATELET COUNT 325 10^3/uL (130-400); WHITE BLOOD COUNT 9.1 10^3/uL (4.3-11.0)
[2022-12-12 17:16] LABS: ALBUMIN 4.4 GM/DL (3.2-4.5); BILIRUBIN,TOTAL 0.4 MG/DL (0.1-1.0); CALCIUM 9.4 MG/DL (8.5-10.1); CREATININE SERUM 1.08 MG/DL (0.60-1.30); POTASSIUM 3.7 MMOL/L (3.6-5.0); TOTAL PROTEIN 7.8 GM/DL (6.4-8.2)
[2022-12-12] MEDS: NS IV 1000 ML 1,000 ML IV SCH ×2 (17:21→18:29)
[2022-12-12] MEDS ORDERED: HOLD METFORMIN - RECEIVED CONTRAST 20 ML VIAL IV SCH (17:30)
[2022-12-12] MEDS ORDERED: NS 100 ML (IVPB) BAG IV ONE (17:30)
[2022-12-12] MEDS ORDERED: IOHEXOL 350 MG/ML 100 ML (OMNIPAQUE 350) VIAL IV ONE (17:30)
--- NOTE | 2022-12-12 18:06 | Diagnostic Imaging Report ---
PROCEDURE: CT abdomen and pelvis with contrast. TECHNIQUE: Multiple contiguous axial images were obtained through the abdomen and pelvis after administration of intravenous contrast. Auto Exposure Controls were utilized during the CT exam to meet ALARA standards for radiation dose reduction. All CT scans use one or more of the following dose optimizing techniques: automated exposure control, MA and/or KvP adjustment based on patient size and exam type or iterative reconstruction. INDICATION: Weakness as well as upper abdominal pain with nausea and vomiting. Comparison is made with prior CT from 12/02/2022. Imaging through the lung bases does show small bilateral pleural effusions. Liver is unremarkable. Gallbladder surgically absent. There is no biliary duct dilatation. The pancreas and spleen are unremarkable. No adrenal mass is detected. There is a nonobstructing calculus in the left kidney. No hydronephrosis is identified. Aorta is calcified but nonaneurysmal. Bowel loops are normal in caliber. There is no evidence of obstruction. No free fluid or fluid collection is identified. Bladder is unremarkable. Uterus appears to be surgically absent. Postop changes posterior instrumented fusion lower lumbar spine is noted. IMPRESSION: 1. Small bilateral pleural effusions. 2. No acute feature in the abdomen or pelvis is identified. Dictated by: Dictated on workstation # [id number]
[2022-12-12] MEDS ORDERED: PROCHLORPERAZINE INJ 10 MG/2ML VIAL IV ONE (18:30)
[2022-12-12] MEDS ORDERED: ORPHENADRINE 60 MG/2 ML AMP (ED ONLY) IV ONE (19:45)
[2022-12-12 20:31] LABS: BACTERIA,URINE FEW /HPF; BILIRUBIN,URINE NEGATIVE (NEGATIVE); CALCIUM OXALATE CRYSTALS,UR RARE /LPF; CLARITY,URINE CLEAR; COLOR,URINE YELLOW; GLUCOSE, URINE (UA) 2+ (NEGATIVE); KETONES,URINE 1+ (NEGATIVE); LEUKOCYTE ESTERASE ,URINE NEGATIVE (NEGATIVE); NITRITE,URINE NEGATIVE (NEGATIVE); PROTEIN,URINE 2+ (NEGATIVE)
[2022-12-12 20:32] LABS: AMORPHOUS SEDIMENT,UR MOD AMOR URATES /LPF; SQUAMOUS EPITHELIAL CELL,UR 25-50 /HPF
[2022-12-12] MEDS ORDERED: NITROFURANTOIN Monohydrate/Macro 100 MG CAPSULE PO ONE (20:45)
[2022-12-12] MEDS ORDERED: NITR100C PO (20:47)
[2022-12-12 20:53] VITALS: BP 126/78
== END 2022-12-12 20:59 | disposition home or self-care (01) ==
LOC: EDUNIT# 16:06 → ER 16:06
DX: N39.0 Urinary tract infection, site not specified (principal); J90 Pleural effusion, not elsewhere classified; R11.2 Nausea with vomiting, unspecified; E11.9 Type 2 diabetes mellitus without complications; Z79.4 Long term (current) use of insulin; Z87.19 Personal history of other diseases of the digestive system; Z88.0 Allergy status to penicillin; Z88.2 Allergy status to sulfonamides; Z88.1 Allergy status to other antibiotic agents
CPT/HCPCS: 36415; 74177; 80053; 81000; 82805; 83605; 83690; 85025; 87040

== ENCOUNTER 2023-01-11 09:55 | Day surgery (SDC) | payer MEDICARE, MEDICAID ==
[~2023-01-11] VITALS: Ht 160 cm; Wt 84.1 kg
[2023-01-11] VITALS (7 sets, daily range): BP systolic 121–154; BP diastolic 70–101
[~2023-01-11 09:55] MED LIST changes: -MECL-149 PO; +MECL-291 PO; +NITR100C PO
[2023-01-11] MEDS ORDERED: LIDOCAINE/EPI 1%-1:200,000 (XYLOCAINE) 30 ML VIAL ONE (09:57)
[2023-01-11] MEDS ORDERED: 0.9% SODIUM CHLORIDE PF INJ 20 ML VIAL ONE (09:57)
[2023-01-11] MEDS ORDERED: HEParin (CENTRAL IV FLUSH) 500 UNIT/5 ML SYR ONE (09:57)
--- NOTE | 2023-01-11 10:15 | Progress Note-Pre Operative ---
Pre-Operative Progress Note Date H&P Reviewed: Jan 11, 2023 Time H&P Reviewed: 10:15 History & Physical: H&P Reviewed, Patient Examed, No changes noted Pre-Operative Diagnosis: Poor venous access, Reflux, Hx esophageal stricture HECTOR OMALLEY APRN Jan 11, 2023 10:15
--- NOTE | 2023-01-11 10:18 | Discharge Inst-Surgical ---
D/C Lap Instructions-KIDO Reconcile Patient Problems Problems Reviewed?: Yes New, Converted, or Re-Newed RX: Other Follow Up Appt in 2 weeks Activity as tolerated No driving for 24 hours No driving while on pain medications High Fiber Diet 25g or more per day Avoid Alcohol, Caffeine, Spicy [place] and Acid foods. Drink 64 fluid oz or more of fluids per day. Symptoms to Report: Fever over 101 degree F, Nausea/Vomiting If any problems/questions: Contact your physician or go to Emergency Room HECTOR OMALLEY APRN Jan 11, 2023 10:18
[2023-01-11] MEDS ORDERED: HEParin (CENTRAL IV FLUSH) 500 UNIT/5 ML SYR IV ONE (10:24)
[2023-01-11] MEDS ORDERED: LIDOCAINE/EPI 1%-1:200,000 (XYLOCAINE) 30 ML VIAL INJ ONE (10:24)
[2023-01-11] MEDS ORDERED: MIDAZOLAM INJ 2 MG/2 ML VIAL ONE (10:25)
[2023-01-11] MEDS ORDERED: 0.9% SODIUM CHLORIDE PF INJ 20 ML VIAL IV ONE (10:25)
[2023-01-11] MEDS ORDERED: ACETAMINOPHEN 325 MG TABLET PO PRN (10:30)
[2023-01-11] MEDS ORDERED: ONDANSETRON INJECTION 4 MG/2 ML (SDV) IVP PRN (10:30)
[2023-01-11] MEDS ORDERED: oxyCODONE/ACETAMINOPHEN 5/325MG TABLET PO PRN (10:30)
[2023-01-11] MEDS ORDERED: CLINDAMYCIN 600 MG/50 ML IVPB 50 ML IV ONE (10:30)
[2023-01-11] MEDS ORDERED: morphine INJ 10 MG/ML 1ML (SYR OR VIAL) IVP PRN (10:30)
[2023-01-11] MEDS ORDERED: LACTATED RINGERS 1,000 ML 1,000 ML IV PRN (10:30)
--- NOTE | 2023-01-11 11:52 | Progress Note-Post Operative ---
Post-Operative Progess Note Surgeon (s)/Radiographer (s) Surgeon Dr. Fortino Easton M.D. Radiographer: Phoenix Omalley APRN Pre-Operative Diagnosis Poor venous access, Reflux, Hx esophageal stricture Post-Operative Diagnosis Poor venous access, reflux esophagitis [place] grade C, large hiatal hernia (3cm), distal esophageal stricture, mild gastritis Procedure & Operative Findings Date of Procedure 01/11/23 Procedure Performed/Findings Placement of left groshong port, EGD with biopsy and balloon dilation Anesthesia Type MAC Estimated Blood Loss Estimated blood loss (mL): Minimal Specimens/Packing Specimens Removed 1) Antrum 2) GE junction [place]EN[place] OMALLEY STEEL CONSTRUCTION WORKER Jan 11, 2023 11:52
--- NOTE | 2023-01-11 12:13 | Anesthesia-General Post-Op ---
MAC Patient Condition Mental Status/LOC: Same as Preop Cardiovascular: Satisfactory Nausea/Vomiting: Absent Respiratory: Satisfactory Pain: Controlled Complications: Absent Post Op Complications Complications None Follow Up Care/Instructions Patient Instructions None needed. Anesthesiology Discharge Order Discharge Order Patient is doing well, no complaints, stable vital signs, no apparent adverse anesthesia problems. No complications reported per nursing. ROSALINA RIBEIRO CRNA Jan 11, 2023 12:13
--- NOTE | 2023-01-11 13:06 | Diagnostic Imaging Report ---
INDICATION: Port placement COMPARISON: 12/02/2022 TECHNIQUE: Single radiograph of the chest dated 01/11/2023 FINDINGS: Interval placement of a Port-A-Cath with the hub overlying the left chest with the distal tip terminating overlying the expected location of the cavoatrial junction. No pneumothorax. The cardiac silhouette is stable. No significant pulmonary vascular congestion. Low lung volumes with mild perihilar opacities. No significant pleural effusion. No pneumothorax. No acute osseous abnormality. IMPRESSION: Placement of a left-sided Port-A-Cath with the distal tip overlying the cavoatrial junction without pneumothorax. Low lung volumes with perihilar atelectasis and/or pneumonitis. Dictated by: Dictated on workstation # [id number]
--- NOTE | 2023-01-11 14:03 | Diagnostic Imaging Report ---
Indication: Port-A-Cath placement. Fluoroscopic guidance. Comparison: None Total fluoroscopy time: 11 seconds Total number fluoroscopic images saved: 1 Findings: Fluoroscopic guidance was provided intraoperatively during Port-A-Cath placement. Image provided shows left-sided approach with central tip in the right atrium. Evaluation for pneumothorax is suboptimal given fluoroscopic modality. Please note, interpreting radiologist was not present during the procedure. IMPRESSION:. Fluoroscopic guidance provided during Port-A-Cath placement. Dictated by: Dictated on workstation # [id number]
--- NOTE | 2023-01-11 20:37 | OPERATIVE REPORT ---
DATE OF SERVICE: 01/11/2023 ATTENDING PRIMARY CARE PHYSICIAN: Dr. Mohsen Finnegan. PREOPERATIVE DIAGNOSES: Dysphagia, gastroesophageal reflux disease, poor peripheral venous Circulation. POSTOPERATIVE DIAGNOSES: Reflux esophagitis, Clarke grade C with a distal esophageal stricture, moderate size hiatal hernia, 3 cm in size, mild gastritis, no distal obstructions. PROCEDURE: Placement left subclavian Groshong implantable catheter under fluoroscopy. EGD with biopsy and balloon dilatation. SURGEON: Claudia Easton MD DIRECTOR CONSUMER AFFAIRS: [place] Irene APRN ANESTHESIA: Monitored anesthesia care with local. ESTIMATED BLOOD LOSS: Minimal. FINDINGS: Reflux esophagitis, Clarke grade C with a distal esophageal stricture, moderate size hiatal hernia, 3 cm in size, mild gastritis, no distal obstructions. DISPOSITION: The patient tolerated the procedure well. INDICATIONS: The patient is a 57-year-old female who is known to us. She has had a longstanding history of gastroesophageal reflux disease; however, this did proceed 2 episodes of dysphagia and on 12/03/2022, she underwent an EGD as well as biopsies and found to have a distal esophageal stricture and a moderate size hiatal hernia, 3 cm in size and underwent a balloon dilatation of the distal esophageal stricture to 18 mm. The patient was recently started on Reglan and she states that this has helped with her symptoms. However, she has had reoccurrence of dysphagia. The patient also has very poor peripheral venous circulation and has a number of medical problems requiring multiple IV sticks and IV therapies and will require a central venous catheter. DESCRIPTION OF PROCEDURE: The patient was brought to the operating room, placed on the operating room table supine. After adequate IV pain and sedative medications and monitored anesthesia care, the chest and neck were prepped and draped in standard surgical fashion. A 0.5% Marcaine with epinephrine was then used to anesthetize the overlying skin in the left subclavian region. The left subclavian vein was then cannulated with drawing of venous blood. The guidewire was then inserted under fluoroscopy. The cannulating needle removed and a skin incision made using a #15 blade. The dilator and sheath were then placed over the guidewire. The dilator and guidewire were then removed and the Groshong catheter placed through the sheath until the catheter tip was at the superior vena caval -- right atrial junction. The sheath was then removed. The catheter cut down to size and a port placed onto the catheter. The chest reservoir was then created by extending the skin incision laterally with a #15 blade. A plane was then created between the subcutaneous fat and the anterior pectoralis fascia using blunt dissection as well as electrocautery. Good hemostasis was observed. The port was placed into the reservoir and sutured to the anterior pectoralis fascia using interrupted 3-0 Vicryl sutures. The subcutaneous tissue was then reapproximated using 3-0 Vicryl interrupted sutures and the skin was closed using 4-0 Monocryl running subcuticular sutures. Wound was then cleaned and covered with Dermabond. The port was accessed with a noncoring Duckworth needle and venous blood drawn and heparinized saline pushed in without any resistance. The mouthpiece was applied and the endoscope was placed in the mouth, visualizing the pharynx and hypopharyngeal region. Vocal cords, epiglottis and vallecula identified and appeared to be normal. The endoscope was then gently intubated and the esophageal opening and esophagus insufflated. The endoscope was then advanced through the valves of Hawk through the first, second, third portions of esophagus. At the level of the GE junction, reflux esophagitis, Clarke grade C identified with a distal esophageal stricture. A biopsy was taken of the GE junction with forceps with visualization of good hemostasis. The endoscope was then advanced in the stomach and endoscope retroflexed visualizing a moderate size hiatal hernia approximately 3 cm in size. There was a moderate severity gastritis. No formal ulcerations, polyps or any neoplasms. A biopsy was taken of the antrum to rule out H. pylori with visualization of good hemostasis. The endoscope was then advanced through the pylorus and the first and second portion of the duodenum, which appeared normal with no distal obstructions. The balloon was then placed in the stomach and pulled back to the area of the stricture. We then proceeded with graded dilatation from 2, 4, then eventually 6 atmospheres of pressure with 60 seconds in between until we reached 6 atmospheres of pressure or 20 mm in luminal diameter with moderate resistance and left this in place for approximately 120 seconds. The balloon was desufflated and removed with visualization of good hemostasis as well as no mucosal tears. The endoscope was then slowly withdrawn while taking a second look and suctioning of residual air with no additional findings. The patient tolerated the procedure well. We will recommend the necessary lifestyle and dietary accommodation, which would include small and more frequent meals, avoidance of eating at night as well as head elevation while lying supine. She also needs to avoid caffeinated beverages, spicy, greasy and acidic foods and continue to take her PPI acid drainman as well as the Reglan p.r.n. The [employer] port may be accessed and used at any time. Job ID: [id number] DocumentID: [id number] Dictated Date: 01/11/2023 12:12:29 Senior Communications Engineer Date: 01/11/2023 20:36:00 Dictated By: CLAUIDA EASTON MD
== END 2023-01-11 13:05 | disposition home or self-care (01) ==
LOC: SDC 09:55
PROVIDERS: ATTEND Surgery
DX: K21.00 Gastro-esophageal reflux disease with esophagitis, without bleeding (principal); K22.2 Esophageal obstruction; K44.9 Diaphragmatic hernia without obstruction or gangrene; K29.70 Gastritis, unspecified, without bleeding; E11.43 Type 2 diabetes mellitus with diabetic autonomic (poly)neuropathy; K31.84 Gastroparesis; I87.8 Other specified disorders of veins; Z79.4 Long term (current) use of insulin
CPT/HCPCS: 71045; 76000; 82947; 87081; 88305

== ENCOUNTER 2023-02-18 10:01 | Emergency (ER) | payer MEDICARE, MEDICAID ==
[~2023-02-18] VITALS: Ht 160 cm; Wt 86.2 kg
[2023-02-18] MEDS ORDERED: HEParin (CENTRAL IV FLUSH) 500 UNIT/5 ML SYR IV ONE (10:45)
--- NOTE | 2023-02-18 11:03 | ED General ---
General Chief Complaint: General Problems/Pain Stated Complaint: PORT FLUSH Nursing Triage Note: PATIENT REPORTS TO ED FOR PORT FLUSH. PER PATIENT SHE NEEDS TO GET IT FLUSHED MONTHLY. LAST TIME IT WAS FLUSHED WAS 01/18/2023. PATIENT AMB. TO [facility] WITHOUT DIFFICULTY. Source of Information: Patient Exam Limitations: No Limitations History of Present Illness Date Seen by Provider: Feb 18, 2023 Time Seen by Provider: 10:04 Initial Comments 57-year-old female presenting for a flush to her port. She gets a heparin flush every month, and she did not want to be late for it. The surgical center is closed today, so she presented to the ER. She has no complaints otherwise. Allergies and Home Medications Allergies Coded Allergies: Sulfa (Sulfonamide Antibiotics) (Unverified Allergy, Unknown, 06/24/13) codeine (Unverified Allergy, Unknown, 06/24/13) latex (Verified Allergy, Unknown, Rash, 01/04/23) penicillin V (Verified Allergy, Unknown, Unknown, 12/04/22) trimethoprim (Verified Allergy, Unknown, Unknown, 12/04/22) ondansetron (Verified Adverse Reaction, Intermediate, Vomiting, 08/22/22) Worsens vomiting vancomycin (Unverified Adverse Reaction, Mild, redness, 06/24/13) Patient Home Medication List Home Medication List Reviewed: Yes Albuterol Sulfate (Ventolin Hfa) 90 Mcg Hfa.aer.ad, 2 PUFF INH Q6H PRN for SHORTNESS OF BREATH, (Reported) Entered as Reported by: ARMANDO VIZCARRA on 11/21/221658 Alprazolam (Alprazolam) 1 Mg Tablet, 1 MG PO BID PRN for ANXIETY, (Reported) Entered as Reported by: ARMANDO VIZCARRA on 11/21/221658 Amantadine HCl (Amantadine) 100 Mg Capsule, 200 MG PO BID, (Reported) Entered as Reported by: ARMANDO VIZCARRA on 11/21/221658 Atorvastatin Calcium (Atorvastatin Calcium) 40 Mg Tablet, 40 MG PO HS, (Reported) Entered as Reported by: ARMANDO VIZCARRA on 11/21/221658 Baclofen (Baclofen) 10 Mg Tablet, 5 MG PO BID PRN for PAIN-BREAKTHROUGH, (Reported) Entered as Reported by: ARMANDO VIZCARRA on 11/21/221658 Brexpiprazole (Rexulti) 2 Mg Tablet, 2 MG PO HS, (Reported) Entered as Reported by: ARMANDO VIZCARRA 11/21/221658 Brimonidine Tartrate (Alphagan P) 0.15 % Drops, 1 DROP OD Q12H, (Reported) Entered as Reported by: ARMANDO VIZCARRA 11/21/221658 Cyanocobalamin (Cyanocobalamin Injection) 1,000 Mcg/Ml Inj, 1,000 MCG IM MONTHLY, (Reported) Entered as Reported by: ARMANDO VIZCARRA on 11/21/221658 Doxepin HCl (Doxepin HCl) 10 Mg Capsule, 10 MG PO HS, (Reported) Entered as Reported by: ARMANDO VIZCARRA 11/21/221658 Fluticasone Propionate (Fluticasone Propionate) 50 Mcg/Actuation [place].susp, 2 SPRAY NSEACH BID PRN for CONGESTION, (Reported) Entered as Reported by: ARMANDO VIZCARRA 11/21/221658 Gabapentin (Neurontin) 300 Mg Capsule, 300 MG PO HS, (Reported) Entered as Reported by: ARMANDO VIZCARRA 11/21/221658 Glycopyrrolate/Formoterol Fum (Bevespi Aerosphere Inhaler) 9 Mcg-4.8 Mcg Hfa.aer.ad, 2 PUFF INH DAILY, (Reported) Entered as Reported by: ARMANDO VIZCARRA 11/21/221658 Insulin Glargine,Hum.rec.anlog (Lantus Solostar) 100 Unit/Ml (3 Ml) Insuln.pen, 45 UNITS SC DAILY, (Reported) Entered as Reported by: ARMANDO VIZCARRA on 11/21/221658 Insulin Glargine,Hum.rec.anlog (Lantus Solostar) 100 Unit/Ml (3 Ml) Insuln.pen, 52 UNIT SQ HS, (Reported) Entered as Reported by: ARMANDO VIZCARRA on 11/21/221658 Insulin Lispro (Humalog Kwikpen) 100 Unit/Ml Insuln.pen, 20 UNITS SC BID, (Reported) Entered as Reported by: ARMANDO VIZCARRA 11/21/221658 Latanoprost (Xalatan) 0.005 % Drops, 1 DROP OT HS, (Reported) Entered as Reported by: ARMANDO VIZCARRA on 11/21/221658 Levocetirizine Dihydrochloride (Levocetirizine Dihydrochloride) 5 Mg Tablet, 5 MG PO HS, (Reported) Entered as Reported by: ARMANDO VIZCARRA on 11/21/221658 Levothyroxine Sodium (Levothyroxine Sodium) 75 Mcg Tablet, 75 MCG PO DAILY, (Reported) Entered as Reported by: ARMANDO VIZCARRA on 11/21/221658 Meclizine HCl (Meclizine HCl) 25 Mg Tablet, 25 MG PO TID PRN for DIZZINESS, (Reported) Entered as Reported by: ARMANDO VIZCARRA on 11/21/221658 Montelukast Sodium (Montelukast Sodium) 10 Mg Tablet, 10 MG PO HS, (Reported) Entered as Reported by: ARMANDO VIZCARRA on 11/21/221658 Nitrofurantoin Monohyd/M-Cryst (Nitrofurantoin Starr-Mcr 100 mg) 100 Mg Capsule, 100 MG PO DAILY, (Reported) Entered as Reported by: ARMANDO VIZCARRA on 11/21/221658 Oxycodone HCl/Acetaminophen (Oxycodon-Acetaminophen 7.5-325) 7.5 Mg-325 Mg Tablet, 1 EA PO Q8H PRN for PAIN-MODERATE (5-7), (Reported) Entered as Reported by: ARMANDO VIZCARRA on 11/21/221658 Pantoprazole Sodium (Pantoprazole Sodium) 40 Mg Tablet.dr, 40 MG PO BID Prescribed by: TEDDY GAMBLE on 12/04/22999 Paroxetine HCl (Paroxetine HCl) 40 Mg Tablet, 40 MG PO DAILY, (Reported) Entered as Reported by: ARMANDO VIZCARRA on 11/21/221658 Potassium Chloride (K-Tab ER) 10 Meq Tablet.er, 10 MEQ PO DAILY, (Reported) Entered as Reported by: ARMANDO VIZCARRA on 11/21/221658 Pramipexole Di-HCl (Pramipexole Dihydrochloride) 0.5 Mg Tablet, 0.5 MG PO TID, (Reported) Entered as Reported by: ARMANDO VIZCARRA on 11/21/221658 Promethazine HCl (Promethazine Tablet) 25 Mg Tablet, 25 MG PO Q8H PRN for NAUSEA/VOMITING-2ND LINE, (Reported) Entered as Reported by: ARMANDO VIZCARRA on 11/21/22 5989 Sucralfate (Sucralfate) 1 Gram Tablet, 1 GM PO ACHS Prescribed by: TEDDY GAMBLE on 12/04/22 1000 Review of Systems Review of Systems Constitutional: no symptoms reported Past Xtppoxk-Baideu-Sbutwt Hx Patient Social History Tobacco Use?: No Substance use?: No Alcohol Use?: No Pt feels they are or have been: No Immunizations Up To Date Influenza Vaccine Up-to-Date: Yes; Up-to-Date First/Initial COVID19 Vaccinat: X4 Second COVID19 Vaccination Reji: X4 Third COVID19 Vaccination Date: X4 Seasonal Allergies Seasonal Allergies: Yes Past Medical History Surgery/Hospitalization HX: DM 2, [facility] Surg.-Power port placement Surgeries: Yes (BACK SURGERY, LAPAROSCOPY, UPPER AND LOWER SCOPES) Abdominal, Section, Hysterectomy, Oophorectomy, Orthopedic, Thyroidectomy Respiratory: Yes Chronic Bronchitis, COPD, Emphysema Currently Using CPAP: No Currently Using BIPAP: No Cardiac: Yes 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, Hypertension Neurological: Yes (TREMORS) Parkinson's Disease 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 Genitourinary: Yes UTI-Chronic Gastrointestinal: Yes (h pylori hx) Gastroesophageal Reflux Musculoskeletal: Yes Degenerate Disk Disease, Arthritis, Chronic Back Pain Endocrine: Yes (GRAVE'S DISEASE--S/P THYROIDECTOMY) Diabetes, Insulin dep, Hypothyroidsim HEENT: Yes Glaucoma Cancer: No Psychosocial: Yes Anxiety, Depression Integumentary: No Blood Disorders: No Adverse Reaction/Blood Tranf: No Family Medical History No Pertinent Family Hx Physical Exam Vital Signs Vital Signs - First Documented 02/18/23 10:18 Temp 36.0 Pulse 121 Resp 20 B/P (MAP) 141/98 (112) Pulse Ox 96 O2 Delivery Room Air Capillary Refill : Less Than 3 Seconds Height, Weight, BMI Height: 5'3.00" Weight: 203lbs. oz. [id number]; 33.00 BMI Method:Stated General Appearance: No Apparent Distress, WD/WN Eyes: Bilateral Eye Normal Inspection Respiratory: Chest Non Tender, Lungs Clear, Normal Breath Sounds, No Accessory Muscle Use, No Respiratory Distress Cardiovascular: Regular Rate, Rhythm, No Edema, Normal Peripheral Pulses Gastrointestinal: Normal Bowel Sounds, Non Tender, Soft Skin: Other (Port site clean, dry, intact, no infection) Progress/Results/Core Measures Suspected Sepsis SIRS Temperature: Pulse: 121 Respiratory Rate: 20 Blood Pressure 141 /98 Mean: 112 Results/Orders My Orders Orders - OSEAS REYES MD Heparin (Central Iv Flush) (Heparin (Talya (02/18/23 10:45) Medications Given in ED Current Medications Medications Dose Ordered Sig/Darren Route Start Time Stop Time Status Last Admin Dose Admin Heparin Sodium (Porcine) 500 unit ONCE ONCE IV 02/18/23 10:45 02/18/23 10:46 DC 02/18/23 10:49 500 UNIT Vital Signs/I&O 02/18/23 10:18 Temp 36.0 Pulse 121 Resp 20 B/P (MAP) 141/98 (112) Pulse Ox 96 O2 Delivery Room Air Capillary Refill : Less Than 3 Seconds Blood Pressure Mean: 112 Progress Note : Progress Note Patient presented for a [facility] report. She has no complaints at this time. Skin around the port looks normal. The nurse then accessed the port and flushed it without difficulty. Patient then discharged. Departure Impression Primary Impression: Encounter for care related to vascular access port Disposition: HOME, SELF-CARE Condition: Stable Departure-Patient Inst. Decision time for Depature: 11:05 Referrals: MATTHEW CROUCH DO (PCP/Family) Primary Care Physician Add. Discharge Instructions: Please follow back up with your regular doctor in regards to report. Please discuss with your regular doctor when they would like you to get your port accessed at the surgical center and ask if it is okay to be a couple days late so that you do not have to go to the ER for your port access. OSEAS REYES MD Feb 18, 2023 11:03
[2023-02-18 11:08] VITALS: BP 131/73
== END 2023-02-18 11:08 | disposition home or self-care (01) ==
LOC: EDUNIT# 10:01 → ER 10:04
DX: Z45.2 Encounter for adjustment and management of vascular access device (principal)
CPT/HCPCS: 96374; 99281